=== PATIENT | male | born 1950 ===

== ENCOUNTER 2016-08-26 09:53 | Day surgery (SDC) | payer MEDICARE ==
[2016-08-24 13:08] VITALS: BMI 29.5
[~2016-08-26 09:53] MED LIST: ACETAMINOPHEN TAB 500 MG TAB PO ONE; DEXAMETHASONE SOD PHOSPHATE 10 MG/ML 1 ML VIAL IV ONE; DEXAMETHASONE SOD PHOSPHATE 4 MG/ML 1 ML VIAL IV ONE; FAMOTIDINE 20 MG/2 ML VIAL IV ONE; HYDROmorphone 1 MG/ML 1 ML SYRINGE IVP PRN; LACTATED RINGERS 1,000 ML IV SCH; LIDOCAINE 1% 20 ML VIAL (10MG/ML) FOR IV START INTRADERMA PRN; MIDAZOLAM 2 MG/2 ML VIAL IV PRN; ONDANSETRON 4 MG/2 ML VIAL IVP ONE; SCOPOLAMINE 1.5MG/72HR PATCH TRANSDERM ONE
[2016-08-26 11:09] VITALS: RESP 16
[2016-08-26] MEDS ORDERED: fentaNYL (PF) 50 MCG/ML 2 ML AMP ONE (12:03)
[2016-08-26] MEDS ORDERED: MIDAZOLAM 2 MG/2 ML VIAL ONE (12:03)
[2016-08-26] MEDS ORDERED: LIDOCAINE 1% INJ 10MG/ML (20 ML MDV) ONE (12:03)
[2016-08-26] MEDS ORDERED: LIDOCAINE 1% INJ 10MG/ML (20 ML MDV) SQ ONE (12:03)
[2016-08-26] MEDS ORDERED: SUCCINYLCHOLINE CHLORIDE 100 MG/5 ML SYR IV ONE (12:03)
[2016-08-26] MEDS ORDERED: PROPOFOL 10 MG/ML 20 ML VIAL IV ONE (12:03)
[2016-08-26] MEDS ORDERED: LACTATED RINGERS 1,000 ML IV ONE (13:28)
[2016-08-26 13:47] VITALS: TEMP 97
--- NOTE | 2016-08-26 14:03 | P.OP ---
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 Punch biopsy was positive and the patient's here today for a wider excision with frozen section and reconstruction. The patient had a lesion of his back but that had improved and he wishes not to have this surgery Operative Findings: Patient demonstrated positive margins deeply and inferiorly. We did a wider resection and we are awaiting permanent section. Description of Procedure: This patient underwent a general inhalation anesthetic in the face was sterilely prepped and draped in usual fashion. We marked this lesion and marked 4 mm in all directions of this left nasal LR rim. This allowed us to keep the remaining packed and the move forward with a possible skin graft. This was anesthetized with lidocaine 1% with epinephrine 1 100,000 and excised with a 15 blade delicate plastic scissors and a Brown-Adslanette forceps and sent for frozen section. The deep margin was extensively involved the inferior margin which was the rim was extensively involved. Wider resection was recommended. We then with use of a 15 had proceed forward with a complete removal of this left nasal alar rim. We are sending this for permanent section before we proceed forward with the reconstruction. Dressing was applied.
[2016-08-26 15:02] VITALS: BP 131/63; PULSE 60
== END 2016-08-26 15:44 | disposition home or self-care (01) ==
LOC: OR 09:53
PROVIDERS: ATTEND Otolaryngology
DX: C44.311 Basal cell carcinoma of skin of nose (principal); L57.8 Other skin changes due to chronic exposure to nonionizing radiation; Z72.0 Tobacco use; Z85.828 Personal history of other malignant neoplasm of skin; Z79.2 Long term (current) use of antibiotics; Z79.891 Long term (current) use of opiate analgesic; Z79.52 Long term (current) use of systemic steroids; Z79.899 Other long term (current) drug therapy
CPT/HCPCS: 11643; 88305; 88331; J2250; J1100; J2405; J2001; J3010; J0330; J2704

== ENCOUNTER 2018-08-15 07:43 | Inpatient (IN) | payer MEDICARE ==
[~2018-08-15 07:43] MED LIST changes: -DEXAMETHASONE SOD PHOSPHATE 4 MG/ML 1 ML VIAL IV ONE; -FAMOTIDINE 20 MG/2 ML VIAL IV ONE; +HYDROmorphone 0.5 MG/0.5 ML SYRINGE IVP PRN; -HYDROmorphone 1 MG/ML 1 ML SYRINGE IVP PRN; -LACTATED RINGERS 1,000 ML IV SCH; -LIDOCAINE 1% 20 ML VIAL (10MG/ML) FOR IV START INTRADERMA PRN; +MELOXICAM 7.5 MG TAB PO ONE; +ROPIVACAINE 246.25 MG, EPINEPHrine 0.5 MG, KETOROLAC 30 MG, WATER FOR INJECTION,STERILE... MISCELLANE ONE; +TRANEXAMIC ACID 1,000 MG in SODIUM CHLORIDE 0.9% 100 ML IVPB ONE; +ceFAZolin IN SWFI 2 GM/20 ML SYRINGE IVP ONE
[2018-08-15] MEDS ORDERED: DIAZEPAM 5 MG TAB PO PRN (08:07)
[2018-08-15] MEDS ORDERED: NALOXONE 0.4 MG/ML 1 ML VIAL IV PRN (08:07)
[2018-08-15] MEDS ORDERED: HYDROcodone/APAP 5-325MG 1 EACH TAB PO PRN ×2 (08:07)
[2018-08-15] MEDS ORDERED: NA PHOS,M-B/NA PHOS,DI-BA 133 ML ENEMA RECTAL PRN (08:07)
[2018-08-15] MEDS ORDERED: ONDANSETRON 4 MG/2 ML VIAL IVP PRN (08:07)
[2018-08-15] MEDS ORDERED: BISACODYL 10 MG SUPP RECTAL PRN (08:07)
[2018-08-15] MEDS ORDERED: MAGNESIUM HYDROXIDE 2,400 MG/10 ML CUP PO PRN (08:07)
[2018-08-15] MEDS ORDERED: HYDROmorphone 0.5 MG/0.5 ML SYRINGE IVP PRN ×3 (08:07)
[2018-08-15] MEDS ORDERED: hydrOXYzine PAMOATE 25 MG CAP PO PRN (08:07)
[2018-08-15] MEDS: LACTATED RINGERS 1,000 ML IV SCH (08:20)
[2018-08-15] MEDS ORDERED: LIDOCAINE 1% 20 ML VIAL (10MG/ML) FOR IV START INTRADERMA ONE (08:20)
[2018-08-15 08:24] LABS: Glucose,Whole Blood 111 mg/dL (75-99)
[2018-08-15] MEDS ORDERED: fentaNYL (PF) 50 MCG/ML 2 ML AMP IV ONE (08:34)
[2018-08-15] MEDS ORDERED: MIDAZOLAM 2 MG/2 ML VIAL ONE (09:08)
[2018-08-15] MEDS ORDERED: fentaNYL (PF) 50 MCG/ML 2 ML AMP ONE (09:08)
[2018-08-15] MEDS ORDERED: PROPOFOL 10 MG/ML 20 ML VIAL IV ONE (09:08)
[2018-08-15] MEDS ORDERED: ceFAZolin 3,000 MG in SODIUM CHLORIDE 0.9% IRRIGATIO 3,000 ML IRRIGATION ONE (09:44)
--- NOTE | 2018-08-15 09:46 | P.ANPRN ---
Procedure Note - Anesthesia - Nerve Block Performed Left Adductor Canal Infusion Time Out Performed: Yes Date of Procedure: 08/15/18 Procedure Start Time: 08:33 Procedure Stop Time: 08:40 Location of Patient Procedure: PreOp Indication: Acute Post-Operative Pain, Analgesia, Dx/Pain Location, Requested by physician Sedation Type: Sedate with meaningful contact maintained Preparation: Sterile Prep Position: Supine Catheter: None Needle Types: On-Q Needle Gauge: 20 Technique: Ultrasound Injectate: 0.5% Ropivacaine (see comment for volume) Blood Aspirated: No Pain Paresthesia on Injection Noted: No Resistance on Injection: Normal Events: Uneventful and Well Tolerated (20 ML TOTAL INFILTRATION WITH IMAGE IN CHART)
[2018-08-15] MEDS ORDERED: LACTATED RINGERS 1,000 ML IV ONE (10:20)
[2018-08-15] MEDS ORDERED: ROPIVACAINE 1,100 MG, SODIUM CHLORIDE 0.9% 500 ML 330 ML MISCELLANE PRN ×2 (11:25)
--- NOTE | 2018-08-15 11:28 | P.OP ---
Date of Procedure: 08/15/18 Preoperative Diagnosis: Severe medial compartment osteoarthritis left knee Postoperative Diagnosis: Severe medial compartment osteoarthritis left knee Procedure(s) Performed: Left medial unicompartmental knee arthroplasty with the visionare knee guide system Implants: Booth & Nephew journey uni-Oxinium left medial size 5 Booth & Nephew unicompartmental knee system tibial component size 5 left medial Booth & Nephew unicompartmental knee system highly cross-linked polyethylene size 5, 8 mm The articulation is Oxinium on polyethylene The Visionare knee guide system was used. Anesthesia: spinal Surgeon: Jaiden Higginbotham [employer] Letter Carrier #1: Vanessa Tan Estimated Blood Loss (ml): 25 Pathology: other (Bone and cartilage) Condition: stable Disposition: PACU Indications for Procedure: This is a 67-year-old gentleman with a history of multiple myeloma. He's been treated by me in the past conservatively for his osteoarthritis of his left knee. He now wishes to proceed with a left medial unicompartmental knee replacement. We discussed the surgical nonsurgical treatment options, as well as the risks and benefits a total knee arthroplasty versus medial compartmental knee arthroplasty. Informed consent was obtained. Operative Findings: The operative findings are consistent with left medial severe osteoarthritis Description of Procedure: Patient was seen in the preoperative area consent was reviewed and operative site was marked with a skin marker. An adductor canal pain catheter was placed by anesthesia in the preoperative area. Patient was then brought to the operating room and given preoperative antibiotics intravenously. A spinal anesthetic was administered by the anesthesia department. A tourniquet was placed on the upper thigh and the lower extremity was prepped and draped in usual sterile fashion. A gram of transexamic acid was given. A universal timeout was then performed which confirmed the patient's name, surgical site, ALLERGIES, and consent. The lower extremity was then exsanguinated and tourniquet was inflated to 250 mmHg. A standard and anterior midline approach to the knee was performed. The skin and subcutaneous tissue was dissected down to the patellar tendon. A medial parapatellar arthrotomy was then performed. The anterior horn of the medial meniscus was excised, and a release was performed to the posterior medial aspect of the knee. On gross visual inspection, there was complete loss of articular cartilage in the medial compartment. The lateral and patellofemoral compartments were intact. The distal femoral cutting guide was then pinned in place, and the distal femur was then cut. The cutting guide was then removed and the cut was checked for flatness. Next, the proximal tibial cutting guide was then placed and pinned in place. Proximal tibia was cut, as well as using a sagittal saw for the vertical notch cut. The tibia was then sized and the tibial trial was placed and the lug holes were drilled. Next, the femoral sizing guide was then pinned in place after set for the appropriate rotation. The posterior condyle cut and chamfer cut was then performed through the guide. Guide was then removed and the remaining osteophytes removed with a Rominger. Next trials were then placed with the appropriate-sized insert. The knee was able to fully extend and flex to 130 and was stable throughout all range of motion. Trials were then removed. The cut surfaces of bone were then irrigated with pulsatile lavage. The posterior structures were injected with the ropivacaine solution. The knee was also irrigated with Irrisept solution. The components were then opened, the cement was mixed, and the components were then cemented in place. The cement was allowed to harden with the knee in full extension. While the cement was hardening, the remaining soft tissues were then injected with a ropivacaine solution, which consisted of 246.25 mg of ropivacaine, 0.5 mg of epinephrine, 30 mg of Toradol, 80 g of clonidine, and 48.45 mL of sterile water, for a total of 100 mL of fluid injected. After the cemented hardened. The tourniquet was released, and hemostasis was obtained. A second gram of transexamic acid was given. The knee was again irrigated. The knee was again taken through range of motion and found to be stable throughout all range of motion of 0-130, and the patella tracked normally. The fascia was then closed with #2 strata fix suture. The subcutaneous tissue was closed with 3-0 Vicryl and 3-0 strata fix. Dermabond glue was used for the skin and placed with the knee in flexion. The patient was placed in a sterile silver dressing. Patient was then transferred to recovery room in stable condition. The pier master assistant JAYLIN Webster was required due the complexity surgery and the need for a skilled surgical instrument technician. She assisted in positioning, draping, retraction, and closure of the wound.
--- NOTE | 2018-08-15 13:52 | XR ---
EXAMINATION TYPE: XR knee limited LT DATE OF EXAM: 08/15/2018 COMPARISON: NONE TECHNIQUE: Two views submitted HISTORY: Post op FINDINGS: There is postsurgical change in near anatomic alignment. There is soft tissue edema and emphysema. There is an ill-defined intraosseous bone lesion with cortical thinning involving the distal diaphysi s of the right femur. IMPRESSION: 1. Postoperative change. Appears in near-anatomic alignment 2. There is a aggressive-appearing intraosseous bone lesion of the distal femur. Malignant lesion in the differential diagnosis including multiple myeloma or metastases. Report called to the patient's nurse.
[2018-08-15] MEDS ORDERED: HYDROcodone/APAP 5-325MG 1 EACH TAB ONE (15:50)
[2018-08-15] MEDS: SODIUM CHLORIDE 0.9% 1,000 ML IV SCH ×2 (18:04→23:01)
[2018-08-15 18:09] VITALS: BMI 31.8
[2018-08-15] MEDS: ASPIRIN 325 MG TAB PO SCH (20:26)
[2018-08-15] MEDS: SENNOSIDES-DOCUSATE SODIUM 1 EACH TAB PO SCH ×2 (20:26→23:00)
[2018-08-15] MEDS: ceFAZolin IN SWFI 2 GM/20 ML SYRINGE IVP SCH ×2 (20:28→23:29)
[2018-08-16 02:03] VITALS: PULSE 57
[2018-08-16 07:33] LABS: Basophils % (A) 0 %; Eosinophils # (A) 0.1 k/uL (0-0.7); Eosinophils % (A) 1 %; HCT 36.2 % (39.0-53.0); HGB 12.1 gm/dL (13.0-17.5); Lymphocytes # (A) 1.3 k/uL (1.0-4.8); Lymphocytes % (A) 20 %; MCH 31.9 pg (25.0-35.0); MCHC 33.4 g/dL (31.0-37.0); MCV 95.5 fL (80.0-100.0); Mean Platelet Volume 7.3; Monocytes % (A) 15 %; Neutrophils # (A) 4.1 k/uL (1.3-7.7); Neutrophils % (A) 61 %; Platelet Count 136 k/uL (150-450); RDW 15.5 % (11.5-15.5); WBC 6.8 k/uL (3.8-10.6)
--- NOTE | 2018-08-16 07:33 | CONS ---
CONSULTATION DATE OF CONSULTATION: 08/15/2018 REASON FOR CONSULTATION: Medical management requested by Dr. Higginbotham. CONSULTATION: This is a very pleasant 67-year-old patient of Dr. Martin from [place]. Did undergo left medial unicompartmental arthroplasty today. Pain is controlled. No nausea, vomiting. No chest pain or shortness of breath. Chronic stable medical conditions include multiple myeloma for which she is getting treatment, varicose veins, peripheral neuropathy. The patient has a cystic lesion in the left femur involved by the multiple myeloma that has been followed by his venereal disease control head. Otherwise, . The patient doing well, did tolerate his supper. REVIEW OF SYSTEMS: CONSTITUTIONAL: None. HEENT: None. RESPIRATORY: None. CARDIOVASCULAR: None. GASTROINTESTINAL: None. GENITOURINARY: None. MUSCULOSKELETAL: Pain in the joints. DERMATOLOGICAL: None. HEMATOLOGIC: None. LYMPHATIC: None. PSYCHIATRY: None. NEUROLOGICAL: Numbness and tingling in the feet. PAST MEDICAL HISTORY: Multiple myeloma, varicose veins, peripheral neuropathy, skin cancer, radiation treatment to the left femur lesion from multiple myeloma. PAST SURGICAL HISTORY: Hernia repair, colonoscopy, skin cancer removed, right shoulder rotator cuff surgery. SOCIAL HISTORY: Occasional cigar use. Stopped smoking cigarettes 15 years ago. Alcohol nil. Retired from the [employer]. FAMILY HISTORY: Family history of cancer. HOME MEDICATIONS: 1. Dexamethasone 4 mg on Tuesday. 2. Aspirin 81 mg daily. 3. Zovirax 200 mg as directed. ALLERGIES: None. PHYSICAL EXAMINATION: On examination, temperature 97.7, pulse 63, respiration 18, blood pressure 131/72, pulse ox 96% on room air. GENERAL APPEARANCE: Well built, BMI 31.4, sitting at the edge of the bed. EYES: Pupils equal. Conjunctivae normal. HENT: External appearance of nose and ears normal. Oral cavity normal. NECK: JVD not raised. Mass not palpable. RESPIRATORY: Effort normal. LUNGS: Fair entry. CARDIOVASCULAR: First and second sounds normal. No edema. ABDOMEN: Soft, nontender. Liver and spleen not palpable. LYMPHATIC: No lymph nodes palpable in the neck and axillae. PSYCHIATRY: Alert and oriented x3. Mood and affect normal. MUSCULOSKELETAL: Evidence of osteoarthritis in the hands. Dressing over the left knee. INVESTIGATIONS: Currently no blood work. ASSESSMENT: 1. Left medial unicompartmental arthroplasty. 2. Multiple myeloma under active treatment. 3. Chronic varicose veins. 4. 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 PLAN: Home medications to be continued. For DVT prophylaxis, the patient is on aspirin 325 twice [address] day [address] Higginbotham. Care was discussed with the patient. Questions were answered. Thank you Dr. Higginbotham. MMJUDD / NANCYN: [phone] /
[2018-08-16] MEDS: LACTATED RINGERS 1,000 ML IV SCH (07:39)
[2018-08-16 07:46] VITALS: BP 146/75; RESP 16; TEMP 97.7
--- NOTE | 2018-08-16 07:54 | P.PN ---
Progress Note - Text Progress Note Date: 08/16/18 anesthesia adductor catheter rounds s/p left knee Arthroplasty patient evaluated at the bedside, denies any major complaints VAS 4/10, catheter site unremarkable without leakage or signs of infection primary team to manage, possible home discharge
--- NOTE | 2018-08-16 09:28 | P.DS ---
Providers Date of admission: 08/15/18 07:43 Expected date of discharge: 08/16/18 Attending physician: Jaiden Higginbotham Consults: 08/15/18 08:07 Consult Physician Routine Consulting Provider: Gal Schafer Consult Reason/Comments: medical management and anticoagulation Do you want consulting provider notified?: Yes Primary care physician: Neftaly Martin - Discharge Diagnosis(es) (1) Osteoarthritis of left knee Current Visit: Yes Status: Acute (2) Status post total left knee replacement Current Visit: Yes Status: Acute Hospital Course: This is a 67-year-old male with known history of severe medial compartment osteo arthritis of the left knee. The patient presents for evaluation. After discussion and consideration patient elects to proceed with left medial unicompartmental knee arthroplasty. The patient is seen preoperatively by Dr. Higginbotham and medically cleared for surgery by their primary care physician. Patient is admitted to [facility] on 08/15/2018 for left medial unicompartmental knee arthroplasty. The procedures performed without complication or sequelae. The patient is doing well postoperatively. Labs and vital signs are stable on day of discharge. On day of discharge patient's knee incision is healing well. There is minimal erythema. There is no drainage noted at this time. There is minimal soft tissue swelling to the knee. Patient has full foot and ankle motion without d ifficulty or pain. Calf is soft and nontender to palpation. Neurovascular status to the left lower extremity is intact. Patient is discharged home in good condition. Opioid start talking form is reviewed and signed at patient bedside. Please see med rec for accurate list of home medications. Plan - Discharge Summary Discharge Rx Participant: Yes New Discharge Prescriptions: New Aspirin 325 mg PO BID #60 tab No Action Aspirin [Adult Low Dose Aspirin EC] 81 mg PO DAILY Acyclovir [Zovirax] 200 mg PO DIRECTED Dexamethasone 4 mg PO WE Discharge Medication List Acyclovir [Zovirax] 200 mg PO DIRECTED 08/10/18 [History] Aspirin [Adult Low Dose Aspirin EC] 81 mg PO DAILY 08/10/18 [History] Dexamethasone 4 mg PO WE 08/10/18 [History] Aspirin 325 mg PO BID #60 tab 08/16/18 [Rx] Follow up Appointment(s)/Referral(s): Jaiden Higginbotham DO [Doctor of Osteopathic Medicine] - 2 Weeks Activity/Diet/Wound Care/Special Instructions: Weightbearing as tolerated with a walker. CPM 5-6h daily. Leave dressing intact. May be removed by home care nurse or by patient in 10 days. May shower with dressing on. Patient states that he has pain medication at home to take that is prescribed by another physician. Please follow up with [facility] and call with any questions or concerns, . Discharge Disposition: HOME WITH HOME HEALTH SERVICES
[2018-08-16] MEDS: ASPIRIN 325 MG TAB PO SCH (10:55)
--- NOTE | 2018-08-17 07:03 | PN ---
PROGRESS NOTE DATE OF SERVICE: 08/16/2018 PRESENTING COMPLAINT: Knee surgery. INTERVAL HISTORY: Patient is status post left knee surgery, doing well. Pain is controlled. Up and about. No dizziness. No chest pain. Did tolerate a diet. REVIEW OF SYSTEMS: Done for constitutional, cardiovascular, GI, pulmonary; relevant findings as above. CURRENT MEDICATIONS: Current medications are reviewed. PHYSICAL EXAMINATION: On examination, temperature 97.7, pulse 57, respiration 16, blood pressure 146/75, pulse ox 95% on room air. LUNGS: Are clear. CARDIOVASCULAR: First and second sounds normal. ABDOMEN: Soft, nontender. Liver and spleen not palpable. PSYCHIATRY: Alert and oriented x3. Mood and affect normal. LOWER EXTREMITIES: Varicose veins are present. INVESTIGATIONS: White count 6.8, hemoglobin 12.1. ASSESSMENT: 1. Left medial unicompartmental arthroplasty. 2. Multiple myeloma under active treatment. 3. Chronic varicose veins. 4. 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 PLAN: Care was discussed the patient especially due to varicose veins. Care was discussed with the patient's . Questions were answered. Thank you Dr. Higginbotham. MMZANEL / NANCYN: [phone] /
== END 2018-08-16 11:53 | disposition home health service (06) | DRG 470 ==
LOC: 2ORMAIN 07:43 → 4SSUR 13:28
PROVIDERS: ADMIT Orthopaedic Surgery; ATTEND Orthopaedic Surgery
PROC: 0SRD0L9 Replacement of Left Knee Joint with Medial Unicondylar Synthetic Substitute, Cemented, Open Approach (ICD-10-PCS; principal; 2018-08-15 09:20)
DX: M17.12 Unilateral primary osteoarthritis, left knee (principal); C90.00 Multiple myeloma not having achieved remission; G62.0 Drug-induced polyneuropathy; T45.1X5A Adverse effect of antineoplastic and immunosuppressive drugs, initial encounter; F17.290 Nicotine dependence, other tobacco product, uncomplicated; I83.90 Asymptomatic varicose veins of unspecified lower extremity; I10 Essential (primary) hypertension; Z79.82 Long term (current) use of aspirin; Z79.899 Other long term (current) drug therapy; Z85.828 Personal history of other malignant neoplasm of skin; Z80.9 Family history of malignant neoplasm, unspecified
CPT/HCPCS: 85025; 88300

== ENCOUNTER 2019-11-16 10:57 | Inpatient (IN) | payer MEDICARE ==
[2019-11-16] MEDS ORDERED: ACETAMINOPHEN TAB 325 MG TAB PO PRN (11:04)
[2019-11-16] MEDS ORDERED: IBUPROFEN 400 MG TAB PO PRN (11:04)
[2019-11-16] MEDS ORDERED: NALOXONE 0.4 MG/ML 1 ML VIAL IV PRN (11:04)
[2019-11-16] MEDS ORDERED: ONDANSETRON 4 MG/2 ML VIAL IVP PRN (11:04)
[2019-11-16] MEDS ORDERED: MAG HYDROX/AL HYDROX/SIMETH 30 ML CUP PO PRN (11:04)
[2019-11-16] MEDS ORDERED: CALCIUM CARBONATE 500 MG CHEWABLE PO PRN (11:04)
[2019-11-16 12:19] LABS: Basophils % (A) 0 %; Eosinophils % (A) 2 %; HCT 35.8 % (39.0-53.0); HGB 11.7 gm/dL (13.0-17.5); Lymphocytes # (A) 0.2 k/uL (1.0-4.8); Lymphocytes % (A) 10 %; MCH 32.6 pg (25.0-35.0); MCHC 32.8 g/dL (31.0-37.0); MCV 99.3 fL (80.0-100.0); Mean Platelet Volume 7.7; Monocytes # (A) 0.2 k/uL (0-1.0); Monocytes % (A) 7 %; Neutrophils # (A) 1.8 k/uL (1.3-7.7); Neutrophils % (A) 81 %; Platelet Count 124 k/uL (150-450); RBC 3.61 m/uL (4.30-5.90); RDW 13.5 % (11.5-15.5); WBC 2.3 k/uL (3.8-10.6)
[2019-11-16 12:29] LABS: ALT 64 U/L (4-49); AST 31 U/L (17-59); African American GFR (CKD) >90 (>60 ml/min/1.73 sqM); Alkaline Phosphatase 92 U/L (38-126); Anion Gap 6 mmol/L; Blood Urea Nitrogen 16 mg/dL (9-20); Carbon Dioxide 28 mmol/L (22-30); Chloride 101 mmol/L (98-107); Glucose 153 mg/dL (74-99); Non-African American GFR(CKD) >90 (>60 ml/min/1.73 sqM); Potassium 4.3 mmol/L (3.5-5.1); Sodium 135 mmol/L (137-145); Total Bilirubin 0.8 mg/dL (0.2-1.3); Total Protein 5.3 g/dL (6.3-8.2)
--- NOTE | 2019-11-16 12:44 | P.HPOR ---
History of Present Illness H&P Date: 11/16/19 Chief Complaint: left upper extremity cellulitis this is a 68-year-old male who presented to our office today for follow-up of his left elbow. He was initially seen on 11/13/2019 with cellulitis to the elbow. He has no known history of trauma or injury to the arm. He states that he was unloading his truck with wood the days prior. He developed redness, swelling and pain to the left elbow. He was placed on Keflex initially in the emergency department and has been on the antibiotics for 6 days.On exam in the office today his symptoms have progressed significantly. He was admitted from our office for IV antibiotic and wound care to the left upper extremity. The patient has history of chronic multiple myeloma. He has been on a chemotherapeutic medication. I have contacted his oncologist and a recent PET scan shows no increased uptake other than the left elbow. According to recent labs his immunoglobulin levels are low. He had a temperature of 101 prior to his visit on 11/13/2019. He states that he has been afebrile since beginning the antibiotic. Past Medical History Past Medical History: Cancer Additional Past Medical History / Comment(s): MULTIPLE MYELOMA- RECEIVES ANTIBODY TX AT [facility]) last July,. SKIN CANCER.- LEFT NASAL BASAL CELL CANCER. 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,hands and feet, had radiation tx for leasion on left femur History of Any Multi-Drug Resistant Organisms: None Reported Past Surgical History: Hernia Repair, Orthopedic Surgery Additional Past Surgical History / Comment(s): COLONOSCOPY, LEFT NASAL SKIN CANCER REMOVED, rt shoulder rotator cuff Past Anesthesia/Blood Transfusion Reactions: No Reported Reaction Past Psychological History: No Psychological Hx Reported Past Alcohol Use History: None Reported Additional Past Alcohol Use History / Comment(s): occ cigar currently, stopped cigarettes 15 yrs ago Past Drug Use History: None Reported - Past Family History Mother Family Medical History: Cancer Medications and Allergies Home Medications Medication Instructions Recorded Confirmed Type Aspirin [Adult Low Dose Aspirin EC] 81 mg PO DAILY 08/10/18 11/16/19 History dexAMETHasone [Dexamethasone] 4 mg PO FRSA 08/10/18 11/16/19 History Acyclovir 400 mg PO BID 11/16/19 11/16/19 History Cephalexin [Keflex] 500 mg PO Q6HR 11/16/19 11/16/19 History HYDROcodone/APAP 5-325MG [[place] 1 tab PO Q6HR PRN 11/16/19 11/16/19 History 5-325] Pomalidomide [Pomalyst] 4 mg PO DAILY 11/16/19 11/16/19 History Allergies Allergy/AdvReac Type Severity Reaction Status Date / Time No Known Allergies Allergy Verified 08/15/18 14:35 Physical Examination this is a pleasant 68-year-old male in no acute distress. He is alert and oriented at this time. His is present during exam. Exam of the left upper extremity reveals significant erythema and swelling from the upper arm down to the fingers there is a superficial wound to the lateral aspect of the elbow and forearm which is weeping clear fluid. There is also a small wound on the volar aspect of the forearm. He has near full extension of the elbow with flexion to 90. He has full wrist and finger motion without difficulty or pain. Neurovascular status to the upper extremity is intact. Results - Labs Labs: Abnormal Lab Results - Last 24 Hours (Table) 11/16/19 11/16/19 Range/Units 12:03 12:03 WBC 2.3 L (3.8-10.6) k/uL RBC 3.61 L (4.30-5.90) m/uL Hgb 11.7 L (13.0-17.5) gm/dL Hct 35.8 L (39.0-53.0) % Plt Count 124 L (150-450) k/uL Lymphocytes # 0.2 L (1.0-4.8) k/uL Sodium 135 L (137-145) mmol/L Glucose 153 H (74-99) mg/dL ALT 64 H (4-49) U/L Total Protein 5.3 L (6.3-8.2) g/dL Albumin 3.0 L (3.5-5.0) g/dL H & H 11/16/19 Range/Units 12:03 Hgb 11.7 L (13.0-17.5) gm/dL Hct 35.8 L (39.0-53.0) % Result Diagrams: 11/16/19 12:03 11/16/19 12:03 Assessment and Plan (1) Cellulitis of left upper extremity Current Visit: Yes Status: Acute Code(s): L03.114 - CELLULITIS OF LEFT UPPER LIMB SNOMED Code(s): 514352710 (2) Hx of multiple myeloma Current Visit: Yes Status: Acute Code(s): Z85.79 - PRSNL HX OF MALIG NEOPLM OF LYMPHOID, HEMATPOETC & REL TISS SNOMED Code(s): 232617874547312 Plan: The clinical findings are discussed with the patient and his . Since he has failed outpatient antibiotic treatment, it is recommended that he be admitted to the hospital for IV antibiotics and wound care. The oncologist has recommended transfusion with IVIG as well as discontinuing his chemotherapeutic medication. I have consulted infectious disease and Dr. Martin for medical ma nagement.
[2019-11-16] MEDS: SODIUM CHLORIDE 0.9% 1,000 ML IV SCH (12:46)
[2019-11-16] MEDS ORDERED: IMMUNE GLOBULIN (GAMMAGARD) 20 GM in EMPTY BAG 1 BAG IV ONE ×6 (14:00→17:00)
[2019-11-16] MEDS ORDERED: VANCOMYCIN IV PER PHARMACY 1 EACH MISC MISCELLANE PRN (16:02)
[2019-11-16] MEDS ORDERED: VANCOMYCIN 1,750 MG in SODIUM CHLORIDE 0.9% 500 ML 500 ML IVPB ONE (16:30)
[2019-11-16] MEDS ORDERED: IMMUNE GLOBULIN (GAMMAGARD) 30 GM in EMPTY BAG 1 BAG IV ONE (17:00)
[2019-11-16] MEDS ORDERED: IMMUNE GLOBULIN (GAMMAGARD) 5 GM in EMPTY BAG 1 BAG IV ONE (17:00)
--- NOTE | 2019-11-16 18:01 | CT ---
EXAMINATION TYPE: CT forearm LT w con DATE OF EXAM: 11/16/2019 COMPARISON: None HISTORY: Left forearm abscess CT DLP: 237.4 mGycm Automated exposure control for dose reduction was used. CONTRAST: Performed with IV Contrast, patient injected with 100 mL of Isovue 300. Images were obtained from the level of the distal humerus to the radiocarpal joint with IV contrast. There is subcutaneous edema over the proximal posterior ulna. There is also mild subcutaneous edema o chucky the anterior proximal forearm. Fluid collection is seen along the proximal ulna that measures at least 15 cm in length and up to 1.5 cm in thickness. I see no bony destructive process. Radius and ulna appear intact. The elbow joint is intact. There is no sign of elbow joint effusion. Muscle structures of the forearm appear intact. IMPRESSION: Subcutaneous edema and fluid around the proximal forearm that is more at the posterior proximal ulna and consistent with cellulitis. There is probably abscess also. No focal bone destruction. No fractur e seen.
[2019-11-17] MEDS: VANCOMYCIN 1,750 MG in SODIUM CHLORIDE 0.9% 500 ML 500 ML IVPB SCH ×3 (00:28→16:02)
--- NOTE | 2019-11-17 00:38 | P.CONS ---
History of Present Illness - Reason for Consult Consult date: 11/16/19 Left upper extremity cellulitis Requesting physician: Yrn Duarte - Chief Complaint Left forearm pain swelling and tenderness x few days - History of Present Illness Patient is 68-year-old male who apparently was unloading his truck with the words as he was working on the porch the next day he noticed swelling and redness to the left forearm patient did not recall any trauma when he was unloading the truck when he got patient was seen at [facility] ER with the patient was diagnosed with cellulitis and has been treated with oral Keflex patient did have more days from the area of redness and he was instructed if the redness spreads plan is to follow-up with physician patient noticed to have more swelling and redness to the left forearm for the patient was evaluated by orthopedic associated Dr. Duarte patient has been diagnosed with worsening cellulitis he was admitted to the hospital infectious disease was consulted for further management of antibiotic therapy, patient may symptom remains to be diffuse swelling and redness to the left arm also some superficial ulceration and minimal drainage, pain is mostly dull aching 3-4 out of 10 and no radiation, patient on presentation hospital afebrile however he did have some mild leukopenia kidney function normal Review of Systems Positive point has been mentioned in the HPI rest of the systems are negative Past Medical History Past Medical History: Cancer Additional Past Medical History / Comment(s): MULTIPLE MYELOMA- RECEIVES ANTIBODY TX AT [facility]) last July,. SKIN CANCER.- LEFT NASAL BASAL CELL CANCER. 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,hands and feet, had radiation tx for leasion on left femur History of Any Multi-Drug Resistant Organisms: None Reported Past Surgical History: Hernia Repair, Orthopedic Surgery Additional Past Surgical History / Comment(s): COLONOSCOPY, LEFT NASAL SKIN CANCER REMOVED, rt shoulder rotator cuff Past Anesthesia/Blood Transfusion Reactions: No Reported Reaction Past Psychological History: No Psychological Hx Reported Past Alcohol Use History: None Reported Additional Past Alcohol Use History / Comment(s): occ cigar currently, stopped cigarettes 15 yrs ago Past Drug Use History: None Reported - Past Family History Mother Family Medical History: Cancer Father Family Medical History: Coronary Artery Disease (CAD) Medications and Allergies Home Medications Medication Instructions Recorded Confirmed Type Aspirin [Adult Low Dose Aspirin EC] 81 mg PO DAILY 08/10/18 11/16/19 History dexAMETHasone [Dexamethasone] 4 mg PO FRSA 08/10/18 11/16/19 History Acyclovir 400 mg PO BID 11/16/19 11/16/19 History Cephalexin [Keflex] 500 mg PO Q6HR 11/16/19 11/16/19 History HYDROcodone/APAP 5-325MG [[place] 1 tab PO Q6HR PRN 11/16/19 11/16/19 History 5-325] Pomalidomide [Pomalyst] 4 mg PO DAILY 11/16/19 11/16/19 History Allergies Allergy/AdvReac Type Severity Reaction Status Date / Time No Known Allergies Allergy Verified 08/15/18 14:35 Physical Exam Vitals: Vital Signs Temp Pulse Resp BP Pulse Ox 11/16/19 13:25 97.9 F 84 20 118/78 96 Intake and Output 11/15/19 11/16/19 11/16/19 22:59 06:59 14:59 Other: Weight 108.862 kg GENERAL DESCRIPTION: An elderly male lying in bed, no distress. No tachypnea or accessory muscle of respiration use. HEENT: Shows Pallor , no scleral icterus. Oral mucous membrane is dry. No pharyngeal erythema or thrush NECK: Trachea central, no thyromegaly. LUNGS: Unlabored breathing. Clear to auscultation anteriorly. No wheeze or crackle. HEART: S1, S2, regular rate and rhythm. No loud murmur ABDOMEN: Soft, no tenderness , guarding or rigidity, no organomegaly EXTREMITIES: Left forearm did have diffuse swelling and redness no significant swelling was noticed at elbow area he did have some superficial ulceration. SKIN: No rash, no masses palpable. NEUROLOGICAL: The patient is awake, alert, oriented x3, mood and affect normal. Results CBC & Chem 7: 11/16/19 12:03 11/16/19 12:03 Labs: Abnormal Lab Results - Last 24 Hours (Table) 11/16/19 11/16/19 Range/Units 12:03 12:03 WBC 2.3 L (3.8-10.6) k/uL RBC 3.61 L (4.30-5.90) m/uL Hgb 11.7 L (13.0-17.5) gm/dL Hct 35.8 L (39.0-53.0) % Plt Count 124 L (150-450) k/uL Lymphocytes # 0.2 L (1.0-4.8) k/uL Sodium 135 L (137-145) mmol/L Glucose 153 H (74-99) mg/dL ALT 64 H (4-49) U/L Total Protein 5.3 L (6.3-8.2) g/dL Albumin 3.0 L (3.5-5.0) g/dL Assessment and Plan Assessment: 1- patient with acute left forearm cellulitis possibly started from my laceration when he was unloading the truck the day before his symptoms started and seems to have failed to respond to the oral Keflex with concern for possible underlying abscess and that may need to be drained or community associated MRSA (1) Cellulitis of left upper extremity Current Visit: Yes Status: Acute Code(s): L03.114 - CELLULITIS OF LEFT UPPER LIMB SNOMED Code(s): 240083448 Plan: 1- wound culture has been obtained to guide antibiotic therapy 2-we'll obtain a CT of the forearm to rule out any abscess and that may need to be drained 3-Vancomycin pharmacy to dose target trough of 15 while watching his kidney function and Vanco trough closely 4- local wound care with try Aquacel silver dressing followed by Onur wrap to the left arm from just above the finger to above the elbow area We will follow on clinical condition and cultures to further adjust medication if needed Thank you for this consultation will follow this patient with you Time with Patient: Greater than 30
--- NOTE | 2019-11-17 12:49 | P.PN ---
Progress Note - Text Progress Note Date: 11/17/19 Orthopedics: History of present illness: Patient is a pleasant 68-year-old male who is seen and examined at bedside for follow-up evaluation for the cellulitis of his left upper extremity. He was originally admitted yesterday after failing conservative treatment in the outpatient setting. He is not currently complaining of any pain in his left upper extremity. He feels his left upper extremity swelling has improved since his admission. He has been seen and examined by Dr. Busch in infectious disease who is managing IV antibiotics as well as wound care. He is currently on vancomycin. Cultures are currently pending with preliminary results positive for rare gram-positive cocci. Patient does have a history of chronic multiple myeloma. Patient has been on chemotherapeutic medication. This medicine has been held per recommendations by his oncologist. Patient has been able to receive IgG transfusion since his admission. He has also had CT imaging of the left forearm. Patient does feel he has had some improvement since his admissi on. Physical Exam: Patient is awake, alert, and oriented 3 Vital signs stable Good chest excursion with deep inspiration and expiration Onur wrap currently intact at the elbow extending to the left hand Top Onur wrap is loose and is removed during physical examination reapplied Dressing is in place over a superficial wound at the lateral aspect of the elbow and forearm Patient is able to perform active range of motion of the fingers the left hand and left elbow without difficulty Pertinent studies: Wound culture the left elbow: Preliminary results positive for rare gram- positive cocci CT of the left forearm taken on 11/16/2019: Subcutaneous edema and fluid around the proximal forearm there is more at the posterior proximal ulna and consistent with cellulitis; no focal bone destruction; no fracture seen; probably abscess also Assessment: Cellulitis left upper extremity History of multiple myeloma Plan: 1. Patient had been discussed with Dr. Duarte and Liana Whitaker PA-C. We are currently planning to continue conservative treatment at this time in regards to his left upper extremity cellulitis. We do not have any emergent plans for surgical intervention of his left upper extremity. If he were to fail with conservative treatment and IV antibiotics, we would discuss the possibility of incision and drainage at the left elbow. Patient will continue with wound care as set forth by Dr. Busch. He is currently on IV antibiotics with vancomycin as prescribed by Dr. Busch in infectious disease. We will plan to continue having Dr. Busch manage his IV antibiotics. Wound cultures left elbow are currently pending with preliminary results positive for rare Gram stain positive cocci. Once the cultures are finalized and Dr. Busch is able to prescribe the patient the appropriate antibiotic regimen, we may plan for discharge home if the patient is able to continue to improve. We will continue to follow patient. 2. Patient was able to receive one IgG transfusion of 55 g. we will continue to hold chemotherapeutic medication per his oncologist recommendations. 3. Patient will continue to be seen by medicine for treatment and evaluation of his other medical diagnoses
--- NOTE | 2019-11-17 15:58 | PN ---
PROGRESS NOTE DATE OF SERVICE: 11/17/2019 REASON FOR FOLLOWUP: Left upper extremity wound and cellulitis. INTERVAL HISTORY: Patient is currently afebrile, has been breathing comfortably. Pain to the left upper extremity and swelling slightly decreased. No chest pain or cough. No abdominal pain or diarrhea. PHYSICAL EXAMINATION: Blood pressure 115/70 with a pulse of 56, temperature is 97.8. He is 98% on room air. General description is an elderly male lying in bed in no distress. Respiratory system: Unlabored breathing, clear to auscultation anteriorly. Heart S1, S2. Regular rate and rhythm. Abdomen is soft, no tenderness. Left upper extremity is currently dressed up. No obvious drainage on the dressing. LABS: Wound and blood cultures currently pending. DIAGNOSTIC IMPRESSION AND PLAN: Patient with left upper extremity cellulitis, failing outpatient oral Keflex therapy. CT did show small abscess. Case was discussed with Ortho. Will be discussing with a physician with question of possible I and D or not. We will keep the patient on vancomycin while waiting for the culture to finalize and monitor clinical course closely. MMODL / IJN: [id number] /
[2019-11-17] MEDS: ENOXAPARIN 40 MG/0.4 ML SYRINGE SQ SCH (16:02)
[2019-11-17] MEDS ORDERED: HYDROcodone/APAP 5-325MG 1 EACH TAB PO PRN (16:43)
--- NOTE | 2019-11-17 16:43 | P.CONS ---
History of Present Illness - Reason for Consult Consult date: 11/17/19 Medical management Requesting physician: Yrn Duarte - Chief Complaint Left arm redness - History of Present Illness History of presenting complaint: This is a 68-year-old patient of Dr. Sagar veras from [place]. Long- standing history of multiple myeloma that is under control. Patient takes dexamethasone twice a week and Pomalyst as maintenance dose. Additional chronic stable medical conditions include varicose veins, peripheral neuropathy, patient had presented yesterday to Dr. Duarte's office. This is a follow-up for the left elbow. He was initially seen on November 12 was described as a cellulitis to the elbow. He denied any trauma. Prior to the redness starting he was unloading his truck with [employer]. His reading glass es. His redness swelling extended to the left arm. He was initially put on Keflex in the ER. Symptoms are progressively gotten worse. The office had contacted patient's oncologist and a recent PET scan that showed no increased uptake other than the left elbow. Recent lab showed low immunoglobin is. She was admitted for the same. Earlier he was given immunoglobulin. Patient often rests his left elbow on a recliner which is made of thick clots. He had a fever prior to starting on antibiotics. Continued left arm is a dressing and Onur wrap. Review of systems: GEN.: Tired EYES: None HEENT: None NECK: None RESPIRATORY: None CARDIOVASCULAR: None GASTROINTESTINAL: None GENITOURINARY: None MUSCULOSKELETAL: None LYMPHATICS: None HEMATOLOGICAL: None PSYCHIATRY: None NEUROLOGICAL: None Past medical history to include: Multiple myeloma in remission with recent PET scan negative, left nasal basal cell cancer, varicose veins, peripheral neuropathy, Social history: Lives with his . Occasional cigar smoking. Stopped smoking 15 years ago cigarettes. Alcohol none. Physical examination: VITAL SIGNS: 97.9, 84, 20, 118/78, 96% room air upon presentation GENERAL: BMI 31.7, sitting up in bed, awake. EYES: Pupils equal. Conjunctiva normal. HEENT: External appearance of nose and ears normal, oral cavity grossly normal. NECK: JVD not raised; masses not palpable. HEART: First and second heart sounds are normal; no edema. LUNGS: Respiratory rate normal; clear to auscultation. ABDOMEN: Soft, nontender, liver spleen not palpable, no masses palpable. PSYCH: Alert and oriented x3; mood and affect normal. EXTREMITY: Left forearm and a dressing and Onur wrap, no swelling of the fingers able to move fingers NEUROLOGICAL: Cranial nerves grossly intact; no facial asymmetry, power and sensation grossly intact. LYMPHATICS: No lymph nodes palpable in the axilla and neck INVESTIGATIONS, reviewed in the clinical context: White count 2.3 hemoglobin 11.7 platelets 124 potassium 4.3 creatinine 0.71 albumin 3 Forearm computed tomography scan showing subcutaneous edema and fluid around the proximal forearm. Abscess cannot be ruled out. Assessment: -Left forearm cellulitis having failed outpatient treatment with Keflex for a week with secondary swelling and tenderness -Pancytopenia from underlying diagnoses of multiple myeloma -Multiple myeloma currently under control in recent PET scan being negative -Obesity BMI 31.7 -Hypoalbuminemia-reactive Plan: Patient is on IV vancomycin. Kerlix and Onur wrap. Put the patient on the stress dose of IV hydrocortisone. Other home medications are to continue. Care was discussed with the patient question also. Keep left arm elevated. Patient is also being followed by infectious disease Thank you Dr. Duarte Past Medical History Past Medical History: Cancer Additional Past Medical History / Comment(s): MULTIPLE MYELOMA- RECEIVES ANTIBODY TX AT [facility]) last July,. SKIN CANCER.- LEFT NASAL BASAL CELL CANCER. 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,hands and feet, had radiation tx for leasion on left femur History of Any Multi-Drug Resistant Organisms: None Reported Past Surgical History: Hernia Repair, Orthopedic Surgery Additional Past Surgical History / Comment(s): COLONOSCOPY, LEFT NASAL SKIN CANCER REMOVED, rt shoulder rotator cuff Past Anesthesia/Blood Transfusion Reactions: No Reported Reaction Past Psychological History: No Psychological Hx Reported Past Alcohol Use History: None Reported Additional Past Alcohol Use History / Comment(s): occ cigar currently, stopped cigarettes 15 yrs ago Past Drug Use History: None Reported - Past Family History Mother Family Medical History: Cancer Additional Family Medical History / Comment(s): Mother had lymphoma. She lived to be over 80 Father Family Medical History: Coronary Artery Disease (CAD) Medications and Allergies Home Medications Medication Instructions Recorded Confirmed Type Aspirin [Adult Low Dose Aspirin EC] 81 mg PO DAILY 08/10/18 11/16/19 History dexAMETHasone [Dexamethasone] 4 mg PO FRSA 08/10/18 11/16/19 History Acyclovir 400 mg PO BID 11/16/19 11/16/19 History Cephalexin [Keflex] 500 mg PO Q6HR 11/16/19 11/16/19 History HYDROcodone/APAP 5-325MG [[place] 1 tab PO Q6HR PRN 11/16/19 11/16/19 History 5-325] Pomalidomide [Pomalyst] 4 mg PO DAILY 11/16/19 11/16/19 History Allergies Allergy/AdvReac Type Severity Reaction Status Date / Time No Known Allergies Allergy Verified 08/15/18 14:35 Physical Exam Vitals: Vital Signs Temp Pulse Pulse Resp BP BP Pulse Ox 11/17/19 04:31 97.5 F L 59 L 17 114/66 97 11/16/19 20:12 97.5 F L 82 82 16 152/81 98 11/16/19 13:25 97.9 F 84 20 118/78 96 11/16/19 11:04 96 Intake and Output 11/16/19 11/17/19 11/17/19 22:59 06:59 14:59 Intake Total 315.617 790 240 Balance 315.617 790 240 Intake: Intake, IV Titration 25.617 500 Amount Immune Globulin ( 25.617 Gammagard) 30 gm In Empty Bag 1 bag @ Per Protocol IV .Q0M ONE Rx#: [id number] Vancomycin 1,750 mg In 500 Sodium Chloride 0.9% 500 ml 500 ml @ 167 mls/hr IVPB Q8H [facility] Rx#: [id number] Oral 290 290 240 Other: Voiding Method Toilet Toilet Toilet # Voids 1 1 Weight 108.862 kg Results CBC & Chem 7: 11/16/19 12:03 11/16/19 12:03 Labs: Abnormal Lab Results - Last 24 Hours (Table) 11/16/19 11/16/19 Range/Units 12:03 12:03 WBC 2.3 L (3.8-10.6) k/uL RBC 3.61 L (4.30-5.90) m/uL Hgb 11.7 L (13.0-17.5) gm/dL Hct 35.8 L (39.0-53.0) % Plt Count 124 L (150-450) k/uL Lymphocytes # 0.2 L (1.0-4.8) k/uL Sodium 135 L (137-145) mmol/L Glucose 153 H (74-99) mg/dL ALT 64 H (4-49) U/L Total Protein 5.3 L (6.3-8.2) g/dL Albumin 3.0 L (3.5-5.0) g/dL Microbiology - Last 24 Hours (Table) 11/16/19 15:00 Gram Stain - Preliminary Arm - Left Wound Culture - Preliminary
[2019-11-17] MEDS: HYDROCORTISONE SUCCINATE 100 MG/2 ML VIAL IV SCH (17:15)
--- NOTE | 2019-11-17 17:15 | P.PCN ---
Date of Procedure: 11/17/19 Preoperative Diagnosis: Left forearm abscess Postoperative Diagnosis: Same Procedure(s) Performed: Bedside irrigation and debridement with some excisional debridement of denuded tissue left forearm abscess, 2 x 2 centimeters into the deep dermis and muscle Anesthesia: none Pathology: none sent Description of Procedure: I was able to see the patient had bedside I reviewed the imaging as well as the prior dictations and I'm in agreement with the dictations. I reviewed the infectious disease note as well. The case was also discussed with Dr. Bates had been managing patient previously. The CT scans showed some fluid collection at the deep dermis and potentially into the muscular of the dorsal forearm. The patient was making improvement with the IV antibiotics his erythema and swelling was improving. The volar forearm was making good progress as was the dorsal forearm. There is some blistering at the volar forearm which seem to be clean without any evidence of fluid collection. The dorsal forearm had some small ulceration and opening. There is no active drainage but there is some palpable collection deep to the skin. This correlated with the computed tomography scan findings. At bedside I removed the bandage and sterilized area with chlorhexidine solution. I was unable used cotton swabs as well as forceps to clean out the ulcerated and denuded tissue. Some of the denuded tissue was excised with scissors. The patient was able to tolerate this well. I was able to get into the ulceration at the center and into some of the deep dermis and into the suha mely forearm musculature. It did not extend into the bone. Patient was able to tolerate bedside debridement. I was able to find a pocket of pus with approximate 5-10 mL of purulent material. This was able to be cleaned out. I was able to clean out the area further with saline. There is no further purulence or pus. The pocket seem to extend approximately 2 x 2 x 1 cm deep into the deep dermis and to the superficial muscle. There is no further fluid collection that I could palpate. The patient tolerated this well and we will to redress it appropriately. The patient will continue his IV antibiotics and close monitoring. We'll see if the collection reforms. If it does he may need formal irrigation and debridement in the operative room. It seems that the bedside irrigation and debridement did accomplish some washout of the purulence and pus from the abscess at the forearm and hopefully this will continue to make progress for him so that he can continue further antibiotics with close wound management. He tolerated the procedure well answered his questions best my ability in a language that he can understand, and we will follow him closely.
[2019-11-17] MEDS: POMALIDOMIDE 4 MG PO SCH (17:16)
[2019-11-17] MEDS: SODIUM CHLORIDE 0.9% 1,000 ML IV SCH (19:39)
[2019-11-17] MEDS: ACYCLOVIR 200 MG CAP PO SCH (20:15)
[2019-11-18] MEDS: VANCOMYCIN 1,750 MG in SODIUM CHLORIDE 0.9% 500 ML 500 ML IVPB SCH ×2 (00:34→08:22)
[2019-11-18] MEDS: HYDROCORTISONE SUCCINATE 100 MG/2 ML VIAL IV SCH ×4 (00:34→23:50)
[2019-11-18 03:32] LABS: Appearance,Urine Clear (Clear); Bacteria,Urine Rare /hpf; Bilirubin,Urine Negative (Negative); Blood,Urine Small (Negative); Color,Urine Light Yellow; Glucose,Urine (UA) Negative (Negative); Ketones,Urine Negative (Negative); Leukocyte Esterase,Urine Negative (Negative); Mucus,Urine Rare /hpf; Nitrite,Urine Negative (Negative); PH, Urine 6.5 (5.0-8.0); Protein,Urine Negative (Negative); RBC,Urine 1 /hpf (0-5); Specific Gravity,Urine 1.009 (1.001-1.035); Squamous Epithelial Cell,Urine <1 /hpf (0-4); Urobilinogen,Urine <2.0 mg/dL (<2.0); WBC,Urine 1 /hpf (0-5)
[2019-11-18] MEDS ORDERED: VANCOMYCIN TROUGH DUE 1 EACH MISC MISCELLANE ONE (07:00)
[2019-11-18 07:20] LABS: HCT 31.2 % (39.0-53.0); HGB 10.3 gm/dL (13.0-17.5); MCH 33.3 pg (25.0-35.0); MCHC 33.1 g/dL (31.0-37.0); MCV 100.6 fL (80.0-100.0); Platelet Count 141 k/uL (150-450); RDW 13.6 % (11.5-15.5); WBC 2.4 k/uL (3.8-10.6)
[2019-11-18 07:35] LABS: African American GFR (CKD) >90 (>60 ml/min/1.73 sqM); Non-African American GFR(CKD) >90 (>60 ml/min/1.73 sqM)
[2019-11-18] MEDS: ENOXAPARIN 40 MG/0.4 ML SYRINGE SQ SCH (08:11)
[2019-11-18] MEDS: ACYCLOVIR 200 MG CAP PO SCH ×2 (08:11→20:33)
[2019-11-18] MEDS: ASPIRIN 81 MG PO SCH (08:11)
[2019-11-18] MEDS: POMALIDOMIDE 4 MG PO SCH (08:12)
[2019-11-18] MEDS: VANCOMYCIN 1,250 MG in SODIUM CHLORIDE 0.9% 250 ML IVPB SCH ×3 (08:23→23:50)
--- NOTE | 2019-11-18 09:52 | P.PN ---
Progress Note - Text Progress Note Date: 11/18/19 Is seen and examined today at bedside. He feels comfortable. He is not having fevers. He feels his arms is much less painful than a couple days ago. He is using his hands and fingers. We performed a bedside I&D yesterday. He's afebrile. On his left arm the volar aspect is essentially unchanged there is some blistered superficial skin which is still intact there is no fluid collection At the dorsal aspect of the left arm the skin is raw where some denuded skin tissue has been removed. There was small yellowish drainage from the I&D ulcerated site. The area does not have a gross fluid collection. I was able to milk less than a cc of some yellowish fluid from the spine. The patient tolerated this well. The compartments are soft both there is one area of induration right at the site. I do not palpate any further abscess or gross collection of fluid at this point. Assessment and plan Left forearm cellulitis with abscess. One day post bedside I&D. Cultures with some gram-positive cocci still pending On IV antibiotics The site does not have significant change from when we lifted after the I&D at bedside yesterday. I do not palpate a significant abscess formation. It is still somewhat difficult to tell if this will make appropriate progress or if he will need formal irrigation and debridement. It seems to be making slow progress with local wound care and IV antibiotics and we will continue this for now is reluctant closely to determine if there needs to be further intervention. Cultures are still pending and we will watch those and we further recommendations from infectious disease.
[2019-11-18] MEDS: SODIUM CHLORIDE 0.9% 1,000 ML IV SCH (20:43)
--- NOTE | 2019-11-18 22:04 | PN ---
PROGRESS NOTE DATE OF SERVICE: 11/18/2019 REASON FOR FOLLOWUP: Left upper extremity cellulitis and abscess. INTERVAL HISTORY: The patient was seen ( ) yesterday. The patient did have bedside drainage of the abscess. Unfortunately, no cultures were done. The patient tolerated the procedure. Denies having any chest pain or shortness of breath or cough. No abdominal pain, no diarrhea. PHYSICAL EXAMINATION: Blood pressure 130/70 with a pulse of 72, temperature 98.2. He is 96% on room air. General description is an elderly male lying in bed in no distress. Respiratory system: Unlabored breathing, clear to auscultation anteriorly. Heart S1, S2. Regular rate and rhythm. Abdomen soft, no tenderness. Left arm is currently dressed up, no drainage on the dressing. LABS: Hemoglobin is 10.3, white count 2.4, creatinine 0.66. Blood culture negative, superficial culture has been negative. DIAGNOSTIC IMPRESSION AND PLAN: Patient with left upper extremity cellulitis and abscess. The patient is status post drainage of this abscess. Unfortunately, cultures were not done and superficial culture has been negative. Patient is covered with vancomycin ( ) tomorrow. ( ) discharge antibiotics continue supportive care. MMODL / IJN: [id number] /
--- NOTE | 2019-11-18 23:31 | P.PN ---
Progress Note - Text Progress Note Date: 11/18/19 - Chief Complaint Left arm redness - History of Present Illness History of presenting complaint: This is a 68-year-old patient of Dr. Sagar veras from [place]. Long- standing history of multiple myeloma that is under control. Patient takes dexamethasone twice a week and Pomalyst as maintenance dose. Additional chronic stable medical conditions include varicose veins, peripheral neuropathy, patient had presented yesterday to Dr. Duarte's office. This is a follow-up for the left elbow. He was initially seen on November 12 was described as a cellulitis to the elbow. He denied any trauma. Prior to the redness starting he was unlo ading his truck with [employer]. His reading glasses. His redness swelling extended to the left arm. He was initially put on Keflex in the ER. Symptoms are progressively gotten worse. The office had contacted patient's oncologist and a recent PET scan that showed no increased uptake other than the left elbow. Recent lab showed low immunoglobin is. She was admitted for the same. Earlier he was given immunoglobulin. Patient often rests his left elbow on a recliner which is made of thick clots. He had a fever prior to starting on antibiotics. Continued left arm is a dressing and Onur wrap. today-sitting out of bed. Left ulnar dressing. Last night he would I&D of the same. Pus was drained. has got a wet saline dressing. at the bedside. Review of systems: Was done for constitutional, cardiovascular, GI, pulmonary. relevant finding as above Active Medications Acetaminophen (Tylenol Tab) 650 mg PO Q6HR PRN PRN Reason: Mild Pain or Fever > 100.5 Hydrocodone Bitart/Acetaminophen ([place] 5-325) 1 each PO Q6HR PRN PRN Reason: Pain Last Admin: 11/17/19 17:14 Dose: 1 each Documented by: Acyclovir (Zovirax) 400 mg PO BID [facility] Last Admin: 11/18/19 20:33 Dose: 400 mg Documented by: Al Hydroxide/Mg Hydroxide (Maalox) 15 ml PO Q6HR PRN PRN Reason: Indigestion Aspirin (Aspirin) 81 mg PO DAILY [facility] Last Admin: 11/18/19 08:11 Dose: 81 mg Documented by: Calcium Carbonate/Glycine (Tums) 1,000 mg PO Q4HR PRN PRN Reason: Dyspepsia Enoxaparin Sodium (Lovenox) 40 mg SQ DAILY [facility] Last Admin: 11/18/19 08:11 Dose: 40 mg Documented by: Hydrocortisone Sodium Succinate (Solu-Cortef) 50 mg IV Q8HR [facility] Last Admin: 11/18/19 16:38 Dose: 50 mg Documented by: Sodium Chloride (Saline 0.9%) 1,000 mls @ 20 mls/hr IV .Q24H [facility] Last Admin: 11/18/19 20:43 Dose: Not Given Documented by: Vancomycin HCl 1,250 mg/ (Sodium Chloride) 250 mls @ 125 mls/hr IVPB Q8H [facility] Last Admin: 11/18/19 16:37 Dose: 125 mls/hr Documented by: Ibuprofen (Motrin) 400 mg PO Q6HR PRN PRN Reason: Mild Pain or Fever > 100.5 Naloxone HCl (Narcan) 0.2 mg IV Q2M PRN PRN Reason: Opioid Reversal Patient's Own ( Pomalidomide [ Pomalyst] 4 Mg) 4 mg PO DAILY [facility] Last Admin: 11/18/19 08:12 Dose: Not Given Documented by: Ondansetron HCl (Zofran) 4 mg IVP Q8HR PRN PRN Reason: Nausea And Vomiting Physical examination: VITAL SIGNS: afebrile, 62, 18, 132/72, 99% room air GENERAL: sitting up in bed, more comfortable. EYES: Pupils equal. Conjunctiva normal. HEENT: External appearance of nose and ears normal, oral cavity grossly normal. NECK: JVD not raised; masses not palpable. HEART: First and second heart sounds are normal; no edema. LUNGS: Respiratory rate normal; clear to auscultation. ABDOMEN: Soft, nontender, liver spleen not palpable, no masses palpable. PSYCH: Alert and oriented x3; mood and affect normal. EXTREMITY: Left forearm and a dressing and Onur wrap, no swelling of the fingers able to move fingers INVESTIGATIONS, reviewed in the clinical context: White count 2.4 hemoglobin 10.3 creatinine 0.66 Admission testing White count 2.3 hemoglobin 11.7 platelets 124 potassium 4.3 creatinine 0.71 albumin 3 Forearm computed tomography scan showing subcutaneous edema and fluid around the proximal forearm. Abscess cannot be ruled out. Assessment: -Left forearm cellulitis an abscesshaving failed outpatient treatment with Keflex for a week with abscess. Status post I&D. -Pancytopenia from underlying diagnoses of multiple myeloma -Multiple myeloma currently under control in recent PET scan being negative -Obesity BMI 31.7 -Hypoalbuminemia-reactive Plan: patient IV vancomycin. Doing better. Told him to keep his left arm elevated. at the bedside. Care was discussed with patient.cultures pending Thank you Dr. Duarte
[2019-11-19 07:07] LABS: HGB 9.7 gm/dL (13.0-17.5); MCH 32.5 pg (25.0-35.0); MCHC 32.2 g/dL (31.0-37.0); Macrocytosis Slight; Mean Platelet Volume 7.8; Platelet Count 130 k/uL (150-450); RBC 2.98 m/uL (4.30-5.90); RDW 13.7 % (11.5-15.5); WBC 2.5 k/uL (3.8-10.6)
[2019-11-19 07:34] LABS: African American GFR (CKD) >90 (>60 ml/min/1.73 sqM); Anion Gap 2 mmol/L; Blood Urea Nitrogen 12 mg/dL (9-20); Carbon Dioxide 28 mmol/L (22-30); Chloride 110 mmol/L (98-107); Glucose 80 mg/dL (74-99); Non-African American GFR(CKD) >90 (>60 ml/min/1.73 sqM); Potassium 3.5 mmol/L (3.5-5.1); Sodium 140 mmol/L (137-145)
[2019-11-19] MEDS: HYDROCORTISONE SUCCINATE 100 MG/2 ML VIAL IV SCH ×2 (08:08→16:17)
[2019-11-19] MEDS: VANCOMYCIN 1,250 MG in SODIUM CHLORIDE 0.9% 250 ML IVPB SCH ×2 (08:08→16:17)
[2019-11-19] MEDS: POMALIDOMIDE 4 MG PO SCH (08:11)
[2019-11-19] MEDS: ENOXAPARIN 40 MG/0.4 ML SYRINGE SQ SCH (08:18)
[2019-11-19] MEDS: ACYCLOVIR 200 MG CAP PO SCH ×2 (08:18→20:14)
[2019-11-19] MEDS: ASPIRIN 81 MG PO SCH (08:18)
--- NOTE | 2019-11-19 11:10 | P.PN ---
Progress Note - Text Progress Note Date: 11/19/19 Orthopedics: History of present illness: Patient is a pleasant 68-year-old male who is seen and examined at bedside for follow-up evaluation for the cellulitis of his left upper extremity. He was originally admitted Tuesday after failing conservative treatment in the outpatient setting. A bedside I&D was performed on 11/17/2019. He continues to have some drainage from the wound/I&D site. He is not currently complaining of any pain in his left upper extremity. He feels his left upper extremity swelling has improved since his admission but he does continue to have swelling of the left upper extremity. He continues to be seen and examined by Dr. Busch in infectious disease who is managing IV antibiotics as well as wound care. He is currently on vancomycin. Cultures are positive for rare gram- positive cocci. Patient does have a history of chronic multiple myeloma. Patient has been on chemotherapeutic medication. This medicine has been held per recommendations by his oncologist. Patient has been able to receive IgG transfusion since his admission. He has also had CT imaging of the left forearm. Patient does feel he has had some improvement since his admission. Physical Exam: Patient is awake, alert, and oriented 3 Vital signs stable Good chest excursion with deep inspiration and expiration Onur wrap currently intact at the elbow extending to the left hand Dressing is removed during physical examination and reapplied with optigel, ABD, stretch wrap, and Onur wrap Evidence of some superficial blistering at the volar aspect of left forearm that has since had some drainage with no active drainage or fluid collection Some bruising at the volar aspect of the left forearm Dorsal aspect the left forearm shows evidence of some raw skin around the wound/I&D site I was able to express approximately 1 mL of purulent discharge from the wound/I&D site I was unable to express any other further fluid collection No significant pain with palpation over the left forearm Palpation of the left forearm shows evidence of induration Patient is able to perform active range of motion of the fingers the left hand and left elbow without difficulty Pertinent studies: Wound culture the left elbow: Final results positive for rare gram-positive cocci CT of the left forearm taken on 11/16/2019: Subcutaneous edema and fluid around the proximal forearm there is more at the posterior proximal ulna and consistent with cellulitis; no focal bone destruction; no fracture seen; probably abscess also Assessment: Cellulitis left upper extremity History of multiple myeloma Plan: 1. Patient underwent a bedside I&D on 11/17/2019. He feels the pain in his left forearm is well-controlled. He does continue to have some drainage from the wound/I&D site. He continues with IV antibiotics per Dr. Busch in infectious disease. Patient denies nausea, vomiting, fever, chills. At this time we will plan to continue conservative treat with IV antibiotics. We discussed that we will plan to make him nothing by mouth at midnight for further evaluation in the morning and possible formal irrigation and debridement in the operating room by Dr. Duarte if necessary. Patient will continue with wound care over the left upper extremity. He is encouraged to elevate the left arm for comfort support as needed to help with the swelling of the left upper extremity. We will continue to follow patient closely. 2. During this admission the patient was able to receive one IgG transfusion of 55 g she receives monthly. We will continue to hold chemotherapeutic medication per his oncologist recommendations. 3. Patient will continue to be seen by medicine for treatment and evaluation of his other medical diagnoses 4. Patient will continue with treatment evaluation by Dr. Busch infectious disease and will continue with wound care and IV antibiotics per his recommendations
[2019-11-19] MEDS: SODIUM CHLORIDE 0.9% 1,000 ML IV SCH (12:39)
--- NOTE | 2019-11-19 15:39 | P.PN ---
Progress Note - Text Progress Note Date: 11/19/19 - Chief Complaint Left arm redness - History of Present Illness History of presenting complaint: This is a 68-year-old patient of Dr. Sagar veras from [place]. Long- standing history of multiple myeloma that is under control. Patient takes dexamethasone twice a week and Pomalyst as maintenance dose. Additional chronic stable medical conditions include varicose veins, peripheral neuropathy, patient had presented yesterday to Dr. Duarte's office. This is a follow-up for the left elbow. He was initially seen on November 12 was described as a cellulitis to the elbow. He denied any trauma. Prior to the redness starting he was unlo ading his truck with [employer]. His reading glasses. His redness swelling extended to the left arm. He was initially put on Keflex in the ER. Symptoms are progressively gotten worse. The office had contacted patient's oncologist and a recent PET scan that showed no increased uptake other than the left elbow. Recent lab showed low immunoglobin is. She was admitted for the same. Earlier he was given immunoglobulin. Patient often rests his left elbow on a recliner which is made of thick material. He had a fever prior to starting on antibiotics. Continued left arm is a dressing and Onur wrap. Did undergo I&D and pus was cleaned out.. today-had a dressing obtained done this morning. Left arm because he is better. No fever no chills. Is still draining some pus. Has reported. Tolerating diet. Had a bowel movement. Review of systems: Was done for constitutional, cardiovascular, GI, pulmonary. relevant finding as above Active Medications Acetaminophen (Tylenol Tab) 650 mg PO Q6HR PRN PRN Reason: Mild Pain or Fever > 100.5 Hydrocodone Bitart/Acetaminophen ([place] 5-325) 1 each PO Q6HR PRN PRN Reason: Pain Last Admin: 11/17/19 17:14 Dose: 1 each Documented by: Acyclovir (Zovirax) 400 mg PO BID [facility] Last Admin: 11/19/19 08:18 Dose: 400 mg Documented by: Al Hydroxide/Mg Hydroxide (Maalox) 15 ml PO Q6HR PRN PRN Reason: Indigestion Aspirin (Aspirin) 81 mg PO DAILY [facility] Last Admin: 11/19/19 08:18 Dose: 81 mg Documented by: Calcium Carbonate/Glycine (Tums) 1,000 mg PO Q4HR PRN PRN Reason: Dyspepsia Enoxaparin Sodium (Lovenox) 40 mg SQ DAILY [facility] Last Admin: 11/19/19 08:18 Dose: 40 mg Documented by: Hydrocortisone Sodium Succinate (Solu-Cortef) 25 mg IV Q8HR [facility] Sodium Chloride (Saline 0.9%) 1,000 mls @ 20 mls/hr IV .Q24H [facility] Last Admin: 11/19/19 12:39 Dose: 20 mls/hr Documented by: Vancomycin HCl 1,250 mg/ (Sodium Chloride) 250 mls @ 125 mls/hr IVPB Q8H [facility] Last Admin: 11/19/19 08:08 Dose: 125 mls/hr Documented by: Ibuprofen (Motrin) 400 mg PO Q6HR PRN PRN Reason: Mild Pain or Fever > 100.5 Miscellaneous Information (Vancomycin Trough Due) 0 each MISCELLANE DIRECTED ONE Stop: 11/20/19 07:01 Naloxone HCl (Narcan) 0.2 mg IV Q2M PRN PRN Reason: Opioid Reversal Patient's Own ( Pomalidomide [ Pomalyst] 4 Mg) 4 mg PO DAILY [facility] Last Admin: 11/19/19 08:11 Dose: Not Given Documented by: Ondansetron HCl (Zofran) 4 mg IVP Q8HR PRN PRN Reason: Nausea And Vomiting Physical examination: VITAL SIGNS: 97.6, 58, 18, 135/76, 97% room air GENERAL: sitting up in bed, comfortable. EYES: Pupils equal. Conjunctiva normal. NECK: JVD not raised; masses not palpable. HEART: First and second heart sounds are normal; no edema. LUNGS: Respiratory rate normal; clear to auscultation. ABDOMEN: Soft, nontender, liver spleen not palpable, no masses palpable. PSYCH: Alert and oriented x3; mood and affect normal. EXTREMITY: Left forearm and a dressing and Onur wrap, no swelling of the fingers able to move fingers INVESTIGATIONS, reviewed in the clinical context: White count 2.5 hemoglobin 9.7 platelets 1:30 potassium 3.5 Admission testing White count 2.3 hemoglobin 11.7 platelets 124 potassium 4.3 creatinine 0.71 albumin 3 Forearm computed tomography scan showing subcutaneous edema and fluid around the proximal forearm. Abscess cannot be ruled out. Assessment: -Left forearm cellulitis and abscess-having failed outpatient treatment with Keflex for a week with abscess. Status post I&D. -Pancytopenia from underlying diagnoses of multiple myeloma -Multiple myeloma currently under control in recent PET scan being negative. On dexamethasone and Pomalyst -Obesity BMI 31.7 -Hypoalbuminemia-reactive Plan: Continue IV vancomycin. Been on a stress dose of hydrocortisone. We will decrease to 25 mg IV every 8. This can be further decreased tomorrow. Discussed with Dr. Munoz He'll decide about the antibiotics. Thank you Dr. Duarte
[2019-11-19 22:12] VITALS: RESP 16
[2019-11-20] MEDS: VANCOMYCIN 1,250 MG in SODIUM CHLORIDE 0.9% 250 ML IVPB SCH ×2 (00:07→09:39)
[2019-11-20] MEDS: HYDROCORTISONE SUCCINATE 100 MG/2 ML VIAL IV SCH ×2 (00:08→08:24)
[2019-11-20 04:20] VITALS: BP 147/87; PULSE 62; TEMP 98
--- NOTE | 2019-11-20 06:22 | PN ---
PROGRESS NOTE DATE OF SERVICE: 11/19/2019 REASON FOR FOLLOWUP: Left upper extremity cellulitis and abscess. INTERVAL HISTORY: The patient is currently afebrile, has been breathing comfortably. The patient denies having any chest pain or shortness of breath or cough. No nausea, vomiting. No abdominal pain. Overall pain and swelling to the left upper extremity have improved. PHYSICAL EXAMINATION: Blood pressure 156/76 with pulse of 59, temperature 98.5. He is 97% on room air. General description is an elderly male up in the bed in no distress. RESPIRATORY SYSTEM: Unlabored breathing, clear to auscultation anteriorly. HEART: S1, S2. Regular rate and rhythm. ABDOMEN: Soft, no tenderness. Left upper extremity swelling has much improved. LABS: Hemoglobin 9.7, white count 2.5, BUN of 12, creatinine 0.67. DIAGNOSTIC IMPRESSION AND PLAN: Patient with left upper extremity abscess and cellulitis status post surgical drainage. Unfortunately no deep cultures, superficial culture negative. The patient did fail outpatient oral Keflex. Clinically responding to the vancomycin that will be transitioned to oral Bactrim DS one b.i.d. for 10 days. Local wound care with Aquacel silver dressing and follow up in the [facility] in one week. MMODL / IJN: [id number] / JEWELS
[2019-11-20] MEDS ORDERED: VANCOMYCIN TROUGH DUE 1 EACH MISC MISCELLANE ONE (07:00)
[2019-11-20 07:35] LABS: Basophils % (A) 0 %; Eosinophils # (A) 0.1 k/uL (0-0.7); Eosinophils % (A) 3 %; HCT 31.4 % (39.0-53.0); HGB 10.2 gm/dL (13.0-17.5); Lymphocytes # (A) 0.6 k/uL (1.0-4.8); Lymphocytes % (A) 18 %; MCH 32.8 pg (25.0-35.0); MCHC 32.3 g/dL (31.0-37.0); MCV 101.6 fL (80.0-100.0); Macrocytosis Slight; Monocytes # (A) 0.3 k/uL (0-1.0); Monocytes % (A) 9 %; Neutrophils # (A) 2.3 k/uL (1.3-7.7); Neutrophils % (A) 68 %; Platelet Count 166 k/uL (150-450); RBC 3.09 m/uL (4.30-5.90); RDW 13.8 % (11.5-15.5); WBC 3.5 k/uL (3.8-10.6)
[2019-11-20 07:57] LABS: African American GFR (CKD) >90 (>60 ml/min/1.73 sqM); Non-African American GFR(CKD) >90 (>60 ml/min/1.73 sqM)
[2019-11-20] MEDS: ASPIRIN 81 MG PO SCH (08:23)
[2019-11-20] MEDS: ACYCLOVIR 200 MG CAP PO SCH (08:23)
[2019-11-20] MEDS: ENOXAPARIN 40 MG/0.4 ML SYRINGE SQ SCH (08:23)
--- NOTE | 2019-11-20 09:24 | P.DS ---
Providers Date of admission: 11/16/19 11:08 Expected date of discharge: 11/20/19 Attending physician: Yrn Duarte Consults: 11/16/19 11:08 Consult Physician Routine Consulting Provider: Gal Schafer Consult Reason/Comments: Medical management Do you want consulting provider notified?: Yes Consult Physician Routine Consulting Provider: Roxane Busch Consult Reason/Comments: IV antibiotics and wound care LUE Do you want consulting provider notified?: Yes Primary care physician: Neftaly Martin - Leonel Diagnosis(es) (1) Cellulitis of left upper extremity Current Visit: Yes Status: Acute (2) Hx of multiple myeloma Current Visit: Yes Status: Acute Hospital Course: This is a 68-year-old male who presented to our office on 11/16/2019 for follow-up of his left elbow. He was initially seen on 11/13/2019 with cellulitis to the elbow. He has no known history of trauma or injury to the arm. He states that he was unloading his truck with wood the days prior. He developed redness, swelling and pain to the left elbow. He was placed on Keflex initially in the emergency department and has been on the antibiotics for 6 days.On exam in the office his symptoms have progressed significantly. He was admitted from our office for IV antibiotic and wound care to the left upper extremity. The patient has history of chronic multiple myeloma. He has been on a chemotherapeutic medication. I have contacted his oncologist and a recent PET scan shows no increased uptake other than the left elbow. According to recent labs his immunoglobulin levels are low. He had a temperature of 101 prior to his visit on 11/13/2019. He states that he has been afebrile since beginning the antibiotic. during his inpatient stay he was managed by internal medicine and infectious disease. A culture was taken which show normal skin bayron to the left elbow, gram-positive cocci. He improved over the weekend. Today his erythema has receded and swelling is significantly improved. A bedside I&D was performed by Dr. Titus Carrillo on 11/18/2019. The wound continues to have a small amount of purulent drainage. Dr. Busch is managing wound care with Aquacel silver. The patient is afebrile on day of discharge. He may be discharged today with oral antibiotics per infectious disease. He is to follow-up in our office on Tuesday. He is to call sooner if there are any problems or questions regarding his care or if symptoms worsen. Plan - Discharge Summary Discharge Rx Participant: No New Discharge Prescriptions: New Sulfamethox-Tmp 800-160Mg [Bactrim DS 800-160 mg] 1 tab PO Q12HR #20 tab No Action Aspirin [Adult Low Dose Aspirin EC] 81 mg PO DAILY dexAMETHasone [Dexamethasone] 4 mg PO FRSA Pomalidomide [Pomalyst] 4 mg PO DAILY HYDROcodone/APAP 5-325MG [[place] 5-325] 1 tab PO Q6HR PRN PRN Reason: Pain Cephalexin [Keflex] 500 mg PO Q6HR Acyclovir 400 mg PO BID Discharge Medication List Aspirin [Adult Low Dose Aspirin EC] 81 mg PO DAILY 08/10/18 [History] dexAMETHasone [Dexamethasone] 4 mg PO FRSA 08/10/18 [History] Acyclovir 400 mg PO BID 11/16/19 [History] Cephalexin [Keflex] 500 mg PO Q6HR 11/16/19 [History] HYDROcodone/APAP 5-325MG [[place] 5-325] 1 tab PO Q6HR PRN 11/16/19 [History] Pomalidomide [Pomalyst] 4 mg PO DAILY 11/16/19 [History] Sulfamethox-Tmp 800-160Mg [Bactrim DS 800-160 mg] 1 tab PO Q12HR #20 tab 11/19/19 [Rx] Follow up Appointment(s)/Referral(s): Yrn Duarte MD [STAFF PHYSICIAN] - 3 Days Activity/Diet/Wound Care/Special Instructions: Aquacel silver dressing to the left forearm wound followed by Onur wrap to be changed daily follow-up with Dr. Busch in the wound care center for 1 week, call [phone] to make an appointment F/U w Dr Duarte Tuesday this week, call sooner if symptoms worsen.
[2019-11-20] MEDS: POMALIDOMIDE 4 MG PO SCH (09:45)
--- NOTE | 2019-11-20 14:20 | P.PN ---
Subjective Progress Note Date: 11/20/19 Principal diagnosis: History of presenting complaint: This is a 68-year-old patient of Dr. Sagar veras from [place]. Long- standing history of multiple myeloma that is under control. Patient takes dexamethasone twice a week and Pomalyst as maintenance dose. Additional chronic stable medical conditions include varicose veins, peripheral neuropathy, patient had presented yesterday to Dr. Duarte's office. This is a follow-up for the left elbow. He was initially seen on November 12 was described as a cellulitis to the elbow. He denied any trauma. Prior to the redness starting he was unloading his truck with [employer]. His reading glasses. His redness swelling extended to the left arm. He was initially put on Keflex in the ER. Symptoms are progressively gotten worse. The office had contacted patient's oncologist and a recent PET scan that showed no increased uptake other than the left elbow. Recent lab showed low immunoglobin is. She was admitted for the same. Earlier he was given immunoglobulin. Patient often rests his left elbow on a recliner which is made of thick material. He had a fever prior to starting on antibiotics. Continued left arm is a dressing and Onur wrap. Did undergo I&D and pus was cleaned out.. today-had a dressing obtained done this morning. Left arm because he is better. No fever no chills. Is still draining some pus. Has reported. Tolerating diet. Had a bowel movement. 11/20/2019 Patient is seen and evaluated in follow-up status post incision and drainage of the left elbow. Following along closely with orthopedic surgery. Patient is maintained on IV antibiotics in the form of vancomycin and will be transitioning to oral Bactrim upon discharge. Patient states he is doing much better and would like to go home. No acute overnight issues. Left elbow dressing is dry and intact with recent dressing change. Review of systems: Constitutional: No reports of fatigue, fever, or chills Cardiovascular: No reports of chest pain or palpitations Respiratory: No reports of shortness of breath or cough GI: No reports of nausea, vomiting, or diarrhea : No reports of dysuria or retention Neurovascular: No reports of weakness or numbness All medications have been reviewed Objective - Vital Signs Vital signs: Vital Signs Temp 98.0 F 11/20/19 04:19 Pulse 62 11/20/19 04:19 Resp 16 11/20/19 04:19 BP 147/87 11/20/19 04:19 Pulse Ox 96 11/20/19 04:19 Intake & Output 11/19/19 11/20/19 11/20/19 18:59 06:59 18:59 Intake Total 250 1290 Balance 250 1290 Intake: Intake, IV Titration 250 330 Amount Sodium Chloride 0.9% 1, 80 000 ml @ 20 mls/hr IV . Q24H [facility] Rx#:[id number] Vancomycin 1,250 mg In 250 250 Sodium Chloride 0.9% 250 ml @ 125 mls/hr IVPB Q8H [facility] Rx#:[id number] Oral 960 Other: Voiding Method Toilet Toilet Toilet # Voids 2 1 - Exam GENERAL: sitting up in bed, comfortable. Awake, alert and oriented 3, well- developed, well-nourished. EYES: Pupils equal. Conjunctiva normal. NECK: JVD not raised; masses not palpable. HEART: S1, S2 are present LUNGS: Breath sounds clear to auscultation with no wheezing or rhonchi noted. ABDOMEN: Soft, nontender, no masses palpable. PSYCH: Alert and oriented x3; mood and affect normal. EXTREMITY: Left forearm and a dressing and Onur wrap, no swelling of the fingers able to move fingers SKIN: No rashes or lesions noted - Labs CBC & Chem 7: 11/20/19 06:36 11/20/19 06:36 Labs: Abnormal Lab Results - Last 24 Hours (Table) 11/20/19 11/20/19 Range/Units 06:36 06:36 WBC 3.5 L (3.8-10.6) k/uL RBC 3.09 L (4.30-5.90) m/uL Hgb 10.2 L (13.0-17.5) gm/dL Hct 31.4 L (39.0-53.0) % MCV 101.6 H (80.0-100.0) fL Lymphocytes # 0.6 L (1.0-4.8) k/uL Procalcitonin 0.13 H (0.02-0.09) ng/mL Microbiology - Last 24 Hours (Table) 11/16/19 12:03 Blood Culture - Preliminary Blood No Growth after 72 hours Assessment and Plan Assessment: Assessment: -Left forearm cellulitis and abscess-having failed outpatient treatment with Keflex for a week with abscess. Status post I&D. -Pancytopenia from underlying diagnoses of multiple myeloma -Multiple myeloma currently under control in recent PET scan being negative. On dexamethasone and Pomalyst. Follows with oncology in the outpatient setting -Obesity BMI 31.7 -Hypoalbuminemia-reactive -DVT prophylaxis: Subcu Lovenox -Full code Plan: Continue current medications, management, and symptomatic treatment. Will continue to follow along closely with orthopedic surgery during hospitalization. Infectious disease also following. Patient will likely transition to oral antibiotics in the form of Bactrim upon discharge. Further recommendations to follow. Patient states he is being discharged today. To continue with local wound care and follow-up with oncology along with orthopedic surgery in a few days as scheduled.
--- NOTE | 2019-11-20 22:54 | P.PN ---
Progress Note - Text Progress Note Date: 11/20/19 REASON FOR FOLLOWUP: Left upper extremity cellulitis and abscess. INTERVAL HISTORY: The patient remains to be afebrile, the patient is breathing comfortably. The patient denies having any chest pain or shortness of breath or cough. No nausea, vomiting. No abdominal pain. The patient pain and swelling to the left upper extremity have improved. PHYSICAL EXAMINATION: Blood pressure 150/70 with pulse of 59, temperature 98.5. He is 97% on room air. General description is an elderly male up in the bed in no distress. RESPIRATORY SYSTEM: Unlabored breathing, clear to auscultation anteriorly. HEART: S1, S2. Regular rate and rhythm. ABDOMEN: Soft, no tenderness. Left upper extremity swelling has much improved. LABS: No labs Obtained today DIAGNOSTIC IMPRESSION AND PLAN: Patient with left upper extremity abscess and cellulitis status post surgical drainage. Unfortunately no deep cultures, superficial culture negative. The patient did fail outpatient oral Keflex. The patient has Clinically responded to the vancomycin, antibiotics will be transitioned to oral Bactrim DS one b.i.d. for 10 days. Local wound care with Aquacel silver dressing and [facility] in one week, questions concerned were answered
== END 2019-11-20 11:34 | disposition home or self-care (01) | DRG 580 ==
LOC: 6NMEDSUR 11:08
PROVIDERS: ADMIT Orthopaedic Surgery; ATTEND Orthopaedic Surgery
PROC: 30233S1 Transfusion of Nonautologous Globulin into Peripheral Vein, Percutaneous Approach (ICD-10-PCS; 2019-11-16)
PROC: 0KBB0ZZ Excision of Left Lower Arm and Wrist Muscle, Open Approach (ICD-10-PCS; principal; 2019-11-17)
DX: L02.414 Cutaneous abscess of left upper limb (principal); C90.00 Multiple myeloma not having achieved remission; D61.818 Other pancytopenia; E88.09 Other disorders of plasma-protein metabolism, not elsewhere classified; L03.114 Cellulitis of left upper limb; I83.90 Asymptomatic varicose veins of unspecified lower extremity; G62.9 Polyneuropathy, unspecified; E66.9 Obesity, unspecified; Z68.31 Body mass index [BMI] 31.0-31.9, adult; F17.290 Nicotine dependence, other tobacco product, uncomplicated; Z71.6 Tobacco abuse counseling; Z79.82 Long term (current) use of aspirin; Z79.52 Long term (current) use of systemic steroids; Z79.899 Other long term (current) drug therapy; Z85.828 Personal history of other malignant neoplasm of skin; Z97.4 Presence of external hearing-aid; Z87.19 Personal history of other diseases of the digestive system; Z87.39 Personal history of other diseases of the musculoskeletal system and connective tissue; Z98.890 Other specified postprocedural states; Z80.7 Family history of other malignant neoplasms of lymphoid, hematopoietic and related tissues; Z82.49 Family history of ischemic heart disease and other diseases of the circulatory system
CPT/HCPCS: 80048; 80053; 80202; 81001; 82565; 84145; 85025; 85027; 87040; 87070; 87205

== ENCOUNTER 2019-11-26 10:38 | Inpatient (IN) | payer MEDICARE ==
[2019-11-26] MEDS ORDERED: MAG HYDROX/AL HYDROX/SIMETH 30 ML CUP PO PRN (11:52)
[2019-11-26] MEDS ORDERED: HYDROmorphone 1 MG/ML 1 ML SYRINGE IVP PRN (11:52)
[2019-11-26] MEDS ORDERED: NALOXONE 0.4 MG/ML 1 ML VIAL IV PRN (11:52)
[2019-11-26] MEDS ORDERED: NA PHOS,M-B/NA PHOS,DI-BA 133 ML ENEMA RECTAL PRN (11:52)
[2019-11-26] MEDS ORDERED: DOCUSATE 100 MG CAP PO PRN (11:52)
[2019-11-26] MEDS ORDERED: ACETAMINOPHEN TAB 325 MG TAB PO PRN (11:52)
[2019-11-26] MEDS ORDERED: bisacodyL 5 MG TABLET.DR PO PRN (11:52)
[2019-11-26] MEDS ORDERED: MAGNESIUM HYDROXIDE 2,400 MG/10 ML CUP PO PRN (11:52)
[2019-11-26] MEDS ORDERED: LACTULOSE 20 GM/30 ML CUP PO PRN (11:52)
[2019-11-26] MEDS ORDERED: ONDANSETRON 4 MG/2 ML VIAL IVP PRN (11:52)
[2019-11-27] MEDS: SODIUM CHLORIDE 0.9% 1,000 ML IV SCH ×2 (11:49→14:01)
[2019-11-27 13:17] LABS: Basophils # (A) 0.1 k/uL (0-0.2); Basophils % (A) 1 %; Eosinophils # (A) 0.1 k/uL (0-0.7); Eosinophils % (A) 1 %; HCT 40.7 % (39.0-53.0); HGB 12.9 gm/dL (13.0-17.5); Lymphocytes # (A) 1.1 k/uL (1.0-4.8); Lymphocytes % (A) 12 %; MCH 31.9 pg (25.0-35.0); MCHC 31.8 g/dL (31.0-37.0); MCV 100.3 fL (80.0-100.0); Macrocytosis Slight; Mean Platelet Volume 7.2; Monocytes # (A) 0.7 k/uL (0-1.0); Monocytes % (A) 8 %; Neutrophils # (A) 6.8 k/uL (1.3-7.7); Neutrophils % (A) 75 %; Platelet Count 256 k/uL (150-450); RBC 4.05 m/uL (4.30-5.90); RDW 14.5 % (11.5-15.5)
[2019-11-27] MEDS ORDERED: VANCOMYCIN IV PER PHARMACY 1 EACH MISC MISCELLANE PRN (13:52)
[2019-11-27] MEDS ORDERED: VANCOMYCIN 1,750 MG in SODIUM CHLORIDE 0.9% 500 ML 500 ML IVPB ONE (14:30)
[2019-11-27] MEDS ORDERED: IV FLUID CONTINUATION 1,000 ML IV ONE (15:52)
[2019-11-27] MEDS ORDERED: fentaNYL (PF) 50 MCG/ML 2 ML AMP ONE (16:35)
[2019-11-27] MEDS ORDERED: PROPOFOL 10 MG/ML 20 ML VIAL IV ONE (16:35)
[2019-11-27] MEDS ORDERED: MIDAZOLAM 2 MG/2 ML VIAL ONE (16:35)
[2019-11-27] MEDS ORDERED: KETAMINE 10 MG/ML 20 ML VIAL ONE (16:35)
--- NOTE | 2019-11-27 18:13 | P.OP ---
Date of Procedure: 11/27/19 Procedure(s) Performed: PREOPERATIVE DIAGNOSES: 1. Right forearm subcutaneous abscess 2. Draining lateral wound with overlying superficial cellulitis POSTOPERATIVE DIAGNOSES: 1. Right forearm subcutaneous extensive abscess (area on radial side of forearm /elbow including olecranon bursa 18 cm long by 6 cm wide) 2. Draining lateral wound with overlying superficial cellulitis PROCEDURES PERFORMED: 1. Right forearm subcutaneous abscess incision and drainage (sharp debridement using knife, of skin, superficial fascia, and subcutaneous tissue) 2. Packing of wound with iodoform gauze with loose nylon closure ANESTHESIA: Gen. LOSS CONTROL CONSULTANT: None COMPLICATIONS: None ESTIMATED BLOOD LOSS: Less than 20 mL. DISPOSITION: To post-anesthesia care unit INDICATIONS: Mr. West is a 68-year-old male with a history of abscess involving the right forearm and elbow region. He has a history of multiple myeloma. Immunocompromise secondary due to chemotherapeutic agents. He was recently discharged from the hospital after bedside debridement and antibiotic treatment of this abscess but recent clinic appointment yesterday showed worsening of the appearance of his elbow and forearm. Fluctuance is present over the radial aspect of the forearm and I suspect that he has what may be an extensive abscess. He presents to the operating room for incision and drainage. Consent has been obtained after discussion of the risks of incision and drainage of this abscess as being inclusive of, but not limited to: Bleeding, further infection, scarring, discomfort, blood vessel and/or nerve damage, compartment syndrome, failure to relieve symptoms, persistence or recurrence and/or worsening of symptoms or problems, need for further surgery, blood clot, pulmonary embolism, , anesthesia risks, and other risks. PROCEDURE: After appropriate consent was obtained, the patient was taken to the operating room placed in the supine position. Anesthesia was initiated, and after confirmation of adequate anesthesia, the patient was carefully positioned. Care was taken to make sure that all pressure points were adequately padded. Prepping and draping were completed in the usual aseptic fashion using Hibiclens. Timeout was called, confirming patient identity, side, and procedure. Incision approximately 3 inches in size was created along the abscess, which was located on the lateral aspect of the forearm, beginning at the draining wound. Incision was carried down just through skin and into subcu tissues where was noted that there was gross pus. The gross pus was removed by extending the incision and gently spreading down to the abscess cavity. The abscess cavity was probed with manual palpation until all areas of the abscess cavity were interrogated. The abscess was extensive, extending to just past the midshaft of the forearm on the dorsal radial side, and extending proximally into the olecranon bursa. Cultures were taken. There did not appear to be any penetration of the abscess cavity into the deep muscular fascia. Sharp debridement using a knife and at times dissecting scissors was performed to remove devitalized fat, skin, and superficial fascia. The draining wound itself was excised via an elliptical incision. Soft tissue tension visibly and palp ably improved after drainage of the abscess. Pulsatile lavage was used, delivering 3 L of saline within the abscess cavity. During this time, small amount of Hibiclens solution was also applied to the wound surface, allowed to soak into the tissues for 1 minute, and then rinsed off using the pulsatile lavage. Subsequently, hemostasis was obtained using electrocautery but there was no significant bleeding present. Wound was lightly packed with 1 inch iodoform gauze and sterile dressing was then applied. Loose closure was performed using 3-0 nylon suture in interrupted fashion. Patient tolerated the procedure well and taken to recovery room in stable condition. Sponge counts were correct.
[2019-11-27] MEDS: HYDROcodone/APAP 5-325MG 1 EACH TAB PO PRN (20:07)
[2019-11-27] MEDS: ACYCLOVIR 200 MG CAP PO SCH (20:07)
[2019-11-27 20:12] LABS: African American GFR (CKD) 90.5 (60.0-200.0); Anion Gap 8.2 mmol/L (4.00-12.00); Calcium 9.7 mg/dL (8.7-10.3); Carbon Dioxide 26.8 mmol/L (21.6-31.8); Magnesium 1.9 mg/dL (1.5-2.4); Non-African American GFR(CKD) 78.1 (60.0-200.0); Phosphorus 3.8 mg/dL (2.4-5.1); Total Bilirubin 0.7 mg/dL (0.3-1.2); Uric Acid 5.8 mg/dL (3.7-8.7)
--- NOTE | 2019-11-27 21:16 | P.CONS ---
History of Present Illness - Reason for Consult Consult date: 11/27/19 Radical management Requesting physician: Yrn Duarte - Chief Complaint Pus drainage from left arm wound - History of Present Illness This is a 68-year-old patient of Dr. Sagra veras from [place]. Long- standing history of multiple myeloma that is under control. Patient takes dexamethasone twice a week and Pomalyst as maintenance dose. Additional chronic stable medical conditions include varicose veins, peripheral neuropathy, patient had recently presented to Dr. Duarte's office, November 15.. This is a follow- up for the left elbow. He was initially seen on November 12 was described as a cellulitis to the elbow. He denied any trauma. Prior to the redness starting he was unloading his truck His redness swelling extended to the left arm. He was initially put on Keflex in the ER. Symptoms had progressively gotten worse. The office had contacted patient's oncologist and a recent PET scan that showed no increased uptake other than the left elbow. Recent lab showed low immunoglobin is. He was admitted given immunoglobulins. He was then seen by Dr. Albarran from orthopedics and bedside I&D with some excisional bribery was carried out. Wound culture at that time came back negative. Patient seen by Dr. Munzo from [place]. Patient is discharged on November 19 with Bactrim DS for 10 days. Patient wound has not really healed progressed to get worse. Not draining pus. Patient is admitted today. I&D was carried out. Was having pain at the local site. No fever no chills. Appetite has been fair. Continue left dominant dressing. Review of systems: GEN.: Tired EYES: None HEENT: None NECK: None RESPIRATORY: None CARDIOVASCULAR: None GASTROINTESTINAL: None GENITOURINARY: None MUSCULOSKELETAL: As above LYMPHATICS: None HEMATOLOGICAL: None PSYCHIATRY: None NEUROLOGICAL: None Past medical history to include: Multiple myeloma in remission with recent PET scan negative, left nasal basal cell cancer, varicose veins, peripheral neuropathy, Social history: Lives with his . Occasional cigar smoking. Stopped smoking 15 years ago grisel lentz. Alcohol none. Physical examination: VITAL SIGNS: 98.8, 70, 18, 123/78, 96% room air GENERAL: BMI 31.7, laying in bed EYES: Pupils equal. Conjunctiva normal. HEENT: External appearance of nose and ears normal, oral cavity grossly normal. NECK: JVD not raised; masses not palpable. HEART: First and second heart sounds are normal; no edema. LUNGS: Respiratory rate normal; clear to auscultation. ABDOMEN: Soft, nontender, liver spleen not palpable, no masses palpable. PSYCH: Alert and oriented x3; mood and affect normal. EXTREMITY: Left forearm in a dressing and Onur wrap, NEUROLOGICAL: Cranial nerves grossly intact; no facial asymmetry, power and sensation grossly intact. LYMPHATICS: No lymph nodes palpable in the axilla and neck INVESTIGATIONS, reviewed in the clinical context: White count 9 hemoglobin 12.9 potassium 4 creatinine 1.0 Assessment: -Left forearm abscess having failed outpatient treatment with Keflex , Bactrim with the recent bedside debridement with cultures being negative. Status post I&D today. -Pancytopenia from underlying diagnoses of multiple myeloma -Multiple myeloma currently under control in recent PET scan being negative -Obesity BMI 31.7 Plan: Patient has been placed on vancomycin. Status post I&D. Wound care per Dr. Duarte. IVs on the case. Discussed with the patient. Add Lovenox for DVT prophylaxis. Thank you Dr. Duarte Past Medical History Past Medical History: Cancer, Osteoarthritis (OA), Renal Disease Additional Past Medical History / Comment(s): Pt recently admitted to [facility] on 11/16/19 with cellulitis L upper extremity. Other hx: 2006 diagnosed with multiple myeloma-treated with IV chemo/valcade and now immunotherapy/stem cell transplant x2, pancytopenia, peripheral neuropathy bilateral hands/legs and feet d/t chemo, L nare basal cell carcinoma with removal, L femur lesion with radiation treatments, arthritis in multiple joints but not severe, benign colon polyps, diverticular disease, hemorrhoids, kidney stones with surgery and pt has passed as well. History of Any Multi-Drug Resistant Organisms: None Reported Past Surgical History: Hernia Repair, Joint Replacement, Orthopedic Surgery Additional Past Surgical History / Comment(s): L knee unicompartmental rep lacement, R shoulder rotator cuff repair, L nares skin cancer removal, umbilical hernia repair, colonoscopy with benign polypectomy, lithotripsy x2 Past Anesthesia/Blood Transfusion Reactions: No Reported Reaction Smoking Status: Light tobacco smoker - Past Family History Mother Family Medical History: Cancer Additional Family Medical History / Comment(s): Mother had lymphoma. Father Family Medical History: Coronary Artery Disease (CAD) Medications and Allergies Home Medications Medication Instructions Recorded Confirmed Type Aspirin [Adult Low Dose Aspirin EC] 81 mg PO DAILY 08/10/18 11/27/19 History Acyclovir 400 mg PO BID 11/27/19 11/27/19 History Dexamethasone [Decadron] 4 mg PO FRSA 11/27/19 11/27/19 History HYDROcodone/APAP 5-325MG [[place] 1 tab PO Q6H PRN 11/27/19 11/27/19 History 5-325] Pomalyst 4mg Cap 4 mg PO DAILY 11/27/19 11/27/19 History Sulfamethoxazole/Trimethoprim 1 tab PO BID 11/27/19 11/27/19 History [Bactrim DS 800-160 mg] Testosterone 1.62% Gel Pump 1 applic TOPICAL DIRECTED 11/27/19 11/27/19 History Allergies Allergy/AdvReac Type Severity Reaction Status Date / Time No Known Allergies Allergy Verified 11/27/19 15:53 Physical Exam Vitals: Vital Signs Temp Pulse Pulse Pulse Resp BP Pulse Ox 11/27/19 19:00 77 120/78 11/27/19 18:32 98.8 F 70 16 123/78 96 11/27/19 18:30 98.8 F 70 18 123/78 96 11/27/19 18:00 73 16 107/63 94 L 11/27/19 17:45 70 12 110/59 95 11/27/19 17:31 97.2 F L 79 12 113/76 92 L 11/27/19 15:52 98 F 78 16 130/58 98 11/27/19 11:54 98.2 F 98 19 115/82 97 Intake and Output 11/27/19 11/27/19 11/27/19 06:59 14:59 22:59 Intake Total 350 Output Total 10 Balance 340 Intake: IV 350 Output: Estimated Blood Loss 10 Other: Voiding Method Toilet # Voids 1 Weight 108.862 kg 108.862 kg Results CBC & Chem 7: 11/27/19 13:05 11/27/19 13:05 Labs: Abnormal Lab Results - Last 24 Hours (Table) 11/27/19 11/27/19 Range/Units 13:05 13:05 RBC 4.05 L (4.30-5.90) m/uL Hgb 12.9 L (13.0-17.5) gm/dL MCV 100.3 H (80.0-100.0) fL Lactate Dehydrogenase 275 H (120-246) U/L C-Reactive Protein 2.0 H (0.0-0.8) mg/dL Total Protein 6.0 L (6.2-8.2) g/dL
--- NOTE | 2019-11-27 23:02 | P.CONS ---
History of Present Illness - Reason for Consult Consult date: 11/27/19 Left forearm abscess and cellulitis Requesting physician: Yrn Duarte - Chief Complaint Left forearm pain swelling and redness x weeks - History of Present Illness Patient is 68 year male who was recently admitted at this facility for left forearm abscess and cellulitis failing outpatient oral Keflex therapy patient did have bedside drainage of the abscess by orthopedics but no culture were done patient clinically improved on IV vancomycin superficial culture were negative patient was discharged home on Bactrim DS, patient did have a follow-up visit with orthopedics yesterday with the patient was noticed to have swelling and possible fluctuation with concern for abscess and the patient has been electively admitted to the hospital for surgical drainage of this abscess, the patient denies having any fever or any chills, patient did have mild aching pain to the left forearm area intensity 3-4 out of 10 and no radiation patient did have a small wound on the latest aspect of his left forearm with minimal drainage no foul-smelling the the patient denies having any diarrhea with antibiotic therapy Review of Systems Positive point has been mentioned in the HPI rest of the systems are negative Past Medical History Past Medical History: Cancer, Osteoarthritis (OA), Renal Disease Additional Past Medical History / Comment(s): Pt recently admitted to [facility] on 11/16/19 with cellulitis L upper extremity. Other hx: 2006 diagnosed with multiple myeloma-treated with IV chemo/valcade and now immunotherapy/stem cell transplant x2, pancytopenia, peripheral neuropathy bilateral hands/legs and feet d/t chemo, L nare basal cell carcinoma with removal, L femur lesion with radiation treatments, arthritis in multiple joints but not severe, benign colon polyps, diverticular disease, hemorrhoids, kidney stones with surgery and pt has passed as well. History of Any Multi-Drug Resistant Organisms: None Reported Past Surgical History: Hernia Repair, Joint Replacement, Orthopedic Surgery Additional Past Surgical History / Comment(s): L knee unicompartmental replacement, R shoulder rotator cuff repair, L nares skin cancer removal, umbilical hernia repair, colonoscopy with benign polypectomy, lithotripsy x2 Past Anesthesia/Blood Transfusion Reactions: No Reported Reaction Smoking Status: Light tobacco smoker - Past Family History Mother Family Medical History: Cancer Additional Family Medical History / Comment(s): Mother had lymphoma. Father Family Medical History: Coronary Artery Disease (CAD) Medications and Allergies Home Medications Medication Instructions Recorded Confirmed Type Aspirin [Adult Low Dose Aspirin EC] 81 mg PO DAILY 08/10/18 11/27/19 History Acyclovir 400 mg PO BID 11/27/19 11/27/19 History Dexamethasone [Decadron] 4 mg PO FRSA 11/27/19 11/27/19 History HYDROcodone/APAP 5-325MG [[place] 1 tab PO Q6H PRN 11/27/19 11/27/19 History 5-325] Pomalyst 4mg Cap 4 mg PO DAILY 11/27/19 11/27/19 History Sulfamethoxazole/Trimethoprim 1 tab PO BID 11/27/19 11/27/19 History [Bactrim DS 800-160 mg] Testosterone 1.62% Gel Pump 1 applic TOPICAL DIRECTED 11/27/19 11/27/19 History Allergies Allergy/AdvReac Type Severity Reaction Status Date / Time No Known Allergies Allergy Verified 11/27/19 15:53 Physical Exam Vitals: Vital Signs Temp Pulse Pulse Pulse Resp BP Pulse Ox 11/27/19 19:00 77 120/78 11/27/19 18:32 98.8 F 70 16 123/78 96 11/27/19 18:30 98.8 F 70 18 123/78 96 11/27/19 18:00 73 16 107/63 94 L 11/27/19 17:45 70 12 110/59 95 11/27/19 17:31 97.2 F L 79 12 113/76 92 L 11/27/19 15:52 98 F 78 16 130/58 98 11/27/19 11:54 98.2 F 98 19 115/82 97 Intake and Output 11/27/19 11/27/19 11/27/19 06:59 14:59 22:59 Intake Total 420 Output Total 10 Balance 410 Intake: IV 350 Intake, IV Titration 70 Amount Sodium Chloride 0.9% 1, 70 000 ml @ 20 mls/hr IV . Q24H [facility] Rx#:[id number] Output: Estimated Blood Loss 10 Other: Voiding Method Toilet # Voids 1 Weight 108.862 kg 108.862 kg GENERAL DESCRIPTION: An elderly male lying in bed, no distress. No tachypnea or accessory muscle of respiration use. HEENT: Shows Pallor , no scleral icterus. Oral mucous membrane is dry. No pharyngeal erythema or thrush NECK: Trachea central, no thyromegaly. LUNGS: Unlabored breathing. Clear to auscultation anteriorly. No wheeze or crackle. HEART: S1, S2, regular rate and rhythm. No loud murmur ABDOMEN: Soft, no tenderness , guarding or rigidity, no organomegaly EXTREMITIES: Left forearm did show small wound with some slough tissue surrounding swelling minimal redness and warmth SKIN: No rash, no masses palpable. NEUROLOGICAL: The patient is awake, alert, oriented x3, mood and affect normal. Results CBC & Chem 7: 11/27/19 13:05 11/27/19 13:05 Labs: Abnormal Lab Results - Last 24 Hours (Table) 11/27/19 11/27/19 Range/Units 13:05 13:05 RBC 4.05 L (4.30-5.90) m/uL Hgb 12.9 L (13.0-17.5) gm/dL MCV 100.3 H (80.0-100.0) fL Lactate Dehydrogenase 275 H (120-246) U/L C-Reactive Protein 2.0 H (0.0-0.8) mg/dL Total Protein 6.0 L (6.2-8.2) g/dL Microbiology - Last 24 Hours (Table) 11/27/19 17:13 Wound Culture - Preliminary Elbow - Left 11/27/19 17:13 Anaerobic Culture - Preliminary Elbow - Left Assessment and Plan Assessment: 1- patient with left forearm abscess and cellulitis seemed to have failed outpatient oral Keflex as well as Bactrim therapy with concern likely for MRSA and Less likely gram-negative infection (1) Cellulitis of left upper extremity Current Visit: No Status: Acute Code(s): L03.114 - CELLULITIS OF LEFT UPPER LIMB SNOMED Code(s): 415611873 Plan: 1- Vancomycin pharmacy to dose target trough of 15 while watching kidney function and Vanco trough closely 2-await surgical drainage and deep cultures We will follow on clinical condition and cultures to further adjust medication if needed Thank you for this consultation will follow this patient with you Time with Patient: Greater than 30
[2019-11-27] MEDS: VANCOMYCIN 1,250 MG in SODIUM CHLORIDE 0.9% 250 ML IVPB SCH (23:51)
[2019-11-28] MEDS: HYDROcodone/APAP 5-325MG 1 EACH TAB PO PRN ×2 (05:58→23:47)
--- NOTE | 2019-11-28 08:19 | P.HPOR ---
History of Present Illness H&P Date: 11/28/19 Chief Complaint: Left arm infection. Patient is 68 year male who was recently admitted for left forearm abscess and cellulitis failing outpatient oral Keflex therapy. The patient did have a bedside drainage of the abscess by orthopedics during last admission. The patient had improved on IV vancomycin initially. The patient was discharged home on Bactrim DS. He was seen in our office yesterday and was noticed to have swelling and possible fluctuation with concern for abscess and the patient has been electively admitted to the hospital for surgical drainage of this abscess. The patient denies having any fever or any chills, patient did have mild aching pain to the left forearm area intensity 3-4 out of 10 and no radiation. The patient denies having any diarrhea with antibiotic therapy. Past Medical History Past Medical History: Cancer, Osteoarthritis (OA), Renal Disease Additional Past Medical History / Comment(s): Pt recently admitted to [facility] on 11/16/19 with cellulitis L upper extremity. Other hx: 2006 diagnosed with multiple myeloma-treated with IV chemo/valcade and now immunotherapy/stem cell transplant x2, pancytopenia, peripheral neuropathy bilateral hands/legs and feet d/t chemo, L nare basal cell carcinoma with removal, L femur lesion with radiation treatments, arthritis in multiple joints but not severe, benign colon polyps, diverticular disease, hemorrhoids, kidney stones with surgery and pt has passed as well. History of Any Multi-Drug Resistant Organisms: None Reported Past Surgical History: Hernia Repair, Joint Replacement, Orthopedic Surgery Additional Past Surgical History / Comment(s): L knee unicompartmental replacement, R shoulder rotator cuff repair, L nares skin cancer removal, umbilical hernia repair, colonoscopy with benign polypectomy, lithotripsy x2 Past Anesthesia/Blood Transfusion Reactions: No Reported Reaction Smoking Status: Light tobacco smoker - Past Family History Mother Family Medical History: Cancer Additional Family Medical History / Comment(s): Mother had lymphoma. Father Family Medical History: Coronary Artery Disease (CAD) Medications and Allergies Home Medications Medication Instructions Recorded Confirmed Type Aspirin [Adult Low Dose Aspirin EC] 81 mg PO DAILY 08/10/18 11/27/19 History Acyclovir 400 mg PO BID 11/27/19 11/27/19 History Dexamethasone [Decadron] 4 mg PO FRSA 11/27/19 11/27/19 History HYDROcodone/APAP 5-325MG [[place] 1 tab PO Q6H PRN 11/27/19 11/27/19 History 5-325] Pomalyst 4mg Cap 4 mg PO DAILY 11/27/19 11/27/19 History Sulfamethoxazole/Trimethoprim 1 tab PO BID 11/27/19 11/27/19 History [Bactrim DS 800-160 mg] Testosterone 1.62% Gel Pump 1 applic TOPICAL DIRECTED 11/27/19 11/27/19 History Allergies Allergy/AdvReac Type Severity Reaction Status Date / Time No Known Allergies Allergy Verified 11/27/19 15:53 Physical Examination Exam of the left elbow and forearm reveal increase in erythema and swelling to the elbow region. The wound has closed slightly. There is fluctuance to the area. He has normal wrist and finger motion without difficulty or pain. Neurovascular status the upper extremity is intact. Results - Labs Labs: Abnormal Lab Results - Last 24 Hours (Table) 11/27/19 11/27/19 Range/Units 13:05 13:05 RBC 4.05 L (4.30-5.90) m/uL Hgb 12.9 L (13.0-17.5) gm/dL MCV 100.3 H (80.0-100.0) fL Lactate Dehydrogenase 275 H (120-246) U/L C-Reactive Protein 2.0 H (0.0-0.8) mg/dL Total Protein 6.0 L (6.2-8.2) g/dL Microbiology - Last 24 Hours (Table) 11/27/19 17:13 Gram Stain - Preliminary Elbow - Left Wound Culture - Preliminary 11/27/19 17:13 Anaerobic Culture - Preliminary Elbow - Left H & H 11/27/19 Range/Units 13:05 Hgb 12.9 L (13.0-17.5) gm/dL Hct 40.7 (39.0-53.0) % Result Diagrams: 11/27/19 13:05 11/27/19 13:05 Assessment and Plan (1) Abscess of left elbow Current Visit: Yes Status: Acute Code(s): L02.414 - CUTANEOUS ABSCESS OF LEFT UPPER LIMB SNOMED Code(s): 771538209 (2) Cellulitis of left upper extremity Current Visit: No Status: Acute Code(s): L03.114 - CELLULITIS OF LEFT UPPER LIMB SNOMED Code(s): 260581439 (3) Hx of multiple myeloma Current Visit: No Status: Acute Code(s): Z85.79 - PRSNL HX OF MALIG NEOPLM OF LYMPHOID, HEMATPOETC & REL TISS SNOMED Code(s): 953910506507981 Plan: The clinical findings were discussed with the patient and his in the office. He is admitted to [facility] for IV antibiotics and r epeat incision and drainage. We will consult infectious disease and oncology as well as medical management.
--- NOTE | 2019-11-28 08:23 | P.PN ---
Subjective Progress Note Date: 11/28/19 Principal diagnosis: Infection left upper extremity. Chronic multiple myeloma. This is a 68-year-old male who is status post formal incision and drainage of his elbow and forearm abscess. He has no new complaints or concerns today. Reports no fever or chills. Vital signs are stable. Objective - Vital Signs Vital signs: Vital Signs Temp 98.3 F 11/28/19 05:40 Pulse 73 11/28/19 05:40 Resp 18 11/28/19 05:40 BP 110/67 11/28/19 05:40 Pulse Ox 96 11/28/19 05:40 Intake & Output 11/27/19 11/28/19 11/28/19 18:59 06:59 18:59 Intake Total 350 230 Output Total 10 Balance 340 230 Weight 108.862 kg Intake: IV 350 Intake, IV Titration 230 Amount Sodium Chloride 0.9% 1, 230 000 ml @ 20 mls/hr IV . Q24H [facility] Rx#:[id number] Output: Estimated Blood Loss 10 Other: Voiding Method Toilet Toilet # Voids 1 - Exam This is a pleasant 68-year-old male in no acute distress. He is alert and oriented at this time. Exam of the left upper extremity reveals dressing and Onur wrap in place. There is no erythema to the upper arm or visible forearm. He has full wrist and finger motion without difficulty or pain. Neurovascular status to the upper extremity is intact. - Labs CBC & Chem 7: 11/27/19 13:05 11/27/19 13:05 Labs: Abnormal Lab Results - Last 24 Hours (Table) 11/27/19 11/27/19 Range/Units 13:05 13:05 RBC 4.05 L (4.30-5.90) m/uL Hgb 12.9 L (13.0-17.5) gm/dL MCV 100.3 H (80.0-100.0) fL Lactate Dehydrogenase 275 H (120-246) U/L C-Reactive Protein 2.0 H (0.0-0.8) mg/dL Total Protein 6.0 L (6.2-8.2) g/dL Microbiology - Last 24 Hours (Table) 11/27/19 17:13 Gram Stain - Preliminary Elbow - Left Wound Culture - Preliminary 11/27/19 17:13 Anaerobic Culture - Preliminary Elbow - Left Assessment and Plan (1) Abscess of left elbow Current Visit: Yes Status: Acute Code(s): L02.414 - CUTANEOUS ABSCESS OF LEFT UPPER LIMB SNOMED Code(s): 340620560 (2) Cellulitis of left upper extremity Current Visit: No Status: Acute Code(s): L03.114 - CELLULITIS OF LEFT UPPER LIMB SNOMED Code(s): 409759557 (3) Hx of multiple myeloma Current Visit: No Status: Acute Code(s): Z85.79 - PRSNL HX OF MALIG NEOPLM OF LYMPHOID, HEMATPOETC & REL TISS SNOMED Code(s): 394750318302176 Plan: The clinical findings are discussed with the patient. We are planning repeat I&D tomorrow versus Tuesday with secondary closure of the wound versus wound VAC application. Continue IV antibiotics per infectious disease.
[2019-11-28] MEDS: VANCOMYCIN 1,250 MG in SODIUM CHLORIDE 0.9% 250 ML IVPB SCH ×3 (09:15→23:43)
[2019-11-28] MEDS: ASPIRIN 81 MG PO SCH (09:16)
[2019-11-28] MEDS: ACYCLOVIR 200 MG CAP PO SCH ×2 (09:16→20:41)
[2019-11-28 09:50] LABS: Non-African American GFR(CKD) 98.3 (60.0-200.0)
[2019-11-28 10:13] LABS: Protein, Total 4.8 g/dL (6.2-8.2)
[2019-11-28 11:19] LABS: Immunoglobulin A 90.1 mg/dL (60.0-350.0); Immunoglobulin M <16.9 mg/dL (40.0-280.0)
--- NOTE | 2019-11-28 12:35 | PN ---
PROGRESS NOTE DATE OF SERVICE: 11/28/2019 REASON FOR FOLLOWUP: Left forearm abscess cellulitis. INTERVAL HISTORY: The patient is currently afebrile, has been breathing comfortably. Did complain of some discomfort to the left arm after his surgical drainage. No chest pain. No shortness of breath, no cough, no abdominal pain, no diarrhea. PHYSICAL EXAMINATION: Blood pressure 110/67, pulse of 73, temperature 98.3, he is 96% on room air. General description is an elderly male, lying in bed in no distress. RESPIRATORY SYSTEM: Unlabored breathing, clear to auscultation anteriorly. HEART: S1, S2. Regular rate and rhythm. The left forearm is currently dressed. No obvious drainage on the dressing. DIAGNOSTIC IMPRESSION AND PLAN: Patient with left forearm abscess cellulitis status post surgical drainage. Will wait for the culture to finalize. Continue the vancomycin. He will need a PICC line for outpatient antibiotics, possibly daptomycin or Rocephin depending upon the cultures. Continue supportive care. MMODL / IJN: [id number] /
[2019-11-28] MEDS: SODIUM CHLORIDE 0.9% 1,000 ML IV SCH (13:28)
--- NOTE | 2019-11-28 19:34 | P.CONS ---
History of Present Illness - Reason for Consult Consult date: 11/28/19 Multiple myeloma, IgG Requesting physician: Liana Whitaker - Chief Complaint Left arm cellulitis - History of Present Illness Mr. West is a pleasant 68 year old male currently undergoing treatment for multiple myeloma at an outside hospital. Treatment with pomalyst on hold. Presented with cellulitis in forearm and status post I and D. Oncology has been consulted to evaluate for need of IVIG. Patient seen and evaluated today by Dr. Sue. Review of Systems All systems: negative (HPI) Past Medical History Past Medical History: Cancer, Osteoarthritis (OA), Renal Disease Additional Past Medical History / Comment(s): Pt recently admitted to [facility] on 11/16/19 with cellulitis L upper extremity. Other hx: 2006 diagnosed with multiple myeloma-treated with IV chemo/valcade and now immunotherapy/stem cell transplant x2, pancytopenia, peripheral neuropathy bilateral hands/legs and feet d/t chemo, L nare basal cell carcinoma with removal, L femur lesion with radi ation treatments, arthritis in multiple joints but not severe, benign colon polyps, diverticular disease, hemorrhoids, kidney stones with surgery and pt has passed as well. History of Any Multi-Drug Resistant Organisms: None Reported Past Surgical History: Hernia Repair, Joint Replacement, Orthopedic Surgery Additional Past Surgical History / Comment(s): L knee unicompartmental replacement, R shoulder rotator cuff repair, L nares skin cancer removal, umbilical hernia repair, colonoscopy with benign polypectomy, lithotripsy x2 Past Anesthesia/Blood Transfusion Reactions: No Reported Reaction Smoking Status: Light tobacco smoker - Past Family History Mother Family Medical History: Cancer Additional Family Medical History / Comment(s): Mother had lymphoma. Father Family Medical History: Coronary Artery Disease (CAD) Medications and Allergies Home Medications Medication Instructions Recorded Confirmed Type Aspirin [Adult Low Dose Aspirin EC] 81 mg PO DAILY 08/10/18 11/27/19 History Acyclovir 400 mg PO BID 11/27/19 11/27/19 History Dexamethasone [Decadron] 4 mg PO FRSA 11/27/19 11/27/19 History HYDROcodone/APAP 5-325MG [[place] 1 tab PO Q6H PRN 11/27/19 11/27/19 History 5-325] Pomalyst 4mg Cap 4 mg PO DAILY 11/27/19 11/27/19 History Sulfamethoxazole/Trimethoprim 1 tab PO BID 11/27/19 11/27/19 History [Bactrim DS 800-160 mg] Testosterone 1.62% Gel Pump 1 applic TOPICAL DIRECTED 11/27/19 11/27/19 History Allergies Allergy/AdvReac Type Severity Reaction Status Date / Time No Known Allergies Allergy Verified 11/27/19 15:53 Physical Exam Vitals: Vital Signs Temp Pulse Resp BP Pulse Ox 11/28/19 19:16 98.1 F 84 19 145/80 95 11/28/19 12:07 98.3 F 70 18 121/75 97 11/28/19 05:40 98.3 F 73 18 110/67 96 11/27/19 21:00 98.4 F 75 18 120/78 97 Intake and Output 11/28/19 11/28/19 11/28/19 06:59 14:59 22:59 Intake Total 160 250 Balance 160 250 Intake: Intake, IV Titration 160 250 Amount Sodium Chloride 0.9% 1, 160 000 ml @ 20 mls/hr IV . Q24H [facility] Rx#:[id number] Vancomycin 1,250 mg In 250 Sodium Chloride 0.9% 250 ml @ 125 mls/hr IVPB Q8HR [facility] Rx#:[id number] Other: Voiding Method Toilet - Constitutional General appearance: cooperative, no acute distress - EENT Eyes: EOMI, PERRLA ENT: NA/AT, normal oropharynx - Neck Neck: normal ROM - Respiratory Respiratory: bilateral: CTA - Cardiovascular Rhythm: regular Heart sounds: normal: S1, S2 - Gastrointestinal General gastrointestinal: normal bowel sounds, soft - Integumentary Left arm Cellulitis, status post I and D bandage CDI Integumentary: pale - Neurologic Neurologic: CNII-XII intact - Musculoskeletal Musculoskeletal: generalized weakness, strength equal bilaterally - Psychiatric Psychiatric: A&O x's 3, appropriate affect, intact judgment & insight Results CBC & Chem 7: 11/27/19 13:05 11/28/19 04:03 Labs: Abnormal Lab Results - Last 24 Hours (Table) 11/27/19 11/27/19 11/28/19 Range/Units 13:05 13:05 04:03 Lactate Dehydrogenase 275 H (120-246) U/L C-Reactive Protein 2.0 H (0.0-0.8) mg/dL Total Protein 6.0 L (6.2-8.2) g/dL Total Protein (PEP) 4.8 L (6.2-8.2) g/dL IgM <16.9 L (40.0-280.0) mg/dL Microbiology - Last 24 Hours (Table) 11/27/19 17:13 Gram Stain - Preliminary Elbow - Left Wound Culture - Preliminary 11/27/19 13:05 Blood Culture - Preliminary Blood No Growth after 24 hours 11/27/19 17:13 Anaerobic Culture - Preliminary Elbow - Left Assessment and Plan (1) Hx of multiple myeloma Current Visit: No Status: Acute Code(s): Z85.79 - PRSNL HX OF MALIG NEOPLM OF LYMPHOID, HEMATPOETC & REL TISS SNOMED Code(s): 574025136647374 Plan: Assessment and Recommendations: Multiple Myeloma: - Managed outside hospital - Treatment on Hold for cellulitis (week off pomalyst) - Follow-up with primary [facility] after discharge Cellulitis of Forearm: - Status POst I and D - Abx per ID PLan: - IgG levels stable no plan for replacement - Check Multiple Myeloma labs (protein electrophoresis and immunofixation) - Hold pomalyst until resolution of active infection Physician Attest: I have completed the full history and physcial and agree with above dictation, dictated as a scribe. Thank you for allowing us to participate in the care of this patient we will follow along with you.
--- NOTE | 2019-11-28 22:56 | P.PN ---
Progress Note - Text Progress Note Date: 11/28/19 - Chief Complaint Pus drainage from left arm wound interval history: This is a 68-year-old patient of Dr. Sagar veras from [place]. Long- standing history of multiple myeloma that is under control. Patient takes dexamethasone twice a week and Pomalyst as maintenance dose. Additional chronic stable medical conditions include varicose veins, peripheral neuropathy, patient had recently presented to Dr. Duarte's office, November 15.. This is a follow- up for the left elbow. He was initially seen on November 12 was described as a cellulitis to the elbow. He denied any trauma. Prior to the redness starting he was unloading his truck His redness swelling extended to the left arm. He was initially put on Keflex in the ER. Symptoms had progressively gotten worse. The office had contacted patient's oncologist and a recent PET scan that showed no increased uptake other than the left elbow. Recent lab showed low immunoglobin is. He was admitted given immunoglobulins. He was then seen by Dr. Albarran from orthopedics and bedside I&D with some excisional was carried out. Wound culture at that time came back negative. Patient seen by Dr. Munoz from [place]. Patient is discharged on November 19 with Bactrim DS for 10 days. P atient wound has not really healed progressed to get worse. draining pus. today- I&D was carried out. Was having pain at the local site. No fever no chills. Appetite has been fair. today-laying in bed. Left dominant dressing. Some drainage. Some pain. Diet is fair. No fever no chills. Review of systems: Was done for constitutional, cardiovascular, GI, pulmonary. relevant finding as above Active Medications Acetaminophen (Acetaminophen Tab 325 Mg Tab) 650 mg PO Q6HR PRN PRN Reason: Mild Pain or Fever > 100.5 Hydrocodone Bitart/Acetaminophen (Hydrocodone/Apap 5-325mg 1 Each Tab) 1 each PO Q4HR PRN PRN Reason: Moderate Pain Last Admin: 11/28/19 05:58 Dose: 1 each Documented by: Acyclovir (Acyclovir 200 Mg Cap) 400 mg PO BID [facility] Last Admin: 11/28/19 20:41 Dose: 400 mg Documented by: Al Hydroxide/Mg Hydroxide (Mag Hydrox/Al Hydrox/Simeth 30 Ml Cup) 15 ml PO Q6HR PRN PRN Reason: Indigestion Aspirin (Aspirin 81 Mg) 81 mg PO DAILY [facility] Last Admin: 11/28/19 09:16 Dose: 81 mg Documented by: Bisacodyl (Bisacodyl 5 Mg Tablet.Dr) 5 mg PO DAILY PRN PRN Reason: Constipation Dexamethasone (Dexamethasone 4 Mg Tab) 4 mg PO FRSA [facility] Docusate Sodium (Docusate 100 Mg Cap) 100 mg PO BID PRN PRN Reason: Constipation Hydromorphone HCl (Hydromorphone 1 Mg/Ml 1 Ml Syringe) 1 mg IVP Q3HR PRN PRN Reason: Severe Pain Sodium Chloride (Saline 0.9%) 1,000 mls @ 20 mls/hr IV .Q24H [facility] Last Admin: 11/28/19 13:28 Dose: Not Given Documented by: Vancomycin HCl 1,250 mg/ (Sodium Chloride) 250 mls @ 125 mls/hr IVPB Q8HR [facility] Last Admin: 11/28/19 17:25 Dose: 125 mls/hr Documented by: Lactulose (Lactulose 20 Gm/30 Ml Cup) 20 gm PO DAILY PRN PRN Reason: Constipation Magnesium Hydroxide (Magnesium Hydroxide 2,400 Mg/10 Ml Cup) 2,400 mg PO DAILY PRN PRN Reason: Constipation Miscellaneous Information (Vancomycin Trough Due 1 Each Misc) 0 each MISCELLANE DIRECTED ONE Stop: 11/29/19 07:01 Naloxone HCl (Naloxone 0.4 Mg/Ml 1 Ml Vial) 0.2 mg IV Q2M PRN PRN Reason: Opioid Reversal Ondansetron HCl (Ondansetron 4 Mg/2 Ml Vial) 4 mg IVP Q8HR PRN PRN Reason: Nausea And Vomiting Sodium Biphosphate/Sodium Phosphate (Na Phos,M-B/Na Phos,Di-Ba 133 Ml Enema) 133 ml RECTAL ONCE PRN PRN Reason: Constipation Physical examination: VITAL SIGNS: 98.3, 70, 18, 121/75, 97% room air GENERAL: laying in bed, comfortable EYES: Pupils equal. Conjunctiva normal. HEENT: External appearance of nose and ears normal, oral cavity grossly normal. NECK: JVD not raised; masses not palpable. HEART: First and second heart sounds are normal; no edema. LUNGS: Respiratory rate normal; clear to auscultation. ABDOMEN: Soft, nontender, liver spleen not palpable, no masses palpable. PSYCH: Alert and oriented x3; mood and affect normal. EXTREMITY: Left forearm in a dressing and Onur wrap,-with some outside drainage noted on the great dressing INVESTIGATIONS, reviewed in the clinical context: Wound culture pending White count 9 hemoglobin 12.9 potassium 4 creatinine 1.0 Assessment: -Left forearm abscess having failed outpatient treatment with Keflex , Bactrim with the recent bedside debridement with cultures being negative. Status post I&D today. -Pancytopenia from underlying diagnoses of multiple myeloma -Multiple myeloma currently under control in recent PET scan being negative -Obesity BMI 31.7 Plan: on vancomycin. Status post I&D. Wound care per Dr. Duarte. per oncology patient to hold pomalyst, total infection controlled. Repeat labs in the morning. Thank you Dr. Duarte
[2019-11-29 05:45] LABS: HCT 33.4 % (39.0-53.0); MCH 32.2 pg (25.0-35.0); MCHC 32.8 g/dL (31.0-37.0); MCV 98.3 fL (80.0-100.0); Mean Platelet Volume 7.1; Platelet Count 210 k/uL (150-450); RDW 14.4 % (11.5-15.5); WBC 6.6 k/uL (3.8-10.6)
[2019-11-29] MEDS ORDERED: VANCOMYCIN TROUGH DUE 1 EACH MISC MISCELLANE ONE (07:00)
[2019-11-29] MEDS: ACYCLOVIR 200 MG CAP PO SCH ×4 (07:44→21:00)
[2019-11-29] MEDS: ASPIRIN 81 MG PO SCH ×2 (07:44→07:57)
[2019-11-29] MEDS: VANCOMYCIN 1,250 MG in SODIUM CHLORIDE 0.9% 250 ML IVPB SCH (07:49)
--- NOTE | 2019-11-29 08:39 | P.PN ---
Subjective Progress Note Date: 11/29/19 Principal diagnosis: Infection left upper extremity. Chronic multiple myeloma. This is a 68-year-old male who is status post formal incision and drainage of his elbow and forearm abscess. He has no new complaints or concerns today. Reports no fever or chills. Vital signs are stable. Objective - Vital Signs Vital signs: Vital Signs Temp 97.9 F 11/29/19 04:33 Pulse 85 11/29/19 04:33 Resp 18 11/29/19 04:33 BP 113/72 11/29/19 04:33 Pulse Ox 95 11/29/19 04:33 Intake & Output 11/28/19 11/29/19 11/29/19 18:59 06:59 18:59 Intake Total 250 Balance 250 Intake: Intake, IV Titration 250 Amount Vancomycin 1,250 mg In 250 Sodium Chloride 0.9% 250 ml @ 125 mls/hr IVPB Q8HR [facility] Rx#:[id number] Other: Voiding Method Toilet Toilet # Voids 1 - Exam This is a pleasant 68-year-old male in no acute distress. He is alert and oriented at this time. Exam of the left upper extremity reveals dressing and Onur wrap in place. There is no erythema to the upper arm or visible forearm. H e has full wrist and finger motion without difficulty or pain. Neurovascular status to the upper extremity is intact. - Labs CBC & Chem 7: 11/29/19 05:00 11/28/19 04:03 Labs: Abnormal Lab Results - Last 24 Hours (Table) 11/27/19 11/28/19 11/29/19 Range/Units 13:05 04:03 05:00 RBC 3.40 L (4.30-5.90) m/uL Hgb 11.0 L (13.0-17.5) gm/dL Hct 33.4 L (39.0-53.0) % Total Protein (PEP) 4.8 L (6.2-8.2) g/dL IgM <16.9 L (40.0-280.0) mg/dL Microbiology - Last 24 Hours (Table) 11/27/19 17:13 Gram Stain - Preliminary Elbow - Left Wound Culture - Preliminary 11/27/19 13:05 Blood Culture - Preliminary Blood No Growth after 24 hours Assessment and Plan (1) Abscess of left elbow Current Visit: Yes Status: Acute Code(s): L02.414 - CUTANEOUS ABSCESS OF LEFT UPPER LIMB SNOMED Code(s): 775689124 (2) Cellulitis of left upper extremity Current Visit: No Status: Acute Code(s): L03.114 - CELLULITIS OF LEFT UPPER LIMB SNOMED Code(s): 832092563 (3) Hx of multiple myeloma Current Visit: No Status: Acute Code(s): Z85.79 - PRSNL HX OF MALIG NEOPLM OF LYMPHOID, HEMATPOETC & REL TISS SNOMED Code(s): 556013503860505 Plan: The clinical findings are discussed with the patient. We are planning repeat I&D today with secondary closure of the wound versus wound VAC application. Continue IV antibiotics per infectious disease.
[2019-11-29 09:16] LABS: Anion Gap 10.7 mmol/L (4.00-12.00); BUN/Creat Ratio 14.29 Ratio (12.00-20.00); Calcium 8.4 mg/dL (8.7-10.3); Carbon Dioxide 23.3 mmol/L (21.6-31.8); Non-African American GFR(CKD) 98.3 (60.0-200.0)
[2019-11-29] MEDS: SODIUM CHLORIDE 0.9% 1,000 ML IV SCH (12:21)
[2019-11-29 13:49] LABS: Albumin 2.66 g/dL (3.80-4.90); Gamma Globulin 0.54 g/dL (0.70-1.50)
[2019-11-29] MEDS: VANCOMYCIN 1,000 MG in SODIUM CHLORIDE 0.9% 250 ML IVPB SCH (15:38)
[2019-11-29] MEDS ORDERED: IV FLUID CONTINUATION 900 ML IV ONE (15:43)
[2019-11-29] MEDS ORDERED: SUCCINYLCHOLINE CHLORIDE 100 MG/5 ML SYR IV ONE (17:05)
[2019-11-29] MEDS ORDERED: HYDROmorphone (PF) 1 MG/ML ONE (17:05)
[2019-11-29] MEDS ORDERED: PROPOFOL 10 MG/ML 20 ML VIAL IV ONE (17:05)
[2019-11-29] MEDS ORDERED: fentaNYL (PF) 50 MCG/ML 2 ML AMP ONE (17:05)
[2019-11-29] MEDS ORDERED: MIDAZOLAM 2 MG/2 ML VIAL ONE (17:05)
--- NOTE | 2019-11-29 17:49 | P.OP ---
Date of Procedure: 11/29/19 Procedure(s) Performed: PREOPERATIVE DIAGNOSES: 1. Right forearm subcutaneous abscess 2. Status post I&D with packing POSTOPERATIVE DIAGNOSES: 1. Right forearm subcutaneous extensive abscess (area on radial side of forearm /elbow including olecranon bursa 18 cm long by 6 cm wide) 2. Status post I&D with packing PROCEDURES PERFORMED: 1. Right forearm subcutaneous abscess irrigation and debridement (sharp debridement using knife, of skin, superficial fascia, and subcutaneous tissue) 2. Placement of wound VAC device into right forearm wound ANESTHESIA: Gen. DIESEL LOCOMOTIVE FIRER: None COMPLICATIONS: None ESTIMATED BLOOD LOSS: Less than 20 mL. DISPOSITION: To post-anesthesia care unit INDICATIONS: Mr. West is a 68-year-old male with a history of abscess involving the right forearm and elbow region. He has a history of multiple myeloma. Immunocompromise secondary due to chemotherapeutic agents. He was recently discharged from the hospital after bedside debridement and antibiotic treatment of this abscess but recent clinic appointment yesterday showed worsening of the appearance of his elbow and forearm. He has already undergone one formal debridement approximately 2 days ago, and presents to the operating room today for repeat I&D and possible wound VAC placement. Consent has been obtained after discussion of the risks of incision and drainage of this abscess as being inclusive of, but not limited to: Bleeding, further infection, scarring, discomfort, blood vessel and/or nerve damage, compartment syndrome, failure to relieve symptoms, persistence or recurrence and/or worsening of symptoms or problems, need for further surgery, blood clot, pulmonary embolism, , anesthesia risks, and other risks. PROCEDURE: After appropriate consent was obtained, the patient was taken to the operating room placed in the supine position. Anesthesia was initiated, and after confirmation of adequate anesthesia, the patient was carefully positioned. Care was taken to make sure that all pressure points were adequately padded. Prepping and draping were completed in the usual aseptic fashion using Hibiclens. Timeout was called, confirming patient identity, side, and procedure. Wound was inspected. Gross pus was still present once packing was removed. Abscess cavity itself appeared fairly well vascularized with no significant necrotic tissue. Pulsatile lavage was used, delivering 3 L of saline within the abscess cavity. During this time, small amount of Hibiclens solution was also applied to the wound surface, allowed to soak into the tissues for 1 minute, and then rinsed off using the pulsatile lavage. Subsequently, hemostasis was obtained using electrocautery but there was only minor bleeding present from the wound surfaces. Wound VAC was placed in standard fashion, with good seal noted. Patient tolerated the procedure well and taken to recovery room in stable condition. Sponge counts were correct.
--- NOTE | 2019-11-29 18:10 | P.PN ---
Progress Note - Text Progress Note Date: 11/29/19 - Chief Complaint Pus drainage from left arm wound interval history: This is a 68-year-old patient of Dr. Sagar veras from [place]. Long- standing history of multiple myeloma that is under control. Patient takes dexamethasone twice a week and Pomalyst as maintenance dose. Additional chronic stable medical conditions include varicose veins, peripheral neuropathy, patient had recently presented to Dr. Duarte's office, November 15.. This is a follow- up for the left elbow. He was initially seen on November 12 was described as a cellulitis to the elbow. He denied any trauma. Prior to the redness starting he was unloading his truck His redness swelling extended to the left arm. He was initially put on Keflex in the ER. Symptoms had progressively gotten worse. The office had contacted patient's oncologist and a recent PET scan that showed no increased uptake other than the left elbow. Recent lab showed low immunoglobin is. He was admitted given immunoglobulins. He was then seen by Dr. Albarran from orthopedics and bedside I&D with some excisional was carried out. Wound culture at that time came back negative. Patient seen by Dr. Munoz from [place]. Patient is discharged on November 19 with Bactrim DS for 10 days. Pa tient wound has not really healed progressed to get worse. draining pus. today- I&D was carried out. Was having pain at the local site. No fever no chills. Appetite has been fair. today-so the patient this morning. Late in the afternoon taken back to the OR. Significant amount of pus was removed. Dressing was done. Review of systems: Was done for constitutional, cardiovascular, GI, pulmonary. relevant finding as above Active Medications Acetaminophen (Acetaminophen Tab 325 Mg Tab) 650 mg PO Q6HR PRN PRN Reason: Mild Pain or Fever > 100.5 Hydrocodone Bitart/Acetaminophen (Hydrocodone/Apap 5-325mg 1 Each Tab) 1 each PO Q4HR PRN PRN Reason: Moderate Pain Last Admin: 11/28/19 23:47 Dose: 1 each Documented by: Acyclovir (Acyclovir 200 Mg Cap) 400 mg PO BID [facility] Last Admin: 11/29/19 07:57 Dose: Not Given Documented by: Al Hydroxide/Mg Hydroxide (Mag Hydrox/Al Hydrox/Simeth 30 Ml Cup) 15 ml PO Q6HR PRN PRN Reason: Indigestion Aspirin (Aspirin 81 Mg) 81 mg PO DAILY [facility] Last Admin: 11/29/19 07:57 Dose: Not Given Documented by: Bisacodyl (Bisacodyl 5 Mg Tablet.Dr) 5 mg PO DAILY PRN PRN Reason: Constipation Dexamethasone (Dexamethasone 4 Mg Tab) 4 mg PO FRSA [facility] Docusate Sodium (Docusate 100 Mg Cap) 100 mg PO BID PRN PRN Reason: Constipation Hydromorphone HCl (Hydromorphone 1 Mg/Ml 1 Ml Syringe) 1 mg IVP Q3HR PRN PRN Reason: Severe Pain Sodium Chloride (Saline 0.9%) 1,000 mls @ 20 mls/hr IV .Q24H [facility] Last Admin: 11/29/19 12:21 Dose: 20 mls/hr Documented by: Vancomycin HCl 1,000 mg/ (Sodium Chloride) 250 mls @ 125 mls/hr IVPB Q8HR [facility] Last Admin: 11/29/19 15:38 Dose: 125 mls/hr Documented by: Lactulose (Lactulose 20 Gm/30 Ml Cup) 20 gm PO DAILY PRN PRN Reason: Constipation Magnesium Hydroxide (Magnesium Hydroxide 2,400 Mg/10 Ml Cup) 2,400 mg PO DAILY PRN PRN Reason: Constipation Naloxone HCl (Naloxone 0.4 Mg/Ml 1 Ml Vial) 0.2 mg IV Q2M PRN PRN Reason: Opioid Reversal Ondansetron HCl (Ondansetron 4 Mg/2 Ml Vial) 4 mg IVP Q8HR PRN PRN Reason: Nausea And Vomiting Sodium Biphosphate/Sodium Phosphate (Na Phos,M-B/Na Phos,Di-Ba 133 Ml Enema) 133 ml RECTAL ONCE PRN PRN Reason: Constipation Physical examination: VITAL SIGNS: 97.4, 71, 16, 04/10/2006 7, 98% on room air GENERAL: laying in bed, comfortable EYES: Pupils equal. Conjunctiva normal. HEENT: External appearance of nose and ears normal, oral cavity grossly normal. NECK: JVD not raised; masses not palpable. HEART: First and second heart sounds are normal; no edema. LUNGS: Respiratory rate normal; clear to auscultation. ABDOMEN: Soft, nontender, liver spleen not palpable, no masses palpable. PSYCH: Alert and oriented x3; mood and affect normal. EXTREMITY: Left forearm in a dressing and Onur wrap,-with some outside drainage noted on the great dressing INVESTIGATIONS, reviewed in the clinical context: Wound culture negative White count 9 hemoglobin 12.9 potassium 4 creatinine 1.0 Assessment: -Left forearm abscess having failed outpatient treatment with Keflex , Bactrim with the recent bedside debridement with cultures being negative. Status post I&D on admission. Repeat I&D today. Cultures remain negative. -Pancytopenia from underlying diagnoses of multiple myeloma -Multiple myeloma currently under control in recent PET scan being negative -Obesity BMI 31.7 Plan: on vancomycin. Status post repeat I&D today.. . per oncology patient to hold pomalyst, total infection controlled. Thank you Dr. Duarte
--- NOTE | 2019-11-29 20:32 | P.PN ---
Subjective Progress Note Date: 11/29/19 Patient states that he thinks his left arm is slightly less swollen and tight compared to before. No fever/chills/nausea/vomiting. No unusual bleeding noted. Objective - Vital Signs Vital signs: Vital Signs Temp 97.5 F L 11/29/19 19:52 Pulse 79 11/29/19 19:52 Resp 18 11/29/19 19:52 BP 131/82 11/29/19 19:52 Pulse Ox 93 L 11/29/19 19:52 Intake & Output 11/29/19 11/29/19 11/30/19 06:59 18:59 06:59 Intake Total 500 Output Total 20 Balance 480 Intake: IV 500 Output: Estimated Blood Loss 20 Other: Voiding Method Toilet Toilet # Voids 1 2 - Constitutional General appearance: Present: no acute distress - EENT Eyes: Present: EOMI ENT: Present: hearing grossly normal, normal oropharynx - Respiratory Respiratory: bilateral: CTA - Cardiovascular Rhythm: regular Heart sounds: normal: S1, S2 - Gastrointestinal General gastrointestinal: Present: normal bowel sounds - Integumentary Integumentary: Present: cellulitis (LUE) - Neurologic Neurologic: Present: CNII-XII intact - Musculoskeletal Musculoskeletal: Present: strength equal bilaterally - Psychiatric Psychiatric: Present: A&O x's 3, appropriate affect - Labs CBC & Chem 7: 11/29/19 05:00 11/29/19 04:59 Labs: Abnormal Lab Results - Last 24 Hours (Table) 11/28/19 11/29/19 11/29/19 Range/Units 04:03 04:59 05:00 RBC 3.40 L (4.30-5.90) m/uL Hgb 11.0 L (13.0-17.5) gm/dL Hct 33.4 L (39.0-53.0) % Calcium 8.4 L (8.7-10.3) mg/dL Albumin (PEP) 2.66 L (3.80-4.90) g/dL Beta Globulins 0.56 L (0.60-1.30) g/dL Gamma Globulins 0.54 L (0.70-1.50) g/dL Microbiology - Last 24 Hours (Table) 11/27/19 17:13 Gram Stain - Final Elbow - Left Wound Culture - Final 11/27/19 13:05 Blood Culture - Preliminary Blood No Growth after 48 hours Assessment and Plan (1) Abscess of left elbow Narrative/Plan: The patient feels symptomatically improved with antibiotic. He is to have I&D today. Continue management per ID and orthopedic surgery. Current Visit: Yes Status: Acute Code(s): L02.414 - CUTANEOUS ABSCESS OF LEFT UPPER LIMB SNOMED Code(s): 071708152 (2) Hx of multiple myeloma Narrative/Plan: Patient's protein electrophoresis studies show no detectable M protein, and IgG level greater than 900. Therefore there is no indication for IV Ig infusion. CBC also shows adequate WBC. - Continue to hold Pomalyst until acute situation is adequately resolved. Patient will continue following up with primary oncologist after discharge Current Visit: No Status: Acute Code(s): Z85.79 - PRSNL HX OF MALIG NEOPLM OF LYMPHOID, HEMATPOETC & REL TISS SNOMED Code(s): 658862830848350
[2019-11-29] MEDS ORDERED: HYDROmorphone 0.5 MG/0.5 ML SYRINGE IVP PRN (22:44)
[2019-11-29] MEDS: LACTATED RINGERS 1,000 ML IV SCH (23:03)
--- NOTE | 2019-11-29 23:29 | PN ---
PROGRESS NOTE DATE OF SERVICE: 11/29/2019 REASON FOR FOLLOWUP: Left forearm abscess and cellulitis. INTERVAL HISTORY: The patient is currently afebrile. The patient is breathing comfortably. Denies having any chest pain or shortness of breath or cough. No nausea. No vomiting. No abdominal pain or any worsening of pain to the left arm. PHYSICAL EXAMINATION: Blood pressure 131/82 with a pulse of 79, temperature 97.5. He is 93% on room air. General description is an elderly male lying in bed in no distress. RESPIRATORY SYSTEM: Unlabored breathing, clear to auscultation anteriorly. HEART: S1, S2. Regular rate and rhythm. ABDOMEN: Soft. No tenderness. Left forearm is currently dressed up. No obvious drainage on the dressing. LABS: Hemoglobin 11.1, white count 6.6. Creatinine is 0.7. Culture has been negative so far. DIAGNOSTIC IMPRESSION AND PLAN: Patient with left forearm abscess, status post surgical drainage. Culture has been negative so far currently on vancomycin. Local care has been switched over to wound VAC with possible Midline and outpatient IV Rocephin 2 grams daily and close outpatient followup. MMODL / IJN: [id number] /
[2019-11-30] MEDS: VANCOMYCIN 1,000 MG in SODIUM CHLORIDE 0.9% 250 ML IVPB SCH ×2 (00:13→08:37)
[2019-11-30] MEDS: dexAMETHasone 4 MG TAB PO SCH (08:37)
[2019-11-30] MEDS: ACYCLOVIR 200 MG CAP PO SCH ×2 (08:37→20:44)
[2019-11-30] MEDS: ASPIRIN 81 MG PO SCH (08:37)
[2019-11-30 09:07] LABS: African American GFR (CKD) 121.4 (60.0-200.0); Non-African American GFR(CKD) 104.8 (60.0-200.0)
[2019-11-30] MEDS: SODIUM CHLORIDE 0.9% 1,000 ML IV SCH (14:30)
[2019-11-30] MEDS ORDERED: VANCOMYCIN TROUGH DUE 1 EACH MISC MISCELLANE ONE (15:00)
--- NOTE | 2019-11-30 15:27 | PN ---
PROGRESS NOTE DATE OF SERVICE: 11/30/2019 REASON FOR FOLLOWUP: Left forearm abscess and cellulitis. INTERVAL HISTORY: The patient was taken back to the OR status post ( ) of his left forearm abscess. Wound VAC has been applied. The patient's pain is currently controlled. Denies having any chest pain. No shortness of breath. No nausea, vomiting, abdominal pain or diarrhea. PHYSICAL EXAMINATION: Blood pressure 151/86, pulse of 79, temperature 98.2. He is 95% on room air. General description is an elderly male lying in bed in no distress. Respiratory system: Unlabored breathing, clear to auscultation anteriorly. Heart S1, S2. Regular rate and rhythm. Abdomen soft, no tenderness. Left forearm wound is currently covered with a wound VAC. DIAGNOSTIC IMPRESSION AND PLAN: Patient with left forearm abscess status post surgical drainage. Wound cultures have been negative for resistant pathogen. Antibiotic was switched to Rocephin 2 grams daily. Local wound care with wound VAC. Once wound VAC is arranged he will be able to go home from ID standpoint and close outpatient followup. MMODL / IJN: [id number] /
--- NOTE | 2019-11-30 22:09 | P.PN ---
Progress Note - Text Progress Note Date: 11/30/19 - Chief Complaint Pus drainage from left arm wound interval history: This is a 68-year-old patient of Dr. Sagar veras from [place]. Long- standing history of multiple myeloma that is under control. Patient takes dexamethasone twice a week and Pomalyst as maintenance dose. Additional chronic stable medical conditions include varicose veins, peripheral neuropathy, patient had recently presented to Dr. Duarte's office, November 15.. This is a follow- up for the left elbow. He was initially seen on November 12 was described as a cellulitis to the elbow. He denied any trauma. Prior to the redness starting he was unloading his truck His redness swelling extended to the left arm. He was initially put on Keflex in the ER. Symptoms had progressively gotten worse. The office had contacted patient's oncologist and a recent PET scan that showed no increased uptake other than the left elbow. Recent lab showed low immunoglobin is. He was admitted given immunoglobulins. He was then seen by Dr. Albarran from orthopedics and bedside I&D with some excisional was carried out. Wound culture at that time came back negative. Patient seen by Dr. Munoz from [place]. Patient is discharged on November 19 with Bactrim DS for 10 days. Pa tient wound has not really healed progressed to get worse. draining pus. today- I&D was carried out. Was having pain at the local site. No fever no chills. Appetite has been fair. Patient was taken back to the OR and more pus was removed. Initial cultures had remained negative. Vancomycin changed over to Rocephin. Wound VAC placed.. today-laying in bed. Pain control. No nausea vomiting. No diarrhea. No fever. Review of systems: Was done for constitutional, cardiovascular, GI, pulmonary. relevant finding as above Active Medications Acetaminophen (Acetaminophen Tab 325 Mg Tab) 650 mg PO Q6HR PRN PRN Reason: Mild Pain or Fever > 100.5 Hydrocodone Bitart/Acetaminophen (Hydrocodone/Apap 5-325mg 1 Each Tab) 1 each PO Q4HR PRN PRN Reason: Moderate Pain Last Admin: 11/28/19 23:47 Dose: 1 each Documented by: Acyclovir (Acyclovir 200 Mg Cap) 400 mg PO BID JOSE Last Admin: 11/30/19 20:44 Dose: 400 mg Documented by: Al Hydroxide/Mg Hydroxide (Mag Hydrox/Al Hydrox/Simeth 30 Ml Cup) 15 ml PO Q6HR PRN PRN Reason: Indigestion Aspirin (Aspirin 81 Mg) 81 mg PO DAILY [facility] Last Admin: 11/30/19 08:37 Dose: 81 mg Documented by: Bisacodyl (Bisacodyl 5 Mg Tablet.Dr) 5 mg PO DAILY PRN PRN Reason: Constipation Dexamethasone (Dexamethasone 4 Mg Tab) 4 mg PO FRSA [facility] Last Admin: 11/30/19 08:37 Dose: 4 mg Documented by: Docusate Sodium (Docusate 100 Mg Cap) 100 mg PO BID PRN PRN Reason: Constipation Hydromorphone HCl (Hydromorphone 1 Mg/Ml 1 Ml Syringe) 1 mg IVP Q3HR PRN PRN Reason: Severe Pain Hydromorphone HCl (Hydromorphone 0.5 Mg/0.5 Ml Syringe) 0.5 mg IVP Q5M PRN PRN Reason: Pain Control Stop: 11/30/19 22:45 Sodium Chloride (Saline 0.9%) 1,000 mls @ 20 mls/hr IV .Q24H [facility] Last Admin: 11/30/19 14:30 Dose: 20 mls/hr Documented by: Lactated Ringer's (Lactated Ringers) 1,000 mls @ 20 mls/hr IV .Q24H [facility] Last Admin: 11/29/19 23:03 Dose: Not Given Documented by: Lactulose (Lactulose 20 Gm/30 Ml Cup) 20 gm PO DAILY PRN PRN Reason: Constipation Magnesium Hydroxide (Magnesium Hydroxide 2,400 Mg/10 Ml Cup) 2,400 mg PO DAILY PRN PRN Reason: Constipation Naloxone HCl (Naloxone 0.4 Mg/Ml 1 Ml Vial) 0.2 mg IV Q2M PRN PRN Reason: Opioid Reversal Ondansetron HCl (Ondansetron 4 Mg/2 Ml Vial) 4 mg IVP Q8HR PRN PRN Reason: Nausea And Vomiting Sodium Biphosphate/Sodium Phosphate (Na Phos,M-B/Na Phos,Di-Ba 133 Ml Enema) 133 ml RECTAL ONCE PRN PRN Reason: Constipation Physical examination: VITAL SIGNS: 98.2, 79, 20, 100 5186, 95% on room air GENERAL: laying in bed, comfortable EYES: Pupils equal. Conjunctiva normal. HEENT: External appearance of nose and ears normal, oral cavity grossly normal. NECK: JVD not raised; masses not palpable. HEART: First and second heart sounds are normal; no edema. LUNGS: Respiratory rate normal; clear to auscultation. ABDOMEN: Soft, nontender, liver spleen not palpable, no masses palpable. PSYCH: Alert and oriented x3; mood and affect normal. EXTREMITY: Left forearm in a wound VAC INVESTIGATIONS, reviewed in the clinical context: White count 6.6 hemoglobin 11 creatinine 0.6 Wound culture negative White count 9 hemoglobin 12.9 potassium 4 creatinine 1.0 IgG 935, IgA 90, IgM less than 16.9 Assessment: -Left forearm abscess having failed outpatient treatment with Keflex , Bactrim with the recent bedside debridement with cultures being negative. Status post I&D on admission. An I&D repeated. Cultures remain negative. -Pancytopenia from underlying diagnoses of multiple myeloma -Multiple myeloma currently under control with recent PET scan being negative -Obesity BMI 31.7 -Normocytic anemia from underlying infection and multiple myeloma Plan: Antibiotic being swished over to Rocephin per ID. Patient has a wound VAC in place. Awaiting PICC line. Discussed with patient Thank you Dr. Duarte
[2019-12-01] MEDS: LACTATED RINGERS 1,000 ML IV SCH (01:16)
[2019-12-01] MEDS: dexAMETHasone 4 MG TAB PO SCH (09:13)
[2019-12-01] MEDS: ASPIRIN 81 MG PO SCH (09:13)
[2019-12-01] MEDS: ACYCLOVIR 200 MG CAP PO SCH (09:13)
--- NOTE | 2019-12-01 10:45 | P.DS ---
Providers Date of admission: 11/27/19 10:51 Expected date of discharge: 12/01/19 Attending physician: Yrn Duarte Consults: 11/26/19 11:55 Consult Physician Routine Consulting Provider: Roxane Busch Consult Reason/Comments: Antibiotic management, wound care Do you want consulting provider notified?: Yes 11/26/19 11:56 Consult Physician Routine Consulting Provider: Nilay Sue Consult Reason/Comments: Management of CA treatment, ? IVIG transfusion Do you want consulting provider notified?: Yes 11/27/19 18:13 Consult Physician Routine Consulting Provider: Gal Schafer Consult Reason/Comments: medical management Do you want consulting provider notified?: Yes Primary care physician: Stated None - Discharge Diagnosis(es) (1) Abscess of left elbow Current Visit: Yes Status: Acute (2) Cellulitis of left upper extremity Current Visit: No Status: Acute (3) Hx of multiple myeloma Current Visit: No Status: Acute Hospital Course: The patient is a very pleasant 68-year-old male with a history of multiple myeloma who was seen in the hospital and underwent a bedside debridement and antibiotic therapy for a left forearm abscess. His condition continued to worsen and he presented to our office with an worsening abscess to his left forearm and elbow region earlier this week. The patient originally went for an I&D with packing 11/27/[address] Duarte and subsequently underwent a secondary I&D with wound VAC placement on 11/29/2019. The patient is doing well postoperatively. Vital signs are stable. Wound VAC in place to the left forear m and elbow region. There is a midline place to the right upper extremity. Patient has full range of motion of his left elbow and forearm without much difficulty. Good hand and wrist motion. Neurological and circulatory status is intact. The patient's home wound VAC is at the bedside and has been approved by insurance. He is also set up for outpatient IV antibiotics. The patient is orthopedically stable for discharge home today after wound VAC change and IV Rocephin. Patient Condition at Discharge: Stable Plan - Discharge Summary Discharge Rx Participant: No New Discharge Prescriptions: No Action Aspirin [Adult Low Dose Aspirin EC] 81 mg PO DAILY Sulfamethoxazole/Trimethoprim [Bactrim DS 800-160 mg] 1 tab PO BID Pomalyst 4mg Cap 4 mg PO DAILY HYDROcodone/APAP 5-325MG [[place] 5-325] 1 tab PO Q6H PRN PRN Reason: Pain Dexamethasone [Decadron] 4 mg PO FRSA Acyclovir 400 mg PO BID Testosterone 1.62% Gel Pump 1 applic TOPICAL DIRECTED Discharge Medication List Aspirin [Adult Low Dose Aspirin EC] 81 mg PO DAILY 08/10/18 [History] Acyclovir 400 mg PO BID 11/27/19 [History] Dexamethasone [Decadron] 4 mg PO FRSA 11/27/19 [History] HYDROcodone/APAP 5-325MG [[place] 5-325] 1 tab PO Q6H PRN 11/27/19 [History] Pomalyst 4mg Cap 4 mg PO DAILY 11/27/19 [History] Sulfamethoxazole/Trimethoprim [Bactrim DS 800-160 mg] 1 tab PO BID 11/27/19 [History] Testosterone 1.62% Gel Pump 1 applic TOPICAL DIRECTED 11/27/19 [History] Follow up Appointment(s)/Referral(s): [facility], [NON-STAFF] - 1-2 Days [facility]Infusion [NON-STAFF] - (In office IVABX being set up) Yrn Duarte MD [STAFF PHYSICIAN] - 1 Week Activity/Diet/Wound Care/Special Instructions: May discharged to home when cleared medically and IV antibiotics/wound VAC approved and arranged. Wound VAC per wound care. IV antibiotics per infectious disease. Measurements of the wound: 1. No tendon or bone exposed. Wound goes down to the fascia, depth from skin layer is 1-1.5 cm. 2. The wound undermines beyond skin incision-- -Distally5 cm -Proximally4-5 cm -Ulnar/inferior3 cm -Radial/superior2 cm Discharge Disposition: HOME WITH HOME HEALTH SERVICES
--- NOTE | 2019-12-01 11:43 | PN ---
PROGRESS NOTE DATE OF SERVICE: 12/01/2019 REASON FOR FOLLOWUP: Left forearm abscess and cellulitis. INTERVAL HISTORY: The patient is currently afebrile. The patient has been feeling better, breathing comfortably. Denies any chest pain. No shortness of breath. No cough. No nausea, vomiting. No abdominal pain or pain to the left forearm. PHYSICAL EXAMINATION: Blood pressure 142/77, pulse of 69, temperature 97.5. He is 95% on room air. General description: The patient is an elderly male lying in bed in no distress. Respiratory system: Unlabored breathing. Clear to auscultation anteriorly. Heart S1, S2. Regular rate and rhythm. Abdomen soft, no tenderness. Left forearm swelling and redness has decreased. Wound is currently covered with a wound VAC. DIAGNOSTIC IMPRESSION AND PLAN: Patient with left forearm abscess and cellulitis status post surgical drainage. Culture so far negative for any resistant pathogen. Antibiotic sending home on Rocephin 2 g daily to continue for 2 weeks. Local wound care with wound VAC. [facility]. MMODL / IJN: [id number] /
[2019-12-01 11:45] VITALS: BP 138/70; PULSE 67; RESP 24; TEMP 98
--- NOTE | 2019-12-01 22:21 | P.PN ---
Progress Note - Text Progress Note Date: 12/01/19 - Chief Complaint Pus drainage from left arm wound interval history: This is a 68-year-old patient of Dr. Sagar veras from [place]. Long- standing history of multiple myeloma that is under control. Patient takes dexamethasone twice a week and Pomalyst as maintenance dose. Additional chronic stable medical conditions include varicose veins, peripheral neuropathy, patient had recently presented to Dr. Duarte's office, November 15.. This is a follow- up for the left elbow. He was initially seen on November 12 was described as a cellulitis to the elbow. He denied any trauma. Prior to the redness starting he was unloading his truck His redness swelling extended to the left arm. He was initially put on Keflex in the ER. Symptoms had progressively gotten worse. The office had contacted patient's oncologist and a recent PET scan that showed no increased uptake other than the left elbow. Recent lab showed low immunoglobin is. He was admitted given immunoglobulins. He was then seen by Dr. Albarran from orthopedics and bedside I&D with some excisional was carried out. Wound culture at that time came back negative. Patient seen by Dr. Munoz from [place]. Patient is discharged on November 19 with Bactrim DS for 10 days. Pa tient wound has not really healed progressed to get worse. draining pus. today- I&D was carried out. Was having pain at the local site. No fever no chills. Appetite has been fair. Patient was taken back to the OR and more pus was removed. Initial cultures had remained negative. Vancomycin changed over to Rocephin. Wound VAC placed.. today-doing well. Left dominant a wound VAC. No nausea vomiting. Tolerating diet. No fever. at the bedside. Questions answered. Going home on antibiotics per Dr Munoz. IVs ceftriaxone for 2 weeks Review of systems: Was done for constitutional, cardiovascular, GI, pulmonary. relevant finding as above Current medications reviewed in today's electronic records Physical examination: VITAL SIGNS: 98, 67, 24, 138 with 70, 94% room air GENERAL: Sitting up, comfortable EYES: Pupils equal. Conjunctiva normal. HEENT: External appearance of nose and ears normal, oral cavity grossly normal. NECK: JVD not raised; masses not palpable. HEART: First and second heart sounds are normal; no edema. LUNGS: Respiratory rate normal; clear to auscultation. ABDOMEN: Soft, nontender, liver spleen not palpable, no masses palpable. PSYCH: Alert and oriented x3; mood and affect normal. EXTREMITY: Left forearm in a wound VAC INVESTIGATIONS, reviewed in the clinical context: White count 6.6 hemoglobin 11 creatinine 0.6 Wound culture negative White count 9 hemoglobin 12.9 potassium 4 creatinine 1.0 IgG 935, IgA 90, IgM less than 16.9 Assessment: -Left forearm abscess having failed outpatient treatment with Keflex , Bactrim with the recent bedside debridement with cultures being negative. Status post I&D on admission. An I&D repeated. Cultures remain negative. -Pancytopenia from underlying diagnoses of multiple myeloma -Multiple myeloma currently under control with recent PET scan being negative -Obesity BMI 31.7 -Normocytic anemia from underlying infection and multiple myeloma -Hypogammaglobinemia, IgM Plan: Continue current medication treatment plan. Informed patient that medication,Pomalyst to be held till okayed by oncology to be resumed following clearance of infection. Thank you Dr. Duarte
--- NOTE | 2019-12-02 21:06 | P.PN ---
Subjective Progress Note Date: 11/30/19 Pt's LUE continues to improve subjectively. No f/c/n/v Objective - Vital Signs Vital signs: Vital Signs Temp 98.0 F 12/01/19 11:00 Pulse 67 12/01/19 11:00 Resp 24 12/01/19 11:00 BP 138/70 12/01/19 11:00 Pulse Ox 94 L 12/01/19 11:00 - Constitutional General appearance: Present: no acute distress - EENT Eyes: Present: EOMI ENT: Present: hearing grossly normal, normal oropharynx - Respiratory Respiratory: bilateral: CTA - Cardiovascular Rhythm: regular Heart sounds: normal: S1, S2 - Gastrointestinal General gastrointestinal: Present: normal bowel sounds, soft - Integumentary Integumentary Comment(s): Erythema LUE diminished - Musculoskeletal Musculoskeletal Comment(s): LUE bandaged below elbow. Swelling diminished - Psychiatric Psychiatric: Present: A&O x's 3 - Labs CBC & Chem 7: 11/29/19 05:00 11/30/19 04:43 Labs: Microbiology - Last 24 Hours (Table) 11/27/19 13:05 Blood Culture - Preliminary Blood No Growth after 120 hours 11/27/19 17:13 Anaerobic Culture - Final Elbow - Left Assessment and Plan (1) Abscess of left elbow Narrative/Plan: Pt continues to improve steadily with antibiotics and I &D. Management per ID and Ortho Status: Acute Code(s): L02.414 - CUTANEOUS ABSCESS OF LEFT UPPER LIMB SNOMED Code(s): 408682313 (2) Hx of multiple myeloma Narrative/Plan: Pt had started his wk off Pomalyst just before admission. He was advised to stay off it , even after the scheduled wk off is complete, as he is still likely to be on antibiotics at that time, to reduce risk of cytopenias with ongoing infection. I advised him not to restart till he sees his primary oncologist, Dr Olivares. He has an appt scheduled in the last wk of 12/01 - No indication for IVIg given adequate IgG, and good response to std treatment Status: Acute Code(s): Z85.79 - PRSNL HX OF MALIG NEOPLM OF LYMPHOID, HEMATPOETC & REL TISS SNOMED Code(s): 844683500879137
--- NOTE | 2019-12-03 15:16 | CDI ---
Documentation Clarification Form Date: 12/03/19 From: Tonia Hickey Phone: If you have a question about this query, please contact Idalia Horton Deputy Building Guard at [phone] between 8am and 5pm. Admit Date: 11/27/19 Discharge Date:12/01/19 Patient Name: Cas West Visit Number: [id number] ATTENTION: The Clinical Documentation Specialists (CDI) and [facility] Coding Staff appreciate your assistance in clarifying documentation. Please respond to the clarification below the line at the bottom and electronically sign. The CDI & [facility] Coding staff will review the response and follow-up if needed. Please note: Queries are made part of the Legal Health Record. If you have any questions, please contact the author of this message via ITS. Dear Dr. Duarte Per your 11/29/19 operative note, a debridement was performed on the right forearm subcutaneous abscess. You stated (sharp debridement using knife, of skin, superficial fascia, and subcutaneous tissue) History/Risk Factors: Abscess, cellulitis Clinical Indicators: Swelling and possible fluctuation Treatment: Right forearm subcutaneous abscess irrigation and debridement. Five elements required for accurate and compliant documentation of a debridement: 1. Technique used (e.g., excisional, excised, cutting, etc.) 2. Instrument(s) used (e.g., scalpel, curette, etc.) 3. Nature of the tissue removed (e.g., necrotic, devitalized tissues, non- viable tissue, etc.) 4. Appearance and size of the wound (e.g., down to fresh bleeding tissue, 7cm x 10cm, etc.) 5. Depth of the debridement* (e.g., skin, subcutaneous tissue, fascia, muscle, bone, etc.) In order to capture the severity of condition and code the appropriate procedure; could you please document the following: Excisional debridement (the removal of necrotic, devitalized tissue or slough by means of cutting away of tissue) Non-excisional debridement (the removal of necrotic, devitalized tissue or slough by means of flushing, brushing, or washing. (Irrigation) Other; please specify Unable to determine Excisional debridement was performed. MTDD
== END 2019-12-01 14:10 | disposition home health service (06) | DRG 571 ==
LOC: 6NMEDSUR 11-27 10:51 → UNDOADMIN 11-27 10:54 → 2ORMAIN 11-27 10:54
PROVIDERS: ADMIT Orthopaedic Surgery; ATTEND Orthopaedic Surgery
PROC: 0JBG0ZZ Excision of Right Lower Arm Subcutaneous Tissue and Fascia, Open Approach (ICD-10-PCS; principal; 2019-11-27 16:30)
PROC: 0JBG0ZZ Excision of Right Lower Arm Subcutaneous Tissue and Fascia, Open Approach (ICD-10-PCS; 2019-11-29)
PROC: 05HD33Z Insertion of Infusion Device into Right Cephalic Vein, Percutaneous Approach (ICD-10-PCS; 2019-11-30)
DX: L02.414 Cutaneous abscess of left upper limb (principal); D61.818 Other pancytopenia; C90.01 Multiple myeloma in remission; L03.114 Cellulitis of left upper limb; I83.90 Asymptomatic varicose veins of unspecified lower extremity; G62.9 Polyneuropathy, unspecified; F17.290 Nicotine dependence, other tobacco product, uncomplicated; E66.9 Obesity, unspecified; D64.9 Anemia, unspecified; M15.9 Polyosteoarthritis, unspecified; Z68.31 Body mass index [BMI] 31.0-31.9, adult; K57.90 Diverticulosis of intestine, part unspecified, without perforation or abscess without bleeding; K64.9 Unspecified hemorrhoids; Z85.828 Personal history of other malignant neoplasm of skin; Z92.21 Personal history of antineoplastic chemotherapy; Z92.3 Personal history of irradiation; Z86.010 Personal history of colon polyps; Z87.442 Personal history of urinary calculi; Z98.890 Other specified postprocedural states; Z96.652 Presence of left artificial knee joint; Z79.82 Long term (current) use of aspirin; Z79.899 Other long term (current) drug therapy; Z80.7 Family history of other malignant neoplasms of lymphoid, hematopoietic and related tissues; Z82.49 Family history of ischemic heart disease and other diseases of the circulatory system
CPT/HCPCS: 36410; 76937; 80048; 80053; 80202; 82565; 82784; 83615; 83735; 84100; 84165; 84550; 85025; 85027; 86140; 86334; 87040; 87070; 87075; 87205

== ENCOUNTER → 2021-02-17 | Outpatient (CLI) | payer MEDICARE ==
[2021-02-17 14:39] LABS: Appearance,Urine Clear (Clear); Bilirubin,Urine Negative (Negative); Blood,Urine Small (Negative); Color,Urine Yellow; Glucose,Urine (UA) Negative (Negative); HCT 38.4 % (39.0-53.0); HGB 13.1 gm/dL (13.0-17.5); Hyaline Casts,Urine 1 /lpf (0-2); Ketones,Urine Negative (Negative); Leukocyte Esterase,Urine Trace (Negative); MCH 32.9 pg (25.0-35.0); MCHC 34.2 g/dL (31.0-37.0); MCV 96.1 fL (80.0-100.0); Mean Platelet Volume 7.2; Mucus,Urine Few /hpf; Nitrite,Urine Negative (Negative); Platelet Count 193 k/uL (150-450); Protein,Urine Negative (Negative); RBC,Urine 7 /hpf (0-5); RDW 14.1 % (11.5-15.5); Squamous Epithelial Cell,Urine <1 /hpf (0-4); WBC 8.2 k/uL (3.8-10.6); WBC,Urine 6 /hpf (0-5)
[2021-02-17 14:47] LABS: INR 0.9 (<1.2); Partial Thromboplastin Time 22.9 sec (22.0-30.0); Prothrombin Time 9.8 sec (9.0-12.0)
[2021-02-17 15:00] LABS: ALT 16 U/L (4-49); AST 23 U/L (17-59); African American GFR (CKD) >90 (>60 ml/min/1.73 sqM); Albumin 4.3 g/dL (3.5-5.0); Alkaline Phosphatase 103 U/L (38-126); Anion Gap 11 mmol/L; Blood Urea Nitrogen 18 mg/dL (9-20); Calcium 9.5 mg/dL (8.4-10.2); Carbon Dioxide 26 mmol/L (22-30); Chloride 103 mmol/L (98-107); Glucose 106 mg/dL (74-99); Non-African American GFR(CKD) >90 (>60 ml/min/1.73 sqM); Potassium 3.8 mmol/L (3.5-5.1); Sodium 140 mmol/L (137-145); Total Bilirubin 0.5 mg/dL (0.2-1.3); Total Protein 7.3 g/dL (6.3-8.2)
== END | disposition home or self-care (01) ==
LOC: LABPAT 13:46
PROVIDERS: ATTEND Orthopaedic Surgery
DX: Z01.812 Encounter for preprocedural laboratory examination (principal); M17.12 Unilateral primary osteoarthritis, left knee; Z79.01 Long term (current) use of anticoagulants
CPT/HCPCS: 36415; 80053; 81001; 85027; 85610; 85730; 87070

== ENCOUNTER 2021-10-14 09:07 | Emergency (ER) | payer MEDICARE ==
[2021-10-14] MEDS ORDERED: VANCOMYCIN 1,000 MG in SODIUM CHLORIDE 0.9% 250 ML IVPB STA (10:31)
[2021-10-14] MEDS ORDERED: VANCOMYCIN 1,750 MG in SODIUM CHLORIDE 0.9% 500 ML 500 ML IVPB STA (10:41)
--- NOTE | 2021-10-14 10:49 | US ---
EXAMINATION TYPE: US venous doppler duplex LE RT DATE OF EXAM: 10/14/2021 10:04 AM COMPARISON: NONE CLINICAL HISTORY: redness,pain. SIDE PERFORMED: Right TECHNIQUE: The lower extremity deep venous system is examined utilizing real time linear array sonog marleny with graded compression, doppler sonography and color-flow sonography. VESSELS IMAGED: Common Femoral Vein Deep Femoral Vein Greater Saphenous Vein * Femoral Vein Popliteal Vein Small Saphenous Vein * Proximal Calf Veins (* superficial vessels) Right Leg: Negative for DVT Area of redness scanned anterior calf, no superficial or DVT seen. IMPRESSION: 1. Right lower extremity ultrasound negative for deep venous thrombosis.
[2021-10-14 11:16] LABS: Anisocytosis Slight; Basophils % (A) 0 %; Eosinophils # (A) 0.1 k/uL (0-0.7); Eosinophils % (A) 1 %; Lymphocytes # (A) 0.2 k/uL (1.0-4.8); Lymphocytes % (A) 2 %; MCH 33.4 pg (25.0-35.0); MCHC 34.4 g/dL (31.0-37.0); MCV 96.9 fL (80.0-100.0); Macrocytosis Slight; Mean Platelet Volume 8.4; Monocytes # (A) 0.4 k/uL (0-1.0); Monocytes % (A) 4 %; Neutrophils # (A) 8.5 k/uL (1.3-7.7); Neutrophils % (A) 92 %; Platelet Count 113 k/uL (150-450); Poikilocytosis Slight; RDW 16.9 % (11.5-15.5); WBC 9.3 k/uL (3.8-10.6)
[2021-10-14 11:26] LABS: Partial Thromboplastin Time 22.9 sec (22.0-30.0); Prothrombin Time 10.7 sec (9.0-12.0)
[2021-10-14 11:35] LABS: ALT 30 U/L (4-49); African American GFR (CKD) >90 (>60 ml/min/1.73 sqM); Albumin 3.2 g/dL (3.5-5.0); Anion Gap 3 mmol/L; Blood Urea Nitrogen 16 mg/dL (9-20); Calcium 8.1 mg/dL (8.4-10.2); Carbon Dioxide 26 mmol/L (22-30); Chloride 106 mmol/L (98-107); Glucose 108 mg/dL (74-99); Non-African American GFR(CKD) >90 (>60 ml/min/1.73 sqM); Sodium 135 mmol/L (137-145); Total Bilirubin 1.7 mg/dL (0.2-1.3); Total Protein 5.3 g/dL (6.3-8.2)
[2021-10-14 11:37] LABS: AST 42 U/L (17-59); Alkaline Phosphatase 55 U/L (38-126)
[2021-10-14 12:00] VITALS: TEMP 99.3
--- NOTE | 2021-10-14 12:20 | XR ---
EXAMINATION TYPE: XR chest 2V, XR tibia fibula 2 views RT DATE OF EXAM: 10/14/2021 COMPARISON: None HISTORY: 70 year-old male shortness of breath, difficulty breathing. Right lower leg pain, no injury. Evaluate for osteomyelitis. FINDINGS: CHEST: Right anterior chest wall injection port. Catheter tip in the upper right atrium. Low lung volumes an d cardiovascular markings. Patchy left basilar opacity. No pleural effusion. Heart borderline to mild ly enlarged. Right tibia/fibula: Knee and ankle articulations are grossly intact. There is bimalleolar soft tissue swelling. Degenerat kalina change anterior tibiotalar joint. Vascular calcifications are noted. No discrete periostitis or b mateo destruction. IMPRESSION: 1. Chest: Hypoventilatory changes. Borderline to mild cardiomegaly. Focal left basilar opacity could represent developing pneumonia or some patchy pulmonary edema. Clinically correlate. 2. Right tibia/fibula: Bimalleolar soft tissue swelling. Some degenerative change at the anterior tib iotalar joint. Vascular calcifications suggest underlying diabetes and/or chronic kidney disease. No specific radiographic findings of osteomyelitis.
--- NOTE | 2021-10-14 12:52 | ED ---
General Adult HPI - General Chief complaint: Extremity Problem,Nontraumatic Stated complaint: RT Leg Pain Time Seen by Provider: 10/14/21 09:58 Source: patient, RN notes reviewed, old records reviewed Mode of arrival: wheelchair Limitations: no limitations - History of Present Illness Initial comments: Patient is a 70-year-old male with past medical history remarkable for chronic back pain status post ablation spine, prior PE on anticoagulation who presents emergency Department complaining of right lower extremity swelling/pain. Is also red discoloration over the distal anterior right tib-fib. This is small scratch located at the site. Symptoms have been present for multiple days. Patient's became concerned as he does have a history of a staph infection wanted evaluated for possible infection. Patient is chronic lower extremity edema that is not worse than his baseline. Endorses occasional shortness of breath, however patient is deconditioned as since his back surgery last week he has been relatively nonambulatory. He was also having chronic shortness of breath prior to this. Nothing worse than baseline. Denies orthopnea. Denies PND. Denies chest pain. Denies nausea and vomiting, abdominal pain. Denies any systemic fevers. Is able to ambulate. Presents for further evaluation at this time. - Related Data Home Medications Medication Instructions Recorded Confirmed Acyclovir 400 mg PO DAILY 11/27/19 03/05/21 Apixaban [Eliquis] 5 mg PO BID 03/05/21 03/05/21 Previous Rx's Medication Instructions Recorded Sulfamethox-Tmp 800-160Mg [Bactrim 1 tab PO Q12HR 7 Days #14 tab 10/14/21 DS 800-160 mg] Allergies Allergy/AdvReac Type Severity Reaction Status Date / Time No Known Allergies Allergy Verified 10/14/21 09:14 Review of Systems ROS Statement: Those systems with pertinent positive or pertinent negative responses have been documented in the HPI. Review of Systems: CONST: Denies fever EYES: Denies blurry vision ENT: Denies nasal congestion C/V: Denies Chest pain RESP: Denies shortness of breath GI: Denies abdominal pain : Denies dysuria SKIN: Endorses skin redness over right leg MSK: Denies joint pain. NEURO: Denies headache ROS Other: All systems not noted in ROS Statement are negative. Past Medical History Past Medical History: Cancer, Osteoarthritis (OA), Pulmonary Embolus (PE), Renal Disease Additional Past Medical History / Comment(s): Pt recently admitted to [facility] on 11/16/19 with cellulitis L upper extremity. Other hx: 2006 diagnosed with multiple myeloma-treated with IV chemo/valcade and now immunotherapy/stem cell transplant x2, pancytopenia, peripheral neuropathy bilateral hands/legs and feet d/t chemo, L nare basal cell carcinoma with removal, L femur lesion with radiation treatments, arthritis in multiple joints but not severe, benign colon polyps, diverticular disease, hemorrhoids, kidney stones with surgery and pt has passed as well. History of Any Multi-Drug Resistant Organisms: None Reported Past Surgical History: Hernia Repair, Joint Replacement, Orthopedic Surgery Additional Past Surgical History / Comment(s): L knee unicompartmental replacement, R shoulder rotator cuff repair, L nares skin cancer removal, umbilical hernia repair, colonoscopy with benign polypectomy, lithotripsy x2 Past Anesthesia/Blood Transfusion Reactions: No Reported Reaction Past Psychological History: No Psychological Hx Reported Smoking Status: Current every day smoker Past Alcohol Use History: None Reported Past Drug Use History: None Reported - Past Family History Mother Family Medical History: Cancer Additional Family Medical History / Comment(s): Mother had lymphoma. Father Family Medical History: Coronary Artery Disease (CAD) General Exam - General Exam Comments Initial Comments: General: Appears in no acute distress. HEAD: Normal with no signs of head trauma. EYES: PERRLA, EOMI, conjunctiva normal, no discharge. ENT: Hearing grossly intact, normal oropharynx. RESPIRATORY: Clear breath sounds bilaterally. No wheezes, rales, or rhonchi. No hypoxia. No increased work of breathing. C/V: Regular rate and rhythm. S1 and S2 auscultated, 2+ bilateral edema to the ankles, peripheral pulses 2+ and intact throughout ABD: Abd is soft, nontender, nondistended EXT: Normal range of motion, no obvious deformity SKIN: Patient has erythema located over the distal right anterior tib-fib. No fluctuance. No active discharge from a small abrasion at the site. No induration. NEURO: Alert and oriented 4. No focal deficits. Limitations: no limitations Course Vital Signs 10/14/21 10/14/21 09:11 11:59 Temperature 99.2 F 99.3 F Pulse Rate 86 81 Respiratory 16 20 Rate Blood Pressure 108/71 102/65 O2 Sat by Pulse 96 94 L Oximetry Medical Decision Making - Medical Decision Making Based on the patient's presentation and physical exam, he appears to be having chronic lower extremity pitting edema and appears to have acute cellulitis. DVT ultrasound was obtained in triage to evaluate for possible DVT but is already compliant with blood thinning medication. Has chronic dyspnea with no change in his edema. I did offer a heart failure workup as well as activation the DVT workup. Appears he likely is experiencing a mild cellulitis. There were no gr een with this plan. Wound cultures will be obtained and I will empirically start the patient a dose of vancomycin IV prior to discharge. EKG shows no signs of ischemia. Chest x-ray shows possible left basilar opacity, however patient has chronic dyspnea with no upper respiratory symptoms. Likely pulmonary edema or atelectasis. Patient also has soft tissue swelling of the right tibia-fibula without any obvious signs of osteomyelitis. Laboratory studies are remarkable for a chronic normocytic anemia with a hemoglobin of 11.0. BNP is within normal limits the patient's age. The remainder of the labs are unremarkable. On reevaluation, I did discuss with the patient's and the patient that I believe he is experiencing cellulitis. Does not appear to be having acute heart failure exacerbation. DVT ultrasound revealed no signs of DVT. I believe is safe to be discharged home on antibiotics. They were in agreement this plan. Vital signs remained within normal limits throughout his stay. I will provide the patient with a prescription for Bactrim. I instructed the p atient to follow up with their PCP in the next 1-3 days. I explained that the patient should return to the emergency department if they experience any worsening symptoms. Strict return precautions were discussed with the patient. The patient expressed understanding of these instructions. I answered all questions that the patient had. The patient was discharged home in good condition with their prescriptions and follow up information. - Lab Data Result diagrams: 10/14/21 11:10/14/21 11: Lab Results 10/14/21 10/14/21 10/14/21 Range/Units 11:03 11: 11: WBC 9.3 (3.8-10.6) k/uL RBC 3.30 L (4.30-5.90) m/uL Hgb 11.0 L (13.0-17.5) gm/dL Hct 32.0 L (39.0-53.0) % MCV 96.9 (80.0-100.0) fL MCH 33.4 (25.0-35.0) pg MCHC 34.4 (31.0-37.0) g/dL RDW 16.9 H (11.5-15.5) % Plt Count 113 L (150-450) k/uL MPV 8.4 Neutrophils % 92 % Lymphocytes % 2 % Monocytes % 4 % Eosinophils % 1 % Basophils % 0 % Neutrophils # 8.5 H (1.3-7.7) k/uL Lymphocytes # 0.2 L (1.0-4.8) k/uL Monocytes # 0.4 (0-1.0) k/uL Eosinophils # 0.1 (0-0.7) k/uL Basophils # 0.0 (0-0.2) k/uL Poikilocytosis Slight Anisocytosis Slight Macrocytosis Slight PT 10.7 (9.0-12.0) sec INR 1.0 (<1.2) APTT 22.9 (22.0-30.0) sec Sodium 135 L (137-145) mmol/L Potassium 4.0 (3.5-5.1) mmol/L Chloride 106 (98-107) mmol/L Carbon Dioxide 26 (22-30) mmol/L Anion Gap 3 mmol/L BUN 16 (9-20) mg/dL Creatinine 0.75 (0.66-1.25) mg/dL Est GFR (CKD-EPI)AfAm >90 (>60 ml/min/1.73 sqM) Est GFR (CKD-EPI)NonAf >90 (>60 ml/min/1.73 sqM) Glucose 108 H (74-99) mg/dL Calcium 8.1 L (8.4-10.2) mg/dL Magnesium 2.0 (1.6-2.3) mg/dL Total Bilirubin 1.7 H (0.2-1.3) mg/dL AST 42 (17-59) U/L ALT 30 (4-49) U/L Alkaline Phosphatase 55 (38-126) U/L NT-Pro-B Natriuret Pep pg/mL Total Protein 5.3 L (6.3-8.2) g/dL Albumin 3.2 L (3.5-5.0) g/dL 10/14/21 Range/Units 11:03 WBC (3.8-10.6) k/uL RBC (4.30-5.90) m/uL Hgb (13.0-17.5) gm/dL Hct (39.0-53.0) % MCV (80.0-100.0) fL MCH (25.0-35.0) pg MCHC (31.0-37.0) g/dL RDW (11.5-15.5) % Plt Count (150-450) k/uL MPV Neutrophils % % Lymphocytes % % Monocytes % % Eosinophils % % Basophils % % Neutrophils # (1.3-7.7) k/uL Lymphocytes # (1.0-4.8) k/uL Monocytes # (0-1.0) k/uL Eosinophils # (0-0.7) k/uL Basophils # (0-0.2) k/uL Poikilocytosis Anisocytosis Macrocytosis PT (9.0-12.0) sec INR (<1.2) APTT (22.0-30.0) sec Sodium (137-145) mmol/L Potassium (3.5-5.1) mmol/L Chloride (98-107) mmol/L Carbon Dioxide (22-30) mmol/L Anion Gap mmol/L BUN (9-20) mg/dL Creatinine (0.66-1.25) mg/dL Est GFR (CKD-EPI)AfAm (>60 ml/min/1.73 sqM) Est GFR (CKD-EPI)NonAf (>60 ml/min/1.73 sqM) Glucose (74-99) mg/dL Calcium (8.4-10.2) mg/dL Magnesium (1.6-2.3) mg/dL Total Bilirubin (0.2-1.3) mg/dL AST (17-59) U/L ALT (4-49) U/L Alkaline Phosphatase (38-126) U/L NT-Pro-B Natriuret Pep 442 pg/mL Total Protein (6.3-8.2) g/dL Albumin (3.5-5.0) g/dL - EKG Data -: EKG Interpreted by Me EKG Comments: 12-lead Electrocardiogram Interpretation Note EKG was reviewed and interpreted by myself. 12-lead ECG performed at 1109 is interpreted by me as revealing normal sinus rhythm with PACs at a rate of 92 beats per minute. Nitro is normal. WV interval 141 ms, QRS duration is 90 ms, QTc is 418 ms.. There were no ST or T wave abnormalities to suggest myocardial ischemia or injury. R wave progression across the precordium was satisfactory. By my interpretation this EKG is non-diagnostic for acute ischemia. Disposition Clinical Impression: Cellulitis Disposition: HOME SELF-CARE Condition: Good Prescriptions: Sulfamethox-Tmp 800-160Mg [Bactrim DS 800-160 mg] 1 tab PO Q12HR 7 Days #14 tab Is patient prescribed a controlled substance at d/c from ED?: No Referrals: Neftaly Martin MD [Primary Care Provider] - 1-2 days Time of Disposition: 12:30
[2021-10-14 14:44] VITALS: BP 105/66; PULSE 78; RESP 14
== END 2021-10-14 14:53 | disposition home or self-care (01) ==
LOC: EC 09:07
DX: L03.115 Cellulitis of right lower limb (principal); M19.90 Unspecified osteoarthritis, unspecified site; N18.9 Chronic kidney disease, unspecified; F17.200 Nicotine dependence, unspecified, uncomplicated
CPT/HCPCS: 36415; 93005; 83880; 80053; 83735; 85025; 85610; 85730; 87070; 87205; 87075; 73590; 71046; 93971; 99284; 96365; 96366 ×2; J3370

== ENCOUNTER → 2021-10-21 | Outpatient (CLI) | payer MEDICARE ==
--- NOTE | 2021-10-22 08:21 | CA ---
Transthoracic Echo Report Name: Cas West Age: 70 Gender: M : 1950 Exam Date: 10/21/2021 13:11 Exam Location: [facility] Ht (in): 73 Wt (lb): 212 Ordering Physician: Yayo Quinteros MD ([id number]) Attending/Referring Phys: Aldair Zee;[id number] [employer] Laura Peck RDCS Procedure CPT: Indications: I42.9,I50.9 Cardiac Hx: Technical Quality: Fair Contrast 1: Total Dose (mL): Contrast 2: Total Dose (mL): MEASUREMENTS (Male / Female) Normal Values 2D ECHO LV Diastolic Diameter PLAX 3.9 cm 4.2 - 5.9 / 3.9 - 5.3 cm LV Systolic Diameter PLAX 2.5 cm IVS Diastolic Thickness 1.6 cm 0.6 - 1.0 / 0.6 - 0.9 cm LVPW Diastolic Thickness 1.4 cm 0.6 - 1.0 / 0.6 - 0.9 cm LV Relative Wall Thickness 0.8 RV Internal Dim ED PLAX 2.6 cm LA Volume 24.7 cm??? 18 - 58 / 22 - 52 cm??? M-MODE Aortic Root Diameter MM 3.5 cm AV Cusp Separation MM 2.2 cm DOPPLER LVOT Peak Velocity 87.1 cm/s LVOT Peak Gradient 3.0 mmHg MV Area PHT 2.8 cm??? Mitral E Point Velocity 48.4 cm/s Mitral A Point Velocity 81.8 cm/s Mitral E to A Ratio 0.6 MV Deceleration Time 273.3 ms MV E' Velocity 5.9 cm/s Mitral E to MV E' Ratio 8.2 TR Peak Velocity 269.5 cm/s TR Peak Gradient 29.0 mmHg Right Ventricular Systolic Press 34.0 mmHg FINDINGS Left Ventricle Moderately increased left ventricular wall thickness. Normal left ventricular systolic function with no obvious regional wall motion abnormalities. Left ventricular ejection fraction is estimated at 55-60 %. Right Ventricle Normal right ventricular size and function. Right ventricular systolic pressure within normal limits. Right Atrium Normal right atrial size. Left Atrium Normal left atrial size. No evidence for an atrial septal defect. Mitral Valve Structurally normal mitral valve. Mild mitral regurgitation. Aortic Valve Trileaflet aortic valve. No aortic valve stenosis or regurgitation. Tricuspid Valve Structurally normal tricuspid valve. Mild tricuspid regurgitation. Pulmonic Valve Trace pulmonic regurgitation. Pericardium No pericardial effusion. Echo free space anterior to the right ventricle likely represents a fat pad. Aorta Normal size aortic root and proximal ascending aorta. CONCLUSIONS Concentric left ventricular hypertrophy with normal LV systolic function Mild tricuspid regurgitation Previewed by: Dr. Yobani Liu MD (Electronically Signed) Final Date: 22 October 2021 08:20
== END | disposition home or self-care (01) ==
LOC: RADECHMAIN 13:03
PROVIDERS: ATTEND Internal Medicine Clinical Cardiac Electrophysiology
DX: I08.1 Rheumatic disorders of both mitral and tricuspid valves (principal); I42.9 Cardiomyopathy, unspecified
CPT/HCPCS: 93306

== ENCOUNTER 2021-11-28 09:03 | Emergency (ER) | payer MEDICARE ==
[2021-11-28 09:09] VITALS: BP 128/78; RESP 18; TEMP 98.1
[2021-11-28] MEDS ORDERED: HYDROcodone/APAP 5-325MG 1 EACH TAB PO STA (09:36)
--- NOTE | 2021-11-28 10:17 | ED ---
Extremity Problem HPI - General Chief complaint: Extremity Problem,Nontraumatic Stated complaint: lt lower leg pain Time Seen by Provider: 11/28/21 09:23 Source: patient, family, RN notes reviewed Mode of arrival: ambulatory Limitations: no limitations - History of Present Illness Initial comments: This is a 70-year-old male who presents to the emergency department for left lower extremity pain and swelling. States that he had similar symptoms early in October and was evaluated in the emergency department here. He was treated with a 7 day course of Bactrim. He followed up with his primary care provider, and was given a prescription for what he believes was Keflex. Symptoms did improve significantly and had resolved for a short period of time. He then started to notice pain and redness again when waking up yesterday. Since then, the leg has become progressively more painful and swollen from the knee down. He stopped taking Eliquis one week ago. He was taking this for a history of pulmonary embolus. He was not instructed to stop taking this, states that he did not like how much bruising he was experiencing. Denies any fevers, chills, sore throat, cough, dyspnea, chest pain, palpitations, abdominal pain, nausea, vomiting, diarrhea, back pain, or headaches. MD Complaint: extremity pain, extremity swelling Onset/Timin -: days(s) Location: left, lower extremity History of Same: Yes Radiation: distal - Related Data Home Medications Medication Instructions Recorded Confirmed Acyclovir 400 mg PO DAILY 11/27/19 03/05/21 Apixaban [Eliquis] 5 mg PO BID 03/05/21 03/05/21 Previous Rx's Medication Instructions Recorded Sulfamethox-Tmp 800-160Mg [Bactrim 1 tab PO Q12HR 7 Days #14 tab 10/14/21 DS 800-160 mg] Diclofenac Sodium [Voltaren] 75 mg PO BID PRN #20 tab 11/28/21 Sulfamethox-Tmp 800-160Mg [Bactrim 1 tab PO Q12HR 7 Days #14 tab 11/28/21 DS 800-160 mg] cefUROXime axetiL [Ceftin] 500 mg PO BID 7 Days #14 tab 11/28/21 Allergies Allergy/AdvReac Type Severity Reaction Status Date / Time No Known Allergies Allergy Verified 11/28/21 09:09 Review of Systems ROS Statement: Those systems with pertinent positive or pertinent negative responses have been documented in the HPI. ROS Other: All systems not noted in ROS Statement are negative. Past Medical History Past Medical History: Cancer, Osteoarthritis (OA), Pulmonary Embolus (PE), Renal Disease Additional Past Medical History / Comment(s): Pt recently admitted to [facility] on 11/16/19 with cellulitis L upper extremity. Other hx: 2006 diagnosed with multiple myeloma-treated with IV chemo/valcade and now immunotherapy/stem cell transplant x2, pancytopenia, peripheral neuropathy bilateral hands/legs and feet d/t chemo, L nare basal cell carcinoma with removal, L femur lesion with radiation treatments, arthritis in multiple joints but not severe, benign colon polyps, diverticular disease, hemorrhoids, kidney stones with surgery and pt has passed as well. History of Any Multi-Drug Resistant Organisms: None Reported Past Surgical History: Hernia Repair, Joint Replacement, Orthopedic Surgery Additional Past Surgical History / Comment(s): L knee unicompartmental replacement, R shoulder rotator cuff repair, L nares skin cancer removal, umbilical hernia repair, colonoscopy with benign polypectomy, lithotripsy x2 Past Anesthesia/Blood Transfusion Reactions: No Reported Reaction Past Psychological History: No Psychological Hx Reported Smoking Status: Current every day smoker Past Alcohol Use History: None Reported Past Drug Use History: None Reported - Past Family History Mother Family Medical History: Cancer Additional Family Medical History / Comment(s): Mother had lymphoma. Father Family Medical History: Coronary Artery Disease (CAD) General Exam Limitations: no limitations General appearance: alert, in no apparent distress Head exam: Present: atraumatic, normocephalic, normal inspection Respiratory exam: Present: normal lung sounds bilaterally. Absent: respiratory distress, wheezes, rales, rhonchi, stridor Cardiovascular Exam: Present: regular rate, normal rhythm, normal heart sounds. Absent: systolic murmur, diastolic murmur, rubs, gallop, clicks Extremities exam: Present: other (Swelling, erythema, increased heat, and tenderness to the left calf. 2+ pitting edema. No obvious open wounds or abrasions.) Neurological exam: Present: alert, oriented X3, CN II-XII intact Psychiatric exam: Present: normal affect, normal mood Course Vital Signs 11/28/21 11/28/21 09:04 13:07 Temperature 98.1 F Pulse Rate 92 78 Respiratory 18 Rate Blood Pressure 128/78 O2 Sat by Pulse 97 97 Oximetry Medical Decision Making - Medical Decision Making This is a 70-year-old male who presents to the emergency department for left lower extremity pain, swelling, and redness. Duplex ultrasound reveals no signs of a DVT. X-ray of the extremity reveals soft tissue swelling. CBC reveals no leukocytosis. He does have elevated inflammatory markers with the ESR and CRP. Discussed with the patient the options of outpatient versus inpatient management. Patient requests to try outpatient management first. Prescription for Bactrim and Ceftin provided to be taken for 7 days. He was given doses in the emergency department. However he was given Keflex instead of Ceftin, as Ce ftin was not available in the correct dose or in oral form. Diclofenac was also prescribed to help with pain. Patient is also on daily narcotics. He did request information for other local primary care providers due to the issues with Dr. Martin. Several other primary care offices were listed on his discharge forms. Advised he become established with one of them as soon as possible. Return precautions reviewed in depth, the patient is instructed to return to the emergency department with any new, worsening, or concerning symptoms. Patient verbalized understanding. This case was discussed in detail with the attending ED physician. Presentation, findings, and treatment plan discussed in detail as well. - Lab Data Result diagrams: 11/28/21 09:44 11/28/21 09:44 Lab Results 11/28/21 11/28/21 11/28/21 Range/Units 09:44 09:44 09:44 WBC 9.9 (3.8-10.6) k/uL RBC 3.68 L (4.30-5.90) m/uL Hgb 11.7 L (13.0-17.5) gm/dL Hct 36.3 L (39.0-53.0) % MCV 98.8 (80.0-100.0) fL MCH 31.9 (25.0-35.0) pg MCHC 32.3 (31.0-37.0) g/dL RDW 15.0 (11.5-15.5) % Plt Count 157 (150-450) k/uL MPV 8.2 Neutrophils % 90 % Lymphocytes % 3 % Monocytes % 5 % Eosinophils % 1 % Basophils % 0 % Neutrophils # 8.9 H (1.3-7.7) k/uL Lymphocytes # 0.3 L (1.0-4.8) k/uL Monocytes # 0.5 (0-1.0) k/uL Eosinophils # 0.1 (0-0.7) k/uL Basophils # 0.0 (0-0.2) k/uL ESR 28 H (0-15) mm/hr Sodium 138 (137-145) mmol/L Potassium 3.4 L (3.5-5.1) mmol/L Chloride 102 (98-107) mmol/L Carbon Dioxide 25 (22-30) mmol/L Anion Gap 11 mmol/L BUN 15 (9-20) mg/dL Creatinine 0.68 (0.66-1.25) mg/dL Est GFR (CKD-EPI)AfAm >90 (>60 ml/min/1.73 sqM) Est GFR (CKD-EPI)NonAf >90 (>60 ml/min/1.73 sqM) Glucose 97 (74-99) mg/dL Lactic Ac Sepsis Rflx Plasma Lactic Acid Owen 2.4 H* (0.7-2.0) mmol/L Calcium 8.9 (8.4-10.2) mg/dL Total Bilirubin 0.7 (0.2-1.3) mg/dL AST 20 (17-59) U/L ALT 27 (4-49) U/L Alkaline Phosphatase 104 (38-126) U/L C-Reactive Protein 3.4 H (<1.0) mg/dL Total Protein 5.3 L (6.3-8.2) g/dL Albumin 3.4 L (3.5-5.0) g/dL 11/28/21 Range/Units 11:18 WBC (3.8-10.6) k/uL RBC (4.30-5.90) m/uL Hgb (13.0-17.5) gm/dL Hct (39.0-53.0) % MCV (80.0-100.0) fL MCH (25.0-35.0) pg MCHC (31.0-37.0) g/dL RDW (11.5-15.5) % Plt Count (150-450) k/uL MPV Neutrophils % % Lymphocytes % % Monocytes % % Eosinophils % % Basophils % % Neutrophils # (1.3-7.7) k/uL Lymphocytes # (1.0-4.8) k/uL Monocytes # (0-1.0) k/uL Eosinophils # (0-0.7) k/uL Basophils # (0-0.2) k/uL ESR (0-15) mm/hr Sodium (137-145) mmol/L Potassium (3.5-5.1) mmol/L Chloride (98-107) mmol/L Carbon Dioxide (22-30) mmol/L Anion Gap mmol/L BUN (9-20) mg/dL Creatinine (0.66-1.25) mg/dL Est GFR (CKD-EPI)AfAm (>60 ml/min/1.73 sqM) Est GFR (CKD-EPI)NonAf (>60 ml/min/1.73 sqM) Glucose (74-99) mg/dL Lactic Ac Sepsis Rflx Y Plasma Lactic Acid Oewn (0.7-2.0) mmol/L Calcium (8.4-10.2) mg/dL Total Bilirubin (0.2-1.3) mg/dL AST (17-59) U/L ALT (4-49) U/L Alkaline Phosphatase (38-126) U/L C-Reactive Protein (<1.0) mg/dL Total Protein (6.3-8.2) g/dL Albumin (3.5-5.0) g/dL - Radiology Data Radiology results: report reviewed, image reviewed Disposition Clinical Impression: Cellulitis of left leg Disposition: HOME SELF-CARE Instructions (If sedation given, give patient instructions): Cellulitis (ED) Additional Instructions: Return to the emergency department with any new, worsening, or concerning symptoms. Take the antibiotics as prescribed for 7 days. The diclofenac be taken twice daily for pain relief. Take this with your other pain medications. I have listed other local primary care providers for you to contact to become established with. Prescriptions: Sulfamethox-Tmp 800-160Mg [Bactrim DS 800-160 mg] 1 tab PO Q12HR 7 Days #14 tab cefUROXime axetiL [Ceftin] 500 mg PO BID 7 Days #14 tab Diclofenac Sodium [Voltaren] 75 mg PO BID PRN #20 tab PRN Reason: Pain Is patient prescribed a controlled substance at d/c from ED?: No Referrals: Nonstaff,Physician [Primary Care Provider] - 1-2 days Salena Arias MD [REFERRING] - 1-2 days Vamshi Mark Jr, DO [Doctor of Osteopathic Medicine] - 1-2 days Radha Elliott MD [STAFF PHYSICIAN] - 1-2 days Enrique Anders MD [STAFF PHYSICIAN] - 1-2 days Matt Nam MD [STAFF PHYSICIAN] - 1-2 days
[2021-11-28 10:26] LABS: Basophils % (A) 0 %; Eosinophils # (A) 0.1 k/uL (0-0.7); Eosinophils % (A) 1 %; HCT 36.3 % (39.0-53.0); HGB 11.7 gm/dL (13.0-17.5); Lymphocytes # (A) 0.3 k/uL (1.0-4.8); Lymphocytes % (A) 3 %; MCH 31.9 pg (25.0-35.0); MCHC 32.3 g/dL (31.0-37.0); MCV 98.8 fL (80.0-100.0); Mean Platelet Volume 8.2; Monocytes # (A) 0.5 k/uL (0-1.0); Monocytes % (A) 5 %; Neutrophils # (A) 8.9 k/uL (1.3-7.7); Neutrophils % (A) 90 %; Platelet Count 157 k/uL (150-450); RBC 3.68 m/uL (4.30-5.90); WBC 9.9 k/uL (3.8-10.6)
--- NOTE | 2021-11-28 10:34 | US ---
EXAMINATION TYPE: US venous doppler duplex LE LT DATE OF EXAM: 11/28/2021 10:19 AM COMPARISON: Previous right leg only CLINICAL HISTORY: rule out DVT. Left leg redness and pain, no known prior DVT SIDE PERFORMED: Left TECHNIQUE: The lower extremity deep venous system is examined utilizing real time linear array sonog marleny with graded compression, doppler sonography and color-flow sonography. FINDINGS: VESSELS IMAGED: Common Femoral Vein Deep Femoral Vein Greater Saphenous Vein * Femoral Vein Popliteal Vein Small Saphenous Vein * Proximal Calf Veins Posterior tibial veins (* superficial vessels) Left Leg: Negative for DVT. Images show mild subcutaneous edema at the calf. IMPRESSION: No evidence for DVT within the left lower extremity. Mild subcutaneous soft tissue swelling at the ca lf.
[2021-11-28 11:12] LABS: ALT 27 U/L (4-49); AST 20 U/L (17-59); African American GFR (CKD) >90 (>60 ml/min/1.73 sqM); Albumin 3.4 g/dL (3.5-5.0); Alkaline Phosphatase 104 U/L (38-126); Anion Gap 11 mmol/L; Blood Urea Nitrogen 15 mg/dL (9-20); C Reactive Protein 3.4 mg/dL (<1.0); Calcium 8.9 mg/dL (8.4-10.2); Carbon Dioxide 25 mmol/L (22-30); Chloride 102 mmol/L (98-107); Glucose 97 mg/dL (74-99); Non-African American GFR(CKD) >90 (>60 ml/min/1.73 sqM); Potassium 3.4 mmol/L (3.5-5.1); Sodium 138 mmol/L (137-145); Total Bilirubin 0.7 mg/dL (0.2-1.3); Total Protein 5.3 g/dL (6.3-8.2)
--- NOTE | 2021-11-28 11:19 | XR ---
EXAMINATION TYPE: XR tibia fibula 2 views LT DATE OF EXAM: 11/28/2021 Comparison: 08/15/2018 Clinical History: 70-year-old male with lower leg pain, assess for Infection Findings: Moderate degenerative change patellofemoral and lateral compartments of the knee. Patient is status p ost medial unicompartmental arthroplasty. History an underlying small knee joint effusion. There is generalized soft tissue swelling along the distal third leg and ankle. Vascular calcificatio n suggests underlying diabetes and chronic kidney disease. Tiny plantar heel spur noted. No acute fra cture, subluxation, dislocation. No periostitis or osteolysis. Impression: 1. Status post medial unicompartmental arthroplasty of the knee. Moderate osteoarthrosis lateral and patellofemoral compartments. A small knee joint effusion is nonspecific. 2. Generalized soft tissue swelling distal third leg and ankle. 3. Vascular calcifications suggest underlying diabetes and/or chronic kidney disease. 4. Otherwise, no acute osseous abnormality seen.
[2021-11-28 11:54] LABS: Erythrocyte Sedimentation Rate 28 mm/hr (0-15)
[2021-11-28] MEDS ORDERED: SULFAMETHOX-TMP 800-160MG 1 EACH TAB PO STA (12:25)
[2021-11-28] MEDS ORDERED: CEPHALEXIN 500 MG CAP PO STA (12:25)
[2021-11-28 13:08] VITALS: PULSE 78
== END 2021-11-28 13:08 | disposition home or self-care (01) ==
LOC: EC 09:03
DX: L03.116 Cellulitis of left lower limb (principal); M19.90 Unspecified osteoarthritis, unspecified site; F17.200 Nicotine dependence, unspecified, uncomplicated; Z79.01 Long term (current) use of anticoagulants; Z86.711 Personal history of pulmonary embolism
CPT/HCPCS: 36415; 80053; 83605; 85025; 85652; 86140; 99283; 99284

== ENCOUNTER 2022-01-06 10:53 | Emergency (ER) | payer MEDICARE ==
[2022-01-06 10:57] VITALS: TEMP 97
[2022-01-06 11:50] LABS: Basophils % (A) 0 %; Eosinophils # (A) 0.1 k/uL (0-0.7); Eosinophils % (A) 1 %; HCT 35.2 % (39.0-53.0); HGB 11.9 gm/dL (13.0-17.5); Hypochromasia Slight; Lymphocytes # (A) 0.3 k/uL (1.0-4.8); Lymphocytes % (A) 4 %; MCH 31.6 pg (25.0-35.0); MCHC 33.7 g/dL (31.0-37.0); Mean Platelet Volume 8.8; Monocytes # (A) 0.9 k/uL (0-1.0); Monocytes % (A) 11 %; Neutrophils # (A) 6.5 k/uL (1.3-7.7); Neutrophils % (A) 83 %; Platelet Count 115 k/uL (150-450); Poikilocytosis Slight; RBC 3.76 m/uL (4.30-5.90); RDW 14.3 % (11.5-15.5); WBC 7.9 k/uL (3.8-10.6)
[2022-01-06 12:00] LABS: ALT 56 U/L (4-49); AST 34 U/L (17-59); African American GFR (CKD) >90 (>60 ml/min/1.73 sqM); Albumin 3.3 g/dL (3.5-5.0); Alkaline Phosphatase 99 U/L (38-126); Anion Gap 8 mmol/L; Blood Urea Nitrogen 12 mg/dL (9-20); Calcium 8.4 mg/dL (8.4-10.2); Carbon Dioxide 27 mmol/L (22-30); Chloride 104 mmol/L (98-107); Glucose 113 mg/dL (74-99); Non-African American GFR(CKD) >90 (>60 ml/min/1.73 sqM); Sodium 139 mmol/L (137-145); Total Bilirubin 1.1 mg/dL (0.2-1.3)
[2022-01-06 12:08] LABS: MCV 93.6 fL (80.0-100.0)
--- NOTE | 2022-01-06 12:08 | US ---
EXAMINATION TYPE: US venous doppler duplex LE LT DATE OF EXAM: 01/06/2022 11:59 AM COMPARISON: US November 28 2021 CLINICAL HISTORY: pain, swelling. Left calf pain and swelling SIDE PERFORMED: Left TECHNIQUE: The lower extremity deep venous system is examined utilizing real time linear array sonog marleny with graded compression, doppler sonography and color-flow sonography. VESSELS IMAGED: Common Femoral Vein Deep Femoral Vein Greater Saphenous Vein * Femoral Vein Popliteal Vein Small Saphenous Vein * Proximal Calf Veins (* superficial vessels) Left Leg: Appears negative for DVT Grayscale, color doppler, spectral doppler imaging performed of the deep veins of the left lower extr emity. There is normal flow, compressibility, vascular waveforms. IMPRESSION: No ultrasound evidence for acute DVT in left lower extremity. No significant change from recent ultrasound.
--- NOTE | 2022-01-06 12:09 | ED ---
General Adult HPI - General Chief complaint: Extremity Problem,Nontraumatic Stated complaint: possible blood clot Time Seen by Provider: 01/06/22 10:57 Source: patient, RN notes reviewed Mode of arrival: wheelchair Limitations: no limitations - History of Present Illness Initial comments: This a 71-year-old male presents emergency Department from PCPs office for evaluation of left leg swelling, redness and pain. Patient states that he hasn't shortness of last couple days but woke up with severe pain, redness patient does have history of PE and which is not localize up into 2 weeks ago he started noticing bruising so he decided to discontinue it. Patient doesn't there is some shortness of breath but states he usually has shortness breath from his multiple myeloma medication. Patient denies any rectal bleeding denies having recent anemia issues or requiring transfusions. Patient denies fevers chills chest pain. - Related Data Home Medications Medication Instructions Recorded Confirmed Acyclovir 400 mg PO DAILY 11/27/19 03/05/21 Apixaban [Eliquis] 5 mg PO BID 03/05/21 03/05/21 Previous Rx's Medication Instructions Recorded Sulfamethox-Tmp 800-160Mg [Bactrim 1 tab PO Q12HR 7 Days #14 tab 10/14/21 DS 800-160 mg] Diclofenac Sodium [Voltaren] 75 mg PO BID PRN #20 tab 11/28/21 Sulfamethox-Tmp 800-160Mg [Bactrim 1 tab PO Q12HR 7 Days #14 tab 11/28/21 DS 800-160 mg] cefUROXime axetiL [Ceftin] 500 mg PO BID 7 Days #14 tab 11/28/21 Cephalexin [Keflex] 500 mg PO Q6HR #40 cap 01/06/22 Allergies Allergy/AdvReac Type Severity Reaction Status Date / Time No Known Allergies Allergy Verified 01/06/22 12:58 Review of Systems ROS Statement: Those systems with pertinent positive or pertinent negative responses have been documented in the HPI. ROS Other: All systems not noted in ROS Statement are negative. Past Medical History Past Medical History: Cancer, Osteoarthritis (OA), Pulmonary Embolus (PE), Renal Disease Additional Past Medical History / Comment(s): Pt recently admitted to [facility] on 11/16/19 with cellulitis L upper extremity. Other hx: 2006 diagnosed with multiple myeloma-treated with IV chemo/valcade and now immunotherapy/stem cell transplant x2, pancytopenia, peripheral neuropathy bilateral hands/legs and feet d/t chemo, L nare basal cell carcinoma with removal, L femur lesion with radiation treatments, arthritis in multiple joints but not severe, benign colon polyps, diverticular disease, hemorrhoids, kidney stones with surgery and pt has passed as well. History of Any Multi-Drug Resistant Organisms: None Reported Past Surgical History: Hernia Repair, Joint Replacement, Orthopedic Surgery Additional Past Surgical History / Comment(s): L knee unicompartmental replacement, R shoulder rotator cuff repair, L nares skin cancer removal, umbilical hernia repair, colonoscopy with benign polypectomy, lithotripsy x2 Past Anesthesia/Blood Transfusion Reactions: No Reported Reaction Past Psychological History: No Psychological Hx Reported Smoking Status: Current every day smoker Past Alcohol Use History: None Reported Past Drug Use History: None Reported - Past Family History Mother Family Medical History: Cancer Additional Family Medical History / Comment(s): Mother had lymphoma. Father Family Medical History: Coronary Artery Disease (CAD) General Exam Limitations: no limitations General appearance: alert, in no apparent distress Head exam: Present: atraumatic, normocephalic, normal inspection Eye exam: Present: normal appearance, PERRL, EOMI. Absent: scleral icterus, conjunctival injection, periorbital swelling ENT exam: Present: normal exam, normal oropharynx, mucous membranes moist Neck exam: Present: normal inspection. Absent: tenderness, meningismus, lymphadenopathy Respiratory exam: Present: normal lung sounds bilaterally. Absent: respiratory distress, wheezes, rales, rhonchi, stridor Cardiovascular Exam: Present: regular rate, normal rhythm, normal heart sounds. Absent: systolic murmur, diastolic murmur, rubs, gallop, clicks GI/Abdominal exam: Present: soft, normal bowel sounds. Absent: distended, tenderness, guarding, rebound, rigid Extremities exam: Present: other (Left lower leg there is erythema, tenderness with palpation, pulse report bilaterally there is mild increased warmth the left lower extremity) Course Vital Signs 01/06/22 10:53 Temperature 97 F L Pulse Rate 75 Respiratory 16 Rate Blood Pressure 120/74 O2 Sat by Pulse 99 Oximetry Medical Decision Making - Medical Decision Making 71-year-old presented for concerns for lower extremity DVT. Patient does not have any evidence of DVT patient also was negative patient does have mild hypokalemia and which further discussed with patient he states he goes to be on potassium but he has recently stopped it. He will take 40 mEq a day and continue his normal dose. Patient did restart his eliquis and will continue course until further instructed by PCP. Patient has concerns for left lower extremity cellulitis was started on Keflex. Return parameters were discussed - Lab Data Result diagrams: 01/06/22 11:38 01/06/22 11:38 Lab Results 01/06/22 01/06/22 Range/Units 11:38 11:38 WBC 7.9 (3.8-10.6) k/uL RBC 3.76 L (4.30-5.90) m/uL Hgb 11.9 L (13.0-17.5) gm/dL Hct 35.2 L (39.0-53.0) % MCV 93.6 D (80.0-100.0) fL MCH 31.6 (25.0-35.0) pg MCHC 33.7 (31.0-37.0) g/dL RDW 14.3 (11.5-15.5) % Plt Count 115 L (150-450) k/uL MPV 8.8 Neutrophils % 83 % Lymphocytes % 4 % Monocytes % 11 % Eosinophils % 1 % Basophils % 0 % Neutrophils # 6.5 (1.3-7.7) k/uL Lymphocytes # 0.3 L (1.0-4.8) k/uL Monocytes # 0.9 (0-1.0) k/uL Eosinophils # 0.1 (0-0.7) k/uL Basophils # 0.0 (0-0.2) k/uL Hypochromasia Slight Poikilocytosis Slight Sodium 139 (137-145) mmol/L Potassium 3.0 L (3.5-5.1) mmol/L Chloride 104 (98-107) mmol/L Carbon Dioxide 27 (22-30) mmol/L Anion Gap 8 mmol/L BUN 12 (9-20) mg/dL Creatinine 0.60 L (0.66-1.25) mg/dL Est GFR (CKD-EPI)AfAm >90 (>60 ml/min/1.73 sqM) Est GFR (CKD-EPI)NonAf >90 (>60 ml/min/1.73 sqM) Glucose 113 H (74-99) mg/dL Calcium 8.4 (8.4-10.2) mg/dL Total Bilirubin 1.1 (0.2-1.3) mg/dL AST 34 (17-59) U/L ALT 56 H (4-49) U/L Alkaline Phosphatase 99 (38-126) U/L Total Protein 5.0 L (6.3-8.2) g/dL Albumin 3.3 L (3.5-5.0) g/dL Disposition Clinical Impression: Cellulitis of left lower extremity, Hypokalemia Disposition: HOME SELF-CARE Condition: Stable Instructions (If sedation given, give patient instructions): Cellulitis (ED) Additional Instructions: Please return to the Emergency Department if symptoms worsen or any other concerns. Prescriptions: Cephalexin [Keflex] 500 mg PO Q6HR #40 cap Is patient prescribed a controlled substance at d/c from ED?: No Referrals: Steve Leon MD [Primary Care Provider] - 1-2 days Time of Disposition: 13:01
[2022-01-06 13:01] LABS: Partial Thromboplastin Time 21.1 sec (22.0-30.0); Prothrombin Time 10.6 sec (9.0-12.0)
[2022-01-06 13:07] VITALS: BP 137/89; PULSE 97; RESP 18
== END 2022-01-06 13:07 | disposition home or self-care (01) ==
LOC: EC 10:53
DX: R22.42 Localized swelling, mass and lump, left lower limb (principal); E87.6 Hypokalemia; M19.90 Unspecified osteoarthritis, unspecified site; N18.9 Chronic kidney disease, unspecified; F17.200 Nicotine dependence, unspecified, uncomplicated; Z79.899 Other long term (current) drug therapy
CPT/HCPCS: 36415; 80053; 85025; 85610; 85730; 99284

== ENCOUNTER 2022-01-15 10:45 | Inpatient (IN) | payer MEDICARE ==
[2022-01-15] MEDS ORDERED: SODIUM CHLORIDE 0.9% 1,000 ML IV STA (11:31)
--- NOTE | 2022-01-15 11:35 | ED ---
General Adult HPI - General Chief complaint: Extremity Problem,Nontraumatic Stated complaint: Infection in Leg Time Seen by Provider: 01/15/22 11:12 Source: patient, RN notes reviewed Mode of arrival: ambulatory Limitations: no limitations - History of Present Illness Initial comments: 71-year-old male with a past medical history of PE, renal disease, maintenance immunotherapy for multiple myeloma presents to the emergency room for a chief complaint of left leg cellulitis. Patient states his initial episode was in October. However this episode started about 10 days ago. He was seen here in the emergency room started on Keflex. Symptoms have not been improving. He saw his primary care 3 days ago and they recommended that if it did not subside by the end of his antibiotics to come to the emergency room. Patient states he has not seen any improvement in the cellulitis. He denies any fevers. Patient does have a history of a left knee replacement but denies any pain in the knee or limited range of motion in the knee since this infection started.Patient has no other complaints at this time including shortness of breath, chest pain, abdo sonam pain, nausea or vomiting, headache, or visual changes. - Related Data Home Medications Medication Instructions Recorded Confirmed Apixaban [Eliquis] 5 mg PO BID 03/05/21 01/15/22 HYDROcodone/APAP 5-325MG [[place] 1 tab PO Q6H PRN 01/06/22 01/15/22 5-325] Metoprolol Succinate [Toprol XL] 50 mg PO DAILY 01/06/22 01/15/22 Pomalyst 4mg 4 mg PO DIRECTED 01/06/22 01/15/22 dexAMETHasone [Decadron] 20 mg PO FRSA 01/06/22 01/15/22 Previous Rx's Medication Instructions Recorded Cephalexin [Keflex] 500 mg PO Q6HR #40 cap 01/06/22 Allergies Allergy/AdvReac Type Severity Reaction Status Date / Time No Known Allergies Allergy Verified 01/15/22 12:36 Review of Systems ROS Statement: Those systems with pertinent positive or pertinent negative responses have been documented in the HPI. ROS Other: All systems not noted in ROS Statement are negative. Past Medical History Past Medical History: Cancer, Osteoarthritis (OA), Pulmonary Embolus (PE), Renal Disease Additional Past Medical History / Comment(s): Pt recently admitted to [facility] on 11/16/19 with cellulitis L upper extremity. Other hx: 2006 diagnosed with multiple myeloma-treated with IV chemo/valcade and now immunotherapy/stem cell transplant x2, pancytopenia, peripheral neuropathy bilateral hands/legs and feet d/t chemo, L nare basal cell carcinoma with removal, L femur lesion with radiation treatments, arthritis in multiple joints but not severe, benign colon polyps, diverticular disease, hemorrhoids, kidney stones with surgery and pt has passed as well. History of Any Multi-Drug Resistant Organisms: None Reported Past Surgical History: Hernia Repair, Joint Replacement, Orthopedic Surgery Additional Past Surgical History / Comment(s): L knee unicompartmental replacement, R shoulder rotator cuff repair, L nares skin cancer removal, umbilical hernia repair, colonoscopy with benign polypectomy, lithotripsy x2 Past Anesthesia/Blood Transfusion Reactions: No Reported Reaction Past Psychological History: No Psychological Hx Reported Smoking Status: Current every day smoker Past Alcohol Use History: None Reported Past Drug Use History: None Reported - Past Family History Mother Family Medical History: Cancer Additional Family Medical History / Comment(s): Mother had lymphoma. Father Family Medical History: Coronary Artery Disease (CAD) General Exam Limitations: no limitations General appearance: alert, in no apparent distress Head exam: Present: atraumatic Eye exam: Present: normal appearance, PERRL, EOMI. Absent: scleral icterus, con junctival injection ENT exam: Present: normal exam, mucous membranes moist Neck exam: Present: normal inspection, full ROM. Absent: tenderness Respiratory exam: Present: normal lung sounds bilaterally. Absent: respiratory distress, wheezes Cardiovascular Exam: Present: regular rate, normal rhythm, normal heart sounds GI/Abdominal exam: Present: soft, normal bowel sounds. Absent: distended, tenderness Extremities exam: Present: full ROM (Full range of motion of the left lower extremity including knee joint.), tenderness (Tenderness of the left lower anterior leg with pitting edema.), normal capillary refill (Capillary refill less than a second left lower extremity, DP pulse 2+.), other (Erythema extending from proximal tib-fib through left dorsal foot.) Neurological exam: Present: alert Course Vital Signs 01/15/22 10:49 Temperature 98.4 F Pulse Rate 92 Respiratory 20 Rate Blood Pressure 109/65 O2 Sat by Pulse 99 Oximetry Medical Decision Making - Medical Decision Making Reviewed previous records including previous ER visit, admissions, and recent medications Vitals stable white count 4.4. CMP does note a bilirubin of 2.9 which should be repeated. X-ray shows soft tissue swelling. At this point patient will be admitted for IV antibiotics given his failure of outpatient treatment and maintenance chemo. I discussed this case with attending Dr. Rich who agrees with this assessment and treatment plan. - Lab Data Result diagrams: 01/15/22 11:46 01/15/22 11:46 Lab Results 01/15/22 01/15/22 01/15/22 Range/Units 11:46 11:46 11:46 WBC 4.4 (3.8-10.6) k/uL RBC 3.69 L (4.30-5.90) m/uL Hgb 11.7 L (13.0-17.5) gm/dL Hct 34.4 L (39.0-53.0) % MCV 93.4 (80.0-100.0) fL MCH 31.7 (25.0-35.0) pg MCHC 33.9 (31.0-37.0) g/dL RDW 15.3 (11.5-15.5) % Plt Count 115 L (150-450) k/uL MPV 8.7 Neutrophils % 86 % Lymphocytes % 3 % Monocytes % 10 % Eosinophils % 1 % Basophils % 0 % Neutrophils # 3.8 (1.3-7.7) k/uL Lymphocytes # 0.1 L (1.0-4.8) k/uL Monocytes # 0.4 (0-1.0) k/uL Eosinophils # 0.0 (0-0.7) k/uL Basophils # 0.0 (0-0.2) k/uL Hypochromasia Slight Poikilocytosis Slight Sodium 135 L (137-145) mmol/L Potassium 3.6 (3.5-5.1) mmol/L Chloride 105 (98-107) mmol/L Carbon Dioxide 23 (22-30) mmol/L Anion Gap 7 mmol/L BUN 17 (9-20) mg/dL Creatinine 0.63 L (0.66-1.25) mg/dL Est GFR (CKD-EPI)AfAm >90 (>60 ml/min/1.73 sqM) Est GFR (CKD-EPI)NonAf >90 (>60 ml/min/1.73 sqM) Glucose 177 H (74-99) mg/dL Plasma Lactic Acid Owen 2.3 H* (0.7-2.0) mmol/L Calcium 7.8 L (8.4-10.2) mg/dL Magnesium 1.9 (1.6-2.3) mg/dL Total Bilirubin 2.9 H (0.2-1.3) mg/dL AST 26 (17-59) U/L ALT 39 (4-49) U/L Alkaline Phosphatase 101 (38-126) U/L Total Protein 4.7 L (6.3-8.2) g/dL Albumin 3.0 L (3.5-5.0) g/dL Disposition Clinical Impression: Cellulitis Disposition: ADMITTED IP TO THIS HOSP Is patient prescribed a controlled substance at d/c from ED?: No Referrals: Steve Leon MD [Primary Care Provider] - 1-2 days Time of Disposition: 13:30
--- NOTE | 2022-01-15 12:23 | XR ---
EXAMINATION TYPE: XR foot complete LT DATE OF EXAM: 01/15/2022 COMPARISON: NONE HISTORY: Swelling and possible cellulitis TECHNIQUE: Three views are submitted. FINDINGS: The osseous structures are intact. There is no acute fracture or dislocation. Joint spaces are v ascular calcifications are seen. There is diffuse soft tissue edema. Small plantar calcaneal spur. Pr eserved. IMPRESSION: 1. Soft tissue edema.
--- NOTE | 2022-01-15 12:25 | XR ---
EXAMINATION TYPE: XR tibia fibula LT DATE OF EXAM: 01/15/2022 COMPARISON: NONE HISTORY: Pain TECHNIQUE: Two views are submitted. FINDINGS: The osseous structures are intact. Complete loss of the lateral margin of the ankle joint. Postsurgic al change involving the medial margin compatible hemiarthroplasty. Severe narrowing patellofemoral tino int. Soft tissue calcifications incidentally noted. No acute fracture. IMPRESSION: 1. Postsurgical change and severe arthropathy.
[2022-01-15 12:27] LABS: Basophils % (A) 0 %; Eosinophils % (A) 1 %; HCT 34.4 % (39.0-53.0); HGB 11.7 gm/dL (13.0-17.5); Hypochromasia Slight; Lymphocytes # (A) 0.1 k/uL (1.0-4.8); Lymphocytes % (A) 3 %; MCH 31.7 pg (25.0-35.0); MCHC 33.9 g/dL (31.0-37.0); MCV 93.4 fL (80.0-100.0); Mean Platelet Volume 8.7; Monocytes # (A) 0.4 k/uL (0-1.0); Monocytes % (A) 10 %; Neutrophils # (A) 3.8 k/uL (1.3-7.7); Neutrophils % (A) 86 %; Platelet Count 115 k/uL (150-450); Poikilocytosis Slight; RBC 3.69 m/uL (4.30-5.90); RDW 15.3 % (11.5-15.5); WBC 4.4 k/uL (3.8-10.6)
[2022-01-15 12:29] LABS: ALT 39 U/L (4-49); AST 26 U/L (17-59); African American GFR (CKD) >90 (>60 ml/min/1.73 sqM); Alkaline Phosphatase 101 U/L (38-126); Anion Gap 7 mmol/L; Blood Urea Nitrogen 17 mg/dL (9-20); Calcium 7.8 mg/dL (8.4-10.2); Carbon Dioxide 23 mmol/L (22-30); Chloride 105 mmol/L (98-107); Glucose 177 mg/dL (74-99); Magnesium 1.9 mg/dL (1.6-2.3); Non-African American GFR(CKD) >90 (>60 ml/min/1.73 sqM); Potassium 3.6 mmol/L (3.5-5.1); Sodium 135 mmol/L (137-145); Total Bilirubin 2.9 mg/dL (0.2-1.3); Total Protein 4.7 g/dL (6.3-8.2)
[2022-01-15] MEDS ORDERED: NALOXONE 0.4 MG/ML 1 ML VIAL IV PRN ×2 (13:31→13:57)
[2022-01-15] MEDS ORDERED: ACETAMINOPHEN TAB 325 MG TAB PO PRN (13:31)
[2022-01-15] MEDS ORDERED: VANCOMYCIN IV PER PHARMACY 1 EACH MISC MISCELLANE PRN (13:35)
[2022-01-15] MEDS ORDERED: VANCOMYCIN 1,500 MG in SODIUM CHLORIDE 0.9% 500 ML 500 ML IVPB STA (13:39)
[2022-01-15] MEDS ORDERED: cefTRIAXone IN SWFI 1,000 MG/10 ML SYRINGE IVP STA (13:55)
[2022-01-15] MEDS ORDERED: KETOROLAC 15 MG/ML 1 ML VIAL IVP PRN (13:57)
[2022-01-15] MEDS ORDERED: traMADol 50 MG TAB PO PRN (13:57)
--- NOTE | 2022-01-15 14:26 | P.HPIM ---
History of Present Illness H&P Date: 01/15/22 Chief Complaint: cellulitis 71-year-old male with a past medical history of PE, chronic back pain on injections, maintenance immunotherapy for multiple myeloma presents to the emergency room for a chief complaint of left leg cellulitis. Patient states his initial episode was in October. It is been recurring since then. This current episode started about 10 days ago. He was seen here in the emergency room started on Keflex which he has been taking but symptoms have not been improving. No fevers or chills. He states that both of his legs are chronically swollen due to the chemo. No shortness of breath, chest pain, abdominal pain, nausea or vomiting, headache, or visual changes. Evaluation in the emergency department revealed normal vital signs, white count 4.4, hemoglobin 11.7, platelet count 115, sodium 135, potassium 3.6, chloride 105, bicarbonate 23, BUN 17, creatinine 0.63, glucose 177, lactic acid 2.3, calcium 7.8, bilirubin 2.9. Was admitted for failed outpatient treatment of cellulitis. Review of Systems Complete review of system performed, pertinent positives per HPI, otherwise negative Past Medical History Past Medical History: Cancer, Osteoarthritis (OA), Pulmonary Embolus (PE), Renal Disease Additional Past Medical History / Comment(s): Pt recently admitted to [facility] on 11/16/19 with cellulitis L upper extremity. Other hx: 2006 diagnosed with mult iple myeloma-treated with IV chemo/valcade and now immunotherapy/stem cell transplant x2, pancytopenia, peripheral neuropathy bilateral hands/legs and feet d/t chemo, L nare basal cell carcinoma with removal, L femur lesion with radiation treatments, arthritis in multiple joints but not severe, benign colon polyps, diverticular disease, hemorrhoids, kidney stones with surgery and pt has passed as well. History of Any Multi-Drug Resistant Organisms: None Reported Past Surgical History: Hernia Repair, Joint Replacement, Orthopedic Surgery Additional Past Surgical History / Comment(s): L knee unicompartmental replacement, R shoulder rotator cuff repair, L nares skin cancer removal, umbilical hernia repair, colonoscopy with benign polypectomy, lithotripsy x2 Past Anesthesia/Blood Transfusion Reactions: No Reported Reaction Past Psychological History: No Psychological Hx Reported Smoking Status: Current every day smoker Past Alcohol Use History: None Reported Past Drug Use History: None Reported - Past Family History Mother Family Medical History: Cancer Additional Family Medical History / Comment(s): Mother had lymphoma. Father Family Medical History: Coronary Artery Disease (CAD) Medications and Allergies Home Medications Medication Instructions Recorded Confirmed Type Apixaban [Eliquis] 5 mg PO BID 03/05/21 01/15/22 History Cephalexin [Keflex] 500 mg PO Q6HR #40 cap 01/06/22 01/15/22 Rx HYDROcodone/APAP 5-325MG [[place] 1 tab PO Q6H PRN 01/06/22 01/15/22 History 5-325] Metoprolol Succinate [Toprol XL] 50 mg PO DAILY 01/06/22 01/15/22 History Pomalyst 4mg 4 mg PO DIRECTED 01/06/22 01/15/22 History dexAMETHasone [Decadron] 20 mg PO FRSA 01/06/22 01/15/22 History Allergies Allergy/AdvReac Type Severity Reaction Status Date / Time No Known Allergies Allergy Verified 01/15/22 12:36 Physical Exam Vitals: Vital Signs Temp Pulse Resp BP Pulse Ox 01/15/22 10:49 98.4 F 92 20 109/65 99 Intake and Output 01/14/22 01/15/22 01/15/22 22:59 06:59 14:59 Other: Weight 91.626 kg Constitutional: No acute distress, conversant, pleasant Eyes:Anicteric sclerae, moist conjunctiva, no lid-lag, PERRLA, ENMT: Oropharynx clear, no erythema, exudates Neck: Supple, FROM, no masses, or JVD, No carotid bruits, No thyromegaly Lungs: Clear to auscultation, Clear to percussion, Normal respiratory effort, no accessory muscle use Cardiovascular: Heart regular in rate and rhythm, No murmurs, gallops, or rubs, 1+ peripheral edema Abdominal: Soft, Nontender, no guarding, rebound or rigidity, Normoactive bowel sounds, No hepatomegaly, No splenomegaly, No palpable mass Skin: Normal temperature, tone, texture, turgor, no induration, No subcutaneous nodules, No rash, lesions, No ulcers Extremities: Left leg with erythema and redness. No digital cyanosis, No clubbing, Pedal pulses intact and symmetrical, Radial pulses intact and symmetrical, No calf tenderness Psychiatric: Alert and oriented to person, place and time, appropriate affect, intact judgement Neuro: Muscles Strength 5/5 in all 4 extremities, Sensation to light touch grossly present throughout, Cranial nerves II-XII grossly intact, no focal sensory deficits Results CBC & Chem 7: 01/15/22 11:46 01/15/22 11:46 Labs: Abnormal Lab Results - Last 24 Hours (Table) 01/15/22 01/15/22 01/15/22 Range/Units 11:46 11:46 11:46 RBC 3.69 L (4.30-5.90) m/uL Hgb 11.7 L (13.0-17.5) gm/dL Hct 34.4 L (39.0-53.0) % Plt Count 115 L (150-450) k/uL Lymphocytes # 0.1 L (1.0-4.8) k/uL Sodium 135 L (137-145) mmol/L Creatinine 0.63 L (0.66-1.25) mg/dL Glucose 177 H (74-99) mg/dL Plasma Lactic Acid Owen 2.3 H* (0.7-2.0) mmol/L Calcium 7.8 L (8.4-10.2) mg/dL Total Bilirubin 2.9 H (0.2-1.3) mg/dL Total Protein 4.7 L (6.3-8.2) g/dL Albumin 3.0 L (3.5-5.0) g/dL Assessment and Plan Plan: Left lower extremity cellulitis, failed outpatient treatment Cefepime and vancomycin Consult infectious disease History of multiple myeloma Currently on immunotherapy Consult oncology Chronic back pain, Osteoarthritis (OA), Hx of pulmonary embolus (PE), Peripheral neuropathy bilateral hands/legs and feet d/t chemo, All stable resume meds DVT prophylaxis Already on AC Admit to inpatient expected length of stay more than 2 midnights.
[2022-01-15] MEDS: SODIUM CHLORIDE 0.9% 1,000 ML IV SCH (14:40)
[2022-01-15] MEDS: CEFEPIME 1 GM in SODIUM CHLORIDE 0.9% 50 ML IVPB SCH (18:15)
[2022-01-15] MEDS: APIXABAN 5 MG TAB PO SCH (20:18)
[2022-01-16] MEDS: CEFEPIME 1 GM in SODIUM CHLORIDE 0.9% 50 ML IVPB SCH ×3 (00:15→16:58)
[2022-01-16] MEDS ORDERED: cefTRIAXone IN SWFI 1,000 MG/10 ML SYRINGE IVP SCH (09:00)
[2022-01-16] MEDS: SODIUM CHLORIDE 0.9% 1,000 ML IV SCH ×2 (10:39→14:49)
[2022-01-16] MEDS: VANCOMYCIN 1,500 MG in SODIUM CHLORIDE 0.9% 500 ML 500 ML IVPB SCH ×2 (10:39→16:59)
[2022-01-16] MEDS: METOPROLOL SUCCINATE (ER) 50 MG TAB.ER.24H PO SCH (10:40)
[2022-01-16] MEDS: APIXABAN 5 MG TAB PO SCH ×2 (10:42→21:36)
--- NOTE | 2022-01-16 13:04 | P.CONS ---
History of Present Illness - Reason for Consult Consult date: 01/15/22 - History of Present Illness Patient is a 71-year male with a past medical history significant for PE multiple myeloma on maintenance immunotherapy and renal insufficiency presenting to the ER for evaluation of left lower extremity swelling and redness patient symptom has been going on for more than a week or 2 and apparently has been treated with a course of oral Keflex by his primary care physician however the patient apparently did not have resolution of his left lower extremity cellulitis patient complaining of increasing swelling to the left lower extremity did have mild erythema also complaining of pain which is mostly dull aching and throbbing when he keeps his leg down intensity 5-6 out of 10 and no radiation patient currently not having open wound or any drainage on presentation to the hospital the patient was afebrile and no fever have been recorded subsequently patient did have normal white count kidney function has been normal liver enzymes are normal patient did have a x-ray of the foot and tibia-fibula did not show any fracture patient was started on vancomycin and cefepime admitted to hospital infectious disease was consulted for further management of antibiotic therapy Past Medical History Past Medical History: Cancer, Osteoarthritis (OA), Pulmonary Embolus (PE), Renal Disease Additional Past Medical History / Comment(s): Pt recently admitted to [facility] on 11/16/19 with cellulitis L upper extremity. Other hx: 2006 diagnosed with multiple myeloma-treated with IV chemo/valcade and now immunotherapy/stem cell t ransplant x2, pancytopenia, peripheral neuropathy bilateral hands/legs and feet d/t chemo, L nare basal cell carcinoma with removal, L femur lesion with radiation treatments, arthritis in multiple joints but not severe, benign colon polyps, diverticular disease, hemorrhoids, kidney stones with surgery and pt has passed as well. History of Any Multi-Drug Resistant Organisms: None Reported Past Surgical History: Hernia Repair, Joint Replacement, Orthopedic Surgery Additional Past Surgical History / Comment(s): L knee unicompartmental replacement, R shoulder rotator cuff repair, L nares skin cancer removal, umbilical hernia repair, colonoscopy with benign polypectomy, lithotripsy x2 Past Anesthesia/Blood Transfusion Reactions: No Reported Reaction Past Psychological History: No Psychological Hx Reported Smoking Status: Current every day smoker Past Alcohol Use History: None Reported Past Drug Use History: None Reported - Past Family History Mother Family Medical History: Cancer Additional Family Medical History / Comment(s): Mother had lymphoma. Father Family Medical History: Coronary Artery Disease (CAD) Medications and Allergies Home Medications Medication Instructions Recorded Confirmed Type Apixaban [Eliquis] 5 mg PO BID 03/05/21 01/15/22 History Cephalexin [Keflex] 500 mg PO Q6HR #40 cap 01/06/22 01/15/22 Rx HYDROcodone/APAP 5-325MG [Adrian 1 tab PO Q6H PRN 01/06/22 01/15/22 History 5-325] Metoprolol Succinate [Toprol XL] 50 mg PO DAILY 01/06/22 01/15/22 History Pomalyst 4mg 4 mg PO DIRECTED 01/06/22 01/15/22 History dexAMETHasone [Decadron] 20 mg PO FRSA 01/06/22 01/15/22 History Allergies Allergy/AdvReac Type Severity Reaction Status Date / Time No Known Allergies Allergy Verified 01/15/22 12:36 Physical Exam Vitals: Vital Signs Temp Pulse Resp BP Pulse Ox 01/15/22 10:49 98.4 F 92 20 109/65 99 Intake and Output 01/14/22 01/15/22 01/15/22 22:59 06:59 14:59 Other: Weight 91.626 kg Results CBC & Chem 7: 01/15/22 11:46 01/15/22 11:46 Labs: Abnormal Lab Results - Last 24 Hours (Table) 01/15/22 01/15/22 01/15/22 Range/Units 11:46 11:46 11:46 RBC 3.69 L (4.30-5.90) m/uL Hgb 11.7 L (13.0-17.5) gm/dL Hct 34.4 L (39.0-53.0) % Plt Count 115 L (150-450) k/uL Lymphocytes # 0.1 L (1.0-4.8) k/uL Sodium 135 L (137-145) mmol/L Creatinine 0.63 L (0.66-1.25) mg/dL Glucose 177 H (74-99) mg/dL Plasma Lactic Acid Owen 2.3 H* (0.7-2.0) mmol/L Calcium 7.8 L (8.4-10.2) mg/dL Total Bilirubin 2.9 H (0.2-1.3) mg/dL Total Protein 4.7 L (6.3-8.2) g/dL Albumin 3.0 L (3.5-5.0) g/dL Assessment and Plan Plan: 1patient presents hospital with increasing swelling and redness to left lower extremity concerning for possible cellulitis however the patient did not have any fever or elevated white count and symptoms could be related mostly to excessive swelling of his lower extremity with a history of PE will need to rule out DVT. 2we will obtain Doppler ultrasound of the left lower extremity. 3if Doppler is negative would recommend Onur wrap to the leg to keep the swelling down. 4continue the vancomycin and cefepime while waiting for the work-up to be completed. We will follow on clinical condition and cultures to further adjust medication i f needed Thank you for this consultation will follow this patient along with you Time with Patient: Greater than 30
--- NOTE | 2022-01-16 13:22 | P.PN ---
Subjective Progress Note Date: 01/16/22 Principal diagnosis: Left leg cellulitis Doing well, the pain and redness in the left leg are improved. He did not notice as much pain as before when walking on the left leg today. No fevers. Objective - Vital Signs Vital signs: Vital Signs Temp 98.1 F 01/15/22 20:04 Pulse 74 01/15/22 20:04 Resp 18 01/15/22 20:04 BP 130/74 01/15/22 20:04 Pulse Ox 100 01/15/22 20:04 FiO2 Intake & Output 01/15/22 01/16/22 01/16/22 18:59 06:59 18:59 Weight 91.626 kg 91.626 kg - Exam Constitutional: No acute distress, conversant, pleasant Eyes:Anicteric sclerae, moist conjunctiva, no lid-lag, PERRLA, ENMT: Oropharynx clear, no erythema, exudates Neck: Supple, FROM, no masses, or JVD, No carotid bruits, No thyromegaly Lungs: Clear to auscultation, Clear to percussion, Normal respiratory effort, no accessory muscle use Cardiovascular: Heart regular in rate and rhythm, No murmurs, gallops, or rubs, 1+ peripheral edema Abdominal: Soft, Nontender, no guarding, rebound or rigidity, Normoactive bowel sounds, No hepatomegaly, No splenomegaly, No palpable mass Skin: Normal temperature, tone, texture, turgor, no induration, No subcutaneous nodules, No rash, lesions, No ulcers Extremities: Left leg with erythema and redness. No digital cyanosis, No clubbing, Pedal pulses intact and symmetrical, Radial pulses intact and symmetrical, No calf tenderness Psychiatric: Alert and oriented to person, place and time, appropriate affect, intact judgement Neuro: Muscles Strength 5/5 in all 4 extremities, Sensation to light touch grossly present throughout, Cranial nerves II-XII grossly intact, no focal sensory deficits - Labs CBC & Chem 7: 01/15/22 11:46 01/15/22 11:46 Assessment and Plan Plan: Left lower extremity cellulitis, failed outpatient treatment With doppler U/s negative for DVT Cefepime and vancomycin Infectious disease following Cough and sob Unclear cause, he smokes cigars, CXR was done earlier and was negative Will order CT chest Procal History of multiple myeloma Currently on immunotherapy Consult oncology Chronic back pain, Osteoarthritis (OA), Hx of pulmonary embolus (PE), Peripheral neuropathy bilateral hands/legs and feet d/t chemo, All stable resume meds DVT prophylaxis Already on AC
--- NOTE | 2022-01-16 15:01 | CT ---
EXAMINATION TYPE: CT chest wo con DATE OF EXAM: 01/16/2022 COMPARISON: None HISTORY: Cough and SOB CT DLP: 519 mGycm. Automated Exposure Control for Dose Reduction was Utilized. TECHNIQUE: CT scan of the thorax is performed without IV contrast. FINDINGS: There are multiple small groundglass opacities scattered throughout the right lung. There are no abno rmal densities within the left lung. There is a moderate to large left pleural effusion. The findings raise the question of Covid pneumonia clinical correlation is recommended. There is mild aneurysmal dilatation of ascending thoracic aorta which measures 4.1 cm. There is a small pericardial effusion. There is no axillary, mediastinal or hilar adenopathy. Limited scanning of the upper abdomen reveals multiple nonobstructing renal calculi bilaterally.. IMPRESSION: 1. Multiple groundglass opacities within the right lung. Questionable Covid pneumonia. Clinical corre lation recommended. 2. Moderate to large left pleural effusion. 3. Small pericardial effusion. 4. Nonobstructing renal calcifications.
[2022-01-16 15:41] LABS: HCT 32.6 % (39.0-53.0); HGB 10.8 gm/dL (13.0-17.5); Hypochromasia Moderate; MCH 31.5 pg (25.0-35.0); MCV 95.4 fL (80.0-100.0); Platelet Count 130 k/uL (150-450); Poikilocytosis Slight; RBC 3.42 m/uL (4.30-5.90); RDW 15.2 % (11.5-15.5); WBC 4.6 k/uL (3.8-10.6)
[2022-01-16 15:52] LABS: ALT 37 U/L (4-49); AST 27 U/L (17-59); African American GFR (CKD) >90 (>60 ml/min/1.73 sqM); Albumin 3.2 g/dL (3.5-5.0); Albumin/Globulin Ratio 1.7; Alkaline Phosphatase 100 U/L (38-126); Anion Gap 12 mmol/L; Blood Urea Nitrogen 15 mg/dL (9-20); Calcium 8.1 mg/dL (8.4-10.2); Carbon Dioxide 22 mmol/L (22-30); Chloride 107 mmol/L (98-107); Globulin 1.9 g/dL; Glucose 126 mg/dL (74-99); Magnesium 2.1 mg/dL (1.6-2.3); Non-African American GFR(CKD) >90 (>60 ml/min/1.73 sqM); Potassium 3.6 mmol/L (3.5-5.1); Sodium 141 mmol/L (137-145); Total Bilirubin 1.5 mg/dL (0.2-1.3); Total Protein 5.1 g/dL (6.3-8.2)
--- NOTE | 2022-01-16 16:34 | P.CONS ---
History of Present Illness - Reason for Consult Consult date: 01/16/22 MM Requesting physician: Gonsalo Chambers - Chief Complaint Left leg cellulitis - History of Present Illness Mr. West very pleasant 71-year-old gentleman with a history of multiple myeloma, follows with Dr. Olivares, on Pomalyst 4mg daily x 21 days q28d cycle with another IV medication that pt/ do not recall, who is here for left leg cellulitis that has failed outpatient antibiotic therapy. The last time he was admitted here was for upper extremity cellulitis in 2019. At that time he was on Pomalyst as well. Currently on antibiotics. We're consulted due to underlying multiple myeloma and cancer treatment management. He mentions recently having his free light chain increased from undetectable to 53 and his Pomalyst was changed from 4 mg every other day to 4 mg daily x21d q28d. This is his off week and he is due to restart this on 01/18/22. Otherwise his been doing well without any complaints. Next IV dose is on 01/26/22. Oncologic history: diagnosed in 2006 treated with IV chemo/valcade and then immunotherapy/stem cell transplant x2, Complicated by pancytopenia, peripheral neuropathy bilateral hands/legs and feet d/t chemo, L femur lesion with radiation treatments Pomalyst maintenance however recently changed to Pomalyst with another agent that pt/ do not recall however this is IV. Past Medical History Past Medical History: Cancer, Osteoarthritis (OA), Pulmonary Embolus (PE), Renal Disease Additional Past Medical History / Comment(s): Pt recently admitted to [facility] on 11/16/19 with cellulitis L upper extremity. Other hx: 2006 diagnosed with multiple myeloma-treated with IV chemo/valcade and now immunotherapy/stem cell transplant x2, pancytopenia, peripheral neuropathy bilateral hands/legs and feet d/t chemo, L nare basal cell carcinoma with removal, L femur lesion with radiation treatments, arthritis in multiple joints but not severe, benign colon polyps, diverticular disease, hemorrhoids, kidney stones with surgery and pt has passed as well. History of Any Multi-Drug Resistant Organisms: None Reported Past Surgical History: Hernia Repair, Joint Replacement, Orthopedic Surgery Additional Past Surgical History / Comment(s): L knee unicompartmental replacement, R shoulder rotator cuff repair, L nares skin cancer removal, umbilical hernia repair, colonoscopy with benign polypectomy, lithotripsy x2 Past Anesthesia/Blood Transfusion Reactions: No Reported Reaction Past Psychological History: No Psychological Hx Reported Smoking Status: Current every day smoker Past Alcohol Use History: None Reported Past Drug Use History: None Reported - Past Family History Mother Family Medical History: Cancer Additional Family Medical History / Comment(s): Mother had lymphoma. Father Family Medical History: Coronary Artery Disease (CAD) Medications and Allergies Home Medications Medication Instructions Recorded Confirmed Type Apixaban [Eliquis] 5 mg PO BID 03/05/21 01/15/22 History Cephalexin [Keflex] 500 mg PO Q6HR #40 cap 01/06/22 01/15/22 Rx HYDROcodone/APAP 5-325MG [[place] 1 tab PO Q6H PRN 01/06/22 01/15/22 History 5-325] Metoprolol Succinate [Toprol XL] 50 mg PO DAILY 01/06/22 01/15/22 History Pomalyst 4mg 4 mg PO DIRECTED 01/06/22 01/15/22 History dexAMETHasone [Decadron] 20 mg PO FRSA 01/06/22 01/15/22 History Allergies Allergy/AdvReac Type Severity Reaction Status Date / Time No Known Allergies Allergy Verified 01/15/22 12:36 Physical Exam Vitals: Vital Signs Temp Pulse Pulse Resp BP BP Pulse Ox 01/15/22 20:04 98.1 F 74 18 130/74 100 01/15/22 20:00 98 F 87 16 180/93 97 01/15/22 19:11 98.2 F 82 16 130/80 96 01/15/22 17:30 80 18 125/71 97 01/15/22 14:39 93 18 121/82 95 Intake and Output 01/15/22 01/16/22 01/16/22 22:59 06:59 14:59 Other: Voiding Method Toilet Weight 91.626 kg Gen.: In no acute distress HEENT: Mucosa moist, no scleral icterus. Neck: Supple Lungs: No respiratory distress. Heart: Regular rate. Left leg with erythema and edema. Abdomen: Soft, nontender, nondistended. Neuro: Alert and oriented 3. Skin: No jaundice. Psych: Appropriate affect. Results CBC & Chem 7: 01/16/22 14:53 01/16/22 14:53 Labs: Microbiology - Last 24 Hours (Table) 01/15/22 12:09 Blood Culture - Preliminary Blood No Growth after 24 hours 01/15/22 11:46 Blood Culture - Preliminary Blood No Growth after 24 hours Assessment and Plan Assessment: 1. Left leg cellulitis 2. MM 3. Bicytopenia due to cancer and cancer directed therapy Plan: Mr. West is a very pleasant 71-year-old gentleman with a long-standing history of multiple myeloma dating back to 2006 who is here for left leg cellulitis. Follows with Dr. Olivares for his MM. On Pomalyst, recently increased from 4mg q2d x21d q28d cycles to 4mg daily x21d q28d (D1 on 01/18/22), in addition to IV medication (will need records to determine this), next dose due 01/26/22, due to increase in his FLCR from undetectable/very low to 53. Agree with antibiotics for his cellulitis. Currently does not have leukopenia. We'll repeat his myeloma titers. We'll reevaluate him on Tuesday to determine if he should resume Pomalyst as planned, depending on his infection status. If she is ready for discharge prior to then he can resume Pomalyst once instructed to do so by Dr. Olivares. Discussed with patient is agreeable to the plan. All of his questions answered.
[2022-01-16 18:00] LABS: Band Neutrophils % 7 %; Lymphocytes # (M) 0.14 k/uL (1.0-4.8); Neutrophils % (M) 77 %; Nucleated Red Blood Cells 0 /100 WBC (0-0); Poikilocytosis (M) Present; Total Cells Counted 100
[2022-01-16] MEDS: ACETYLCYSTEINE 800 MG/4 ML VIAL INHALATION SCH (19:34)
[2022-01-16] MEDS: IPRATROPIUM-ALBUTEROL 3 ML NEB INHALATION SCH (19:34)
--- NOTE | 2022-01-17 | P.PN ---
Subjective Progress Note Date: 01/16/22 Principal diagnosis: Left lower extremity cellulitis Patient is a 71-year-old male with multiple comorbidities including PE has been dealing with left lower extremity cellulitis failing outpatient oral Keflex therapy. On today's evaluation and that is 01/16/2022, the patient denies having any fever or any chills has been complaining of shortness of breath however curr ently the patient is on room air still have significant swelling to bilateral lower extremity no nausea no vomiting no abdominal pain no diarrhea Objective - Vital Signs Vital signs: Vital Signs Temp 98.1 F 01/15/22 20:04 Pulse 74 01/15/22 20:04 Resp 18 01/15/22 20:04 BP 130/74 01/15/22 20:04 Pulse Ox 100 01/15/22 20:04 FiO2 Intake & Output 01/15/22 01/16/22 01/16/22 18:59 06:59 18:59 Weight 91.626 kg 91.626 kg - Exam GENERAL DESCRIPTION: An elderly male lying in bed in no distress RESPIRATORY SYSTEM: Unlabored breathing , decreased breath sounds at bases HEART: S1 S2 regular rate and rhythm , ABDOMEN: Soft , no tenderness EXTREMITIES: 2+ edema feet - Labs CBC & Chem 7: 01/16/22 14:53 01/16/22 14:53 Assessment and Plan (1) Cellulitis of left lower extremity Current Visit: No Status: Acute Code(s): L03.116 - CELLULITIS OF LEFT LOWER LIMB SNOMED Code(s): 839265300 Plan: 1patient presents hospital with increasing swelling and redness to left lower extremity concerning for possible cellulitis however the patient did not have any fever or elevated white count and symptoms could be related mostly to excessive swelling of his lower extremity, recently he did have a Doppler ultrasound that was negative for DVT completed on 01/06/2022 2patient did have a 2+ edema feet bilaterally CT of the chest did shows effusion and interstitial infiltrate likely representing fluid overload clinically not behaving as pneumonia, awaiting pro calcitonin and will check a anti-proBNP 3patient to continue the vancomycin and cefepime while waiting for the cultures to be completed and will advised Onur wrap to keep the swelling down Time with Patient: Less than 30
[2022-01-17] MEDS: CEFEPIME 1 GM in SODIUM CHLORIDE 0.9% 50 ML IVPB SCH ×4 (00:25→23:31)
[2022-01-17] MEDS: SODIUM CHLORIDE 0.9% 1,000 ML IV SCH ×4 (00:31→21:34)
[2022-01-17] MEDS: VANCOMYCIN 1,500 MG in SODIUM CHLORIDE 0.9% 500 ML 500 ML IVPB SCH ×2 (03:26→16:25)
[2022-01-17 06:38] LABS: HCT 33.6 % (39.0-53.0); Hypochromasia Moderate; MCH 31.2 pg (25.0-35.0); MCHC 32.9 g/dL (31.0-37.0); MCV 94.8 fL (80.0-100.0); Mean Platelet Volume 8.7; Platelet Count 141 k/uL (150-450); Poikilocytosis Slight; RBC 3.54 m/uL (4.30-5.90); RDW 15.7 % (11.5-15.5); WBC 5.8 k/uL (3.8-10.6)
[2022-01-17 06:45] LABS: ALT 37 U/L (4-49); AST 24 U/L (17-59); African American GFR (CKD) >90 (>60 ml/min/1.73 sqM); Albumin/Globulin Ratio 1.7; Alkaline Phosphatase 100 U/L (38-126); Anion Gap 8 mmol/L; Blood Urea Nitrogen 14 mg/dL (9-20); Calcium 7.9 mg/dL (8.4-10.2); Carbon Dioxide 20 mmol/L (22-30); Chloride 112 mmol/L (98-107); Globulin 1.8 g/dL; Glucose 97 mg/dL (74-99); Non-African American GFR(CKD) >90 (>60 ml/min/1.73 sqM); Potassium 3.3 mmol/L (3.5-5.1); Sodium 140 mmol/L (137-145); Total Bilirubin 1.2 mg/dL (0.2-1.3); Total Protein 4.8 g/dL (6.3-8.2)
[2022-01-17 06:51] LABS: Eosinophils # (M) 0.06 k/uL (0-0.7); Lymphocytes # (M) 0.46 k/uL (1.0-4.8); Monocytes # (M) 1.39 k/uL (0-1.0); Neutrophils # (M) 3.89 k/uL (1.3-7.7); Neutrophils % (M) 67 %; Nucleated Red Blood Cells 0 /100 WBC (0-0); Total Cells Counted 100
[2022-01-17] MEDS: IPRATROPIUM-ALBUTEROL 3 ML NEB INHALATION SCH ×4 (07:59→19:52)
[2022-01-17] MEDS: ACETYLCYSTEINE 800 MG/4 ML VIAL INHALATION SCH ×3 (08:00→19:43)
[2022-01-17] MEDS: SYMBICORT 160-4.5 MCG INHALER INHALATION SCH ×2 (08:13→19:52)
[2022-01-17] MEDS ORDERED: POTASSIUM CHLORIDE ER 20 MEQ TAB.ER PO STA (08:29)
[2022-01-17 09:12] LABS: Immunoglobulin A <50.0 mg/dL (60.0-350.0); Immunoglobulin G <300.0 mg/dL (700.0-1600.0); Immunoglobulin M <25.0 mg/dL (40.0-280.0)
[2022-01-17] MEDS: methylPREDNISolone SOD SUCCI 125 MG/2 ML VIAL IV SCH ×4 (09:26→23:31)
[2022-01-17] MEDS: METOPROLOL SUCCINATE (ER) 50 MG TAB.ER.24H PO SCH (09:27)
--- NOTE | 2022-01-17 09:31 | US ---
EXAMINATION TYPE: US chest DATE OF EXAM: 01/17/2022 COMPARISON: CT CLINICAL HISTORY: left pleural effusion. Left pleural effusion. TECHNIQUE: Targeted ultrasound of the posterior lower bilateral hemithoraces EXAM MEASUREMENTS: Right Pleural Effusion pocket size: No fluid seen. Left Pleural Effusion pocket size: 9.85 cm Left skin surface to fluid distance: 3.45 cm Right side NOT marked for possible thoracentesis outside the dept. Left side marked for possible thoracentesis outside the dept. Pulmonologists are able to review the images in the patient?s EMR. IMPRESSIONS: Small left pleural effusion.
--- NOTE | 2022-01-17 10:03 | P.PN ---
Subjective Progress Note Date: 01/17/22 Principal diagnosis: Left leg cellulitis Patient reported that his breathing is minimally improved after breathing treatments. The swelling and pain in his left leg is not much different either. He denied having any fevers, no nausea or vomiting. No chills. Objective - Vital Signs Vital signs: Vital Signs Temp 97.5 F L 01/17/22 05:00 Pulse 84 01/17/22 08:15 Resp 18 01/17/22 05:00 BP 127/71 01/17/22 05:00 Pulse Ox 97 01/17/22 05:00 FiO2 Intake & Output 01/16/22 01/17/22 01/17/22 19:59 06:59 18:59 Intake Total Output Total Balance Intake: Oral Output: Urine Other: Voiding Method # Voids # Bowel Movements - Exam Constitutional: No acute distress, conversant, pleasant Eyes:Anicteric sclerae, moist conjunctiva, no lid-lag, PERRLA, ENMT: Oropharynx clear, no erythema, exudates Neck: Supple, FROM, no masses, or JVD, No carotid bruits, No thyromegaly Lungs: Clear to auscultation, Clear to percussion, Normal respiratory effort, no accessory muscle use Cardiovascular: Heart regular in rate and rhythm, No murmurs, gallops, or rubs, 1+ peripheral edema Abdominal: Soft, Nontender, no guarding, rebound or rigidity, Normoactive bowel sounds, No hepatomegaly, No splenomegaly, No palpable mass Skin: Normal temperature, tone, texture, turgor, no induration, No subcutaneous nodules, No rash, lesions, No ulcers Extremities: Left leg with erythema and redness. No digital cyanosis, No clubbing, Pedal pulses intact and symmetrical, Radial pulses intact and symmetrical, No calf tenderness Psychiatric: Alert and oriented to person, place and time, appropriate affect, intact judgement Neuro: Muscles Strength 5/5 in all 4 extremities, Sensation to light touch jarod ssly present throughout, Cranial nerves II-XII grossly intact, no focal sensory deficits - Labs CBC & Chem 7: 01/17/22 05:57 01/17/22 05:57 Labs: Abnormal Lab Results - Last 24 Hours (Table) 01/16/22 01/16/22 01/16/22 Range/Units 14:53 14:53 14:53 RBC 3.42 L (4.30-5.90) m/uL Hgb 10.8 L (13.0-17.5) gm/dL Hct 32.6 L (39.0-53.0) % RDW (11.5-15.5) % Plt Count 130 L (150-450) k/uL Lymphocytes # (Manual) 0.14 L (1.0-4.8) k/uL Monocytes # (Manual) (0-1.0) k/uL Potassium (3.5-5.1) mmol/L Chloride (98-107) mmol/L Carbon Dioxide (22-30) mmol/L Creatinine (0.66-1.25) mg/dL Glucose 126 H (74-99) mg/dL Calcium 8.1 L (8.4-10.2) mg/dL Total Bilirubin 1.5 H (0.2-1.3) mg/dL C-Reactive Protein (<1.0) mg/dL Total Protein 5.1 L (6.3-8.2) g/dL Total Protein (PEP) (6.2-8.2) g/dL Albumin 3.2 L (3.5-5.0) g/dL Procalcitonin 1.11 H (0.02-0.09) ng/mL IgG (700.0-1600.0) mg/dL IgA (60.0-350.0) mg/dL IgM (40.0-280.0) mg/dL 01/16/22 01/17/22 01/17/22 Range/Units 14:53 05:57 05:57 RBC 3.54 L (4.30-5.90) m/uL Hgb 11.0 L (13.0-17.5) gm/dL Hct 33.6 L (39.0-53.0) % RDW 15.7 H (11.5-15.5) % Plt Count 141 L (150-450) k/uL Lymphocytes # (Manual) 0.46 L (1.0-4.8) k/uL Monocytes # (Manual) 1.39 H (0-1.0) k/uL Potassium 3.3 L (3.5-5.1) mmol/L Chloride 112 H (98-107) mmol/L Carbon Dioxide 20 L (22-30) mmol/L Creatinine 0.63 L (0.66-1.25) mg/dL Glucose (74-99) mg/dL Calcium 7.9 L (8.4-10.2) mg/dL Total Bilirubin (0.2-1.3) mg/dL C-Reactive Protein 6.0 H (<1.0) mg/dL Total Protein 4.8 L (6.3-8.2) g/dL Total Protein (PEP) 5.0 L (6.2-8.2) g/dL Albumin 3.0 L (3.5-5.0) g/dL Procalcitonin (0.02-0.09) ng/mL IgG <300.0 L (700.0-1600.0) mg/dL IgA <50.0 L (60.0-350.0) mg/dL IgM <25.0 L (40.0-280.0) mg/dL Microbiology - Last 24 Hours (Table) 01/15/22 12:09 Blood Culture - Preliminary Blood No Growth after 24 hours 01/15/22 11:46 Blood Culture - Preliminary Blood No Growth after 24 hours Assessment and Plan Plan: Left lower extremity cellulitis, failed outpatient treatment With doppler U/s negative for DVT Cefepime and vancomycin Infectious disease following Cough and sob Right lung pneumonia Left pleural effusion CT chest showing multiple groundglass opacities within the right lobe as well as moderate large left pleural effusion. Pulmonary service consulted, ultrasound of the left chest was done to raquel for thoracentesis, might need bronchoscopy Procal elevated at 1.11, nonspecific Hypokalemia Replace Follow in a.m. History of multiple myeloma Currently on immunotherapy Seen by oncology Chronic back pain, Osteoarthritis (OA), Hx of pulmonary embolus (PE), Peripheral neuropathy bilateral hands/legs and feet d/t chemo, All stable resume meds DVT prophylaxis Already on AC
[2022-01-17] MEDS: APIXABAN 5 MG TAB PO SCH (11:26)
--- NOTE | 2022-01-17 13:19 | P.CNPUL ---
History of Present Illness Consult date: 01/17/22 Requesting physician: Gonsalo Chambers Reason for consult: dyspnea, cough, pneumonia, pleural effusion, abnormal CXR/CT Chief complaint: Cough and shortness of breath, left leg cellulitis. History of present illness: Pulmonary consult dated 01/17/2022. 71-year-old male seen initially on January 15, in the emergency room, for left leg cellulitis. We are asked to see the patient, a cousin of an abnormal chest x-ray, potentially sewing patchy pneumonia in the right lung, and a left-sided p leural effusion. The patient does have a history of multiple myeloma. The patient also has a history of pulmonary embolism is on a factor X a inhibitor. The patient did smoke cigars in the past. He did smoke cigarettes in the past, but infrequently. The patient has had a stem cell transplant twice, for his multiple myeloma. Other medical history includes osteoarthritis, diverticular disease, and colonic polyps. The patient states for last week or 2, he's had lots of shortness of breath, and cough, mostly nonproductive. It feels like he has lots of chest congestion. Denies any fever or chills. Currently he is on vancomycin and cefepime for his left leg cellulitis. This is why he was admitted. He's currently on room air. He is getting saline at 75 mL an hour. White count 5.8, hemoglobin 11, hematocrit 33.6, and platelet count 141,000. Sodium 140, potassium 3.3, chlorides 112, CO2 20, BUN 14, creatinine 0.63. Testing for coronavirus was negative. Chest ultrasound shows a 9.85 cm pocket on the left. Chest CT shows groundglass opacities within the right lung. Review of Systems REVIEW OF SYSTEMS: CONSTITUTIONAL: [Negative.] NEUROLOGIC: [ Negative.] HEENT: [ Negative.] CARDIAC: [Negative.] PULMONARY: Cough, shortness of breath, and chest congestion. GI: [Negative.] : [Negative.] RHEUMATOLOGIC: [ Negative.] IMMUNOLOGIC: [ Negative.] ENDOCRINE: [Negative. ] DERMATOLOGIC: Left leg cellulitis. Past Medical History Past Medical History: Cancer, Osteoarthritis (OA), Pulmonary Embolus (PE), Renal Disease Additional Past Medical History / Comment(s): Pt recently admitted to [facility] on 11/16/19 with cellulitis L upper extremity. Other hx: 2006 diagnosed with multiple myeloma-treated with IV chemo/valcade and now immunotherapy/stem cell transplant x2, pancytopenia, peripheral neuropathy bilateral hands/legs and feet d/t chemo, L nare basal cell carcinoma with removal, L femur lesion with radiation treatments, arthritis in multiple joints but not severe, benign colon polyps, diverticular disease, hemorrhoids, kidney stones with surgery and pt has passed as well. History of Any Multi-Drug Resistant Organisms: None Reported Past Surgical History: Hernia Repair, Joint Replacement, Orthopedic Surgery Additional Past Surgical History / Comment(s): L knee unicompartmental replacement, R shoulder rotator cuff repair, L nares skin cancer removal, umbilical hernia repair, colonoscopy with benign polypectomy, lithotripsy x2 Past Anesthesia/Blood Transfusion Reactions: No Reported Reaction Past Psychological History: No Psychological Hx Reported Smoking Status: Current every day smoker Past Alcohol Use History: None Reported Past Drug Use History: None Reported - Past Family History Mother Family Medical History: Cancer Additional Family Medical History / Comment(s): Mother had lymphoma. Father Family Medical History: Coronary Artery Disease (CAD) Medications and Allergies Home Medications Medication Instructions Recorded Confirmed Type Apixaban [Eliquis] 5 mg PO BID 03/05/21 01/15/22 History Cephalexin [Keflex] 500 mg PO Q6HR #40 cap 01/06/22 01/15/22 Rx HYDROcodone/APAP 5-325MG [[place] 1 tab PO Q6H PRN 01/06/22 01/15/22 History 5-325] Metoprolol Succinate [Toprol XL] 50 mg PO DAILY 01/06/22 01/15/22 History Pomalyst 4mg 4 mg PO DIRECTED 01/06/22 01/15/22 History dexAMETHasone [Decadron] 20 mg PO FRSA 01/06/22 01/15/22 History Allergies Allergy/AdvReac Type Severity Reaction Status Date / Time No Known Allergies Allergy Verified 01/15/22 12:36 Physical Exam Osteopathic Statement: *. No significant issues noted on an osteopathic structural exam other than those noted in the History and Physical/Consult. Vitals: Vital Signs Temp Pulse Pulse Pulse Resp BP Pulse Ox 01/17/22 11:54 98.2 F 66 20 128/79 97 01/17/22 11:53 80 01/17/22 11:43 78 01/17/22 08:15 84 01/17/22 08:02 80 01/17/22 05:00 97.5 F L 76 18 127/71 97 01/16/22 20:00 18 01/16/22 19:19 98.0 F 78 20 154/83 96 01/16/22 15:53 98.1 F 81 16 129/93 Intake and Output 01/16/22 01/17/22 01/17/22 23:59 06:59 14:59 Intake Total Balance Intake: Oral Other: Voiding Method Toilet # Voids # Bowel Movements No acute distress, oriented 3. No respiratory distress. Currently on room air. HEENT examination is grossly unremarkable. Neck supple. Full range of motion. No adenopathy thyromegaly or neck vein distention. Cardiovascular examination reveals regular rhythm rate. S1-S2 normal. No S3 or S4. No discernible murmur noted. Heart rate 80 bpm. Lungs reveal scattered rhonchi bilaterally. Also present on bilateral expiratory wheezes. No crackles. Saturations are 97% on room air. Abdomen soft bowel sounds are heard. No masses or tenderness. Extremities reveal swelling of the left lower extremity, with erythema and hyperemia and warmth. Skin of the left leg is consistent with cellulitis. Neurologic examination is brief but nonfocal. Results - Laboratory Findings CBC and BMP: 01/17/22 05:57 01/17/22 05:57 Abnormal lab findings: Abnormal Labs 01/15/22 01/15/22 01/15/22 11:46 11:46 11:46 RBC 3.69 L Hgb 11.7 L Hct 34.4 L RDW Plt Count 115 L Lymphocytes # 0.1 L Lymphocytes # (Manual) Monocytes # (Manual) Sodium 135 L Potassium Chloride Carbon Dioxide Creatinine 0.63 L Glucose 177 H Plasma Lactic Acid Owen 2.3 H* Calcium 7.8 L Total Bilirubin 2.9 H C-Reactive Protein Total Protein 4.7 L Total Protein (PEP) Albumin 3.0 L Procalcitonin IgG IgA IgM 01/16/22 01/16/22 01/16/22 14:53 14:53 14:53 RBC 3.42 L Hgb 10.8 L Hct 32.6 L RDW Plt Count 130 L Lymphocytes # Lymphocytes # (Manual) 0.14 L Monocytes # (Manual) Sodium Potassium Chloride Carbon Dioxide Creatinine Glucose 126 H Plasma Lactic Acid Owen Calcium 8.1 L Total Bilirubin 1.5 H C-Reactive Protein Total Protein 5.1 L Total Protein (PEP) Albumin 3.2 L Procalcitonin 1.11 H IgG IgA IgM 01/16/22 01/17/22 01/17/22 14:53 05:57 05:57 RBC 3.54 L Hgb 11.0 L Hct 33.6 L RDW 15.7 H Plt Count 141 L Lymphocytes # Lymphocytes # (Manual) 0.46 L Monocytes # (Manual) 1.39 H Sodium Potassium 3.3 L Chloride 112 H Carbon Dioxide 20 L Creatinine 0.63 L Glucose Plasma Lactic Acid Owen Calcium 7.9 L Total Bilirubin C-Reactive Protein 6.0 H Total Protein 4.8 L Total Protein (PEP) 5.0 L Albumin 3.0 L Procalcitonin IgG <300.0 L IgA <50.0 L IgM <25.0 L - Diagnostic Findings Chest x-ray: image reviewed CT scan - chest: image reviewed Assessment and Plan Assessment: Cellulitis, left lower extremity, currently on vancomycin and cefepime. Acute bronchitis and possible patchy bronchopneumonia, with bronchial inflammation and bronchospasm, primarily affecting the right lung. Moderate left-sided pleural effusion. History of multiple myeloma, status post stem cell transplant 2, and chemotherapy. History of pulmonary embolism, currently on a factor X a inhibitor. History of peripheral neuropathy. History of diverticular disease. History of kidney stones. History of skin cancer. Plan: Plan dated 01/17/2022. I've ordered an ultrasound of the left chest. I've told the nurse to stop giving the patient his factor X a inhibitor, just in case my partner wants to do a thoracentesis on Tuesday or Tuesday. In addition, I placed the patient on Duo-nebs, Symbicort, and Solu-Medrol. Additional recommendations and suggestions are forthcoming. The patient did smoke cigarettes in the past, but not many. He does smoke cigars from time to time, when he is playing golf. We will continue to follow make recommendations along the way. Time with Patient: Greater than 30
[2022-01-17] MEDS ORDERED: VANCOMYCIN TROUGH DUE 1 EACH MISC MISCELLANE ONE (15:00)
[2022-01-17] MEDS: HYDROcodone/APAP 5-325MG 1 EACH TAB PO PRN (17:16)
[2022-01-18] MEDS: methylPREDNISolone SOD SUCCI 125 MG/2 ML VIAL IV SCH ×4 (05:50→23:44)
[2022-01-18] MEDS: VANCOMYCIN 1,500 MG in SODIUM CHLORIDE 0.9% 500 ML 500 ML IVPB SCH ×2 (05:50→16:45)
[2022-01-18] MEDS: IPRATROPIUM-ALBUTEROL 3 ML NEB INHALATION SCH ×4 (07:21→19:28)
[2022-01-18] MEDS: SYMBICORT 160-4.5 MCG INHALER INHALATION SCH ×2 (07:21→19:29)
[2022-01-18] MEDS: METOPROLOL SUCCINATE (ER) 50 MG TAB.ER.24H PO SCH (08:30)
[2022-01-18] MEDS: CEFEPIME 1 GM in SODIUM CHLORIDE 0.9% 50 ML IVPB SCH ×3 (08:30→23:45)
[2022-01-18] MEDS: SODIUM CHLORIDE 0.9% 1,000 ML IV SCH ×2 (08:32→13:23)
[2022-01-18 10:46] LABS: African American GFR (CKD) 118.9 (60.0-200.0); Anion Gap 10.6 mmol/L (10.00-18.00); Blood Urea Nitrogen 13.8 mg/dL (9.0-27.0); Calcium 8.4 mg/dL (8.7-10.3); Carbon Dioxide 19.4 mmol/L (20.0-27.5); Non-African American GFR(CKD) 102.6 (60.0-200.0); Potassium 3.9 mmol/L (3.5-5.5)
--- NOTE | 2022-01-18 11:30 | P.PN ---
Subjective Progress Note Date: 01/18/22 Principal diagnosis: cellulitis Hospital Course: 71-year-old male with history of PE, multiple myeloma on immunotherapy presenting with left leg cellulitis with failed outpatient antibiotic therapy. Patient also found to have cough and shortness of breath, CT chest showing multiple groundglass opacities within the right lobe as well as moderate large left pleural effusion. Patient currently on IV antibiotics. ID, pulmonology, oncology following. Plan for possible thoracentesis tomorrow. Lower extremity cellulitis appears to be improving. Subjective: Patient seen and examined at bedside. No acute events overnight. He continues to have shortness of breath and cough, not requiring any supplemental oxygen. He denies any chest pain, abdominal pain, nausea, vomiting, diarrhea, constipation, urinary complaints. He has minimal pain in left lower extremity, claims that erythema has improved. Pertinent positives and negatives as discussed above, a complete review of systems was performed and all other systems are negative. Vitals Signs Reviewed. General: nontoxic, no distress, appears at stated age Derm: warm, dry, no apparent erythema on LLE Head: atraumatic, normocephalic, symmetric Eyes: EOMI, no lid lag, anicteric sclera Mouth: no lip lesion, mucus membranes moist Cardiovascular: S1S2 reg, no murmur Lungs: Diminished breath sounds in left lower lung, no rhonchi, no rales , no accessory muscle use Abdominal: soft, nontender to palpation, no guarding, no appreciable organomegaly Ext: no gross muscle atrophy, 2+ pitting edema up to knees, no contractures Neuro: CN II-XI grossly intact, no focal neuro deficits Psych: Alert, oriented, appropriate affect Assessment and Plan: LLE cellulitis - improving -vanc and cefepime -ID following RLL pneumonia Left pleural effusion Cough and SOB -CT findings show multiple groundglass opacities witihin RLL and moderate large left pleural effusion -pulm following -thoracentesis possibly tomorrow -on IV abx -bronchodilators and steroids per pulmonology Hx of multiple mylenoma - on immunotherapy - oncology consulted Chronic medical problems: Chronic back pain Anxiety Hx of PE - hold anticoagulation peripheral neuropathy DVT ppx: SCD Code status: Full code Anticipated discharge place: home Anticipated discharge time: 2+ days Objective - Vital Signs Vital signs: Vital Signs Temp 98.0 F 01/18/22 04:37 Pulse 72 01/18/22 11:12 Resp 18 01/18/22 04:37 BP 166/84 01/18/22 04:37 Pulse Ox 95 01/18/22 04:37 FiO2 Intake & Output 01/17/22 01/18/22 01/18/22 18:59 06:59 18:59 Intake Total 550 400 Output Total 1050 Balance 550 -650 Intake: Intake, IV Titration 550 Amount Cefepime 1 gm In Sodium 100 Chloride 0.9% 50 ml @ 12. 5 mls/hr IVPB Q8HR [facility] Rx #:[id number] Sodium Chloride 0.9% 1, 450 000 ml @ 130 mls/hr IV . Q7H42M [facility] Rx#:[id number] Oral 400 Output: Urine 1050 Other: Voiding Method Toilet Toilet Toilet # Voids 1 - Labs CBC & Chem 7: 01/17/22 05:57 01/18/22 06:59 Labs: Abnormal Lab Results - Last 24 Hours (Table) 01/18/22 Range/Units 06:59 Chloride 112 H (96-109) mmol/L Carbon Dioxide 19.4 L (20.0-27.5) mmol/L BUN/Creatinine Ratio 23.00 H (12.00-20.00) Ratio Glucose 159 H (70-110) mg/dL Calcium 8.4 L (8.7-10.3) mg/dL Microbiology - Last 24 Hours (Table) 01/15/22 12:09 Blood Culture - Preliminary Blood No Growth after 48 hours 01/15/22 11:46 Blood Culture - Preliminary Blood No Growth after 48 hours
--- NOTE | 2022-01-18 12:23 | P.PN ---
Subjective Progress Note Date: 01/18/22 71-year-old male seen initially on January 15, in the emergency room, for left leg cellulitis. We are asked to see the patient, a cousin of an abnormal chest x-ray, potentially sewing patchy pneumonia in the right lung, and a left-sided pleural effusion. The patient does have a history of multiple myeloma. The patient also has a history of pulmonary embolism is on a factor X a inhibitor. The patient did smoke cigars in the past. He did smoke cigarettes in the past, but infrequently. The patient has had a stem cell transplant twice, for his multiple myeloma. Other medical history includes osteoarthritis, diverticular disease, and colonic polyps. The patient states for last week or 2, he's had lots of shortness of breath, and cough, mostly nonproductive. It feels like he has lots of chest congestion. Denies any fever or chills. Currently he is on vancomycin and cefepime for his left leg cellulitis. This is why he was admitted. He's currently on room air. He is getting saline at 75 mL an hour. White count 5.8, hemoglobin 11, hematocrit 33.6, and platelet count 141,000. Sodium 140, potassium 3.3, chlorides 112, CO2 20, BUN 14, creatinine 0.63. Testing for coronavirus was negative. Chest ultrasound shows a 9.85 cm pocket on the left. Chest CT shows groundglass opacities within the right lung. The patient is seen today 01/18/2022 in follow-up on the regular medical floor. He is currently sitting up at the bedside. Awake and alert in no acute distress. He is still dyspneic with conversation. Dyspneic with normal exertion. Less cough. He is maintaining O2 saturations in the mid 90s on room air. He is afebrile. Ultrasound of the left chest reveals a 9.85 cm pleural effusion. The patient that his PROGNOSIS recent as 01/16/2022. He is continued on Symbicort, DuoNeb inhalations, IV Solu-Medrol. Antibiotics in the form of vancomycin and cefepime. Blood cultures reveal no growth to date. Sodium 142. Potassium 3.9. BUN 13.8. Creatinine 0.6. Objective - Vital Signs Vital signs: Vital Signs Temp 98.0 F 01/18/22 04:37 Pulse 72 01/18/22 11:12 Resp 18 01/18/22 04:37 BP 166/84 01/18/22 04:37 Pulse Ox 95 01/18/22 04:37 FiO2 Intake & Output 01/17/22 01/18/22 01/18/22 18:59 06:59 18:59 Intake Total 550 400 Output Total 1050 Balance 550 -650 Intake: Intake, IV Titration 550 Amount Cefepime 1 gm In Sodium 100 Chloride 0.9% 50 ml @ 12. 5 mls/hr IVPB Q8HR [facility] Rx #:[id number] Sodium Chloride 0.9% 1, 450 000 ml @ 130 mls/hr IV . Q7H42M [facility] Rx#:[id number] Oral 400 Output: Urine 1050 Other: Voiding Method Toilet Toilet Toilet # Voids 1 - Exam GENERAL EXAM: Alert, pleasant 71-year-old male patient, on room air, comfortable in no apparent distress. HEAD: Normocephalic. EYES: Normal reaction of pupils, equal size. NOSE: Clear with pink turbinates. THROAT: No erythema or exudates. NECK: No masses, no JVD. CHEST: No chest wall deformity. LUNGS: Equal air entry with crackles, rhonchi left lung base. CVS: S1 and S2 normal with no audible murmur, regular rhythm. ABDOMEN: No hepatosplenomegaly, normal bowel sounds, no guarding or rigidity. SPINE: No scoliosis or deformity SKIN: No rashes CENTRAL NERVOUS SYSTEM: No focal deficits, tone is normal in all 4 extremities. EXTREMITIES: There is no peripheral edema. No clubbing, no cyanosis. Peripheral pulses are intact. - Labs CBC & Chem 7: 01/17/22 05:57 01/18/22 06:59 Labs: Abnormal Lab Results - Last 24 Hours (Table) 01/18/22 Range/Units 06:59 Chloride 112 H (96-109) mmol/L Carbon Dioxide 19.4 L (20.0-27.5) mmol/L BUN/Creatinine Ratio 23.00 H (12.00-20.00) Ratio Glucose 159 H (70-110) mg/dL Calcium 8.4 L (8.7-10.3) mg/dL Microbiology - Last 24 Hours (Table) 01/15/22 12:09 Blood Culture - Preliminary Blood No Growth after 48 hours 01/15/22 11:46 Blood Culture - Preliminary Blood No Growth after 48 hours Assessment and Plan Assessment: Cellulitis, left lower extremity, currently on vancomycin and cefepime. Acute bronchitis and possible patchy bronchopneumonia, with bronchial inflammation and bronchospasm, primarily affecting the right lung. Moderate left-sided pleural effusion. History of multiple myeloma, status post stem cell transplant 2, and chemotherapy. History of pulmonary embolism, currently on a factor X a inhibitor. History of peripheral neuropathy. History of diverticular disease. History of kidney stones. History of skin cancer. Claribel: The patient was seen and evaluated Medications and labs reviewed Ultrasound of the chest reviewed We'll plan for thoracentesis of the left pleural effusion tomorrow Continue to hold the patient's Eliquis today Continue bronchodilators and steroids Continue antibiotics per ID services We will continue to follow I have personally seen and examined the patient, performed the documentation and the assessment and plan as written. Number of minutes spent on the visit: 10.
[2022-01-18 15:01] LABS: Free Kappa Lt Chain Qnt, Serum 120.75 mg/dL (0.33-1.94); Free Lambda Lt Chain Qnt, Seru 0.22 mg/dL (0.57-2.63)
[2022-01-18 15:57] LABS: Albumin 2.81 g/dL (3.80-4.90); Gamma Globulin 0.21 g/dL (0.70-1.50)
[2022-01-18] MEDS: ALPRAZolam 0.5 MG TAB PO PRN (17:01)
--- NOTE | 2022-01-18 19:18 | P.PN ---
Subjective Progress Note Date: 01/18/22 Principal diagnosis: Cellulitis, on treatment for multiple myeloma In follow-up today patient is sitting up at the bedside, his left lower extremity is less red, swollen, and less painful. Objective - Vital Signs Vital signs: Vital Signs Temp 98.4 F 01/18/22 12:38 Pulse 73 01/18/22 15:19 Resp 20 01/18/22 12:38 BP 158/84 01/18/22 12:38 Pulse Ox 96 01/18/22 12:38 FiO2 Intake & Output 01/18/22 01/18/22 01/19/22 06:59 18:59 06:59 Intake Total 400 Output Total 1050 Balance -650 Intake: Oral 400 Output: Urine 1050 Other: Voiding Method Toilet Toilet # Voids 2 - Constitutional General appearance: Present: average body habitus, cooperative, no acute distress - EENT Eyes: Present: anicteric sclerae, EOMI ENT: Present: hearing grossly normal - Respiratory Details: Respirations even and unlabored at rest - Integumentary Integumentary Comment(s): Cellulitis of the Left lower extremity, mild redness, not hot to the touch, mild edema as well - Neurologic Neurologic: Present: CNII-XII intact - Musculoskeletal Musculoskeletal: Present: strength equal bilaterally - Psychiatric Psychiatric: Present: A&O x's 3, appropriate affect, intact judgment & insight - Labs CBC & Chem 7: 01/17/22 05:57 01/18/22 06:59 Labs: Abnormal Lab Results - Last 24 Hours (Table) 01/16/22 01/18/22 Range/Units 14:53 06:59 Chloride 112 H (96-109) mmol/L Carbon Dioxide 19.4 L (20.0-27.5) mmol/L BUN/Creatinine Ratio 23.00 H (12.00-20.00) Ratio Glucose 159 H (70-110) mg/dL Calcium 8.4 L (8.7-10.3) mg/dL Albumin (PEP) 2.81 L (3.80-4.90) g/dL Orbye-4-Rqobhmtkl 0.50 H (0.10-0.40) g/dL Gamma Globulins 0.21 L (0.70-1.50) g/dL Free [place] LC, Quant 120.75 H (0.33-1.94) mg/dL Free [place] LC, Quant 0.22 L (0.57-2.63) mg/dL Microbiology - Last 24 Hours (Table) 01/15/22 12:09 Blood Culture - Preliminary Blood No Growth after 72 hours 01/15/22 11:46 Blood Culture - Preliminary Blood No Growth after 72 hours Assessment and Plan (1) Hx of multiple myeloma Current Visit: No Status: Chronic Priority: Medium Code(s): Z85.79 - PRSNL HX OF MALIG NEOPLM OF LYMPHOID, HEMATPOETC & REL TISS SNOMED Code(s): 745028328560117 Plan: Patient is on treatment for the same with . Patient has a follow-up appointment rescheduled. Plan is to hold, pomalyst until patient has been seen and evaluated by primary Oncologist. Patient verbalizes understanding the plan and the recommendations. Patient is doing well recovering from lower extremity cellulitis.
--- NOTE | 2022-01-18 23:26 | P.PN ---
Subjective Progress Note Date: 01/17/22 Principal diagnosis: Left lower extremity cellulitis Patient is a 71-year-old male with multiple comorbidities including PE has been dealing with left lower extremity cellulitis failing outpatient oral Keflex therapy. On today's evaluation and that is 01/17/2022, the patient remains to metastatic comfortably and remains to be on room air, the patient did have a significant swelling bilateral lower extremity however slightly decreased with the Onur wrap no nausea no vomiting and no diarrhea Objective - Vital Signs Vital signs: Vital Signs Temp 98.2 F 01/17/22 11:54 Pulse 66 01/17/22 11:54 Resp 20 01/17/22 11:54 BP 128/79 01/17/22 11:54 Pulse Ox 97 01/17/22 11:54 FiO2 Intake & Output 01/16/22 01/17/22 01/17/22 19:59 06:59 18:59 Intake Total Output Total Balance Intake: Oral Output: Urine Other: Voiding Method Toilet # Voids # Bowel Movements - Exam GENERAL DESCRIPTION: An elderly male lying in bed in no distress RESPIRATORY SYSTEM: Unlabored breathing , decreased breath sounds at bases HEART: S1 S2 regular rate and rhythm , ABDOMEN: Soft , no tenderness EXTREMITIES: Bilateral lower extremities and currently In the Onur wrap - Labs CBC & Chem 7: 01/17/22 05:57 01/18/22 06:59 Labs: Abnormal Lab Results - Last 24 Hours (Table) 01/16/22 01/16/22 01/16/22 Range/Units 14:53 14:53 14:53 RBC (4.30-5.90) m/uL Hgb (13.0-17.5) gm/dL Hct (39.0-53.0) % RDW (11.5-15.5) % Plt Count (150-450) k/uL Lymphocytes # (Manual) 0.14 L (1.0-4.8) k/uL Monocytes # (Manual) (0-1.0) k/uL Potassium (3.5-5.1) mmol/L Chloride (98-107) mmol/L Carbon Dioxide (22-30) mmol/L Creatinine (0.66-1.25) mg/dL Calcium (8.4-10.2) mg/dL C-Reactive Protein (<1.0) mg/dL Total Protein (6.3-8.2) g/dL Total Protein (PEP) 5.0 L (6.2-8.2) g/dL Albumin (3.5-5.0) g/dL Procalcitonin 1.11 H (0.02-0.09) ng/mL IgG <300.0 L (700.0-1600.0) mg/dL IgA <50.0 L (60.0-350.0) mg/dL IgM <25.0 L (40.0-280.0) mg/dL 01/17/22 01/17/22 Range/Units 05:57 05:57 RBC 3.54 L (4.30-5.90) m/uL Hgb 11.0 L (13.0-17.5) gm/dL Hct 33.6 L (39.0-53.0) % RDW 15.7 H (11.5-15.5) % Plt Count 141 L (150-450) k/uL Lymphocytes # (Manual) 0.46 L (1.0-4.8) k/uL Monocytes # (Manual) 1.39 H (0-1.0) k/uL Potassium 3.3 L (3.5-5.1) mmol/L Chloride 112 H (98-107) mmol/L Carbon Dioxide 20 L (22-30) mmol/L Creatinine 0.63 L (0.66-1.25) mg/dL Calcium 7.9 L (8.4-10.2) mg/dL C-Reactive Protein 6.0 H (<1.0) mg/dL Total Protein 4.8 L (6.3-8.2) g/dL Total Protein (PEP) (6.2-8.2) g/dL Albumin 3.0 L (3.5-5.0) g/dL Procalcitonin (0.02-0.09) ng/mL IgG (700.0-1600.0) mg/dL IgA (60.0-350.0) mg/dL IgM (40.0-280.0) mg/dL Microbiology - Last 24 Hours (Table) 01/15/22 12:09 Blood Culture - Preliminary Blood No Growth after 48 hours 01/15/22 11:46 Blood Culture - Preliminary Blood No Growth after 48 hours Assessment and Plan (1) Cellulitis of left lower extremity Current Visit: No Status: Acute Code(s): L03.116 - CELLULITIS OF LEFT LOWER LIMB SNOMED Code(s): 006208226 Plan: 1patient presents hospital with increasing swelling and redness to left lower extremity concerning for possible cellulitis however the patient did not have any fever or elevated white count and symptoms could be related mostly to excessive swelling of his lower extremity, recently he did have a Doppler ultrasound that was negative for DVT completed on 01/06/2022 2patient did have a 2+ edema feet bilaterally CT of the chest did shows effusion and interstitial infiltrate likely representing fluid overload clinically not behaving as pneumonia, patient has been evaluated by pulmonary considering thoracocentesis 3patient to continue the vancomycin and cefepime along with Onur wrap to keep the swelling down Time with Patient: Less than 30
--- NOTE | 2022-01-18 23:27 | P.PN ---
Subjective Progress Note Date: 01/18/22 Principal diagnosis: Left lower extremity cellulitis Patient is a 71-year-old male with multiple comorbidities including PE has been dealing with left lower extremity cellulitis failing outpatient oral Keflex therapy. On today's evaluation and that is 01/18/2022, the patient continues to be afebrile, the patient is breathing comfortably on room air, the patient lower extremity swelling redness and pain has decreased intensity denies any chest pain no abdominal pain no diarrhea Objective - Vital Signs Vital signs: Vital Signs Temp 98.4 F 01/18/22 12:38 Pulse 73 01/18/22 15:19 Resp 20 01/18/22 12:38 BP 158/84 01/18/22 12:38 Pulse Ox 96 01/18/22 12:38 FiO2 Intake & Output 01/17/22 01/18/22 01/18/22 18:59 06:59 18:59 Intake Total 550 400 Output Total 1050 Balance 550 -650 Intake: Intake, IV Titration 550 Amount Cefepime 1 gm In Sodium 100 Chloride 0.9% 50 ml @ 12. 5 mls/hr IVPB Q8HR [facility] Rx #:[id number] Sodium Chloride 0.9% 1, 450 000 ml @ 130 mls/hr IV . Q7H42M [facility] Rx#:[id number] Oral 400 Output: Urine 1050 Other: Voiding Method Toilet Toilet Toilet # Voids 1 - Exam GENERAL DESCRIPTION: An elderly male lying in bed in no distress RESPIRATORY SYSTEM: Unlabored breathing , decreased breath sounds at bases HEART: S1 S2 regular rate and rhythm , ABDOMEN: Soft , no tenderness EXTREMITIES: Bilateral lower extremity especially left leg swelling redness has decreased - Labs CBC & Chem 7: 01/17/22 05:57 01/18/22 06:59 Labs: Abnormal Lab Results - Last 24 Hours (Table) 01/16/22 01/18/22 Range/Units 14:53 06:59 Chloride 112 H (96-109) mmol/L Carbon Dioxide 19.4 L (20.0-27.5) mmol/L BUN/Creatinine Ratio 23.00 H (12.00-20.00) Ratio Glucose 159 H (70-110) mg/dL Calcium 8.4 L (8.7-10.3) mg/dL Albumin (PEP) 2.81 L (3.80-4.90) g/dL Afvxj-5-Wzwbiyued 0.50 H (0.10-0.40) g/dL Gamma Globulins 0.21 L (0.70-1.50) g/dL Free [place] LC, Quant 120.75 H (0.33-1.94) mg/dL Free Lambda LC, Quant 0.22 L (0.57-2.63) mg/dL Microbiology - Last 24 Hours (Table) 01/15/22 12:09 Blood Culture - Preliminary Blood No Growth after 72 hours 01/15/22 11:46 Blood Culture - Preliminary Blood No Growth after 72 hours Assessment and Plan (1) Cellulitis of left lower extremity Current Visit: No Status: Acute Code(s): L03.116 - CELLULITIS OF LEFT LOWER LIMB SNOMED Code(s): 515507149 Plan: 1patient presents hospital with increasing swelling and redness to left lower extremity concerning for possible cellulitis however the patient did not have any fever or elevated white count and symptoms could be related mostly to excessive swelling of his lower extremity, recently he did have a Doppler ultrasound that was negative for DVT completed on 01/06/2022 2patient did have a 2+ edema feet bilaterally CT of the chest did shows effusion and interstitial infiltrate likely representing fluid overload clinically not behaving as pneumonia, patient has been evaluated by pulmonary considering thoracocentesis 3patient has shown clinical improvement and will continue the vancomycin and cefepime along with Onur wrap to keep the swelling down plan to finish therapy with oral antibiotics Time with Patient: Less than 30
[2022-01-19] MEDS: VANCOMYCIN 1,500 MG in SODIUM CHLORIDE 0.9% 500 ML 500 ML IVPB SCH (04:00)
[2022-01-19] MEDS: methylPREDNISolone SOD SUCCI 125 MG/2 ML VIAL IV SCH ×3 (05:21→17:20)
[2022-01-19 06:07] LABS: African American GFR (CKD) >90 (>60 ml/min/1.73 sqM); Non-African American GFR(CKD) >90 (>60 ml/min/1.73 sqM)
[2022-01-19] MEDS: SYMBICORT 160-4.5 MCG INHALER INHALATION SCH ×2 (07:08→21:20)
[2022-01-19] MEDS: IPRATROPIUM-ALBUTEROL 3 ML NEB INHALATION SCH ×4 (07:08→21:20)
--- NOTE | 2022-01-19 07:53 | XR ---
EXAMINATION TYPE: XR chest 1V portable DATE OF EXAM: 01/19/2022 COMPARISON: 10/14/2021 HISTORY: Pleural effusion TECHNIQUE: Single frontal view of the chest is obtained. FINDINGS: Bilateral pleural effusion and infiltrate. Mediport catheter seen with tip overlying the r ight atrium. Osseous structures intact. No sizable pneumothorax. Heart is mildly enlarged. IMPRESSION: Bilateral infiltrate and pleural effusion
--- NOTE | 2022-01-19 09:08 | XR ---
EXAMINATION TYPE: XR chest 1V portable DATE OF EXAM: 01/19/2022 COMPARISON: 01/19/2022 HISTORY: Postthoracentesis TECHNIQUE: Single frontal view of the chest is obtained. FINDINGS: Bilateral infiltrate and small effusion with marked improvement on the left. No sizable pn eumothorax. Mediport catheter seen in stable. Heart is enlarged. Cannot exclude a deformity involving the posterior left lower rib cage. IMPRESSION: 1. No pneumothorax postthoracentesis through aeration at the left lung base
[2022-01-19] MEDS: CEFEPIME 1 GM in SODIUM CHLORIDE 0.9% 50 ML IVPB SCH ×2 (09:40→16:46)
[2022-01-19] MEDS: METOPROLOL SUCCINATE (ER) 50 MG TAB.ER.24H PO SCH (09:40)
--- NOTE | 2022-01-19 11:32 | P.PN ---
Subjective Progress Note Date: 01/19/22 Principal diagnosis: cellulitis Hospital Course: 71-year-old male with history of PE, multiple myeloma on immunotherapy presenting with left leg cellulitis with failed outpatient antibiotic therapy. Patient also found to have cough and shortness of breath, CT chest showing multiple groundglass opacities within the right lobe as well as moderate large left pleural effusion. Patient currently on IV antibiotics. ID, pulmonology, oncology following. S/p thoracentesis. Lower extremity cellulitis appears to be improving. Subjective: Patient seen and examined at bedside. No acute events overnight. His shortness of breath has improved after thoracentesis. He denies any chest pain, abdominal pain, nausea, vomiting, diarrhea, constipation, urinary complaints. He has minimal pain in left lower extremity, claims that erythema has improved. Pertinent positives and negatives as discussed above, a complete review of systems was performed and all other systems are negative. Vitals Signs Reviewed. General: nontoxic, no distress, appears at stated age Derm: warm, dry, no apparent erythema on LLE Head: atraumatic, normocephalic, symmetric Eyes: EOMI, no lid lag, anicteric sclera Mouth: no lip lesion, mucus membranes moist Cardiovascular: S1S2 reg, no murmur Lungs: CTAB, no rhonchi, no rales , no accessory muscle use Abdominal: soft, nontender to palpation, no guarding, no appreciable organomegaly Ext: no gross muscle atrophy, 2+ pitting edema up to knees, no contractures Neuro: CN II-XI grossly intact, no focal neuro deficits Psych: Alert, oriented, appropriate affect Assessment and Plan: LLE cellulitis - improving Lower extremity edema -vanc and cefepime -ID following -She will likely be switched to oral antibiotics tomorrow prior to discharge home -Patient had recent echo in 10/21/21 which showed normal systolic function RLL pneumonia Left pleural effusion Cough and SOB -CT findings show multiple groundglass opacities witihin RLL and moderate large left pleural effusion -pulm following -thoracentesis completed, pending studies -on IV abx -bronchodilators and steroids per pulmonology Hx of multiple mylenoma - on immunotherapy, we'll hold treatment until patient seen and evaluated by primary oncologist, - oncology consulted Chronic medical problems: Chronic back pain Anxiety Hx of PE -restart anticoagulation peripheral neuropathy DVT ppx: eliquis Code status: Full code Anticipated discharge place: home Anticipated discharge time: Likely tomorrow Objective - Vital Signs Vital signs: Vital Signs Temp 97.5 F L 01/19/22 04:02 Pulse 76 01/19/22 10:48 Resp 16 01/19/22 04:02 BP 148/73 01/19/22 04:02 Pulse Ox 93 L 01/19/22 04:02 FiO2 Intake & Output 01/18/22 01/19/22 01/19/22 18:59 06:59 18:59 Intake Total 2450 Balance 2450 Intake: Intake, IV Titration 1950 Amount Cefepime 1 gm In Sodium 50 Chloride 0.9% 50 ml @ 12. 5 mls/hr IVPB Q8HR [facility] Rx #:[id number] Sodium Chloride 0.9% 1, 1400 000 ml @ 130 mls/hr IV . Q7H42M [facility] Rx#:[id number] Vancomycin 1,500 mg In 500 Sodium Chloride 0.9% 500 ml 500 ml @ 167 mls/hr IVPB Q12H [facility] Rx#: [id number] Oral 500 Other: Voiding Method Toilet Toilet # Voids 2 3 - Labs CBC & Chem 7: 01/17/22 05:57 01/19/22 05:17 Labs: Abnormal Lab Results - Last 24 Hours (Table) 01/16/22 Range/Units 14:53 Albumin (PEP) 2.81 L (3.80-4.90) g/dL Cwann-2-Oxuyttpib 0.50 H (0.10-0.40) g/dL Gamma Globulins 0.21 L (0.70-1.50) g/dL Free [place] LC, Quant 120.75 H (0.33-1.94) mg/dL Free Lambda LC, Quant 0.22 L (0.57-2.63) mg/dL Microbiology - Last 24 Hours (Table) 01/15/22 12:09 Blood Culture - Preliminary Blood No Growth after 72 hours 01/15/22 11:46 Blood Culture - Preliminary Blood No Growth after 72 hours
--- NOTE | 2022-01-19 11:59 | P.PN ---
Subjective Progress Note Date: 01/19/22 71-year-old male seen initially on January 15, in the emergency room, for left leg cellulitis. We are asked to see the patient, a cousin of an abnormal chest x-ray, potentially sewing patchy pneumonia in the right lung, and a left-sided pleural effusion. The patient does have a history of multiple myeloma. The patient also has a history of pulmonary embolism is on a factor X a inhibitor. The patient did smoke cigars in the past. He did smoke cigarettes in the past, but infrequently. The patient has had a stem cell transplant twice, for his multiple myeloma. Other medical history includes osteoarthritis, diverticular disease, and colonic polyps. The patient states for last week or 2, he's had lots of shortness of breath, and cough, mostly nonproductive. It feels like he has lots of chest congestion. Denies any fever or chills. Currently he is on vancomycin and cefepime for his left leg cellulitis. This is why he was admitted. He's currently on room air. He is getting saline at 75 mL an hour. White count 5.8, hemoglobin 11, hematocrit 33.6, and platelet count 141,000. Sodium 140, potassium 3.3, chlorides 112, CO2 20, BUN 14, creatinine 0.63. Testing for coronavirus was negative. Chest ultrasound shows a 9.85 cm pocket on the left. Chest CT shows groundglass opacities within the right lung. The patient is seen today 01/18/2022 in follow-up on the regular medical floor. He is currently sitting up at the bedside. Awake and alert in no acute distress. He is still dyspneic with conversation. Dyspneic with normal exertion. Less cough. He is maintaining O2 saturations in the mid 90s on room air. He is afebrile. Ultrasound of the left chest reveals a 9.85 cm pleural effusion. The patient that his PROGNOSIS recent as 01/16/2022. He is continued on Symbicort, DuoNeb inhalations, IV Solu-Medrol. Antibiotics in the form of vancomycin and cefepime. Blood cultures reveal no growth to date. Sodium 142. Potassium 3.9. BUN 13.8. Creatinine 0.6. The patient is seen today 01/19/2022 in follow-up on the regular medical floor. He is currently sitting up at the bedside. Awake and alert in no acute distress. He is maintaining O2 saturations in the 90s on room air. He's been afebrile. Hemodynamically stable. He did undergo a left-sided thoracentesis by Dr. Pimentel today with 1.7 L of cloudy yellow fluid removed. Suspect exudate. Fluid analysis and cultures pending. Follow-up chest x-ray revealed improved aeration of the left lung. No evidence of pneumothorax. Blood cultures reveal no growth. Creatinine 0.78. GFR greater than 90. He is continued on DuoNeb inhalations, Symbicort, IV Solu-Medrol. Antibiotics in the form of vancomycin and cefepime. Anticoagulated with Eliquis that'll be resumed today. Objective - Vital Signs Vital signs: Vital Signs Temp 97.5 F L 01/19/22 04:02 Pulse 76 01/19/22 10:48 Resp 16 01/19/22 04:02 BP 148/73 01/19/22 04:02 Pulse Ox 93 L 01/19/22 04:02 FiO2 Intake & Output 01/18/22 01/19/22 01/19/22 18:59 06:59 18:59 Intake Total 2450 Balance 2450 Intake: Intake, IV Titration 1950 Amount Cefepime 1 gm In Sodium 50 Chloride 0.9% 50 ml @ 12. 5 mls/hr IVPB Q8HR [facility] Rx #:[id number] Sodium Chloride 0.9% 1, 1400 000 ml @ 130 mls/hr IV . Q7H42M [facility] Rx#:[id number] Vancomycin 1,500 mg In 500 Sodium Chloride 0.9% 500 ml 500 ml @ 167 mls/hr IVPB Q12H [facility] Rx#: [id number] Oral 500 Other: Voiding Method Toilet Toilet # Voids 2 3 - Exam GENERAL EXAM: Alert, very pleasant 71-year-old male patient, on room air, comfortable in no apparent distress. HEAD: Normocephalic. EYES: Normal reaction of pupils, equal size. NOSE: Clear with pink turbinates. THROAT: No erythema or exudates. NECK: No masses, no JVD. CHEST: No chest wall deformity. LUNGS: Equal air entry with crackles, rhonchi left lung base. CVS: S1 and S2 normal with no audible murmur, regular rhythm. ABDOMEN: No hepatosplenomegaly, normal bowel sounds, no guarding or rigidity. SPINE: No scoliosis or deformity SKIN: No rashes CENTRAL NERVOUS SYSTEM: No focal deficits, tone is normal in all 4 extremities. EXTREMITIES: There is edema and redness of the left lower extremity. No clubbing, no cyanosis. Peripheral pulses are intact. - Labs CBC & Chem 7: 01/17/22 05:57 01/19/22 05:17 Labs: Abnormal Lab Results - Last 24 Hours (Table) 01/16/22 Range/Units 14:53 Albumin (PEP) 2.81 L (3.80-4.90) g/dL Ewlee-5-Nqgsyneai 0.50 H (0.10-0.40) g/dL Gamma Globulins 0.21 L (0.70-1.50) g/dL Free [place] LC, Quant 120.75 H (0.33-1.94) mg/dL Free Lambda LC, Quant 0.22 L (0.57-2.63) mg/dL Microbiology - Last 24 Hours (Table) 01/15/22 12:09 Blood Culture - Preliminary Blood No Growth after 72 hours 01/15/22 11:46 Blood Culture - Preliminary Blood No Growth after 72 hours Assessment and Plan Assessment: Cellulitis, left lower extremity, currently on vancomycin and cefepime. Negative for DVT. Acute bronchitis and possible patchy bronchopneumonia, with bronchial inflammation and bronchospasm, primarily affecting the right lung. Pro- calcitonin 1.11 Moderate left-sided pleural effusion. Status post thoracentesis today 01/19/2022 with 1.7 L of cloudy yellow fluid removed. Cytology and fluid analysis pending. Suspect exudate. History of multiple myeloma, status post stem cell transplant 2, and chemotherapy. History of pulmonary embolism, currently on a factor X a inhibitor. History of peripheral neuropathy. History of diverticular disease. History of kidney stones. History of skin cancer. Plan: The patient was seen and evaluated Chest x-ray, medications and labs reviewed Thoracentesis performed today, left chest, with 1.7 L of cloudy yellow fluid removed Follow-up chest x-ray revealed no evidence of pneumothorax Resume Eliquis today Continue bronchodilators and steroids Continue antibiotics per ID services We will continue to follow I have personally seen and examined the patient, performed the documentation and the assessment and plan as written. Number of minutes spent on the visit: 10.
[2022-01-19 14:43] LABS: Total Protein 5.1 g/dL (6.3-8.2)
[2022-01-19] MEDS ORDERED: VANCOMYCIN TROUGH DUE 1 EACH MISC MISCELLANE ONE (15:00)
[2022-01-19] MEDS: VANCOMYCIN 1,250 MG in SODIUM CHLORIDE 0.9% 250 ML IVPB SCH (16:45)
[2022-01-19] MEDS: ALPRAZolam 0.5 MG TAB PO PRN (17:20)
--- NOTE | 2022-01-19 19:06 | OP ---
OPERATIVE REPORT PROCEDURE PERFORMED: Left-sided thoracentesis. PREOPERATIVE DIAGNOSIS: Left pleural effusion. POSTOPERATIVE DIAGNOSIS: Left pleural effusion. ANESTHESIA USED: 2 mL of 1% lidocaine. DESCRIPTION OF PROCEDURE: The patient was placed in the sitting upright position, the area below the left scapula was prepared in a sterile fashion, and drapes were applied. The area that was marked earlier by ultrasound correlated to the level of the 8th intercostal space and tip of the scapula. Then, the area was locally anesthetized with lidocaine. Then, a 26-gauge needle was inserted into the pleural space. Fluid was localized with the needle. A small tiny incision was made, and a standard thoracentesis catheter and needle were used, advanced into the pleural space. Fluid was obtained. Then, the catheter was advanced over the needle into the pleural space. Freely flowing fluid was removed, roughly 1700 mL of hugh-colored fluid was removed from the left pleural space. The fluid was sent for different diagnostic studies. Chest x-ray postoperatively showed no complications. The procedure was well tolerated. MMODL / IJN: [id number] /
[2022-01-19 19:12] LABS: Glucose, BF Source Pleural Fluid; Glucose, Body Fluid 156 mg/dL; LDH, Body Fluid Source Pleural Fluid; T. Protein, Body Fluid Source Pleural Fluid; Total Protein, Body Fluid 2030 mg/dL
[2022-01-19] MEDS: APIXABAN 5 MG TAB PO SCH (21:26)
[2022-01-19 21:39] LABS: Appearance,BF Cloudy
--- NOTE | 2022-01-19 23:50 | P.PN ---
Subjective Progress Note Date: 01/19/22 Principal diagnosis: Left lower extremity cellulitis Patient is a 71-year-old male with multiple comorbidities including PE has been dealing with left lower extremity cellulitis failing outpatient oral Keflex therapy. Patient is status post thoracocentesis completed on 01/19/2022 On today's evaluation and that is 01/19/2022, the patient remains to be afebrile, the patient is breathing comfortably on room air, the patient lower extremity swelling redness has decreased intensity and denies pain to the left lower extremity, the patient denies chest pain no abdominal pain no diarrhea Objective - Vital Signs Vital signs: Vital Signs Temp 97.9 F 01/19/22 12:16 Pulse 78 01/19/22 12:16 Resp 22 01/19/22 12:16 BP 135/83 01/19/22 12:16 Pulse Ox 95 01/19/22 12:16 FiO2 Intake & Output 01/18/22 01/19/22 01/19/22 18:59 06:59 18:59 Intake Total 2450 Balance 2450 Intake: Intake, IV Titration 1950 Amount Cefepime 1 gm In Sodium 50 Chloride 0.9% 50 ml @ 12. 5 mls/hr IVPB Q8HR [facility] Rx #:[id number] Sodium Chloride 0.9% 1, 1400 000 ml @ 130 mls/hr IV . Q7H42M [facility] Rx#:[id number] Vancomycin 1,500 mg In 500 Sodium Chloride 0.9% 500 ml 500 ml @ 167 mls/hr IVPB Q12H [facility] Rx#: [id number] Oral 500 Other: Voiding Method Toilet Toilet Toilet # Voids 2 3 - Exam GENERAL DESCRIPTION: An elderly male lying in bed in no distress RESPIRATORY SYSTEM: Unlabored breathing , decreased breath sounds at bases HEART: S1 S2 regular rate and rhythm , ABDOMEN: Soft , no tenderness EXTREMITIES: Bilateral lower extremity especially left leg swelling redness has decreased - Labs CBC & Chem 7: 01/17/22 05:57 01/19/22 05:17 Labs: Abnormal Lab Results - Last 24 Hours (Table) 01/16/22 Range/Units 14:53 Albumin (PEP) 2.81 L (3.80-4.90) g/dL Iczul-0-Oxiohmlzi 0.50 H (0.10-0.40) g/dL Gamma Globulins 0.21 L (0.70-1.50) g/dL Free [place] LC, Quant 120.75 H (0.33-1.94) mg/dL Free Lambda LC, Quant 0.22 L (0.57-2.63) mg/dL Microbiology - Last 24 Hours (Table) 01/15/22 12:09 Blood Culture - Preliminary Blood No Growth after 72 hours 01/15/22 11:46 Blood Culture - Preliminary Blood No Growth after 72 hours Assessment and Plan (1) Cellulitis of left lower extremity Current Visit: No Status: Acute Code(s): L03.116 - CELLULITIS OF LEFT LOWER LIMB SNOMED Code(s): 285646150 Plan: 1patient presents hospital with increasing swelling and redness to left lower extremity concerning for possible cellulitis however the patient did not have any fever or elevated white count and symptoms could be related mostly to excessive swelling of his lower extremity, recently he did have a Doppler ultrasound that was negative for DVT completed on 01/06/2022 2patient did have a 2+ edema feet bilaterally CT of the chest did shows effusion and interstitial infiltrate likely representing fluid overload clinically not behaving as pneumonia, patient is status post thoracocentesis with the fluid analysis currently pending 3patient has shown clinical improvement and will continue the vancomycin and cefepime along with Onur wrap to keep the swelling down , plan is to finish therapy with oral antibiotics on discharge Time with Patient: Less than 30
[2022-01-20] MEDS: methylPREDNISolone SOD SUCCI 125 MG/2 ML VIAL IV SCH ×2 (00:08→06:18)
[2022-01-20] MEDS: CEFEPIME 1 GM in SODIUM CHLORIDE 0.9% 50 ML IVPB SCH ×3 (00:08→16:54)
[2022-01-20] MEDS: ALPRAZolam 0.5 MG TAB PO PRN ×2 (00:55→12:41)
[2022-01-20] MEDS: VANCOMYCIN 1,250 MG in SODIUM CHLORIDE 0.9% 250 ML IVPB SCH ×2 (04:06→16:54)
[2022-01-20 05:53] VITALS: BP 150/92; RESP 15; TEMP 97.7
[2022-01-20] MEDS: IPRATROPIUM-ALBUTEROL 3 ML NEB INHALATION SCH ×3 (07:26→15:26)
[2022-01-20] MEDS: SYMBICORT 160-4.5 MCG INHALER INHALATION SCH (07:26)
[2022-01-20] MEDS ORDERED: FUROSEMIDE 10 MG/ML 4 ML VIAL IV STA (08:22)
[2022-01-20] MEDS: METOPROLOL SUCCINATE (ER) 50 MG TAB.ER.24H PO SCH (09:23)
[2022-01-20] MEDS: APIXABAN 5 MG TAB PO SCH (09:23)
[2022-01-20] MEDS ORDERED: IMMUNE GLOBULIN (GAMMAGARD) 30 GM in EMPTY BAG 1 BAG IV ONE (10:00)
--- NOTE | 2022-01-20 11:55 | P.PN ---
Subjective Progress Note Date: 01/20/22 71-year-old male seen initially on January 15, in the emergency room, for left leg cellulitis. We are asked to see the patient, a cousin of an abnormal chest x-ray, potentially sewing patchy pneumonia in the right lung, and a left-sided pleural effusion. The patient does have a history of multiple myeloma. The patient also has a history of pulmonary embolism is on a factor X a inhibitor. The patient did smoke cigars in the past. He did smoke cigarettes in the past, but infrequently. The patient has had a stem cell transplant twice, for his multiple myeloma. Other medical history includes osteoarthritis, diverticular disease, and colonic polyps. The patient states for last week or 2, he's had lots of shortness of breath, and cough, mostly nonproductive. It feels like he has lots of chest congestion. Denies any fever or chills. Currently he is on vancomycin and cefepime for his left leg cellulitis. This is why he was admitted. He's currently on room air. He is getting saline at 75 mL an hour. White count 5.8, hemoglobin 11, hematocrit 33.6, and platelet count 141,000. Sodium 140, potassium 3.3, chlorides 112, CO2 20, BUN 14, creatinine 0.63. Testing for coronavirus was negative. Chest ultrasound shows a 9.85 cm pocket on the left. Chest CT shows groundglass opacities within the right lung. The patient is seen today 01/18/2022 in follow-up on the regular medical floor. He is currently sitting up at the bedside. Awake and alert in no acute distress. He is still dyspneic with conversation. Dyspneic with normal exertion. Less cough. He is maintaining O2 saturations in the mid 90s on room air. He is afebrile. Ultrasound of the left chest reveals a 9.85 cm pleural effusion. The patient that his PROGNOSIS recent as 01/16/2022. He is continued on Symbicort, DuoNeb inhalations, IV Solu-Medrol. Antibiotics in the form of vancomycin and cefepime. Blood cultures reveal no growth to date. Sodium 142. Potassium 3.9. BUN 13.8. Creatinine 0.6. The patient is seen today 01/19/2022 in follow-up on the regular medical floor. He is currently sitting up at the bedside. Awake and alert in no acute distress. He is maintaining O2 saturations in the 90s on room air. He's been afebrile. Hemodynamically stable. He did undergo a left-sided thoracentesis by Dr. Pimentel today with 1.7 L of cloudy yellow fluid removed. Suspect exudate. Fluid analysis and cultures pending. Follow-up chest x-ray revealed improved aeration of the left lung. No evidence of pneumothorax. Blood cultures reveal no growth. Creatinine 0.78. GFR greater than 90. He is continued on DuoNeb inhalations, Symbicort, IV Solu-Medrol. Antibiotics in the form of vancomycin and cefepime. Anticoagulated with Eliquis that'll be resumed today. The patient is seen today 01/20/2022 in follow-up on the regular medical floor. He is awake and alert in no acute distress. Sitting up at the bedside. He denies any worsening shortness of breath, cough or congestion. No chest pain. He's been maintaining good O2 saturations in the mid 90s on room air. He's afebrile. Hemodynamically stable. He did undergo a left-sided thoracentesis yesterday with 1.7 L of cloudy yellow fluid removed. Fluid analysis is revealing a protein of 2.0. LDH 498. Serum LDH 944. Serum protein 5.1. He is continued on DuoNeb inhalations, Symbicort, IV Solu-Medrol. Antibiotics in the form of vancomycin and cefepime. He is anticoagulated with Eliquis. Objective - Vital Signs Vital signs: Vital Signs Temp 97.7 F 01/20/22 05:16 Pulse 76 01/20/22 11:27 Resp 15 01/20/22 05:16 BP 150/92 01/20/22 05:16 Pulse Ox 96 01/20/22 05:16 FiO2 Intake & Output 01/19/22 01/20/22 01/20/22 18:59 06:59 18:59 Intake Total 175 300 26.667 Balance 175 300 26.667 Intake: Intake, IV Titration 175 300 26.667 Amount Cefepime 1 gm In Sodium 50 50 Chloride 0.9% 50 ml @ 12. 5 mls/hr IVPB Q8HR [facility] Rx #:[id number] Immune Globulin ( 26.667 Gammagard) 30 gm In Empty Bag 1 bag @ Per Protocol IV .Q0M ONE Rx#: [id number] Vancomycin 1,250 mg In 125 250 Sodium Chloride 0.9% 250 ml @ 125 mls/hr IVPB Q12H [facility] Rx#:[id number] Other: Voiding Method Toilet Toilet - Exam GENERAL EXAM: Alert, 71-year-old male patient, on room air, comfortable in no apparent distress. HEAD: Normocephalic. EYES: Normal reaction of pupils, equal size. NOSE: Clear with pink turbinates. THROAT: No erythema or exudates. NECK: No masses, no JVD. CHEST: No chest wall deformity. LUNGS: Equal air entry with crackles, rhonchi left lung base. CVS: S1 and S2 normal with no audible murmur, regular rhythm. ABDOMEN: No hepatosplenomegaly, normal bowel sounds, no guarding or rigidity. SPINE: No scoliosis or deformity SKIN: No rashes CENTRAL NERVOUS SYSTEM: No focal deficits, tone is normal in all 4 extremities. EXTREMITIES: There is edema and redness of the left lower extremity. No clubbing, no cyanosis. Peripheral pulses are intact. - Labs CBC & Chem 7: 01/17/22 05:57 01/19/22 05:17 Labs: Abnormal Lab Results - Last 24 Hours (Table) 01/19/22 Range/Units 14:04 Lactate Dehydrogenase 944 H (313-618) U/L Total Protein 5.1 L (6.3-8.2) g/dL Microbiology - Last 24 Hours (Table) 01/19/22 08:39 Gram Stain - Preliminary Pleural Fluid Body Fluid Culture - Preliminary 01/19/22 08:39 Fungal Culture - Preliminary Pleural Fluid 01/19/22 08:39 Acid Fast Bacilli Culture - Preliminary Pleural Fluid 01/15/22 12:09 Blood Culture - Preliminary Blood No Growth after 96 hours 01/15/22 11:46 Blood Culture - Preliminary Blood No Growth after 96 hours Assessment and Plan Assessment: Cellulitis, left lower extremity, currently on vancomycin and cefepime. Negative for DVT. Acute bronchitis and possible patchy bronchopneumonia, with bronchial inflammation and bronchospasm, primarily affecting the right lung. Pro- calcitonin 1.11 Moderate left-sided pleural effusion. Status post thoracentesis today 01/19/2022 with 1.7 L of cloudy yellow fluid removed. Cytology and fluid analysis pending. Suspect exudate. History of multiple myeloma, status post stem cell transplant 2, and ch emotherapy. History of pulmonary embolism, currently on a factor X a inhibitor. History of peripheral neuropathy. History of diverticular disease. History of kidney stones. History of skin cancer. Plan: The patient was seen and evaluated Chest x-ray, medications and labs reviewed Pleural fluid cytology pending The patient is cleared for discharge from the pulmonary standpoint Continue Symbicort, albuterol, prednisone taper Continue Eliquis Continue antibiotics per ID services Follow up in the office in 1 week I have personally seen and examined the patient, performed the documentation and the assessment and plan as written. Number of minutes spent on the visit: 10.
[2022-01-20 12:12] VITALS: PULSE 84
[2022-01-20] MEDS: HYDROcodone/APAP 5-325MG 1 EACH TAB PO PRN (12:40)
--- NOTE | 2022-01-20 12:59 | P.DS ---
Providers Date of admission: 01/15/22 13:31 Expected date of discharge: 01/20/22 Attending physician: Gonsalo Chambers MD Consults: 01/15/22 13:58 Consult Physician Routine Consulting Provider: Roxane Busch Consult Reason/Comments: cellulitis Do you want consulting provider notified?: Yes 01/15/22 13:59 Consult Physician Routine Consulting Provider: Nilay Sue Consult Reason/Comments: mm Do you want consulting provider notified?: Yes 01/16/22 18:07 Consult Physician Routine Consulting Provider: Garrett Quinteros Consult Reason/Comments: pneumonia Do you want consulting provider notified?: Yes Primary care physician: Steve Leon Hospital Course: Discharge Diagnosis: Left lower extremity cellulitis Lower extremity edema Right lower lobe pneumonia Left pleural effusion History of multiple myeloma History of PE Hospital Course: 71-year-old male with history of PE, multiple myeloma on immunotherapy presenting with left leg cellulitis with failed outpatient antibiotic therapy. Patient also found to have cough and shortness of breath, CT chest showing multiple groundglass opacities within the right lobe as well as moderate large left pleural effusion. Patient was started on IV antibiotics. ID consulted. Blood cultures negative. Lower extremity cellulitis improved with antibiotics, patient being discharged on doxycycline 100 twice a day for 7 days. For his respiratory complaints, pulmonology and oncology were consulted. Patient had thoracentesis, removing 1.7 L fluid. Exudative fluid, cytology and cultures still pending. Patient to be discharged on bronchodilators with close follow-up with pulmonology in one week. The patient's previous echocardiogram in 11/02 was normal. Lower extremity edema possibly related to diastolic CHF, discharged on oral Lasix. Oncology recommended holding cancer treatment till patient follows up with his outpatient oncologist. Patient seen and examined at bedside. Vital signs reviewed and stable. General: nontoxic, no distress, appears at stated age Derm: warm, dry, no apparent erythema on LLE Head: atraumatic, normocephalic, symmetric Eyes: EOMI, no lid lag, anicteric sclera Mouth: no lip lesion, mucus membranes moist Cardiovascular: S1S2 reg, no murmur Lungs: CTAB, no rhonchi, no rales , no accessory muscle use Abdominal: soft, nontender to palpation, no guarding, no appreciable organomegaly Ext: no gross muscle atrophy, 2+ pitting edema up to knees, no contractures Neuro: CN II-XI grossly intact, no focal neuro deficits Psych: Alert, oriented, appropriate affect A total of 39 minutes of time were spent preparing this complex discharge summary. Patient was discharged on 01/20/22 at 9:30. Patient Condition at Discharge: Stable Plan - Discharge Summary New Discharge Prescriptions: New Budesonide-Formot 160-4.5 Mcg [Symbicort 160-4.5 Mcg Inhaler] 2 puff INHALATION RT-BID #1 each Furosemide [Lasix] 40 mg PO DAILY #30 tablet Doxycycline [Vibramycin] 100 mg PO BID 7 Days #14 capsule Continue Metoprolol Succinate [Toprol XL] 50 mg PO DAILY HYDROcodone/APAP 5-325MG [Beeson 5-325] 1 tab PO Q6H PRN PRN Reason: Pain dexAMETHasone [Decadron] 20 mg PO FRSA Apixaban [Eliquis] 5 mg PO BID Discontinued Cephalexin [Keflex] 500 mg PO Q6HR #40 cap Pomalyst 4mg 4 mg PO DIRECTED Discharge Medication List Apixaban [Eliquis] 5 mg PO BID 03/05/21 [History] HYDROcodone/APAP 5-325MG [Beeson 5-325] 1 tab PO Q6H PRN 01/06/22 [History] Metoprolol Succinate [Toprol XL] 50 mg PO DAILY 01/06/22 [History] dexAMETHasone [Decadron] 20 mg PO FRSA 01/06/22 [History] Budesonide-Formot 160-4.5 Mcg [Symbicort 160-4.5 Mcg Inhaler] 2 puff INHALATION RT-BID #1 each 01/20/22 [Rx] Doxycycline [Vibramycin] 100 mg PO BID 7 Days #14 capsule 01/20/22 [Rx] Furosemide [Lasix] 40 mg PO DAILY #30 tablet 01/20/22 [Rx] Follow up Appointment(s)/Referral(s): Zoë iPmentel MD [STAFF PHYSICIAN] - 01/27/22 1:00 pm Steve Leon MD [Primary Care Provider] - 1-2 days (PLEASE CALL AND MAKE APPOINTMENT) Patient Instructions/Handouts: Furosemide (By mouth), Doxycycline (By mouth), Budesonide/Formoterol (By breathing), Cellulitis (GEN), Pleural Effusion (GEN) Activity/Diet/Wound Care/Special Instructions: Please see your Oncologist as soon as possible. Restart your cancer treatment if your oncologist agrees to it. In the meanwhile, continue to take the water pill and see your PCP. Take your Antibiotics as directed. Discharge Disposition: HOME SELF-CARE
[2022-01-20] MEDS ORDERED: CYCLOBENZAPRINE 5 MG TAB PO STA (13:41)
[2022-01-20] MEDS ORDERED: KETOROLAC 15 MG/ML 1 ML VIAL IVP STA (13:42)
--- NOTE | 2022-01-20 14:09 | XR ---
EXAMINATION TYPE: XR cervical spine limited DATE OF EXAM: 01/20/2022 TECHNIQUE: Frontal, lateral, swimmers, and open mouth view of the cervical spine are obtained. HISTORY: neck pain COMPARISON: None FINDINGS: The cervical spine is visualized from C1 thru the inferior C7 level, there is reversal of normal cervical curvature centered at C4 level. The pre-vertebral soft tissue appears within normal limits. The C1-C2 articulation is pelvis within normal limits on AP and open mouth view. Vertebral b lillian heights are preserved. There is grade 1 retrolisthesis C4 on C5 and C5 on C6. Moderate to severe disc space narrowing at these levels is present. Suboptimal evaluation of C7-T1 level due to osseous overlap. Partial visualization of right-sided Mediport catheter or right-sided central line. IMPRESSION: As above.
--- NOTE | 2022-01-20 15:58 | P.PN ---
Subjective Progress Note Date: 01/20/22 Principal diagnosis: Cellulitis, on treatment for multiple myeloma In follow-up today patient is sitting up at the bedside, his left lower extremity Redness and swelling is stable. Patient denies any fevers, nausea, diarrhea. He is independently ambulatory. Objective - Vital Signs Vital signs: Vital Signs Temp 97.7 F 01/20/22 05:16 Pulse 80 01/20/22 07:38 Resp 15 01/20/22 05:16 BP 150/92 01/20/22 05:16 Pulse Ox 96 01/20/22 05:16 FiO2 Intake & Output 01/19/22 01/20/22 01/20/22 18:59 06:59 18:59 Intake Total 175 300 Balance 175 300 Intake: Intake, IV Titration 175 300 Amount Cefepime 1 gm In Sodium 50 50 Chloride 0.9% 50 ml @ 12. 5 mls/hr IVPB Q8HR [facility] Rx #:[id number] Vancomycin 1,250 mg In 125 250 Sodium Chloride 0.9% 250 ml @ 125 mls/hr IVPB Q12H [facility] Rx#:[id number] Other: Voiding Method Toilet Toilet - Constitutional General appearance: Present: average body habitus, cooperative, no acute distress - EENT Eyes: Present: anicteric sclerae, EOMI ENT: Present: hearing grossly normal - Respiratory Details: Respirations even and unlabored at rest - Integumentary Integumentary Comment(s): Left lower extremity some generalized mild redness, trace edema. - Neurologic Neurologic: Present: CNII-XII intact - Musculoskeletal Musculoskeletal: Present: strength equal bilaterally - Psychiatric Psychiatric: Present: A&O x's 3, appropriate affect, intact judgment & insight - Labs CBC & Chem 7: 01/17/22 05:57 01/19/22 05:17 Labs: Abnormal Lab Results - Last 24 Hours (Table) 01/19/22 Range/Units 14:04 Lactate Dehydrogenase 944 H (313-618) U/L Total Protein 5.1 L (6.3-8.2) g/dL Microbiology - Last 24 Hours (Table) 01/19/22 08:39 Gram Stain - Preliminary Pleural Fluid Body Fluid Culture - Preliminary 01/19/22 08:39 Fungal Culture - Preliminary Pleural Fluid 01/19/22 08:39 Acid Fast Bacilli Culture - Preliminary Pleural Fluid 01/15/22 12:09 Blood Culture - Preliminary Blood No Growth after 96 hours 01/15/22 11:46 Blood Culture - Preliminary Blood No Growth after 96 hours Assessment and Plan (1) Hx of multiple myeloma Current Visit: No Status: Chronic Priority: Medium Code(s): Z85.79 - PRSNL HX OF MALIG NEOPLM OF LYMPHOID, HEMATPOETC & REL TISS SNOMED Code(s): 732025118544862 (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 Patient has a follow-up appointment rescheduled. Plan is to hold, pomalyst until patient has been seen and evaluated by primary Oncologist. Patient verbalizes understanding the plan and the recommendations. KLC 120-reported to pt as he keeps track of this number IgG <300. D/W PharmD, administer gammaguard 30g x 1. Pt ok for DC after infusion from Onc standpoint. attests: I have seen and examined pt, performed H&P, developed impression and plan of care. Discussed with dictator. Agree with documentation, dictated as a scribe.
--- NOTE | 2022-01-20 19:12 | CA ---
Transthoracic Echo Report Name: Cas West Age: 71 Gender: M : 1950 Exam Date: 01/19/2022 11:37 Exam Location: [place] [facility] Ht (in): 73 Wt (lb): 202 Ordering Physician: Usama Ramirez MD Attending/Referring Phys: Bracelet Form Coverer Laura Peck RDCS Procedure CPT: Indications: SOB, EDEMA Cardiac Hx: Technical Quality: Poor Contrast 1: Lumason Total Dose (mL): 4 Contrast 2: Total Dose (mL): MEASUREMENTS (Male / Female) Normal Values 2D ECHO LV Diastolic Diameter PLAX 4.9 cm 4.2 - 5.9 / 3.9 - 5.3 cm LV Systolic Diameter PLAX 3.4 cm IVS Diastolic Thickness 1.5 cm 0.6 - 1.0 / 0.6 - 0.9 cm LVPW Diastolic Thickness 1.5 cm 0.6 - 1.0 / 0.6 - 0.9 cm LV Relative Wall Thickness 0.6 FINDINGS Left Ventricle Moderately increased septal wall thickness. Normal left ventricular systolic function with no obvious regional wall motion abnormalities. Left ventricular ejection fraction is estimated at 55 %. Right Ventricle Right Atrium Left Atrium Mitral Valve Aortic Valve Tricuspid Valve Pulmonic Valve Pericardium Echo free space anterior to the right ventricle likely represents a fat pad. Aorta CONCLUSIONS Limited echocardiogram. Normal left ventricular dimension and systolic function Previewed by: Dr. Jacques Chiu MD (Electronically Signed) Final Date: 20 January 2022 19:11
[2022-01-21] MEDS ORDERED: predniSONE 20 MG TAB PO SCH (09:00)
== END 2022-01-20 17:00 | disposition home or self-care (01) | DRG 602 ==
LOC: EC 10:45 → 5NMEDONC 13:31 → 4SSUR 16:15 → 5NMEDONC 16:50
PROVIDERS: ADMIT Internal Medicine; ATTEND Internal Medicine
DX: L03.116 Cellulitis of left lower limb (principal); J18.9 Pneumonia, unspecified organism; C90.00 Multiple myeloma not having achieved remission; D80.1 Nonfamilial hypogammaglobulinemia; J90 Pleural effusion, not elsewhere classified; Z94.84 Stem cells transplant status; I50.30 Unspecified diastolic (congestive) heart failure; F17.210 Nicotine dependence, cigarettes, uncomplicated; K57.90 Diverticulosis of intestine, part unspecified, without perforation or abscess without bleeding; F41.9 Anxiety disorder, unspecified; G62.0 Drug-induced polyneuropathy; T45.1X5S Adverse effect of antineoplastic and immunosuppressive drugs, sequela; G89.29 Other chronic pain; J20.9 Acute bronchitis, unspecified; M15.9 Polyosteoarthritis, unspecified; Z79.01 Long term (current) use of anticoagulants; Z79.899 Other long term (current) drug therapy; Z80.7 Family history of other malignant neoplasms of lymphoid, hematopoietic and related tissues; Z82.49 Family history of ischemic heart disease and other diseases of the circulatory system; Z85.828 Personal history of other malignant neoplasm of skin; Z86.711 Personal history of pulmonary embolism; Z86.010 Personal history of colon polyps; Z87.442 Personal history of urinary calculi; Z96.652 Presence of left artificial knee joint; Z20.822 Contact with and (suspected) exposure to COVID-19; Z92.3 Personal history of irradiation
CPT/HCPCS: 36415; 71045; 71250; 72040; 76604; 80048; 80053; 80202; 82565; 82784; 82945; 83605; 83615; 83735; 83880; 83883; 84145; 84155; 84157; 84165; 85025; 86140; 87040; 87070; 87102; 87116; 87205; 87206; 87252; 87496; 87498; 87502; 87529; 87634; 87635; 87798; 88108; 88305; 88341; 88342; 89050; 93308; 94640; 99285

== ENCOUNTER 2022-01-22 13:32 | Inpatient (IN) | payer MEDICARE ==
--- NOTE | 2022-01-22 21:27 | ED ---
General Adult HPI - General Chief complaint: Weakness Stated complaint: weakness Time Seen by Provider: 01/22/22 17:50 Source: patient Mode of arrival: EMS Limitations: no limitations - History of Present Illness Initial comments: 71-year-old male with past medical history of pulmonary embolism, multiple myeloma, peripheral neuropathy who presents to the emergency department with inability to ambulate. Patient was hospitalized from January 15 through the for cellulitis of his left lower extremity after failing outpatient treatment. Patient reportedly was discharged to home on the . States that he was unable to get into his house. He felt like he was given a fall and therefore he laid on the ground. He dragged himself up some steps and into the house which caused him to suffer some abrasions to the dorsum of his right foot. His son then came over the following day and has been taking care of him however it has been difficult. Patient states that due to deconditioning he has been unable to bear weight at all. His cannot care for him. He spoke with his primary care doctor who felt that he needs rehab. Patient does have some weeping from blisters to the right lower extremity. Denies any pain. No fevers. Has been taking his discharge medications as directed. No alleviating, precipitating or modifying factors - Related Data Home Medications Medication Instructions Recorded Confirmed Apixaban [Eliquis] 5 mg PO BID 03/05/21 01/22/22 HYDROcodone/APAP 5-325MG [[place] 1 tab PO Q6H PRN 01/06/22 01/22/22 5-325] Metoprolol Succinate [Toprol XL] 50 mg PO DAILY 01/06/22 01/22/22 dexAMETHasone [Decadron] 20 mg PO FRSA 01/06/22 01/22/22 Previous Rx's Medication Instructions Recorded Budesonide-Formot 160-4.5 Mcg 2 puff INHALATION RT-BID #1 each 01/20/22 [Symbicort 160-4.5 Mcg Inhaler] Doxycycline [Vibramycin] 100 mg PO BID 7 Days #14 capsule 01/20/22 Furosemide [Lasix] 40 mg PO DAILY #30 tablet 01/20/22 Allergies Allergy/AdvReac Type Severity Reaction Status Date / Time No Known Allergies Allergy Verified 01/22/22 20:08 Review of Systems ROS Statement: Those systems with pertinent positive or pertinent negative responses have been documented in the HPI. ROS Other: All systems not noted in ROS Statement are negative. Past Medical History Past Medical History: Cancer, Osteoarthritis (OA), Pulmonary Embolus (PE), Renal Disease Additional Past Medical History / Comment(s): Pt recently admitted to [facility] on 11/16/19 with cellulitis L upper extremity. Other hx: 2006 diagnosed with multiple myeloma-treated with IV chemo/valcade and now immunotherapy/stem cell transplant x2, pancytopenia, peripheral neuropathy bilateral hands/legs and feet d/t chemo, L nare basal cell carcinoma with removal, L femur lesion with radiation treatments, arthritis in multiple joints but not severe, benign colon polyps, diverticular disease, hemorrhoids, kidney stones with surgery and pt has passed as well. History of Any Multi-Drug Resistant Organisms: None Reported Past Surgical History: Hernia Repair, Joint Replacement, Orthopedic Surgery Additional Past Surgical History / Comment(s): L knee unicompartmental replacement, R shoulder rotator cuff repair, L nares skin cancer removal, umbilical hernia repair, colonoscopy with benign polypectomy, lithotripsy x2 Past Anesthesia/Blood Transfusion Reactions: No Reported Reaction Past Psychological History: No Psychological Hx Reported Smoking Status: Current every day smoker Past Alcohol Use History: None Reported Past Drug Use History: None Reported - Past Family History Mother Family Medical History: Cancer Additional Family Medical History / Comment(s): Mother had lymphoma. Father Family Medical History: Coronary Artery Disease (CAD) General Exam Limitations: no limitations General appearance: alert, in no apparent distress Head exam: Present: atraumatic, normocephalic, normal inspection Eye exam: Present: normal appearance, PERRL, EOMI. Absent: scleral icterus, c onjunctival injection, periorbital swelling ENT exam: Present: normal exam, mucous membranes moist Neck exam: Present: normal inspection. Absent: tenderness, meningismus, lymphadenopathy Respiratory exam: Present: normal lung sounds bilaterally. Absent: respiratory distress, wheezes, rales, rhonchi, stridor Cardiovascular Exam: Present: regular rate, normal rhythm, normal heart sounds. Absent: systolic murmur, diastolic murmur, rubs, gallop, clicks GI/Abdominal exam: Present: soft, normal bowel sounds. Absent: distended, tenderness, guarding, rebound, rigid Extremities exam: Present: full ROM, tenderness (dorsum right foot which has multiple open abrasions. surrouding soft tissue is extremely edematous. The foot is cool to the touch with significant pallor in comparison to the left foot. Patient does have palpable DP and PT pulses bilaterally. 3/5 strength of the hip flexors. ), normal capillary refill. Absent: pedal edema, joint swelling, calf tenderness Back exam: Present: normal inspection Neurological exam: Present: alert, oriented X3, CN II-XII intact Psychiatric exam: Present: normal affect, normal mood Skin exam: Present: warm, dry, intact, normal color. Absent: rash Course Vital Signs 01/22/22 14:25 Temperature 98.5 F Pulse Rate 78 Respiratory 20 Rate Blood Pressure 109/66 O2 Sat by Pulse 98 Oximetry Medical Decision Making - Medical Decision Making Arrival patient is placed into room 28. Thorough history and physical exam was performed. Patient does have bandages noted to the right lower extremity. These are removed. Limb appears extremely cold and dusky. Patient does have palpable pulses. Cap refill is delayed. Patient is adamant that he doesn't have any increased pain. Port is accessed and laboratory studies are conducted. I did recommend an x-ray of the foot however the patient does not want one. Denies any trauma except for his sustained abrasions. I did confirm pulses with Doppler ultrasound. Laboratory studies are reviewed and discussed with the patient. He will be admitted for PT, OT and case management. Spoke with Dr. Dunham who was agreeable to admission. - Lab Data Result diagrams: 01/23/22 06:40 01/24/22 06:29 Lab Results 01/22/22 01/22/22 01/22/22 Range/Units 20:30 20:30 20:30 WBC 11.3 H (3.8-10.6) k/uL RBC 3.46 L (4.30-5.90) m/uL Hgb 11.0 L (13.0-17.5) gm/dL Hct 32.2 L (39.0-53.0) % MCV 93.2 (80.0-100.0) fL MCH 31.9 (25.0-35.0) pg MCHC 34.2 (31.0-37.0) g/dL RDW 15.9 H (11.5-15.5) % Plt Count 132 L (150-450) k/uL MPV 8.6 Neutrophils % 95 % Lymphocytes % 2 % Monocytes % 3 % Eosinophils % 0 % Basophils % 0 % Neutrophils # 10.7 H (1.3-7.7) k/uL Lymphocytes # 0.2 L (1.0-4.8) k/uL Monocytes # 0.3 (0-1.0) k/uL Eosinophils # 0.0 (0-0.7) k/uL Basophils # 0.0 (0-0.2) k/uL Hypochromasia Slight Poikilocytosis Slight PT 11.9 (9.0-12.0) sec INR 1.1 (<1.2) APTT 26.2 (22.0-30.0) sec Sodium 137 (137-145) mmol/L Potassium 3.0 L (3.5-5.1) mmol/L Chloride 105 (98-107) mmol/L Carbon Dioxide 26 (22-30) mmol/L Anion Gap 6 mmol/L BUN 22 H (9-20) mg/dL Creatinine 0.78 (0.66-1.25) mg/dL Est GFR (CKD-EPI)AfAm >90 (>60 ml/min/1.73 sqM) Est GFR (CKD-EPI)NonAf >90 (>60 ml/min/1.73 sqM) Glucose 194 H (74-99) mg/dL Calcium 7.9 L (8.4-10.2) mg/dL Total Bilirubin 1.0 (0.2-1.3) mg/dL AST 40 (17-59) U/L ALT 66 H (4-49) U/L Alkaline Phosphatase 134 H (38-126) U/L Troponin I (0.000-0.034) ng/mL NT-Pro-B Natriuret Pep pg/mL Total Protein 5.1 L (6.3-8.2) g/dL Albumin 2.9 L (3.5-5.0) g/dL 01/22/22 01/22/22 Range/Units 20:30 20:30 WBC (3.8-10.6) k/uL RBC (4.30-5.90) m/uL Hgb (13.0-17.5) gm/dL Hct (39.0-53.0) % MCV (80.0-100.0) fL MCH (25.0-35.0) pg MCHC (31.0-37.0) g/dL RDW (11.5-15.5) % Plt Count (150-450) k/uL MPV Neutrophils % % Lymphocytes % % Monocytes % % Eosinophils % % Basophils % % Neutrophils # (1.3-7.7) k/uL Lymphocytes # (1.0-4.8) k/uL Monocytes # (0-1.0) k/uL Eosinophils # (0-0.7) k/uL Basophils # (0-0.2) k/uL Hypochromasia Poikilocytosis PT (9.0-12.0) sec INR (<1.2) APTT (22.0-30.0) sec Sodium (137-145) mmol/L Potassium (3.5-5.1) mmol/L Chloride (98-107) mmol/L Carbon Dioxide (22-30) mmol/L Anion Gap mmol/L BUN (9-20) mg/dL Creatinine (0.66-1.25) mg/dL Est GFR (CKD-EPI)AfAm (>60 ml/min/1.73 sqM) Est GFR (CKD-EPI)NonAf (>60 ml/min/1.73 sqM) Glucose (74-99) mg/dL Calcium (8.4-10.2) mg/dL Total Bilirubin (0.2-1.3) mg/dL AST (17-59) U/L ALT (4-49) U/L Alkaline Phosphatase (38-126) U/L Troponin I 0.023 (0.000-0.034) ng/mL NT-Pro-B Natriuret Pep 722 pg/mL Total Protein (6.3-8.2) g/dL Albumin (3.5-5.0) g/dL Disposition Clinical Impression: Hx of multiple myeloma, Right leg swelling, Abrasion, Inability to ambulate due to multiple joints Disposition: ADMITTED IP TO THIS [facility] Condition: Stable Is patient prescribed a controlled substance at d/c from ED?: No Time of Disposition: 21:57 Decision to Admit Reason: Admit from EC Decision Date: 01/22/22 Decision Time: 21:57
[2022-01-22] MEDS ORDERED: NALOXONE 0.4 MG/ML 1 ML VIAL IV PRN (21:57)
[2022-01-22 22:12] LABS: Basophils % (A) 0 %; Eosinophils % (A) 0 %; HCT 32.2 % (39.0-53.0); Hypochromasia Slight; Lymphocytes # (A) 0.2 k/uL (1.0-4.8); Lymphocytes % (A) 2 %; MCH 31.9 pg (25.0-35.0); MCHC 34.2 g/dL (31.0-37.0); MCV 93.2 fL (80.0-100.0); Mean Platelet Volume 8.6; Monocytes # (A) 0.3 k/uL (0-1.0); Monocytes % (A) 3 %; Neutrophils # (A) 10.7 k/uL (1.3-7.7); Neutrophils % (A) 95 %; Platelet Count 132 k/uL (150-450); Poikilocytosis Slight; RBC 3.46 m/uL (4.30-5.90); RDW 15.9 % (11.5-15.5); WBC 11.3 k/uL (3.8-10.6)
[2022-01-22 22:19] LABS: INR 1.1 (<1.2); Partial Thromboplastin Time 26.2 sec (22.0-30.0); Prothrombin Time 11.9 sec (9.0-12.0)
[2022-01-22 23:19] LABS: ALT 66 U/L (4-49); AST 40 U/L (17-59); African American GFR (CKD) >90 (>60 ml/min/1.73 sqM); Albumin 2.9 g/dL (3.5-5.0); Alkaline Phosphatase 134 U/L (38-126); Anion Gap 6 mmol/L; Blood Urea Nitrogen 22 mg/dL (9-20); Calcium 7.9 mg/dL (8.4-10.2); Carbon Dioxide 26 mmol/L (22-30); Chloride 105 mmol/L (98-107); Glucose 194 mg/dL (74-99); Non-African American GFR(CKD) >90 (>60 ml/min/1.73 sqM); Sodium 137 mmol/L (137-145); Total Protein 5.1 g/dL (6.3-8.2)
[2022-01-23] MEDS: dexAMETHasone 4 MG TAB PO SCH ×2 (01:02→10:13)
[2022-01-23] MEDS ORDERED: Potassium Replacement Protocol 1 EACH MISC MISCELLANE PRN (01:02)
[2022-01-23] MEDS: APIXABAN 5 MG TAB PO SCH ×3 (01:02→21:15)
[2022-01-23] MEDS: POTASSIUM CHLORIDE ER 20 MEQ TAB.ER PO SCH ×4 (01:15→22:24)
--- NOTE | 2022-01-23 01:34 | P.HPIM ---
History of Present Illness H&P Date: 01/22/22 Chief Complaint: Difficulties with activities of daily living 71-year-old male with history of venous thromboembolic some, multiple myeloma on immunotherapy Patient recently discharged from the hospital 2 days ago where he was treated for cellulitis of the left lower extremity discharged on a 1 week course of doxycycline. However upon arriving to his home he fell and the doorstep due to generalized debility and weakness in that he had to crawl inside the house resulting in multiple abrasions his lower extremities the following day or 2 was very difficult for him and his family due to generalized deconditioning generalized weakness and inability to take care of himself he denies any other symptoms like fevers chills chest pain or trouble breathing denies any abdominal pain nausea vomiting diarrhea or GI bleeding. He noticed that swelling of his lower extremities are improving however he still struggling to get up on his own and walk around even with utilizing a walker and help of his son it's been very difficult for him, he sustained a fall today without hitting his head for which she decided to come in to the hospital for evaluation Patient does have chronic right-sided weakness that he's not sure when was started. Patient does have multiple myeloma currently on immunotherapy Workup in the ED showed hypokalemia, low albumin, slightly elevated liver enzymes, chronic anemia Patient had thoracentesis with 1.7 L removed from his lungs recently Review of Systems Pertinent positives as noted in HPI. All other systems were reviewed and are negative Past Medical History Past Medical History: Cancer, Osteoarthritis (OA), Pulmonary Embolus (PE), Renal Disease Additional Past Medical History / Comment(s): Pt recently admitted to [facility] on 11/16/19 with cellulitis L upper extremity. Other hx: 2006 diagnosed with multiple myeloma-treated with IV chemo/valcade and now immunotherapy/stem cell transplant x2, pancytopenia, peripheral neuropathy bilateral hands/legs and feet d/t chemo, L nare basal cell carcinoma with removal, L femur lesion with radi ation treatments, arthritis in multiple joints but not severe, benign colon polyps, diverticular disease, hemorrhoids, kidney stones with surgery and pt has passed as well. History of Any Multi-Drug Resistant Organisms: None Reported Past Surgical History: Hernia Repair, Joint Replacement, Orthopedic Surgery Additional Past Surgical History / Comment(s): L knee unicompartmental replacement, R shoulder rotator cuff repair, L nares skin cancer removal, umbilical hernia repair, colonoscopy with benign polypectomy, lithotripsy x2 Past Anesthesia/Blood Transfusion Reactions: No Reported Reaction Past Psychological History: No Psychological Hx Reported Smoking Status: Current every day smoker Past Alcohol Use History: None Reported Past Drug Use History: None Reported - Past Family History Mother Family Medical History: Cancer Additional Family Medical History / Comment(s): Mother had lymphoma. Father Family Medical History: Coronary Artery Disease (CAD) Medications and Allergies Home Medications Medication Instructions Recorded Confirmed Type Apixaban [Eliquis] 5 mg PO BID 03/05/21 01/22/22 History HYDROcodone/APAP 5-325MG [[place] 1 tab PO Q6H PRN 01/06/22 01/22/22 History 5-325] Metoprolol Succinate [Toprol XL] 50 mg PO DAILY 01/06/22 01/22/22 History dexAMETHasone [Decadron] 20 mg PO FRSA 01/06/22 01/22/22 History Budesonide-Formot 160-4.5 Mcg 2 puff INHALATION RT-BID #1 each 01/20/22 01/22/22 Rx [Symbicort 160-4.5 Mcg Inhaler] Doxycycline [Vibramycin] 100 mg PO BID 7 Days #14 capsule 01/20/22 01/22/22 Rx Furosemide [Lasix] 40 mg PO DAILY #30 tablet 01/20/22 01/22/22 Rx Allergies Allergy/AdvReac Type Severity Reaction Status Date / Time No Known Allergies Allergy Verified 01/22/22 20:08 Physical Exam Vitals: Vital Signs Temp Pulse Resp BP Pulse Ox 01/22/22 14:25 98.5 F 78 20 109/66 98 Intake and Output 01/22/22 01/22/22 01/22/22 06:59 14:59 22:59 Other: Weight 92.533 kg Constitutional: No acute distress, conversant, pleasant Eyes: Anicteric sclerae, moist conjunctiva, Pupils equal round reactive to light ENMT: NC/AT Oropharynx clear, no erythema, or exudates Neck: Supple, no masses, or JVD No carotid bruits No thyromegaly Lungs: Decreased breath sounds at left lower lung Clear to percussion Normal respiratory effort, no accessory muscle use Cardiovascular: Heart regular in rate and rhythm, No murmurs, gallops, or rubs +3 bilateral leg peripheral edema Abdominal: Soft Nontender, no guarding, rebound or rigidity Abdomen moving with respiration Normoactive bowel sounds No hepatomegaly, No splenomegaly No palpable mass No abdominal wall hernia noted Skin: Multiple abrasions over her lower extremities bilaterally, blistering over bilateral feet due to edema Extremities: Both feet cold to the touch with the right worse than the left, right foot looks pale compared to the left. Patient was reexamined with the ED doctor and blood flow to bilateral feet was confirmed by palpation and Doppler with positive posterior tibial and dorsalis pedis pulsation in the right foot No clubbing Pedal pulses intact and symmetrical by Doppler exam Radial pulses intact and symmetrical No calf tenderness Psychiatric: Alert and oriented to person, place and time Appropriate affect fair judgement Neuro Muscles Strength 3/5 in bilateral lower extremities 4/5 bilateral upper extremities , with noticeable slightly more weakness over the right side compared to the left per patient this is chronic Sensation to light touch grossly present throughout Cranial nerves II-XII grossly intact Lymphatics: no palpable cervical or supraclavicular lymph nodes Results CBC & Chem 7: 01/22/22 20:30 01/22/22 20:30 Assessment and Plan Assessment: Debility and deconditioning with frequent falls at home PT evaluation Possible placement at rehab Fall precautions Hypokalemia Replace and follow-up levels Chronic anemia stable Denies any GI bleeding Chronic conditions History of venous thromboembolism on blood thinners Multiple myeloma and immunotherapy Diastolic CHF Full code
[2022-01-23 07:03] LABS: Basophils % (A) 0 %; Eosinophils % (A) 0 %; HCT 33.7 % (39.0-53.0); HGB 11.3 gm/dL (13.0-17.5); Hypochromasia Slight; Lymphocytes # (A) 0.3 k/uL (1.0-4.8); Lymphocytes % (A) 3 %; MCH 31.7 pg (25.0-35.0); MCHC 33.5 g/dL (31.0-37.0); MCV 94.6 fL (80.0-100.0); Mean Platelet Volume 8.6; Monocytes # (A) 0.4 k/uL (0-1.0); Monocytes % (A) 4 %; Neutrophils # (A) 10.4 k/uL (1.3-7.7); Neutrophils % (A) 92 %; Platelet Count 134 k/uL (150-450); Poikilocytosis Slight; RBC 3.56 m/uL (4.30-5.90); RDW 15.9 % (11.5-15.5); WBC 11.3 k/uL (3.8-10.6)
--- NOTE | 2022-01-23 07:17 | XR ---
EXAMINATION TYPE: XR chest 1V portable DATE OF EXAM: 01/23/2022 HISTORY: Shortness of breath. COMPARISON: 01/19/2022 TECHNIQUE: Single view of the chest is submitted. FINDINGS: Demonstrated are scattered senescent parenchymal change. Left lower lobe opacity may reflect infiltrate and/or atelectasis with small effusion noted and appea rs to have increased in the interval. Continued cardiomegaly without overt failure. Right-sided MediPort catheter is in place. Hilar and mediastinal structures are within normal limits. Degenerative changes are seen of the dorsal spine. IMPRESSION: 1. Left lower lobe opacity may reflect infiltrate and/or atelectasis with small effusion noted and a ppears to have increased in the interval.
[2022-01-23] MEDS: IPRATROPIUM-ALBUTEROL 3 ML NEB INHALATION PRN ×4 (07:25→18:55)
[2022-01-23] MEDS: SYMBICORT 160-4.5 MCG INHALER INHALATION SCH ×2 (07:25→18:55)
[2022-01-23 07:28] LABS: African American GFR (CKD) >90 (>60 ml/min/1.73 sqM); Anion Gap 5 mmol/L; Blood Urea Nitrogen 21 mg/dL (9-20); Calcium 7.8 mg/dL (8.4-10.2); Carbon Dioxide 28 mmol/L (22-30); Chloride 107 mmol/L (98-107); Glucose 138 mg/dL (74-99); Non-African American GFR(CKD) >90 (>60 ml/min/1.73 sqM); Potassium 2.9 mmol/L (3.5-5.1); Sodium 140 mmol/L (137-145)
[2022-01-23] MEDS ORDERED: POTASSIUM CHLORIDE ER 20 MEQ TAB.ER PO STA (07:30)
[2022-01-23] MEDS: POTASSIUM CHLORIDE 10 MEQ in WATER FOR INJECTION 1 100ML.BAG IVPB SCH ×4 (10:00→13:41)
[2022-01-23] MEDS: DOXYCYCLINE 100 MG CAP PO SCH ×2 (10:06→21:15)
[2022-01-23] MEDS: METOPROLOL SUCCINATE (ER) 50 MG TAB.ER.24H PO SCH (10:08)
[2022-01-23] MEDS: FUROSEMIDE 40 MG TAB PO SCH (10:13)
--- NOTE | 2022-01-23 17:49 | P.PN ---
Subjective Progress Note Date: 01/23/22 Patient is seen and examined. No acute events overnight. Patient reports falling while trying to enter the house after discharge. He currently reports chronic shortness of breath. He reports chronic debility. He denies any chest pain, shortness breath or palpitations. No nausea or vomiting. No fever or chills. General: non toxic, no distress, appears at stated age Derm: warm, dry Head: atraumatic, normocephalic, symmetric Eyes: EOMI, no lid lag, anicteric sclera Mouth: no lip lesion, mucus membranes moist Cardiovascular: S1S2 reg, no murmur, positive posterior tibial pulse bilateral, Lungs: CTA bilateral, no rhonchi, no rales , no accessory muscle use Abdominal: soft, nontender to palpation, no guarding, no appreciable organomegaly Ext: no gross muscle atrophy, 1+ pitting edema edema, no contractures Neuro: CN II-XI grossly intact, no focal neuro deficits Psych: Alert, oriented, appropriate affect #Debility and generalized weakness #Frequent falls PT and OT will be consulted to work with this patient. Patient be placed on fall precautions. #Hypokalemia Replace and repeat level tomorrow morning. Order magnesium level. #Leukocytosis Patient was previously diagnosed with cellulitis and discharged on doxycycline. #Normocytic anemia Appears at baseline. No active signs of bleeding. Continue to monitor. Chronic conditions: History of PE, multiple myeloma Hematology/oncology will be consulted. DVT prophylaxis: Eliquis Discussed with: Patient, nursing Anticipated discharge: [address]: SNF A total of 15 minutes was spent on the care of this complex patient more than 50% of the time was spent in counseling and care coordination. Objective - Vital Signs Vital signs: Vital Signs Temp 97.4 F L 01/23/22 11:31 Pulse 73 01/23/22 15:18 Resp 18 01/23/22 11:31 BP 123/84 01/23/22 11:31 Pulse Ox 99 01/23/22 11:31 FiO2 Intake & Output 01/22/22 01/23/22 01/23/22 18:59 06:59 18:59 Output Total 250 Balance -250 Weight 92.533 kg 92.533 kg Output: Urine 250 - Labs CBC & Chem 7: 01/23/22 06:40 01/23/22 06:40 Labs: Abnormal Lab Results - Last 24 Hours (Table) 01/22/22 01/22/22 01/23/22 Range/Units 20:30 20:30 06:40 WBC 11.3 H 11.3 H (3.8-10.6) k/uL RBC 3.46 L 3.56 L (4.30-5.90) m/uL Hgb 11.0 L 11.3 L (13.0-17.5) gm/dL Hct 32.2 L 33.7 L (39.0-53.0) % RDW 15.9 H 15.9 H (11.5-15.5) % Plt Count 132 L 134 L (150-450) k/uL Neutrophils # 10.7 H 10.4 H (1.3-7.7) k/uL Lymphocytes # 0.2 L 0.3 L (1.0-4.8) k/uL Potassium 3.0 L (3.5-5.1) mmol/L BUN 22 H (9-20) mg/dL Glucose 194 H (74-99) mg/dL Calcium 7.9 L (8.4-10.2) mg/dL ALT 66 H (4-49) U/L Alkaline Phosphatase 134 H (38-126) U/L Total Protein 5.1 L (6.3-8.2) g/dL Albumin 2.9 L (3.5-5.0) g/dL 01/23/22 Range/Units 06:40 WBC (3.8-10.6) k/uL RBC (4.30-5.90) m/uL Hgb (13.0-17.5) gm/dL Hct (39.0-53.0) % RDW (11.5-15.5) % Plt Count (150-450) k/uL Neutrophils # (1.3-7.7) k/uL Lymphocytes # (1.0-4.8) k/uL Potassium 2.9 L (3.5-5.1) mmol/L BUN 21 H (9-20) mg/dL Glucose 138 H (74-99) mg/dL Calcium 7.8 L (8.4-10.2) mg/dL ALT (4-49) U/L Alkaline Phosphatase (38-126) U/L Total Protein (6.3-8.2) g/dL Albumin (3.5-5.0) g/dL
[2022-01-23] MEDS: HYDROcodone/APAP 5-325MG 1 EACH TAB PO PRN (21:22)
[2022-01-23] MEDS: MELATONIN 3 MG TABLET PO PRN (21:23)
--- NOTE | 2022-01-23 21:37 | P.CONS ---
History of Present Illness - Reason for Consult Consult date: 01/23/22 History of multiple myeloma - Chief Complaint Weakness - History of Present Illness Mr. West is a 71 year old gentleman with relapsed/refractory multiple myeloma currently on pomalyst and another IV treatment who was discharged 2 days ago for cellulitis of the right lower extremity and left pleural effusion. Thoracentesis on 01/19/22 drained 1.7 L of fluid found to be positive for atypical kappa restricted plasma cells consistent with multiple myeloma. Upon arriving home, he tripped on the door stopper and braced himself on the ground. He had to crawl inside due to weakness in his legs and was unable to stand. He eventually was able to contact help and was brought back to the hospital. Labs on presentation did reveal hypokalemia with potassium 2.9. Cell counts were stable. CXR revealed left lower lobe opacity concerning for infiltrate or atelectasis along with small left pleural effusion. He was admitted to internal medicine for additional management. Review of Systems 14 point review of systems was conducted with pertinent positives and negatives per HPI. Past Medical History Past Medical History: Cancer, Osteoarthritis (OA), Pulmonary Embolus (PE), Renal Disease Additional Past Medical History / Comment(s): Pt recently admitted to [facility] on 11/16/19 with cellulitis L upper extremity. Other hx: 2006 diagnosed with multiple myeloma-treated with IV chemo/valcade and now immunotherapy/stem cell transplant x2, pancytopenia, peripheral neuropathy bilateral hands/legs and feet d/t chemo, L nare basal cell carcinoma with removal, L femur lesion with radiation treatments, arthritis in multiple joints but not severe, benign colon polyps, diverticular disease, hemorrhoids, kidney stones with surgery and pt has passed as well. History of Any Multi-Drug Resistant Organisms: None Reported Past Surgical History: Hernia Repair, Joint Replacement, Orthopedic Surgery Additional Past Surgical History / Comment(s): L knee unicompartmental replacement, R shoulder rotator cuff repair, L nares skin cancer removal, umbilical hernia repair, colonoscopy with benign polypectomy, lithotripsy x2 Past Anesthesia/Blood Transfusion Reactions: No Reported Reaction Past Psychological History: No Psychological Hx Reported Smoking Status: Current every day smoker Past Alcohol Use History: None Reported Past Drug Use History: None Reported - Past Family History Mother Family Medical History: Cancer Additional Family Medical History / Comment(s): Mother had lymphoma. Father Family Medical History: Coronary Artery Disease (CAD) Medications and Allergies Home Medications Medication Instructions Recorded Confirmed Type Apixaban [Eliquis] 5 mg PO BID 03/05/21 01/22/22 History HYDROcodone/APAP 5-325MG [[place] 1 tab PO Q6H PRN 01/06/22 01/22/22 History 5-325] Metoprolol Succinate [Toprol XL] 50 mg PO DAILY 01/06/22 01/22/22 History dexAMETHasone [Decadron] 20 mg PO FRSA 01/06/22 01/22/22 History Budesonide-Formot 160-4.5 Mcg 2 puff INHALATION RT-BID #1 each 01/20/22 01/22/22 Rx [Symbicort 160-4.5 Mcg Inhaler] Doxycycline [Vibramycin] 100 mg PO BID 7 Days #14 capsule 01/20/22 01/22/22 Rx Furosemide [Lasix] 40 mg PO DAILY #30 tablet 01/20/22 01/22/22 Rx Allergies Allergy/AdvReac Type Severity Reaction Status Date / Time No Known Allergies Allergy Verified 01/22/22 20:08 Physical Exam Vitals: Vital Signs Temp Pulse Pulse Resp BP Pulse Ox 01/23/22 19:58 98 F 92 16 121/76 96 01/23/22 19:07 80 01/23/22 18:55 84 01/23/22 15:18 73 01/23/22 15:08 70 01/23/22 11:31 97.4 F L 72 70 18 123/84 99 01/23/22 11:19 72 01/23/22 08:00 70 01/23/22 07:39 72 01/23/22 07:26 68 01/23/22 04:25 97.7 F 68 18 126/83 91 L 01/23/22 00:15 97.2 F L 65 18 136/90 96 Intake and Output 01/23/22 01/23/22 01/23/22 06:59 14:59 22:59 Output Total 250 Balance -250 Output: Urine 250 Other: Weight 92.533 kg - Constitutional Well developed General appearance: average body habitus, cooperative, no acute distress - EENT Eyes: EOMI - Respiratory Respiratory: left: diminished (Inspiratory crackles left lung base) leg Peripheral Edema: bilateral: 2+ - Gastrointestinal General gastrointestinal: no distended, normal bowel sounds, soft, no tenderness - Integumentary Integumentary: no rash - Neurologic Neurologic: CNII-XII intact - Psychiatric Psychiatric: A&O x's 3 Results CBC & Chem 7: 01/23/22 06:40 01/23/22 17:41 Labs: Abnormal Lab Results - Last 24 Hours (Table) 01/22/22 01/22/22 01/23/22 Range/Units 20:30 20:30 06:40 WBC 11.3 H 11.3 H (3.8-10.6) k/uL RBC 3.46 L 3.56 L (4.30-5.90) m/uL Hgb 11.0 L 11.3 L (13.0-17.5) gm/dL Hct 32.2 L 33.7 L (39.0-53.0) % RDW 15.9 H 15.9 H (11.5-15.5) % Plt Count 132 L 134 L (150-450) k/uL Neutrophils # 10.7 H 10.4 H (1.3-7.7) k/uL Lymphocytes # 0.2 L 0.3 L (1.0-4.8) k/uL Potassium 3.0 L (3.5-5.1) mmol/L BUN 22 H (9-20) mg/dL Glucose 194 H (74-99) mg/dL Calcium 7.9 L (8.4-10.2) mg/dL ALT 66 H (4-49) U/L Alkaline Phosphatase 134 H (38-126) U/L Total Protein 5.1 L (6.3-8.2) g/dL Albumin 2.9 L (3.5-5.0) g/dL 01/23/22 01/23/22 Range/Units 06:40 17:41 WBC (3.8-10.6) k/uL RBC (4.30-5.90) m/uL Hgb (13.0-17.5) gm/dL Hct (39.0-53.0) % RDW (11.5-15.5) % Plt Count (150-450) k/uL Neutrophils # (1.3-7.7) k/uL Lymphocytes # (1.0-4.8) k/uL Potassium 2.9 L 3.4 L (3.5-5.1) mmol/L BUN 21 H (9-20) mg/dL Glucose 138 H (74-99) mg/dL Calcium 7.8 L (8.4-10.2) mg/dL ALT (4-49) U/L Alkaline Phosphatase (38-126) U/L Total Protein (6.3-8.2) g/dL Albumin (3.5-5.0) g/dL Assessment and Plan Assessment: Mr. West is a 71 year old gentleman with a PMHx significant for multiple myeloma on pomalyst and additional IV medication who presents for deconditioning following admission for cellulitis and pleural effusion. (1) Physical deconditioning Current Visit: Yes Status: Acute Code(s): R53.81 - OTHER MALAISE SNOMED Code(s): 37417809853774 (2) Hx of multiple myeloma Current Visit: Yes Status: Chronic Priority: Medium Code(s): Z85.79 - PRSNL HX OF MALIG NEOPLM OF LYMPHOID, HEMATPOETC & REL TISS SNOMED Code(s): 976050834389830 Plan: #Deconditioning -Admitted from 01/15/22-01/20/22 for cellulitis of the right leg and left pleural effusion -Had fall upon arrival at home with trouble in ambulating -He will need PT/OT with possible subacute rehab prior to returning home -Mr. West is agreeable with this disposition #Multiple myeloma -Treated by outside oncologist -Continue to hold pomalyst while inpatient -No acute oncologic interventions while inpatient -Follow up with his oncologist following discharge
[2022-01-24] MEDS: HYDROcodone/APAP 5-325MG 1 EACH TAB PO PRN (07:01)
[2022-01-24] MEDS: IPRATROPIUM-ALBUTEROL 3 ML NEB INHALATION PRN ×2 (08:28→11:31)
[2022-01-24] MEDS: SYMBICORT 160-4.5 MCG INHALER INHALATION SCH ×2 (08:28→20:13)
[2022-01-24] MEDS: FUROSEMIDE 40 MG TAB PO SCH (09:18)
[2022-01-24] MEDS: METOPROLOL SUCCINATE (ER) 50 MG TAB.ER.24H PO SCH (09:18)
[2022-01-24] MEDS: DOXYCYCLINE 100 MG CAP PO SCH ×2 (09:18→20:56)
[2022-01-24] MEDS: APIXABAN 5 MG TAB PO SCH ×2 (09:18→20:56)
--- NOTE | 2022-01-24 11:06 | P.PN ---
Subjective Progress Note Date: 01/24/22 Patient is a 71-year-old male with PMH of pulmonary embolus, multiple myeloma on immunotherapy that presented to the ED initially on 01/15/2022. He was discharged on 01/20/2022. Initially diagnosed with cellulitis, he was noted to be complaining of cough with shortness of breath. CT chest showed multiple groundglass opacities within the right lobe as well as moderate left large pleural effusion. Initially started on vancomycin and cefepime for treatment of cellulitis and right lower lobe pneumonia, ID was on board, he was discharged on doxycycline by mouth. He underwent thoracentesis with 1.7 L drained. Pleural fluid cell cytology results came back for multiple myeloma. On discharge, he had a mechanical fall attempting to get into his house. He presents back to [facility] for failure to thrive, inability to take care of ADLs and IADLs. Patient was seen and examined. No acute events overnight. Patient seen sleeping comfortably. Patient complains of difficulty sleeping at night in the hospital setting. General: non toxic, no distress, appears at stated age Derm: warm, dry Head: atraumatic, normocephalic, symmetric Eyes: EOMI, no lid lag, anicteric sclera Mouth: no lip lesion, mucus membranes moist Cardiovascular: S1S2 reg, no murmur Lungs: CTA bilateral, no rhonchi, no rales , no accessory muscle use Abdominal: soft, nontender to palpation, no guarding, no appreciable organomegaly Ext: no gross muscle atrophy, 1+ pitting edema edema, no contractures Neuro: no focal neuro deficits Psych: Alert, oriented, appropriate affect #Debility and generalized weakness #Frequent falls PT and OT will be consulted to work with this patient. Patient be placed on fall precautions. Plans for SNF. #Hypokalemia Repeat K 3.4 improved from 2.9. Repeat BMP and Mg level pending this morning. #Leukocytosis Patient was previously diagnosed with cellulitis and discharged on doxycycline. #Normocytic anemia Appears at baseline. Likely related to multiple myeloma. No active signs of bleeding. Continue to monitor. #Insomnia Trial of Ambien. Chronic conditions: History of PE, multiple myeloma Hematology/oncology on board. DVT prophylaxis: Eliquis Discussed with: Patient Anticipated discharge: Tomorrow with hopeful insurance authorization for SNF Objective - Vital Signs Vital signs: Vital Signs Temp 97.7 F 01/24/22 05:24 Pulse 75 01/24/22 08:40 Resp 16 01/24/22 05:24 BP 123/82 01/24/22 05:24 Pulse Ox 96 01/24/22 05:24 FiO2 Intake & Output 01/23/22 01/24/22 01/24/22 18:59 06:59 18:59 Output Total 400 Balance -400 Output: Urine 400 Other: Voiding Method Bedside Commode Bedside Commode Urinal Urinal - Labs CBC & Chem 7: 01/23/22 06:40 01/23/22 17:41 Labs: Abnormal Lab Results - Last 24 Hours (Table) 01/23/22 Range/Units 17:41 Potassium 3.4 L (3.5-5.1) mmol/L
[2022-01-24 11:09] LABS: African American GFR (CKD) 107.1 (60.0-200.0); Anion Gap 12.5 mmol/L (10.00-18.00); BUN/Creat Ratio 25.45 Ratio (12.00-20.00); Blood Urea Nitrogen 19.7 mg/dL (9.0-27.0); Calcium 8.3 mg/dL (8.7-10.3); Carbon Dioxide 23.6 mmol/L (20.0-27.5); Non-African American GFR(CKD) 92.4 (60.0-200.0); Potassium 3.6 mmol/L (3.5-5.5)
[2022-01-24 11:32] LABS: Magnesium 2.2 mg/dL (1.5-2.4); Potassium 3.6 mmol/L (3.5-5.5)
[2022-01-24] MEDS: SALT AND SODA MOUTHWASH 1,000 ML PO SCH ×2 (15:06→16:59)
[2022-01-24] MEDS ORDERED: MAG HYDROX/AL HYDROX/SIMETH 30 ML CUP PO PRN (18:49)
[2022-01-24] MEDS: ZOLPIDEM 5 MG TAB PO SCH (20:56)
[2022-01-25] MEDS: SALT AND SODA MOUTHWASH 1,000 ML PO SCH ×4 (00:28→17:32)
[2022-01-25] MEDS: SYMBICORT 160-4.5 MCG INHALER INHALATION SCH ×2 (07:39→19:43)
[2022-01-25] MEDS: DOXYCYCLINE 100 MG CAP PO SCH ×2 (09:30→20:36)
[2022-01-25] MEDS: METOPROLOL SUCCINATE (ER) 50 MG TAB.ER.24H PO SCH (09:30)
[2022-01-25] MEDS: APIXABAN 5 MG TAB PO SCH ×2 (09:30→20:36)
[2022-01-25] MEDS: FUROSEMIDE 40 MG TAB PO SCH (09:30)
[2022-01-25] MEDS: PANTOPRAZOLE 40 MG TABLET PO SCH ×2 (12:43→17:34)
[2022-01-25] MEDS: METOCLOPRAMIDE 5 MG/ML 2 ML VIAL IVP PRN (15:41)
--- NOTE | 2022-01-25 16:09 | P.PN ---
Subjective Progress Note Date: 01/25/22 Hospital course: Patient is a very pleasant 71-year-old male with a past medical history of multiple myeloma currently undergoing immunotherapy treatment, PE/DVT on anticoagulation with Xarelto, and currently under treatment for left lower extremity cellulitis. Patient presented to the hospital on 01/22/22 secondary to generalized debility, weakness, and falls at home. Patient had fall in which she had to crawl inside his house resulting in multiple abrasions and bruising and lower extremities. Family was concerned due to patient's inability to care for himself and brought him into the emergency department for placement. Upon arrival to the hospital patient underwent full evaluation. CBC revealing mild leukocytosis with WBC count of 11.3, normocytic anemia with hemoglobin of 11.0, and mild thrombocytopenia with platelet count of 132. CMP revealing mild hypokalemia with potassium of 3.0 and slight elevation of liver enzymes with ALT is 66 and alkaline phosphatase of 134. Patient admitted under our services with consultation to case management for assistance with placement. Physical exam: Patient seen and fully evaluated at bedside this morning. Patient sitting up in the chair. Dressings in place to bilateral lower extremities. Patient has 2+ pitting bilateral lower extremity edema as well as bruising noted in different stages of healing to bilateral lower extremities. Patient denies having any complaints or needs at this time with the exception of feeling nauseous overnight. Vital signs reviewed and stable. General: Nontoxic, no distress and appears stated age. Derm: Skin warm and dry, normal coloration for ethnicity. Head: Atraumatic, normocephalic and symmetric. Eyes: EOMs intact, no lid lag, and anicteric sclera Mouth: no lip lesions, mucus membranes moist Cardiovascular: regular rate and rhythm with normal S1S2, systolic murmur, p ositive posterior tibial pulses bilaterally, and cap refill < 2 seconds. Lungs: Respirations even, regular, and unlabored on room air. Lungs CTA bilaterally, no rhonchi, no rales, no wheezing, and no accessory muscle usage. Abdominal: soft, nontender to palpation, no guarding, no appreciable orga nomegaly Ext: ROM intact. No gross muscle atrophy, 2+ pitting bilateral lower extremity edema, no contractures Neuro: Speech clear, face symmetrical and CN II-XII grossly intact with no noted focal neuro deficits Psych: Alert and oriented to person, place, time, and situation. Appropriate and pleasant affect. Assessment and Plan of Care: Debility and generalized weakness Frequent falls -PT and OT will be consulted to work with this patient. Patient be placed on fall precautions. Plans for SNF. Hypokalemia -Replaced. Repeat BMP showing resolution of hypokalemia with potassium of 3.6. Leukocytosis -Continue doxycycline for treatment of cellulitis. Normocytic anemia -Appears at baseline. Likely related to multiple myeloma. No active signs of bleeding. Continue to monitor. GERD -GI prophylaxis with Protonix Insomnia -Trial of Ambien. Chronic conditions: History of PE, multiple myeloma -Hematology/oncology on board. -Patient to continue anticoagulation with Eliquis CODE STATUS: Full code DVT prophylaxis: Eliquis Discussed with: Patient and RN Anticipated discharge date: Patient is medically stable for discharge awaiting insurance authorization and acceptance to facility. [facility] A total of 35 minutes was spent on the care of this complex patient more than 50% of the time was spent in counseling and care coordination. Attending Note: Mychal Kim NP rendered care for this patient independently, reviewed the findings and plan as documented in the note above. I did not physically speak with or examine the patient on this date. Objective - Vital Signs Vital signs: Vital Signs Temp 98.3 F 01/25/22 04:25 Pulse 66 01/25/22 04:25 Resp 18 01/25/22 04:25 BP 125/91 01/25/22 04:25 Pulse Ox 92 L 01/25/22 04:25 FiO2 Intake & Output 01/24/22 01/25/22 01/25/22 18:59 06:59 18:59 Intake Total 480 Balance 480 Weight 102.149 kg Intake: Oral 480 Other: Voiding Method Bedside Commode Toilet Urinal Urinal # Voids 1 - Labs CBC & Chem 7: 01/23/22 06:40 01/24/22 06:29 Labs: Abnormal Lab Results - Last 24 Hours (Table) 01/24/22 Range/Units 06:29 BUN/Creatinine Ratio 25.45 H (12.00-20.00) Ratio Glucose 145 H (70-110) mg/dL Calcium 8.3 L (8.7-10.3) mg/dL
[2022-01-25] MEDS: ZOLPIDEM 5 MG TAB PO SCH (22:17)
[2022-01-26] MEDS: SALT AND SODA MOUTHWASH 1,000 ML PO SCH ×5 (01:08→23:28)
[2022-01-26] MEDS: SYMBICORT 160-4.5 MCG INHALER INHALATION SCH ×2 (07:39→19:32)
[2022-01-26] MEDS: IPRATROPIUM-ALBUTEROL 3 ML NEB INHALATION PRN (07:43)
[2022-01-26] MEDS: PANTOPRAZOLE 40 MG TABLET PO SCH ×2 (09:13→18:08)
[2022-01-26] MEDS: FUROSEMIDE 40 MG TAB PO SCH (09:13)
[2022-01-26] MEDS: METOPROLOL SUCCINATE (ER) 50 MG TAB.ER.24H PO SCH (09:13)
[2022-01-26] MEDS: DOXYCYCLINE 100 MG CAP PO SCH ×2 (09:13→21:36)
[2022-01-26] MEDS: APIXABAN 5 MG TAB PO SCH ×2 (09:13→21:37)
[2022-01-26] MEDS: METOCLOPRAMIDE 5 MG/ML 2 ML VIAL IVP PRN (11:05)
--- NOTE | 2022-01-26 12:35 | P.PN ---
Subjective Progress Note Date: 01/26/22 Hospital course: Patient is a very pleasant 71-year-old male with a past medical history of multiple myeloma currently undergoing immunotherapy treatment, PE/DVT on anticoagulation with Xarelto, and currently under treatment for left lower extremity cellulitis. Patient presented to the hospital on 01/22/22 secondary to generalized debility, weakness, and falls at home. Patient had fall in which she had to crawl inside his house resulting in multiple abrasions and bruising and lower extremities. Family was concerned due to patient's inability to care for himself and brought him into the emergency department for placement. Upon arrival to the hospital patient underwent full evaluation. CBC revealing mild leukocytosis with WBC count of 11.3, normocytic anemia with hemoglobin of 11.0, and mild thrombocytopenia with platelet count of 132. CMP revealing mild hypokalemia with potassium of 3.0 and slight elevation of liver enzymes with ALT is 66 and alkaline phosphatase of 134. Patient admitted under our services with consultation to case management for assistance with placement. Physical exam: Patient seen and fully evaluated at bedside this morning. Patient sitting up in the chair. Dressings in place to bilateral lower extremities. Patient has 2+ pitting bilateral lower extremity edema as well as bruising noted in different stages of healing to bilateral lower extremities. Patient reports slightly worsening orthopnea overnight but reports breathing comfortably and upright position. Patient denies any further episodes of nausea and continues to deny having any complaints or needs at this time including headache, chest pain, palpitations, cough or congestion. Patient reports he feels as though he needs to cough but cannot bring anything up. Order placed for incentive spirometer and chest x-ray. Vital signs reviewed and stable. General: Nontoxic, no distress and appears stated age. Derm: Skin warm and dry, normal coloration for ethnicity. Head: Atraumatic, normocephalic and symmetric. Eyes: EOMs intact, no lid lag, and anicteric sclera Mouth: no lip lesions, mucus membranes moist Cardiovascular: regular rate and rhythm with normal S1S2, systolic murmur, positive posterior tibial pulses bilaterally, and cap refill < 2 seconds. Lungs: Respirations even, regular, and unlabored on room air. Lungs CTA bilaterally, no rhonchi, no rales, no wheezing, and no accessory muscle usage. Abdominal: soft, nontender to palpation, no guarding, no appreciable organomegaly Ext: ROM intact. No gross muscle atrophy, 2+ pitting bilateral lower extremity edema, no contractures Neuro: Speech clear, face symmetrical and CN II-XII grossly intact with no noted focal neuro deficits Psych: Alert and oriented to person, place, time, and situation. Appropriate and pleasant affect. Assessment and Plan of Care: Debility and generalized weakness Frequent falls -PT and OT will be consulted to work with this patient. Patient be placed on fall precautions. Plans for SNF. Hypokalemia -Replaced. Repeat BMP showing resolution of hypokalemia with potassium of 3.6. Leukocytosis -Continue doxycycline for treatment of cellulitis. Normocytic anemia -Appears at baseline. Likely related to multiple myeloma. No active signs of bleeding. Continue to monitor. GERD -GI prophylaxis with Protonix Insomnia -Trial of Ambien. Chronic conditions: History of PE, multiple myeloma -Hematology/oncology on board. -Patient to continue anticoagulation with Eliquis CODE STATUS: Full code DVT prophylaxis: Eliquis Discussed with: Patient and RN Anticipated discharge date: Patient is medically stable for discharge awaiting insurance authorization and acceptance to facility. Anticipated discharge place[facility] detention facility A total of 35 minutes was spent on the care of this complex patient more than 50% of the time was spent in counseling and care coordination. Attending Note: Mychal Kim NP rendered care for this patient independently, reviewed the findings and plan as documented in the note above. I did not physically speak with or examine the patient on this date. Objective - Vital Signs Vital signs: Vital Signs Temp 97.4 F L 01/26/22 05:35 Pulse 94 01/26/22 07:58 Resp 16 01/26/22 05:35 BP 119/77 01/26/22 05:35 Pulse Ox 96 01/26/22 05:35 FiO2 Intake & Output 01/25/22 01/26/22 01/26/22 18:59 06:59 18:59 Intake Total 360 Output Total 300 320 Balance -300 40 Intake: Oral 360 Output: Urine 300 320 Other: Voiding Method Urinal Urinal Urinal # Voids 2 # Bowel Movements 1 - Labs CBC & Chem 7: 01/23/22 06:40 01/24/22 06:29
--- NOTE | 2022-01-26 12:46 | XR ---
EXAMINATION TYPE: XR chest 1V DATE OF EXAM: 01/26/2022 COMPARISON: 01/23/2022 HISTORY: Shortness of breath TECHNIQUE: Single frontal view of the chest is obtained. FINDINGS: Heart is enlarged and there is bilateral infiltrate and pleural effusion greater on the le ft which is stable. Mediport catheter seen with no overt failure or pneumothorax. Arthropathy of the shoulders. IMPRESSION: 1. Stable bilateral infiltrate and pleural effusion greater on the left. 2. Marked cardiomegaly could represent cardiomegaly or pericardial effusion. Correlate clinically
[2022-01-26] MEDS: ONDANSETRON ODT 4 MG TAB PO PRN (13:32)
[2022-01-26] MEDS: ZOLPIDEM 5 MG TAB PO SCH (21:37)
[2022-01-26] MEDS: MELATONIN 3 MG TABLET PO PRN (23:28)
[2022-01-27] MEDS: SALT AND SODA MOUTHWASH 1,000 ML PO SCH ×4 (06:39→23:37)
[2022-01-27] MEDS: SYMBICORT 160-4.5 MCG INHALER INHALATION SCH ×2 (07:48→19:26)
[2022-01-27] MEDS: METOPROLOL SUCCINATE (ER) 50 MG TAB.ER.24H PO SCH (10:28)
[2022-01-27] MEDS: DOXYCYCLINE 100 MG CAP PO SCH ×2 (10:28→20:03)
[2022-01-27] MEDS: FUROSEMIDE 40 MG TAB PO SCH (10:28)
[2022-01-27] MEDS: PANTOPRAZOLE 40 MG TABLET PO SCH ×2 (10:28→17:14)
[2022-01-27] MEDS: APIXABAN 5 MG TAB PO SCH ×2 (10:28→20:02)
--- NOTE | 2022-01-27 16:01 | P.PN ---
Subjective Progress Note Date: 01/27/22 Hospital course: Patient is a very pleasant 71-year-old male with a past medical history of multiple myeloma currently undergoing immunotherapy treatment, PE/DVT on anticoagulation with Xarelto, and currently under treatment for left lower extremity cellulitis. Patient presented to the hospital on 01/22/22 secondary to generalized debility, weakness, and falls at home. Patient had fall in which she had to crawl inside his house resulting in multiple abrasions and bruising and lower extremities. Family was concerned due to patient's inability to care for himself and brought him into the emergency department for placement. Upon arrival to the hospital patient underwent full evaluation. CBC revealing mild leukocytosis with WBC count of 11.3, normocytic anemia with hemoglobin of 11.0, and mild thrombocytopenia with platelet count of 132. CMP revealing mild hypokalemia with potassium of 3.0 and slight elevation of liver enzymes with ALT is 66 and alkaline phosphatase of 134. Patient admitted under our services with consultation to case management for assistance with placement. Physical exam: Patient seen and fully evaluated at bedside this morning. Patient sitting up in the chair. He currently reports breathing comfortably, but states that he feels that he and his feel that he should be on oxygen. Patient was informed that SpO2 has been within normal limits throughout entire hospitalization showing no indication for supplemental oxygen use. Patient also updated on repeat chest x-ray completed yesterday revealing stable bilateral infiltrate and pleural effusions. Patient appeared less worried and less anxious after being updated on these findings. Patient currently denies having any dizziness, lightheadedness, chest pain, palpitations, cough, congestions, or experiencing any numbness/tingling or increased swelling in his extremities. Patient encouraged to continue use of incentive spirometer. Vital signs reviewed and stable. General: Nontoxic, no distress and appears stated age. Derm: Skin warm and dry, normal coloration for ethnicity. Onur dressing right lower extremity and Kerlix dressing to left lower extremity. Head: Atraumatic, normocephalic and symmetric. Eyes: EOMs intact, no lid lag, and anicteric sclera Mouth: no lip lesions, mucus membranes moist Cardiovascular: regular rate and rhythm with normal S1S2, systolic murmur, positive posterior tibial pulses bilaterally, and cap refill < 2 seconds. Lungs: Respirations even, regular, and unlabored on room air. Lungs CTA bilaterally, no rhonchi, no rales, no wheezing, and no accessory muscle usage. Abdominal: soft, nontender to palpation, no guarding, no appreciable organomegaly Ext: ROM intact. No gross muscle atrophy, 1-2+ pitting bilateral lower extremity edema, no contractures Neuro: Speech clear, face symmetrical and CN II-XII grossly intact with no noted focal neuro deficits Psych: Alert and oriented to person, place, time, and situation. Appropriate and pleasant affect. Assessment and Plan of Care: Debility and generalized weakness Frequent falls -PT and OT will be consulted to work with this patient. Patient be placed on fall precautions. Plans for SNF. Orthopnea -Repeat chest x-ray completed revealing stable bilateral infiltrate and pleural effusion greater on the left. Hypokalemia -Replaced. Repeat BMP showing resolution of hypokalemia with potassium of 3.6. Leukocytosis -Continue doxycycline for treatment of cellulitis. Normocytic anemia -Appears at baseline. Likely related to multiple myeloma. No active signs of bleeding. Continue to monitor. GERD -GI prophylaxis with Protonix Insomnia -Trial of Ambien. Chronic conditions: History of PE, multiple myeloma -Hematology/oncology on board. -Patient to continue anticoagulation with Eliquis Cellulitis left lower extremity -Patient will complete course of doxycycline on the evening of 01/27/22 CODE STATUS: Full code DVT prophylaxis: Eliquis Discussed with: Patient and RN Anticipated discharge date: Patient is medically stable for discharge awaiting insurance authorization and acceptance to facility. Anticipated discharge place: senior care facility A total of 35 minutes was spent on the care of this complex patient more than 50% of the time was spent in counseling and care coordination. Objective - Vital Signs Vital signs: Vital Signs Temp 97.3 F L 01/27/22 05:15 Pulse 99 01/27/22 05:15 Resp 16 01/27/22 05:15 BP 129/73 01/27/22 05:15 Pulse Ox 95 01/27/22 05:15 FiO2 Intake & Output 01/26/22 01/27/22 01/27/22 18:59 06:59 18:59 Intake Total 240 Output Total 400 Balance -160 Weight 97 kg Intake: Oral 240 Output: Urine 400 Other: Voiding Method Urinal Urinal - Labs CBC & Chem 7: 01/23/22 06:40 01/24/22 06:29
[2022-01-27] MEDS: ONDANSETRON ODT 4 MG TAB PO PRN (17:14)
[2022-01-27] MEDS: ZOLPIDEM 5 MG TAB PO SCH (20:03)
[2022-01-28] MEDS: SALT AND SODA MOUTHWASH 1,000 ML PO SCH ×2 (05:26→12:07)
[2022-01-28] MEDS: ONDANSETRON ODT 4 MG TAB PO PRN (05:41)
[2022-01-28] MEDS: IPRATROPIUM-ALBUTEROL 3 ML NEB INHALATION PRN (06:35)
[2022-01-28 06:39] LABS: Glucose,Whole Blood 94 mg/dL (70-110)
[2022-01-28] MEDS: FUROSEMIDE 40 MG TAB PO SCH (08:38)
[2022-01-28] MEDS: APIXABAN 5 MG TAB PO SCH ×2 (08:38→10:54)
[2022-01-28] MEDS: METOPROLOL SUCCINATE (ER) 50 MG TAB.ER.24H PO SCH (08:39)
[2022-01-28] MEDS: HYDROcodone/APAP 5-325MG 1 EACH TAB PO PRN (08:39)
[2022-01-28] MEDS: PANTOPRAZOLE 40 MG TABLET PO SCH (08:39)
--- NOTE | 2022-01-28 09:07 | XR ---
EXAMINATION TYPE: XR chest 1V portable DATE OF EXAM: 01/28/2022 Comparison: 01/26/2022 Clinical History: 71-year-old male got up to restroom, severe respiratory dist w/ exertion Findings: Heart mildly enlarged. Low lung volumes. Right anterior chest wall injection port catheter tip at the upper right atrium. Ongoing small left greater than right pleural effusions with adjacent opacity. U pper lungs are clear. Impression: Similar mild cardiomegaly. Ongoing small left greater than right pleural effusions with adjacent atel ectasis and/or consolidation. Lung volumes have diminished. Correlate for hypoventilation.
[2022-01-28] MEDS ORDERED: IPRATROPIUM-ALBUTEROL 3 ML NEB INHALATION PRN (10:01)
[2022-01-28] MEDS: SYMBICORT 160-4.5 MCG INHALER INHALATION SCH (10:02)
[2022-01-28] MEDS ORDERED: RX INFO: IV CONTRAST WAS GIVEN 1 EACH MISC MISCELLANE PRN (10:06)
[2022-01-28] MEDS ORDERED: HEPARIN SODIUM 1,000 UN/ML (10ML VL) IV PRN (10:19)
[2022-01-28] MEDS ORDERED: HEPARIN SODIUM 1,000 UN/ML (10ML VL) IV ONE (10:19)
[2022-01-28] MEDS ORDERED: HEPARIN SOD,PORK IN 0.45% NACL 25,000 UNIT in 0.45% NACL 1 250ML.BAG IV SCH (10:30)
--- NOTE | 2022-01-28 11:40 | P.GSCN ---
History of Present Illness Consult date: 01/28/22 Reason for Consult: Right lower extremity unable to palpate peripheral pulses Requesting physician: Mychal Kim History of present illness: This is a 71-year-old male with a history of multiple myeloma on immunotherapy, pulmonary embolism, chronic renal disease, , and peripheral neuropathy who was admitted to the hospital for cellulitis. Patient was recently admitted to the hospital for treatment of left lower extremity cellulitis and was discharged on antibiotics. However patient had fallen when he got home and was sent back to the emergency department for re-admission and evaluation for shelter placement. Patient was admitted on 01/22/2022, according to medical team patient was getting ready for discharge to subacute rehab when yesterday evening he became short of breath, hypoxic and was started on BiPAP. This morning during evaluation he was also noted to have cold bilateral lower extremities, however worse on the right side. Vascular surgery was consulted for cold lower extremity, nonpalpable, Doppler pulses of lower extremities. Patient denies any history of coronary artery disease or peripheral arterial disease. States he's had leg pain in his legs off for quite some time with walking and at rest. Patient does have noted bruising to bilateral lower extremities, feet. He is currently short of breath again he is on BiPAP to started this morning FiO2 50%. Oxygen level saturation 94%. Patient is on Eliquis for history of PE which she states was approximately 4 years ago. He was not given his stenosis morning. Primary medicine team is starting patient on a heparin drip and have ordered a CT angiogram abdomen and pelvis aorta with runoff, however at this time the machine is not working. Review of Systems A 14 point review systems was completed all pertinent positives and negatives as stated in the HPI. Past Medical History Past Medical History: Cancer, Osteoarthritis (OA), Pulmonary Embolus (PE), Renal Disease Additional Past Medical History / Comment(s): Pt recently admitted to [facility] on 11/16/19 with cellulitis L upper extremity. Other hx: 2006 diagnosed with multiple myeloma-treated with IV chemo/valcade and now immunotherapy/stem cell t ransplant x2, pancytopenia, peripheral neuropathy bilateral hands/legs and feet d/t chemo, L nare basal cell carcinoma with removal, L femur lesion with radiation treatments, arthritis in multiple joints but not severe, benign colon polyps, diverticular disease, hemorrhoids, kidney stones with surgery and pt has passed as well. History of Any Multi-Drug Resistant Organisms: None Reported Past Surgical History: Hernia Repair, Joint Replacement, Orthopedic Surgery Additional Past Surgical History / Comment(s): L knee unicompartmental replacement, R shoulder rotator cuff repair, L nares skin cancer removal, umbilical hernia repair, colonoscopy with benign polypectomy, lithotripsy x2 Past Anesthesia/Blood Transfusion Reactions: No Reported Reaction Past Psychological History: No Psychological Hx Reported Smoking Status: Current every day smoker Past Alcohol Use History: None Reported Past Drug Use History: None Reported - Past Family History Mother Family Medical History: Cancer Additional Family Medical History / Comment(s): Mother had lymphoma. Father Family Medical History: Coronary Artery Disease (CAD) Medications and Allergies Home Medications Medication Instructions Recorded Confirmed Type Apixaban [Eliquis] 5 mg PO BID 03/05/21 01/22/22 History HYDROcodone/APAP 5-325MG [[place]akley 1 tab PO Q6H PRN 01/06/22 01/22/22 History 5-325] Metoprolol Succinate [Toprol XL] 50 mg PO DAILY 01/06/22 01/22/22 History dexAMETHasone [Decadron] 20 mg PO FRSA 01/06/22 01/22/22 History Budesonide-Formot 160-4.5 Mcg 2 puff INHALATION RT-BID #1 each 01/20/22 01/22/22 Rx [Symbicort 160-4.5 Mcg Inhaler] Doxycycline [Vibramycin] 100 mg PO BID 7 Days #14 capsule 01/20/22 01/22/22 Rx Furosemide [Lasix] 40 mg PO DAILY #30 tablet 01/20/22 01/22/22 Rx Allergies Allergy/AdvReac Type Severity Reaction Status Date / Time No Known Allergies Allergy Verified 01/22/22 20:08 Surgical - Exam Vital Signs Temp Pulse Resp BP Pulse Ox 98.5 F 78 20 109/66 98 01/22/22 14:25 01/22/22 14:25 01/22/22 14:25 01/22/22 14:25 01/22/22 14:25 General appearance: The patient is alert, oriented, appears in no acute distress. HET: Head is normocephalic and atraumatic. Pupils are equal and reactive. Neck: Supple without lymphadenopathy. Trachea midline. Heart: Regular. Lungs: Equal expansion, increased respiratory effort. Patient on BiPAP. Abdomen: Soft, nontender, nondistended. Extremities: Bilateral lower extremity edema. Bilateral palpable femoral pulses. Right lower extremity to the touch, cold. Pale with decreased capillary refill. Nonpalpable popliteal, PT and DP pulses. Patient is able to wiggle his toes on the right foot, he does not have good sensation in the toes however can feel midfoot. Left lower extremity cool to the touch, decreased capillary refill, able to obtain a left popliteal Doppler signal, no PT or DP signal obtained. Patient is able to move left lower extremity including toes, again has no sensation in toes, however midfoot he is able to feel touch. Neurological: No focal deficits. Alert and oriented. Results - Labs 01/28/22 10:36 01/28/22 10:36 - Imaging Chest x-ray: report reviewed (similar mild cardiomegaly. Ongoing small left greater than right pleural effusions with adjacent atelectasis and/or consolidation. Lung volumes have diminished. Correlate for hypoventilation.) Assessment and Plan Assessment: 1. Bilateral cold lower extremities 2. Critical limb ischemia 3. Shortness of breath, respiratory distress on BiPAP 4. Cellulitis left lower extremity 5. Medical debility 6. Multiple myeloma 7. History of pulmonary embolism on Eliquis Plan: 1. Agree with CT angiogram abdomen and pelvis aorta with runoff, stat 2. Arterial lower extremity duplex ordered 3. Agree with heparin drip 4. Continue medical management 5. Pulmonology on consult, appreciate their recommendations CT angiogram of the lower extremity showing segmental occlusions of the left anterior posterior distal tibial arteries just above the ankle and anterior posterior right tibial arteries high-grade stenosis of remaining vascular chart is patent. At this time patient is not stable to undergo any vascular surgical intervention. This was discussed with both patient and . We will continue to follow closely. Thank you for this consultation, we will follow closely The impression and plan of care has been dictated as directed. Dr. Gregg I performed a history and examination of this patient, discussed the same with the dictator. I agree with the dictator's note ,documented as a scribe. Any additional findings or plans will be noted.
--- NOTE | 2022-01-28 11:41 | P.CNPUL ---
History of Present Illness Consult date: 01/28/22 Requesting physician: Asmita Dunham Reason for consult: dyspnea, pleural effusion, abnormal CXR/CT Chief complaint: Shortness of breath. History of present illness: Pulmonary consult dated 01/28/2022. 71-year-old male with a history of pulmonary embolism, multiple myeloma, pleural effusion, and cellulitis. The patient was recently inpatient between January 15 and , with cellulitis involving the left lower extremity. At that time, he was found to have a left-sided pleural effusion, and my partner did a thoracentesis, and the cytology came back showing a fluid consistent with mult iple myeloma. The patient was readmitted to the hospital on January 22, because of weakness, and apparently, he could not take care of himself at home. The patient was initially admitted to the general medical floor, and was transferred this morning, to [facility], because of increasing shortness of breath. He was placed on BiPAP at 14/5 and 50%. His chest x-rays have been reviewed. The patient may benefit from a Pleurx catheter. I asked the primary service to consult cardiothoracic surgery. No recent laboratory data. That apparently has been drawn but has not been resulted as yet. The patient had a chest x-ray, on January 23, January 26, one on January 28. The x-ray show a pattern of cardiomegaly, bilateral pleural effusions, left greater than right, and some basilar atelectasis. In my opinion, the most recent chest x-ray is a bit worse. Review of Systems REVIEW OF SYSTEMS: CONSTITUTIONAL: [Negative.] NEUROLOGIC: [ Negative.] HEENT: [ Negative.] CARDIAC: [Negative.] PULMONARY: Shortness of breath. GI: [Negative.] : [Negative.] RHEUMATOLOGIC: [ Negative.] IMMUNOLOGIC: [ Negative.] ENDOCRINE: [Negative. ] DERMATOLOGIC: [Negative.] Past Medical History Past Medical History: Cancer, Osteoarthritis (OA), Pulmonary Embolus (PE), Renal Disease Additional Past Medical History / Comment(s): Pt recently admitted to [facility] on 11/16/19 with cellulitis L upper extremity. Other hx: 2006 diagnosed with multiple myeloma-treated with IV chemo/valcade and now immunotherapy/stem cell transplant x2, pancytopenia, peripheral neuropathy bilateral hands/legs and feet d/t chemo, L nare basal cell carcinoma with removal, L femur lesion with radiation treatments, arthritis in multiple joints but not severe, benign colon polyps, diverticular disease, hemorrhoids, kidney stones with surgery and pt has passed as well. History of Any Multi-Drug Resistant Organisms: None Reported Past Surgical History: Hernia Repair, Joint Replacement, Orthopedic Surgery Additional Past Surgical History / Comment(s): L knee unicompartmental replacement, R shoulder rotator cuff repair, L nares skin cancer removal, umbili ana hernia repair, colonoscopy with benign polypectomy, lithotripsy x2 Past Anesthesia/Blood Transfusion Reactions: No Reported Reaction Past Psychological History: No Psychological Hx Reported Smoking Status: Current every day smoker Past Alcohol Use History: None Reported Past Drug Use History: None Reported - Past Family History Mother Family Medical History: Cancer Additional Family Medical History / Comment(s): Mother had lymphoma. Father Family Medical History: Coronary Artery Disease (CAD) Medications and Allergies Home Medications Medication Instructions Recorded Confirmed Type Apixaban [Eliquis] 5 mg PO BID 03/05/21 01/22/22 History HYDROcodone/APAP 5-325MG [[place] 1 tab PO Q6H PRN 01/06/22 01/22/22 History 5-325] Metoprolol Succinate [Toprol XL] 50 mg PO DAILY 01/06/22 01/22/22 History dexAMETHasone [Decadron] 20 mg PO FRSA 01/06/22 01/22/22 History Budesonide-Formot 160-4.5 Mcg 2 puff INHALATION RT-BID #1 each 01/20/22 01/22/22 Rx [Symbicort 160-4.5 Mcg Inhaler] Doxycycline [Vibramycin] 100 mg PO BID 7 Days #14 capsule 01/20/22 01/22/22 Rx Furosemide [Lasix] 40 mg PO DAILY #30 tablet 01/20/22 01/22/22 Rx Allergies Allergy/AdvReac Type Severity Reaction Status Date / Time No Known Allergies Allergy Verified 01/22/22 20:08 Physical Exam Osteopathic Statement: *. No significant issues noted on an osteopathic structural exam other than those noted in the History and Physical/Consult. Vitals: Vital Signs Temp Pulse Pulse Resp BP Pulse Ox FiO2 01/28/22 07:00 50 01/28/22 06:50 97.7 F 75 26 H 127/69 94 L 01/28/22 06:45 52 L 01/28/22 06:35 52 L 01/28/22 05:28 24 94 L 01/28/22 05:00 98.0 F 62 24 132/58 91 L 01/27/22 19:45 18 01/27/22 18:46 98.4 F 98 18 126/88 95 01/27/22 11:43 97.0 F L 89 20 133/71 96 Intake and Output 01/27/22 01/28/22 01/28/22 22:59 06:59 14:59 Intake Total 590 590 Output Total 300 Balance 590 290 Intake: Oral 590 590 Output: Urine 300 Other: Voiding Method Urinal # Voids 1 # Bowel Movements 1 1 Weight 96 kg No acute distress, oriented 3. Currently when the BiPAP, with settings of 14/5 and 50%. HEENT examination is grossly unremarkable. Neck supple. Full range of motion. No adenopathy thyromegaly or neck vein distention. Cardiovascular examination reveals regular rhythm rate. S1-S2 normal. No S3 or S4. No discernible murmur noted. Heart sounds are distant. Heart rate 75 bpm. Lungs reveal dullness at the left base. Breath sounds are diminished on the left. The right lung is relatively clear. No wheezes, rhonchi, or crackles on the right. Abdomen soft bowel sounds are heard. No masses or tenderness. Extremities reveal some mild bilateral lower extremity edema. No cyanosis or clubbing. Some blistering is noted on the right foot. Skin is without rash or lesion. Neurologic examination is brief but nonfocal. Results - Laboratory Findings CBC and BMP: 01/23/22 06:40 01/24/22 06:29 PT/INR, D-dimer PT 11.9 sec (9.0-12.0) 01/22/22 20:30 INR 1.1 (<1.2) 01/22/22 20:30 Abnormal lab findings: Abnormal Labs 01/22/22 01/22/22 01/23/22 20:30 20:30 06:40 WBC 11.3 H 11.3 H RBC 3.46 L 3.56 L Hgb 11.0 L 11.3 L Hct 32.2 L 33.7 L RDW 15.9 H 15.9 H Plt Count 132 L 134 L Neutrophils # 10.7 H 10.4 H Lymphocytes # 0.2 L 0.3 L Potassium 3.0 L BUN 22 H BUN/Creatinine Ratio Glucose 194 H Calcium 7.9 L ALT 66 H Alkaline Phosphatase 134 H Total Protein 5.1 L Albumin 2.9 L 01/23/22 01/23/22 01/24/22 06:40 17:41 06:29 WBC RBC Hgb Hct RDW Plt Count Neutrophils # Lymphocytes # Potassium 2.9 L 3.4 L BUN 21 H BUN/Creatinine Ratio 25.45 H Glucose 138 H 145 H Calcium 7.8 L 8.3 L ALT Alkaline Phosphatase Total Protein Albumin - Diagnostic Findings Chest x-ray: image reviewed Assessment and Plan Assessment: Acute shortness of breath, which may relate to the patient's left-sided pleural effusion. Recent thoracentesis, revealing left-sided pleural effusion consistent with the patient's known diagnosis of multiple myeloma. Recent admission, January, for left lower extremity cellulitis. History of pulmonary embolism. History of multiple myeloma. Status post stem cell transplant 2. History of skin cancer. History of arthritis. History of kidney stones. Multiple other medical problems and comorbidities. Plan: Plan dated 01/28/2022. The patient has been transferred to [facility]. He was placed on BiPAP. I've asked the primary service to consult cardiothoracic surgery for possible placement of a Pleurx catheter in the left pleural space. Continue to follow make recommendations along the way. Labs, x-rays, and medications are reviewed. Prognosis is guarded. Time with Patient: Greater than 30
[2022-01-28] MEDS: IPRATROPIUM-ALBUTEROL 3 ML NEB INHALATION SCH ×2 (11:59→16:37)
[2022-01-28 12:12] LABS: Anisocytosis Slight; HCT 34.7 % (39.0-53.0); Hypochromasia Marked; MCH 31.5 pg (25.0-35.0); MCHC 31.6 g/dL (31.0-37.0); Macrocytosis Slight; Mean Platelet Volume 11.3; Poikilocytosis Slight; RBC 3.48 m/uL (4.30-5.90); RDW 17.5 % (11.5-15.5); WBC 25.2 k/uL (3.8-10.6)
[2022-01-28] MEDS ORDERED: SODIUM CHLORIDE 0.9% 1,000 ML IV ONE (12:27)
[2022-01-28 12:32] LABS: INR 2.5 (<1.2); Partial Thromboplastin Time 30.3 sec (22.0-30.0); Prothrombin Time 24.6 sec (9.0-12.0)
--- NOTE | 2022-01-28 12:41 | CT ---
EXAMINATION TYPE: CT angio abd aorta w/Runoff CT DLP: 3135.2 mGycm, Automated exposure control for dose reduction was used. DATE OF EXAM: 01/28/2022 12:10 PM COMPARISON: CT chest 01/16/2022 CLINICAL INDICATION:Male, 71 years old with history of ischemic leg; Cold, no pulse to Lt leg TECHNIQUE: Multiple thin slice sub-millimeter images were obtained through the abdomen, pelvis, and l ower extremities before and after administration of contrast. Patient was given Isovue 300, 125 cc i ntravenously. 3-D reconstructed images and maximum intensity projection images were obtained of the abdomen, pelvis, and lower extremities. FINDINGS: Motion degraded examination. CTA Abdomen and pelvis: The abdominal aorta does not demonstrate aneurysmal dilatation. Atherosclero tic plaquing is identified within the abdominal aorta. The origins of the superior mesenteric artery , renal arteries, inferior mesenteric artery, and celiac axis are patent. The iliac vessels are norm al in morphology. Atherosclerotic plaquing with some mural thrombus formation is identified in the co mmon iliac arteries. CTA Lower extremities: Right: The common femoral and superficial femoral arteries are patent. The popliteal artery is patent . Anterior and posterior tibial arteries as well as the peroneal artery are patent. There are segment al high-grade stenosis of the anterior posterior tibial veins just proximal to the ankle joint. Suspe ct at least 2 vessels cross the ankle joint. Left: The common femoral and superficial femoral arteries are patent. The popliteal artery is patent. Anterior and posterior tibial arteries as well as the peroneal artery are patent. There are segmenta l occlusions of the anterior and posterior tibial veins just proximal to the ankle joint. VISCERA: The liver, spleen, adrenal glands, kidneys, pancreas, and gallbladder are not optimally enha nced due the arterial phase utilized. LIVER: Unremarkable GALLBLADDER AND BILE DUCTS: Unremarkable. PANCREAS: Unremarkable. SPLEEN: Unremarkable. ADRENAL GLANDS: Unremarkable. KIDNEYS AND URETERS: No evidence of hydronephrosis. Nonobstructive bilateral renal calculi. PELVIS BLADDER: Unremarkable REPRODUCTIVE: Coarse calcifications of the prostate gland are identified. Calcification of the bilate ral costophrenic images most common seen with diabetics. ABDOMEN & PELVIS STOMACH AND BOWEL: Stomach and duodenum are unremarkable. Distal colonic diverticulosis without evide nce for acute diverticulitis. No evidence of bowel obstruction. PERITONEUM: No evidence of pneumoperitoneum or free fluid. VASCULATURE: No evidence of aortic aneurysm. MUSCULOSKELETAL: No acute osseous abnormalities. Several scattered lytic subcentimeter foci demonstra wm within the vertebral bodies and pelvic bones and proximal femurs. Degenerative changes of the lum bar spine with disc space narrowing, endplate sclerosis, and anterior osteophyte formation. Post surg ical changes of the left knee with hemiarthroplasty involving the medial aspect. There is significant atrophy with fatty replacement of the right lower extremity musculature. LYMPH NODES: No gross evidence for lymphadenopathy. SOFT TISSUE/ABDOMINAL WALL: Anterior abdominal subcutaneous tissue fat stranding with some skin thick ening identified. Diffuse anasarca. Left lateral thigh hyperattenuating 1.2 cm lesion in the soft tis sues (series 401, image 271). Left medial thigh subcutaneous tissue 1.5 cm ovoid hyperattenuating les ion (series 401, image 324). Right medial thigh 2.1 cm hyperattenuating lesion (series 401, image 363 ). Left posterior thigh ovoid hyperattenuating 2.9 cm lesion (series 401, image 418). Left lower extr emity lateral hyperattenuating lesion measuring 3.5 cm (series 401, image 524). Right lateral lower e xtremity hyperattenuating lesion measuring 4.6 cm (series 401, image 528). Additional 1.2 cm hyper de nse lesion associated with the anterior right thigh (series 401, image 243). LOWER CHEST: Trace right pleural effusion. Small to moderate size left pleural effusion with atelecta sis of the left lower lobe. Ozium-op-dgthiapl sized pericardial effusion. Moderate coronary arterial calcifications. IMPRESSION 1. Segmental occlusions of the left anterior and posterior distal tibial arteries just above the ank le joint. Segmental distal anterior and posterior right tibial arteries high-grade stenosis. Remainin g vasculature is patent. 2. Atherosclerotic disease involving abdominal aorta and lower extremity vasculature. 3. Several hyperdense masses demonstrated within the bilateral lower extremities suspicious for meta static disease. This can be seen with melanoma. Further workup is recommended. 4. Several subcentimeter lytic foci demonstrated within the pelvic bones, proximal femurs, and verteb ral bodies suspicious for metastatic disease versus multiple myeloma. 5. Significant atrophy and fatty replacement of the right lower extremity. 6. Small to moderate size left pleural effusion with trace right pleural effusion. 7. Small to moderate-sized pericardial effusion.
[2022-01-28 12:50] LABS: Albumin 2.9 g/dL (3.5-5.0); Calcium 7.1 mg/dL (8.4-10.2); Magnesium 2.3 mg/dL (1.6-2.3); Potassium 5.6 mmol/L (3.5-5.1); Total Bilirubin 6.3 mg/dL (0.2-1.3); Total Protein 4.8 g/dL (6.3-8.2)
[2022-01-28 13:16] LABS: MCV 99.7 fL (80.0-100.0)
[2022-01-28 14:21] LABS: Platelet Count 95 k/uL (150-450)
[2022-01-28] MEDS ORDERED: DEXTROSE 50% SYRINGE 50 ML IVP STA (14:27)
[2022-01-28] MEDS ORDERED: SODIUM ZIRCONIUM CYCLOSILICATE 10 GM PACKET PO ONE (14:28)
[2022-01-28 14:31] LABS: Glucose,Whole Blood 47 mg/dL (70-110)
[2022-01-28 14:31] LABS: Glucose,Whole Blood 49 mg/dL (70-110)
[2022-01-28] MEDS ORDERED: INSULIN REGULAR 100 UNIT/ML VIAL (IV) IV ONE (14:45)
[2022-01-28 14:51] LABS: Glucose,Whole Blood 93 mg/dL (70-110)
--- NOTE | 2022-01-28 14:51 | P.EN ---
Hospitalist Interval Note Patient seen and examined at bedside. He had already been evaluated by her nurse practitioner. I saw him in approximately 10:30 in the morning. He was complaining of some shortness of breath. He was on BiPAP. He denied any pain in his right lower extremity. Right lower extremity was swollen, pale, absent palpable and dopplerable pulses. He reports that he has had some skin changes in his lower extremities for the last 2 weeks, he reports that he has had neuropathy in his lower extremities for years. He has been having some pain with ambulation for quite some time. Vital signs reviewed General: Maximal distress, ill-appearing appears at stated age Derm: warm, dry Head: atraumatic, normocephalic, symmetric Eyes: EOMI, no lid lag, anicteric sclera Cardiovascular: S1S2 reg, no murmur, positive posterior tibial pulse bilateral, Lungs: Coarse breath sounds bilateral, no rhonchi, no rales , no accessory mu scle use, 2 word conversational dyspnea, on BiPAP Ext: no gross muscle atrophy, 2+ edema bilateral lower extremities, right foot pale, cold to the touch, with absent dopplerable and palpable pulses both posterior tibial and dorsalis pedis, left leg does appear somewhat cool at the foot color is intact absent palpable pulses Neuro: CN II-XI grossly intact, no focal neuro deficits Psych: Alert, oriented, appropriate affect Assessment/Plan: 1. Acute ischemic right limb -Check CT aorta with runoff -Vascular surgery nurse practitioner at bedside -Start heparin drip, cancel eloquent as 2. Acute hypoxic respiratory failure, undetermined etiology -Patient does have a history of pulmonary embolism. He is on anticoagulation at baseline. He will he started on a heparin drip due to his acute ischemic limb. We are unable to obtain a CT of the chest at this time as a CTA aortogram with runoff will be priority. -Consult pulmonary Labs were still pending from the a.m. at the time of initial consultation. Labs were reviewed. 14:00 update FINESSE Acute hepatitis Coagulopathy anion gap metabolic acidosis Hyperkalemia Glucose 70 -Suspect that the acute renal failure and the hepatitis are ischemic in nature and possibly due to clot versus hypotension - now will likely have componenet of contrast induced nephropathy -Check acute hepatitis profile, check acetaminophen level check liver Doppler to rule out portal vein thrombosis -Consult GI -Avoid hypotension -Consult nephrology -Avoid nephrotoxic agents -Check stat lactic acid -D5W with sodium bicarb - insulin/D50 -Calcium - Consult palliative care - serial accucheck - cardenas - strict I and O
[2022-01-28] MEDS ORDERED: SODIUM BICARB 8.4% 50 ML SYR (1 MEQ/ML) IV STA (14:59)
[2022-01-28] MEDS ORDERED: NOREPINEPHRINE 4 MG in SODIUM CHLORIDE 0.9% 250 ML IV SCH (15:00)
[2022-01-28] MEDS ORDERED: CALCIUM GLUCONATE IN NACL 2 GM in SALINE 1 100ML.BAG IVPB ONE (15:00)
[2022-01-28 15:07] VITALS: TEMP 95.5
[2022-01-28] MEDS ORDERED: DEXTROSE 5% IN WATER 1,000 ML with SODIUM BICARB (1 MEQ/ML) 150 ML IV SCH (15:30)
[2022-01-28] MEDS ORDERED: DRY MOUTH SPRAY 44.3 SPRAY/44.3 ML SPRAY MUCOUS MEM PRN (15:42)
[2022-01-28] MEDS ORDERED: ATROPINE OPHTH SOLN 1% 5ML BTL SUBLINGUAL PRN (15:42)
[2022-01-28] MEDS ORDERED: LORazepam 2 MG/ML INJ IV PRN (15:42)
[2022-01-28] MEDS ORDERED: ACETAMINOPHEN TAB 325 MG TAB PO PRN (15:42)
[2022-01-28] MEDS ORDERED: HALOPERIDOL LACTATE 5 MG/ML 1 ML VIAL IM PRN (15:42)
[2022-01-28] MEDS ORDERED: MORPHINE SULFATE 2 MG/ML SYRINGE IV PRN (15:42)
[2022-01-28] MEDS ORDERED: ARTIFICIAL TEARS-HYPROMELLOSE DROPS 15 ML BTL BOTH EYES PRN (15:42)
[2022-01-28] MEDS ORDERED: ACETAMINOPHEN SUPPOSITORY 650 MG SUPP RECTAL PRN (15:42)
--- NOTE | 2022-01-28 15:46 | P.PN ---
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 Patient presented to the hospital on 01/22/22 secondary to generalized debility, weakness, and falls at home. Patient had fall in which he had to crawl inside his house resulting in multiple abrasions and bruising over body. Family was concerned due to patient's inability to care for himself and brought him into the emergency department for placement. Upon arrival to the hospital patient underwent full evaluation. CBC revealing mild leukocytosis with WBC count of 11.3, normocytic anemia with hemoglobin of 11.0, and mild thrombocytopenia with platelet count of 132. CMP revealing mild hypokalemia with potassium of 3.0 and slight elevation of liver enzymes with ALT is 66 and alkaline phosphatase of 134. Patient admitted under our services with consultation to case management for assistance with placement in [facility]. While awaiting insurance authorization for placment in rehab, the morning of 01/28/22 pt had sudden onset respiratory distress upon walking to and from restroom. Pt was not able to recover from this and was transferred to step down unit on BiPAP. Upon evaluation at bedside this morning around 9:30 AM, pt was on BiPAP and reported feeling mildly short of breath and improved after assistance sitting in upright position. Oxygen saturations were stable 94-95%. Pt's right lower extremity was noted to appear very pale and cold, no pulse palpated and doppler brought to bedside also unable to obtain pulse. Left lower extremity slightly cool to touch, however coloration and circulation intact at this time pulse unable to be palpated but posterior tibial pulse was obtained via doppler to LLE at this time. Orders placed for a stat CBC, CMP, troponin, and d-dimer as well as CTA of right lower extremity. Consults placed and immediately spoke with vascular surgery and supervisor solder making. Dr. Camara also notified and discontinued Eliquis and starting pt on Heparin at this time. 11:45 AM: Labs remain pending, returned to bedside as I was informed by RN that CT revealed large circumferential pericardial effusion and patient now experiencing hypotension 70s systolic. Order placed for STAT Echocardiogram by Dr. Camara and Pulmonolgist/Direct Sales Consultant notified and orders were placed for transfer to the ICU at this time. Cardiology ADVANCE SCOUT also notified of STAT echo to ensure STAT read by manufacturing business analyst. Patient being given a 1 L bolus for treatment of hypotension and again the bedside to assess. It was at this time that pt's left lower extremity was also now pale and mottled with pulse no longer obtainable via doppler. Vascular surgeon, Dr. Palafox now at bedside assessing. Pt being transferred to ICU and care transferred to Dr. Camara. Vital signs reviewed and stable. General: Nontoxic, no distress and appears stated age. Derm: Skin warm and dry, normal coloration for ethnicity. Onur dressing right lower extremity and Kerlix dressing to left lower extremity. Head: Atraumatic, normocephalic and symmetric. Eyes: EOMs intact, no lid lag, and anicteric sclera Mouth: no lip lesions, mucus membranes moist Cardiovascular: regular rate and rhythm with normal S1S2, systolic murmur, positive posterior tibial pulses bilaterally, and cap refill < 2 seconds. Lungs: Respirations even, regular, and unlabored on room air. Lungs CTA bilaterally, no rhonchi, no rales, no wheezing, and no accessory muscle usage. Abdominal: soft, nontender to palpation, no guarding, no appreciable organomegaly Ext: No gross muscle atrophy, 1-2+ pitting bilateral lower extremity edema, no contractures. right lower extremity pale, cold, and no pulse via palpation or Doppler was noted. Neuro: Speech clear, face symmetrical and CN II-XII grossly intact with no noted focal neuro deficits Psych: Alert and oriented to person, place, time, and situation. Appropriate and pleasant affect. Assessment and Plan of Care: Acute right lower extremity ischemia -CTA with runoff to be completed -Eliquis was discontinued and pt was started on Heparin infusion. -Vascular surgeon notified and to bedside to assess Acute respiratory failure with hypoxia -Continue BiPAP -Repeat chest x-ray -We will plan for CTA chest to evaluate for possible PE in 1-2 days as patient required IV contrast to assess for arterial occlusion of right lower extremity due to signs of ischemia and inability to obtain pulses via Doppler -D-dimer, troponin, and BNP pending. -Pulmonology consulted Debility and generalized weakness Frequent falls -PT and OT was following with initial plans for SNF. Orthopnea -Repeat chest x-ray completed revealing stable bilateral infiltrate and pleural effusion greater on the left. Hypokalemia -Replaced. Repeat BMP showing resolution of hypokalemia with potassium of 3.6. Leukocytosis -completed antibiotic treatment with doxycycline on 01/27/22 Normocytic anemia -Appears at baseline. Likely related to multiple myeloma. No active signs of bleeding. Continue to monitor. GERD -GI prophylaxis with Protonix Insomnia -Trial of Ambien. Chronic conditions: History of PE, multiple myeloma -Hematology/oncology on board. -Eliquis discontinued and patient started on heparin infusion secondary to acute right lower extremity ischemia Cellulitis left lower extremity -Patient completed course of doxycycline on the evening of 01/27/22 CODE STATUS: Full code DVT prophylaxis: Eliquis Discussed with: Patient and RN, patient's , vascular surgery, pulmonology, cardiology, and hematology/oncology Anticipated discharge date: due to acute ischemia of right lower extremity and acute respiratory failure with hypoxia, clinical course to determine Anticipated discharge place: prognosis poor, clinical course to determine. A total of 50 minutes was spent on the care of this complex patient more than 50% of the time was spent in counseling and care coordination. See my independent note for care I rendered for same date. Lauren Camara Objective - Vital Signs Vital signs: Vital Signs Temp 97.7 F 01/28/22 06:50 Pulse 75 01/28/22 06:50 Resp 26 H 01/28/22 06:50 BP 127/69 01/28/22 06:50 Pulse Ox 94 L 01/28/22 06:50 FiO2 Intake & Output 01/27/22 01/28/22 01/28/22 18:59 06:59 18:59 Intake Total 1180 Output Total 300 Balance 880 Weight 96 kg Intake: Oral 1180 Output: Urine 300 Other: Voiding Method Urinal # Voids 1 # Bowel Movements 1 - Labs CBC & Chem 7: 01/28/22 10:36 01/28/22 10:36
[2022-01-28] MEDS ORDERED: MORPHINE SULFATE (100 MG/2 ML) 100 MG in SODIUM CHLORIDE 0.9% 100 ML IV SCH (16:30)
[2022-01-28 16:58] LABS: Appearance,Urine Cloudy (Clear); Bilirubin,Urine Negative (Negative); Blood,Urine Large (Negative); Color,Urine Light Red; Glucose,Urine (UA) Negative (Negative); Ketones,Urine Negative (Negative); Leukocyte Esterase,Urine Negative (Negative); Mucus,Urine Rare /hpf; Nitrite,Urine Negative (Negative); PH, Urine 5.5 (5.0-8.0); Protein,Urine 1+ (Negative); RBC,Urine 66 /hpf (0-5); Specific Gravity,Urine 1.017 (1.001-1.035); Squamous Epithelial Cell,Urine <1 /hpf (0-4); Urobilinogen,Urine <2.0 mg/dL (<2.0); WBC,Urine 2 /hpf (0-5)
--- NOTE | 2022-01-28 18:21 | CA ---
Transthoracic Echo Report Name: Cas West Age: 71 Gender: M : 1950 Exam Date: 01/28/2022 13:18 Exam Location: [facility] Ht (in): 73 Wt (lb): 211 Ordering Physician: Lauren Camara DO Attending/Referring Phys: [id number], Jax [employer] Operations Officer Katty Becerril, NATALIIA Procedure CPT: Indications: pericardial effusion Cardiac Hx: Hx of pleural effusion drainige Technical Quality: Technically difficult study Contrast 1: Total Dose (mL): Contrast 2: Total Dose (mL): MEASUREMENTS (Male / Female) Normal Values 2D ECHO LV Diastolic Diameter PLAX 4.0 cm 4.2 - 5.9 / 3.9 - 5.3 cm LV Systolic Diameter PLAX 3.6 cm IVS Diastolic Thickness 1.6 cm 0.6 - 1.0 / 0.6 - 0.9 cm LVPW Diastolic Thickness 1.4 cm 0.6 - 1.0 / 0.6 - 0.9 cm LV Relative Wall Thickness 0.7 RV Internal Dim ED PLAX 2.6 cm M-MODE Aortic Root Diameter MM 3.8 cm DOPPLER AV Peak Velocity 136.3 cm/s AV Peak Gradient 7.4 mmHg AV Mean Velocity 119.7 cm/s AV Mean Gradient 7.4 mmHg AV Velocity Time Integral 26.0 cm MV Area PHT 2.2 cm??? Mitral E Point Velocity 38.4 cm/s Mitral A Point Velocity 73.9 cm/s Mitral E to A Ratio 0.5 MV Deceleration Time 337.4 ms MV E' Velocity 5.6 cm/s Mitral E to MV E' Ratio 6.9 FINDINGS Left Ventricle Left ventricular ejection fraction is estimated at 55-60 %. Left ventricular cavity size normal. Moderate concentric left ventricular hypertrophy. Right Ventricle Normal right ventricular size. Unable to estimate the right ventricular systolic pressure. Right Atrium Right atrium not well visualized. Left Atrium Left atrium not well visualized. Mitral Valve Mitral valve not well visualized. Aortic Valve Aortic valve not well visualized. Tricuspid Valve Tricuspid valve not well visualized. Pulmonic Valve Pulmonic valve not well visualized. Pericardium Moderate to large pericardial effusion. Pericardial effusion filled with fibrous strands. No evidence of right ventricular collapse Aorta Mild aortic dilatation at the level of the sinuses of valsalva 38 mm CONCLUSIONS 1. Normal left ventricle size and systolic function 2. Moderate to large pericardial effusion with no evidence of right ventricular collapse Lumason ECHO contrast used for improved visualization of the endocardial borders (inadequate visualization of two or more contiguous segments). Technically difficult study. Previewed by: Dr. Yoel Blue MD (Electronically Signed) Final Date: 28 January 2022 18:20
[2022-01-28 18:39] VITALS: BP 68/37; PULSE 49; RESP 0
[2022-01-28] MEDS ORDERED: FORMOTEROL FUMARATE 20 MCG/2 ML NEBU INHALATION SCH (20:00)
[2022-01-28] MEDS ORDERED: BUDESONIDE 1 MG/2 ML NEBU INHALATION SCH (20:00)
--- NOTE | 2022-01-29 15:15 | P.DS ---
Providers Date of admission: 01/22/22 21:57 Expected date of discharge: 01/28/22 Attending physician: Asmita Dunham MD Consults: 01/23/22 09:38 Consult Physician Routine Consulting Provider: Nilay Sue Consult Reason/Comments: Multiple myeloma Do you want consulting provider notified?: Yes 01/28/22 08:29 Consult Physician Urgent Consulting Provider: Garrett Quinteros Consult Reason/Comments: resp dist w/ exertion was not able to recover req BIPAP Do you want consulting provider notified?: Yes 01/28/22 10:08 Consult Physician Urgent Consulting Provider: Ishmael Spencer Consult Reason/Comments: RLE unable to palpate perph pulse cold/pale Do you want consulting provider notified?: Yes 01/28/22 12:26 Consult Physician Urgent Consulting Provider: Jacques Chiu Consult Reason/Comments: percardial effusion Do you want consulting provider notified?: Yes 01/28/22 14:10 Consult Physician Routine Consulting Provider: Merly Liu Consult Reason/Comments: acute hepatitis Do you want consulting provider notified?: Yes Consult Physician Urgent Consulting Provider: Cornelia Phelps Consult Reason/Comments: FINESSE, got contrast today Do you want consulting provider notified?: Yes 01/28/22 14:14 Consult to Palliative Care Routine Consulting Provider: Radha Caroilna Consult Reason/Comments: GOC Do you want consulting provider notified?: Yes Primary care physician: Steve Leon Hospital Course: THIS IS NOT A DISCHARGE SUMMARY BUT A SUMMARY OF CARE, PT IS . TIME OF PRONOUNCED on 01/28/22 at 4:40 PM. Discharge Diagnosis: Multiple myeloma Acute right lower extremity ischemia Large pericardial effusioN Acute respiratory failure with hypoxia Acute renal failure Acute liver failure Coagulopathy Anion gap metabolic acidosis Hyperkalemia Hypoglycemia Hypothermia Hypotension Debility and generalized weakness Frequent falls Orthopnea History of PE and DVT was on anticoagulation with Eliquis Cellulitis left lower extremity. 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 Patient presented to the hospital on 01/22/22 secondary to generalized debility, weakness, and falls at home. Patient had fall in which he had to crawl inside his house resulting in multiple abrasions and bruising over body. Family was concerned due to patient's inability to care for himself and brought him into the emergency department for placement. Upon arrival to the hospital patient underwent full evaluation. CBC revealing mild leukocytosis with WBC count of 11.3, normocytic anemia with hemoglobin of 11.0, and mild thrombocytopenia with platelet count of 132. CMP revealing mild hypokalemia with potassium of 3.0 and slight elevation of liver enzymes with ALT is 66 and alkaline phosphatase of 134. Patient admitted under our services with consulta tion to case management for assistance with placement in snf facility for rehab. While awaiting insurance authorization for placment in rehab, the morning of 01/28/22 pt had sudden onset respiratory distress upon walking to and from restroom. Pt was not able to recover from this and was transferred to step down unit on BiPAP. Upon evaluation at bedside this morning around 9:30 AM, pt was on BiPAP and reported feeling mildly short of breath and improved after assistance sitting in upright position. Oxygen saturations were stable 94-95%. Pt's right lower extremity was noted to appear very pale and cold, no pulse palpated and doppler brought to bedside also unable to obtain pulse. Left lower extremity slightly cool to touch, however coloration and circulation intact at this time pulse unable to be palpated but posterior tibial pulse was obtained via doppler to LLE at this time. Orders placed for a stat CBC, CMP, troponin, and d-dimer as well as CTA of right lower extremity. Consults placed and immediately spoke with vascular surgery and cryptologic technician operator/analyst. Dr. Camara also notified and discontinued Eliquis and starting pt on Heparin at this time. 11:45 AM: Labs remain pending, returned to bedside as I was informed by RN that CT revealed large circumferential pericardial effusion and patient now experiencing hypotension 70s systolic. Order placed for STAT Echocardiogram by Dr. Camara and Pulmonolgist/Gaming Manager notified and orders were placed for transfer to the ICU at this time. Cardiology WORSHIP PASTOR also notified of STAT echo to ensure STAT read by call person. Patient being given a 1 L bolus for treatment of hypotension and again the bedside to assess. It was at this time that pt's left lower extremity was also now pale and mottled with pulse no longer obtainab le via doppler. Vascular surgeon, Dr. Palafox now at bedside assessing. Pt being transferred to ICU and care transferred to Dr. Camara. 12:[address] angiogram abdominal aorta with runoff completed revealing segmental occlusions of the left anterior and posterior distal tibial arteries just above the ankle joint with segmental distal anterior and posterior right tibial arteries high-grade stenosis. Several hyperdense masses demonstrated within the bilateral lower extremity suspicious for metastatic disease, can be seen with melanoma. Severe subcentimeter lytic foci demonstrated within the pelvic bones, proximal femurs, and vertebral bodies suspicious for metastatic disease and significant atrophy and fatty replacement of the right lower extremity. Small to moderate sized left pleural effusion with trace right pleural effusion and moderate sized pericardial effusion. 1:15 PM Echocardiogram completed at bedside in the ICU showing normal left ventricular size and systolic function with large pericardial effusion with no evidence of right ventricular collapse. 1:17 PM Upon arrival to ICU patient's labs resulting revealing significant leukocytosis with WBC count of 25.2, hemoglobin of 11.0, platelet count of 95, elevated coags with PT 24.6, INR 2.5, PTT 30.3, and d-dimer 5.16. CMP revealing sodium 132, potassium 5.6, chloride 97, a carbon dioxide of 10. CMP also revealing acute renal failure with BUN of 52, creatinine 3.12, and GFR of 19 as well as acute liver failure with AST of 1997, ALT 1704, and total bili of 6.3. Troponin elevated at 0.107 and pro-BMP was 1750. Patient was also noted to be hypoglycemic with blood glucose of 73. EKG then completed revealing sinus mechanism at 89 bpm with T-wave inversion in leads I as well as V3 through V6 and ST elevation in leads 2 and aVL. Patient's condition continued to deteriorate, patient becoming hypoxic on BiPAP, hypothermic, and hypotensive. Patient was being managed by Dr. Camara and ICU team at this time. Consult was placed to palliative/hospice care to evaluate to further discuss with patient and family poor prognosis. Palliative care with family at 3:43 PM and per family's wishes patient was made comfort care at this time. Patient with family at bedside. Time of pronounced on 01/28/22 at 4:40 PM. PATIENT , TIME OF PRONOUNCED ON 01/28/22 at 4:40 PM. Mychal Kim NP rendered care for this patient, reviewed the findings and plan as documented in the note above. Plan - Discharge Summary Discharge Rx Participant: Yes New Discharge Prescriptions: No Action Metoprolol Succinate [Toprol XL] 50 mg PO DAILY HYDROcodone/APAP 5-325MG [[place] 5-325] 1 tab PO Q6H PRN PRN Reason: Pain dexAMETHasone [Decadron] 20 mg PO FRSA Apixaban [Eliquis] 5 mg PO BID Budesonide-Formot 160-4.5 Mcg [Symbicort 160-4.5 Mcg Inhaler] 2 puff INHALATION RT-BID #1 each Furosemide [Lasix] 40 mg PO DAILY #30 tablet Doxycycline [Vibramycin] 100 mg PO BID 7 Days #14 capsule Discharge Medication List Apixaban [Eliquis] 5 mg PO BID 03/05/21 [History] HYDROcodone/APAP 5-325MG [[place] 5-325] 1 tab PO Q6H PRN 01/06/22 [History] Metoprolol Succinate [Toprol XL] 50 mg PO DAILY 01/06/22 [History] dexAMETHasone [Decadron] 20 mg PO FRSA 01/06/22 [History] Budesonide-Formot 160-4.5 Mcg [Symbicort 160-4.5 Mcg Inhaler] 2 puff INHALATION RT-BID #1 each 01/20/22 [Rx] Doxycycline [Vibramycin] 100 mg PO BID 7 Days #14 capsule 01/20/22 [Rx] Furosemide [Lasix] 40 mg PO DAILY #30 tablet 01/20/22 [Rx] Follow up Appointment(s)/Referral(s): Steve Leon MD [Primary Care Provider] - 1-2 days Activity/Diet/Wound Care/Special Instructions: Had a long discussion with patient and patient's regarding immunotherapy treatment. Patient and patient's are in agreement that immunotherapy treatment will be held while patient is in the snf facility for treatment/rehabilitation. Patient's stated that oncologist was in agreement with their decision stating patient needs to be stronger to receive this treatment. 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
== END 2022-01-28 19:24 | disposition expired | DRG 640 ==
LOC: EC 13:32 → 5NMEDONC 21:57 → 3SCARD 01-28 07:36 → 2SICU 01-28 14:50
PROVIDERS: ADMIT Internal Medicine; ATTEND Internal Medicine
PROC: 5A09357 Assistance with Respiratory Ventilation, Less than 24 Consecutive Hours, Continuous Positive Airway Pressure (ICD-10-PCS; principal; 2022-01-28)
DX: E87.6 Hypokalemia (principal); J96.01 Acute respiratory failure with hypoxia; K72.00 Acute and subacute hepatic failure without coma; I31.39 Other pericardial effusion (noninflammatory); C90.02 Multiple myeloma in relapse; E44.0 Moderate protein-calorie malnutrition; Z94.84 Stem cells transplant status; N17.8 Other acute kidney failure; D68.9 Coagulation defect, unspecified; I50.30 Unspecified diastolic (congestive) heart failure; L03.116 Cellulitis of left lower limb; I82.442 Acute embolism and thrombosis of left tibial vein; I87.1 Compression of vein; D69.6 Thrombocytopenia, unspecified; I70.223 Atherosclerosis of native arteries of extremities with rest pain, bilateral legs; N18.9 Chronic kidney disease, unspecified; D63.0 Anemia in neoplastic disease; Z51.5 Encounter for palliative care; Z66 Do not resuscitate; E87.20 Acidosis, unspecified; R62.7 Adult failure to thrive; I95.9 Hypotension, unspecified; G62.9 Polyneuropathy, unspecified; R23.8 Other skin changes; F17.210 Nicotine dependence, cigarettes, uncomplicated; R53.81 Other malaise; R29.6 Repeated falls; R74.8 Abnormal levels of other serum enzymes; M19.90 Unspecified osteoarthritis, unspecified site; S90.32XA Contusion of left foot, initial encounter; S90.31XA Contusion of right foot, initial encounter; R60.0 Localized edema; K21.9 Gastro-esophageal reflux disease without esophagitis; G47.00 Insomnia, unspecified; N14.11 Contrast-induced nephropathy; T50.8X5A Adverse effect of diagnostic agents, initial encounter; E87.5 Hyperkalemia; E16.2 Hypoglycemia, unspecified; M79.89 Other specified soft tissue disorders; W18.09XA Striking against other object with subsequent fall, initial encounter; Z74.2 Need for assistance at home and no other household member able to render care; Z96.652 Presence of left artificial knee joint; Y92.008 Other place in unspecified non-institutional (private) residence as the place of occurrence of the external cause; Z86.718 Personal history of other venous thrombosis and embolism; Z86.711 Personal history of pulmonary embolism; Z79.899 Other long term (current) drug therapy; Z79.01 Long term (current) use of anticoagulants; Z79.51 Long term (current) use of inhaled steroids; Z80.7 Family history of other malignant neoplasms of lymphoid, hematopoietic and related tissues; Z91.81 History of falling; Z85.828 Personal history of other malignant neoplasm of skin; Z68.27 Body mass index [BMI] 27.0-27.9, adult
CPT/HCPCS: 36415; 71045; 75635; 80048; 80053; 81001; 83735; 83880; 84132; 84484; 85025; 85027; 85379; 85610; 85730; 93306; 94640; 94660; 99285